=== PATIENT | female | born 1980 | race Caucasian/White ===

== ENCOUNTER 2022-12-29 11:05 | Outpatient (AMB) | payer OTHER, SELFPAY ==
--- NOTE | 2022-12-29 11:09 | A.OFFVIS_ITS ---
Intake Vital Signs 12/29/22 11:11 Height 5 ft 9 in Weight 311 lb 4.683 oz BMI 46.0 BP 130/88 Blood Pressure Location Lt radial Position Sitting Pulse 67 Pulse Source Pulse Oximeter Temp 98 F Temp Source Skin Pulse Oximetry (%) 97 Oxygen Delivery Method Room Air Intake Visit Reasons: RA Intake Note: New patient here for RA. Former patient of Dr. Back Roll Winder Required: No Accompanied by: Self / Same As Patient Allergies penicillin G Allergy (Verified 12/29/22 11:17) Unknown beef derived (bovine) Adverse Reaction (Mild, Verified 12/29/22 11:17) Vomiting Medication List - Last Reconciled 12/29/22 by Karson Uriostegui MD dulaglutide (Trulicity) mg subcut etanercept (Enbrel Mini) mg subcut fluoride (sodium) 1.1% (Denta 5000 Plus) appl PO insulin glargine-yfgn (Semglee (insulin glargine-yfgn) Pen) units subcut levothyroxine 112 mcg PO QAM ondansetron 4 mg PO ONCE PRN HPI HPI Comments History of Present Illness Details The patient presents for evaluation of her rheumatoid arthritis. She relates the onset of joint pains at age 5. She recalls being given pills when she was a child. Apparently there was some prednisone in that mix and she did gain substantial amounts of weight. She also recalls treatment with methotrexate. This caused significant nausea and she passed out so it was not resumed. She had been followed initially by Dr. Dupree in [place] and then Drs. Yeung and Shannan in [place]. Notes that we received indicated that she was on leflunomide 10 mg daily in 2020 but there were mild elevation of LFTs and she still had joint pain. In early 2021 she she was switched to Humira. That was not helpful and eventually she was put on Enbrel 50 mg once a week about a year ago. That has worked considerably better with no further swelling in the knees. She still has occasional pain in the hands and feet. There have been no adverse effects noted with the Enbrel. She does have some ibuprofen she takes occasionally. She had a fractured wrist in 2008 that required surgery. It is sometimes painful. She had a surgery on the right ankle when she was 12 years old. He does not know exactly why although there was deformity at the time. In recent years the left foot has been more painful than the right. [facility] Medical History (Updated 12/29/22 @ 16:04 by Karson Uriostegui MD) Cervical radiculopathy at C7 Obesity Sleep apnea Migraine JRA (juvenile rheumatoid arthritis) Hypothyroidism, unspecified Right knee pain [facility] Surgical History (Updated 12/29/22 @ 11:19 by LUIS EDUARDO Suarez) Hx of cholecystectomy Hx of section H/O left wrist surgery S/P foot surgery, right Family History (Updated 12/29/22 @ 11:20 by LUIS EDUARDO Suarez) Sister Rheumatoid arthritis Social History (Updated 12/29/22 @ 11:20 by LUIS EDUARDO Suarez) Household Members: Spouse Alcohol intake: never Patient Tobacco Use Status: Never used Tobacco Current occupational status: employed 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 Negative for appetite change, the fever, chills, malaise and fatigue Eyes Details: Occasional headache. Some ocular dryness. Negative for vision change, and dizziness ENT Details: Negative for hearing change, tinnitus, oral ulcer, nose bleeds and oral dryness. Card Details: Negative chest pain, edema and syncope Resp Details: Negative for SOB, cough and wheezing GI Details: Negative indigestion/heartburn, nausea, abdominal pain, bowel changes, diarrhea, constipation and bloody stool. Details: Negative for dysuria, hematuria, nocturia, decreased force/flow and genital discharge Skin/Breast Details: Negative for itching, rash, hives, Raynaud's symptoms, sun sensitivity, and skin cancer Neuro Details: Negative for epilepsy, palsy, stroke, changes in speech, tingling and weakness Psych Details: Negative for anxiety, depression and stress Endo Details: Negative for polyuria and polydypsia Arjun/Lymph Details: Negative for excessive bruising or bleeding. Physical Exam Vital Signs: Last Vital Signs Temp 98 F 12/29/22 11:11 Pulse 67 12/29/22 11:11 BP 130/88 12/29/22 11:11 Pulse Ox 97 12/29/22 11:11 Oxygen Delivery Method Room Air 12/29/22 11:11 BMI result Body Mass Index 46.0 APPEARANCE: Patient in no acute distress EYES no redness, pupils equal and reactive to light, eyelids normal EARS: External ear normal, canal clear and tympanic membrane normal. NOSE/SINUS: Airflow through both nares, no nasal discharge, no bleeding THROAT: Oral mucosa moist, no ulcerations NECK: No thyromegaly or masses, no adenopathy, trachea midline. HEART: Regulrar rhythm, S1-S2 heard, no murmurs, rubs or gallops. LUNG: Clear to percussion and auscultation ABD: Normal bowel sounds, no organomegaly, masses or tenderness. EXTREMITIES: No edema, no calf tenderness, normal peripheral pulses. NEURO: Oriented and alert x3. No focal weakness. Reflexes symmetric. Gait normal. SKIN: No inflammatory or neoplastic lesions. Normal color and turgor JOINT EXAM:.?? Cervical Spine: Mild discomfort with extremes of rotation. No tenderness. Thoracic Spine:.? No scoliosis.? No tenderness on palpation. Lumbar Spine:.? Alignment normal.? Full range of motion without pain, no tenderness. Chest Wall:.? No tenderness, swelling, increased warmth or erythema. Hands:.? Right: There is mild soft tissue swelling across the 1st 3 MCP joints but none are tender today. No other areas of tenderness or swelling. No thenar atrophy or sensory loss. Left: Mild soft tissue swelling without tenderness across the MCP joints. Otherwise the joints have normal pain-free range of motion without tenderness, swelling, increased warmth or erythema. Able to make a full fist and has a good lobster catcher strength. Wrists: Left: Mild pain with flexion extension at 75 degrees. There is a large scar at the wrist from previous surgery that seems well healed. There is mild tenderness in the wrist. No redness or warmth. Right:? Normal pain-free range of motion without tenderness, swelling, increased warmth or erythema. Elbows: Right: She lacks about 40 degrees of full extension at the elbow. She flexes normally. There is no tenderness or swelling however. Left:. Normal pain-free range of motion without tenderness, swelling, increased warmth or erythema. Shoulders:.?? Full range of motion without pain. No tenderness, weakness, swelling, increased warmth or erythema. Hips:.? Full range of motion without pain. Hip bursa:.? No tenderness. Knees:.??There is mild patellofemoral crepitus but no pain with normal range motion of the knees. There is slight valgus deformity in both knees there is no effusion, redness, or swelling. Ankles: Right: Slight discomfort with normal AP motion. She has no inversion or eversion possible. There is mild medial lateral tenderness without swelling. There is some degree of valgus deformity at the ankle. Left:.? Normal range of motion with pain at the extremes with inversion, eversion, or AP motion. Mild tenderness with slight swelling but no increased warmth or erythema. Feet:.? Right: Mild tenderness in the instep and in the 1st 2 MTP joints. Slight soft tissue swelling in the forefoot. No redness or warmth. Left: Mild tenderness in the instep and across all the MTP joints. No redness or warmth. Tender points:? No tenderness to digital palpation at the occiput, trapezius, second rib, lateral epicondyle, knees, greater trochanter and gluteal area bilaterally. ? Results Reviewed Results Reviewed: RESULT: MRI Joint Ext Lower W+W/O Contrast Left [facility] VISIT NUMBER :[id number] Patient Name: Liudmila Durán Date of : 1980 Date of Exam: 06-16-2021 Referring Physician: Halley Back [address] [place] [address] Exam: MR Foot (C-/C+) CPT 32836 - Left Room Description: Aaron Rios Espr 1.5 MRI FOOT LEFT WITH AND WITHOUT CONTRAST History: Constant medial top foot pain for several years, injured foot during a fall several years ago. History of seronegative rheumatoid arthritis, on leflunomide. Rule out synovitis, erosion. Technique: MR of the left foot (centered at the mid to forefoot) was performed with and without intravenous contrast. 20 cc of Dotarem was administered intravenously. Comparison: 02/16/2021 FINDINGS: BONES: Mild medial hallux sesamoiditis. Otherwise, no focal marrow edema. No evidence of discrete erosion, fracture, or marrow replacing lesion. Mild calcaneocuboid hypertrophic changes. MUSCLES/SUBCUTANEOUS TISSUES: Intrinsic musculature of the foot demonstrates normal bulk and signal characteristics. Trace fluid in first, second, and third intermetatarsal bursa without associated enhancement or surrounding edema. No evidence of joint effusion. Visualized flexor and extensor tendons appear intact. No tenosynovitis. Partially visualized plantar fascia is normal in thickness and signal. IMPRESSION: No MR evidence of rheumatoid arthritis. Minimal calcaneocuboid osteoarthritis. Mild first-third intermetatarsal bursal fluid without significant inflammation on postcontrast images. I, Kendrick Green, have reviewed the images and report and concur with the resident, Ubaldo Carpenters, findings. Electronically Signed By: Kendrick Green MD Reason For Exam Rule out synovitis and erosions;Rule out synovitis and erosions Signature Line Dictated By: Kendrick Green MD Dictated Date/Time: 06/16/21 3:45 pm Reviewed By: Kendrick Green MD Signed By: Kendrick Green MD Signed Date/Time: 06/16/21 3:45 pm Transcribed By: BRET Transcribed Date/Time: 06/16/21 3:45 pm RESULT: Foot Min 3 Views Right Foot Min 3 Views Right, 3 views Reason: rheumatoid arthritis COMPARISON: 01/17/2008 FINDINGS: No radiographic evidence for inflammatory arthropathy. Tibiotalar, hindfoot and midfoot osteoarthritis with joint space narrowing, subchondral sclerosis and osteophyte formation. IMPRESSION: No radiographic evidence for inflammatory arthropathy. Tibiotalar, midfoot and hindfoot osteoarthritis. WSN: [id number] Ordering Physician: Vanessa Back Reason For Exam rheumatoid arthritis RESULT: Foot Min 3 Views Left Foot Min 3 Views Left, 3 views HISTORY: Rheumatoid arthritis. COMPARISON: Radiographs 06/24/2015. FINDINGS: In the medial aspect of the talar head, at the level of the talonavicular joint there is evidence of periarticular osteopenia and mild juxta-articular erosion. In the lateral aspect of the fourth metatarsal base there may be a small additional focus of juxtaarticular erosion. Normal proximal interphalangeal joints, metatarsophalangeal joint and retrocalcaneal region without evidence of juxta-articular erosions or periarticular osteopenia. Mild midfoot and hindfoot osteoarthritis. No evidence for acute fracture or dislocation. Probable trace ankle effusion. IMPRESSION: Mild inflammatory arthropathy changes affecting the medial talar head and possibly the fourth metatarsal base. No evidence of involvement of the proximal interphalangeal joints, metatarsophalangeal joints, or calcaneus. Mild osteoarthritic changes in the midfoot and hindfoot. I have personally reviewed the images and I agree with this report. 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 Her disease has mostly been asymmetric. There apparently had been deformity in the right footbut she also recalls an injury. This eventually needed to be operated on. She seems to have a fusion at the subtalar joint at this point with no inversion or eversion possible. There is actually more tenderness and discomfort now in the left foot. This probably represents secondary osteoarthritis and or still some ongoing inflammation. She did have repeated aspirates of the knees, usually showing inflammatory fluid and there is no fluid in excess today and they are not tender. I think we should continue the Enbrel for now. She was encouraged to lose weight. Clearly the lower extremity joints are under increased pressure given her obesity and may not last as long if she remains this heavy. We will check some inflammatory markers and CBC today. Follow-up in 4-5 months seems reasonable. Orders: Orders Erythrocyte Sedimentation Rate Today M06.9 - Rheumatoid arthritis, unspecified Complete Blood Count Auto Diff Today M06.9 - Rheumatoid arthritis, unspecified Cyclic Citrullinated Peptide Today M06.9 - Rheumatoid arthritis, unspecified C Reactive Protein Today M06.9 - Rheumatoid arthritis, unspecified Rheumatoid Factor Today M06.9 - Rheumatoid arthritis, unspecified Coding Level of Care Code New Pt Level 3 (78028) Diagnoses On [facility] drug [facility] Z79.899 Osteoarthritis of foot, right M19.071 Rheumatoid arthritis M06.9
[2022-12-29 11:11] VITALS: BP 130/88; PULSE 67; TEMP 36.6; O2SAT 97; BMI 46.0
== END 2022-12-29 11:57 | disposition home or self-care (01) ==
PROVIDERS: PCP Internal Medicine; Visit Provider Internal Medicine Rheumatology
DX: Z79.899 Other long term (current) drug therapy (principal); M19.071 Primary osteoarthritis, right ankle and foot; M06.9 Rheumatoid arthritis, unspecified
CPT/HCPCS: 99203

== ENCOUNTER → 2022-12-29 11:05 | Outpatient (BNVA) | payer OTHER, SELFPAY | PROVIDERS: PCP Internal Medicine; Visit Provider Internal Medicine Rheumatology ==

== ENCOUNTER 2022-12-29 12:01 | Outpatient (REF) | payer OTHER, SELFPAY ==
[2022-12-29 13:44] LABS: C Reactive Protein 1.46 mg/dL (< or = 0.50)
[2022-12-29 13:49] LABS: Rheumatoid Factor < 13.0 IU/mL (<15.0)
[2022-12-29 13:52] LABS: Basophils Percent Auto 0.4 % (0-2); Eosinophils Absolute Auto 0.2 X10*3/uL (0.0-0.4); Eosinophils Percent Auto 2.8 % (0-4); Hematocrit 37.1 % (37.0-47.0); Hemoglobin 12.4 g/dl (12.0-16.0); Imm Gran Abs Auto 0.07 X10*3/uL (0.00-0.03); Imm Gran Pct Auto 0.8 % (0.0-0.4); Lymphocytes Absolute Auto 1.9 X10*3/uL (1.2-4.9); Lymphocytes Percent Auto 23.2 % (20-40); MANUAL DIFF FLAG SCAN; Mean Corpuscular HGB Conc 33.4 g/dl (31.0-35.0); Mean Corpuscular Hemoglobin 27.3 pg (27.0-33.0); Mean Corpuscular Volume 81.5 fL (80.0-98.0); Monocytes Absolute Auto 0.5 X10*3/uL (0.1-1.2); Monocytes Percent Auto 5.6 % (2-11); Neutrophils Absolute Auto 5.6 x10*3/uL (2.0-8.3); Neutrophils Percent Auto 67.2 % (45-73); PLT CLUMP 1; Red Blood Count 4.55 X10*6/uL (4.20-5.50); Red Cell Distribution Width 13.9 % (11.0-16.0); SCAN SMEAR FLAG 1
[2022-12-29 14:05] LABS: Erythrocyte Sedimentation Rate 6 MM/HR (0-20)
[2022-12-29 14:25] LABS: Platelet Count 160 X10*3/uL (160-400); White Blood Count 8.3 X10*3/uL (4.8-10.8)
[2022-12-29 14:26] LABS: SLIDE REVIEW VERIFIED
[2023-01-02 17:09] LABS: Cyclic Citrullinated Peptide <16 UNITS
== END 2022-12-29 12:02 | disposition home or self-care (01) ==
LOC: HO.10HDL 12:01
PROVIDERS: Visit Provider Internal Medicine Rheumatology
DX: M06.9 Rheumatoid arthritis, unspecified (principal)
CPT/HCPCS: 36415; 85025; 85652; 86140; 86200; 86431

== ENCOUNTER 2023-06-01 09:25 | Outpatient (AMB) | payer OTHER, SELFPAY ==
[2023-06-01 09:42] VITALS: BP 120/70; PULSE 91; TEMP 36.1; O2SAT 97; BMI 44.8
--- NOTE | 2023-06-01 09:42 | MHC.OFFVIS ---
Intake Vital Signs 06/01/23 09:42 Height 5 ft 9 in Weight 303 lb 9.224 oz BMI 44.8 BP 120/70 Blood Pressure Location Rt radial Position Sitting Pulse 91 Pulse Source Pulse Oximeter Temp 97 F Temp Source Skin Pulse Oximetry (%) 97 Oxygen Delivery Method Room Air Intake Visit Reasons: RA/5 months WELT BUT[employer] HAND may 2023 Intake Note: Patient last seen 12/29/[address] Uriostegui presents today for RA follow up and test results. c/o left knee swelling c/o left eye discomfort Would like rheum to handle Enbrel refills as opposed to PCP who was filling it until she saw rheum. 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 Nur 42yoF returns for her rheumatoid arthritis. She continues on Enbrel 50mg QW which she finds fairly effective. Today she has concerns for left knee pain and desires a cortisone injection. Her left knee has been bothersome for about a month now. Patient also reports that her eyes have been bothersome in the morning and she has not yet discussed with her primary care. She describes mild nonpurulent drainage, but denies eye pain and redness. Prior visit: 12/29/2022 She relates the onset of joint pains at age 5. She recalls being given pills when she was a child. Apparently there was some prednisone in that mix and she did gain substantial amounts of weight. She also recalls treatment with methotrexate. This caused significant nausea and she passed out so it was not resumed. She had been followed initially by Dr. Dupree in [place] and then Drs. Yeung and Shannan in [place]. Notes that we received indicated that she was on leflunomide 10 mg daily in 2020 but there were mild elevation of LFTs and she still had joint pain. In early 2021 she she was switched to Humira. That was not helpful and eventually she was put on Enbrel 50 mg once a week about a year ago. That has worked considerably better with no further swelling in the knees. She still has occasional pain in the hands and feet. There have been no adverse effects noted with the Enbrel. She does have some ibuprofen she takes occasionally. She had a fractured wrist in 2008 that required surgery. It is sometimes painful. She had a surgery on the right ankle when she was 12 years old. He does not know exactly why although there was deformity at the time. In recent years the left foot has been more painful than the right. [facility], [facility] Medical History (Updated 06/01/23 @ 11:33 by JOSE Snider) Left knee pain Cervical radiculopathy at C7 Obesity Sleep apnea Migraine JRA (juvenile rheumatoid arthritis) Hypothyroidism, unspecified Right knee pain On computer terminal operator drug therapy Surgical History Hx of cholecystectomy Hx of section H/O left wrist surgery S/P foot surgery, right Family History Sister Rheumatoid arthritis Social History Household Members: Spouse Alcohol intake: never Patient Tobacco Use Status: Never used Tobacco Current occupational status: employed 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 NOSE/SINUS: Airflow through both nares, no nasal discharge, no bleeding THROAT: Oral mucosa moist, no ulcerations NECK: No thyromegaly or masses, no adenopathy, trachea midline. HEART: Regular rhythm, S1-S2 heard, no murmurs, rubs or gallops. LUNG: Clear to percussion and auscultation EXTREMITIES: No edema, no calf tenderness, normal peripheral pulses. NEURO: Oriented and alert x3. No focal weakness. Reflexes symmetric. Gait normal. SKIN: No inflammatory or neoplastic lesions. Normal color and turgor JOINT EXAM:.?? Cervical Spine: Mild discomfort with extremes of rotation. No tenderness. Thoracic Spine:.? No scoliosis.? No tenderness on palpation. Lumbar Spine:.? Alignment normal.? Full range of motion without pain, no tenderness. Chest Wall:.? No tenderness, swelling, increased warmth or erythema. Hands:.? Right: There is no mild soft tissue swelling across the 1st 3 MCP joints as on prior visit. No other areas of tenderness or swelling. No thenar atrophy or sensory loss. Left: Mild soft tissue swelling without tenderness across the MCP joints. Otherwise the joints have normal pain-free range of motion without tenderness, swelling, increased warmth or erythema. Able to make a full fist and has a good tailercpa strength. Wrists: Left: Mild pain with flexion extension at 75 degrees. There is a large scar at the wrist from previous surgery that seems well healed. There is mild tenderness in the wrist. No redness or warmth. Right:? Normal pain-free range of motion without tenderness, swelling, increased warmth or erythema. Elbows: Right: She lacks about 40 degrees of full extension at the elbow. She flexes normally. There is no tenderness or swelling however. Left:. Normal pain-free range of motion without tenderness, swelling, increased warmth or erythema. Shoulders:.?? Full range of motion without pain. No tenderness, weakness, swelling, increased warmth or erythema. Hips:.? Full range of motion without pain. Hip bursa:.? No tenderness. Knees:.??Left Knee is warm. There is mild patellofemoral crepitus but no pain with normal range motion of the knees. There is slight valgus deformity in both knees there is no effusion, redness, or swelling. Ankles: Right: Slight discomfort with normal AP motion. She has no inversion or eversion possible. There is mild medial lateral tenderness without swelling. There is some degree of valgus deformity at the ankle. Left:.? Normal range of motion with pain at the extremes with inversion, eversion, or AP motion. Mild tenderness with slight swelling but no increased warmth or erythema. Feet:.? Right: Mild tenderness in the instep and in the 1st 2 MTP joints. Slight soft tissue swelling in the forefoot. No redness or warmth. Left: Mild tenderness in the instep and across all the MTP joints. No redness or warmth. Tender points:? No tenderness to digital palpation at the occiput, trapezius, second rib, lateral epicondyle, knees, greater trochanter and gluteal area bilaterally. ? Results Reviewed Results Reviewed: RESULT: MRI Joint Ext Lower W+W/O Contrast Left [facility] VISIT NUMBER :[id number] Patient Name: Liudmila Durán Date of : 1980 Date of Exam: 06-16-2021 Referring Physician: Halley Back [address] [place] [address] Exam: MR Foot (C-/C+) CPT 17808 - Left Room Description: Aaron Rios Espr 1.5 MRI FOOT LEFT WITH AND WITHOUT CONTRAST History: Constant medial top foot pain for several years, injured foot during a fall several years ago. History of seronegative rheumatoid arthritis, on leflunomide. Rule out synovitis, erosion. Technique: MR of the left foot (centered at the mid to forefoot) was performed with and without intravenous contrast. 20 cc of Dotarem was administered intravenously. Comparison: 02/16/2021 FINDINGS: BONES: Mild medial hallux sesamoiditis. Otherwise, no focal marrow edema. No evidence of discrete erosion, fracture, or marrow replacing lesion. Mild calcaneocuboid hypertrophic changes. MUSCLES/SUBCUTANEOUS TISSUES: Intrinsic musculature of the foot demonstrates normal bulk and signal characteristics. Trace fluid in first, second, and third intermetatarsal bursa without associated enhancement or surrounding edema. No evidence of joint effusion. Visualized flexor and extensor tendons appear intact. No tenosynovitis. Partially visualized plantar fascia is normal in thickness and signal. IMPRESSION: No MR evidence of rheumatoid arthritis. Minimal calcaneocuboid osteoarthritis. Mild first-third intermetatarsal bursal fluid without significant inflammation on postcontrast images. I, Kendrick Green, have reviewed the images and report and concur with the resident, Ubaldo Carpenters, findings. Electronically Signed By: Kendrick Green MD Reason For Exam Rule out synovitis and erosions;Rule out synovitis and erosions Signature Line Dictated By: Kendrick Green MD Dictated Date/Time: 06/16/21 3:45 pm Reviewed By: Kendrick Green MD Signed By: Kendrick Green MD Signed Date/Time: 06/16/21 3:45 pm Transcribed By: BRET Transcribed Date/Time: 06/16/21 3:45 pm RESULT: Foot Min 3 Views Right Foot Min 3 Views Right, 3 views Reason: rheumatoid arthritis COMPARISON: 01/17/2008 FINDINGS: No radiographic evidence for inflammatory arthropathy. Tibiotalar, hindfoot and midfoot osteoarthritis with joint space narrowing, subchondral sclerosis and osteophyte formation. IMPRESSION: No radiographic evidence for inflammatory arthropathy. Tibiotalar, midfoot and hindfoot osteoarthritis. WSN: [id number] Ordering Physician: Vanessa Back Reason For Exam rheumatoid arthritis RESULT: Foot Min 3 Views Left Foot Min 3 Views Left, 3 views HISTORY: Rheumatoid arthritis. COMPARISON: Radiographs 06/24/2015. FINDINGS: In the medial aspect of the talar head, at the level of the talonavicular joint there is evidence of periarticular osteopenia and mild juxta-articular erosion. In the lateral aspect of the fourth metatarsal base there may be a small additional focus of juxtaarticular erosion. Normal proximal interphalangeal joints, metatarsophalangeal joint and retrocalcaneal region without evidence of juxta-articular erosions or periarticular osteopenia. Mild midfoot and hindfoot osteoarthritis. No evidence for acute fracture or dislocation. Probable trace ankle effusion. IMPRESSION: Mild inflammatory arthropathy changes affecting the medial talar head and possibly the fourth metatarsal base. No evidence of involvement of the proximal interphalangeal joints, metatarsophalangeal joints, or calcaneus. Mild osteoarthritic changes in the midfoot and hindfoot. I have personally reviewed the images and I agree with this report. WSN: [id number] Assessment & Plan Assessment & Plan (1) On fci drug therapy: Code(s): Z79.899 - Other computer terminal operator (current) drug therapy (2) Osteoarthritis of foot, right: Comment: prob due to DOROTEO and old injury; also had surgery Code(s): M19.071 - Primary osteoarthritis, right ankle and foot Qualifiers: Osteoarthritis type: primary Qualified Code(s): M19.071 - Primary osteoarthritis, right ankle and foot (3) Rheumatoid arthritis: Code(s): M06.9 - Rheumatoid arthritis, unspecified Qualifiers: Rheumatoid arthritis location: multiple sites Rheumatoid factor presence: without rheumatoid factor Qualified Code(s): M06.09 - Rheumatoid arthritis without rheumatoid factor, multiple sites (4) Left knee pain: Code(s): M25.562 - Pain in left knee Qualifiers: Chronicity: chronic Qualified Code(s): M25.562 - Pain in left knee; G89.29 - Other chronic pain Plan #SeroNeg RA/OA: Ms. Nur has longstanding, since childhood, rheumatoid arthritis. Her disease has mostly been asymmetric. There apparently had been deformity in the right foot but she also recalls an injury. This eventually needed to be operated on. She seems to have a fusion at the subtalar joint at this point with no inversion or eversion possible. There is actually more tenderness and discomfort now in the left foot. This probably represents secondary osteoarthritis and or still some ongoing inflammation. She did have repeated aspirates of the knees, usually showing inflammatory fluid and there is no fluid in excess today and they are not tender. I think we should continue the Enbrel for now. We continue to encouraged her to lose weight. Clearly the lower extremity joints are under increased pressure given her obesity and may not last as long if she remains this heavy. We will check some inflammatory markers and CBC today and 1 week before next visit. I have also requested PA and sent RX for Enbrel to take over management. #Left Knee Pain: There is pain and warmth. I think a corticosteroid injection is reasonable. She tolerated the procedure well. 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 Patient understands to hold Enbrel if she develops fever, infections, non-healing wounds, rashes. Follow-up in 4 Orders: Orders Erythrocyte Sedimentation Rate Today M06.9 - Rheumatoid arthritis, unspecified Comprehensive Met. Panel Today M06.9 - Rheumatoid arthritis, unspecified C Reactive Protein 6 Months M06.9 - Rheumatoid arthritis, unspecified Complete Blood Count Auto Diff 6 Months M06.9 - Rheumatoid arthritis, unspecified, Z79.899 - Other fci (current) drug therapy Aspartate Amino Transferase 6 Months M06.9 - Rheumatoid arthritis, unspecified, Z79.899 - Other computer terminal operator (current) drug therapy AMB Joint Injection/Aspiration Today M06.9 - Rheumatoid arthritis, unspecified, M25.562 - Pain in left knee Complete Blood Count Auto Diff Today M06.9 - Rheumatoid arthritis, unspecified C Reactive Protein Today M06.9 - Rheumatoid arthritis, unspecified Erythrocyte Sedimentation Rate 6 Months M06.9 - Rheumatoid arthritis, unspecified Alanine Aminotransferase 6 Months M06.9 - Rheumatoid arthritis, unspecified, Z79.899 - Other fci (current) drug therapy Creatinine 6 Months M06.9 - Rheumatoid arthritis, unspecified, Z79.899 - Other computer terminal operator (current) drug therapy Medications: Changed From etanercept (Enbrel Mini) subcut M06.9 - Rheumatoid arthritis, unspecified To etanercept (Enbrel Mini) 50 mg subcut QWEEK 4 mL 3RF M06.9 - Rheumatoid arthritis, unspecified Coding Level of Care Code Tele Est Pt Level 3 (96707) Diagnoses On fci drug therapy Z79.899 Primary osteoarthritis of right foot M19.071 Osteoarthritis type: primary Rheumatoid arthritis of multiple sites with negative rheumatoid factor M06.09 Rheumatoid arthritis location: multiple sites Rheumatoid factor presence: without rheumatoid factor Chronic pain of left knee M25.562; G89.29 Chronicity: chronic
== END 2023-06-01 10:39 | disposition home or self-care (01) ==
PROVIDERS: PCP Internal Medicine; Visit Provider Nurse Practitioner Family
DX: Z79.899 Other long term (current) drug therapy (principal); M19.071 Primary osteoarthritis, right ankle and foot; M06.09 Rheumatoid arthritis without rheumatoid factor, multiple sites; M25.562 Pain in left knee; G89.29 Other chronic pain
CPT/HCPCS: 99213

== ENCOUNTER → 2023-06-01 09:25 | Outpatient (BNVA) | payer OTHER, SELFPAY | PROVIDERS: PCP Internal Medicine; Visit Provider Nurse Practitioner Family ==

== ENCOUNTER 2023-12-29 09:08 | Outpatient (REF) | payer OTHER, SELFPAY ==
--- NOTE | ~2023-12-29 | XR_ITS ---
EXAMINATION: XR SACRUM AND COCCYX, LUMBAR SPINE CLINICAL INFORMATION: Low back pain for 8 months, no injury. COMPARISON: None available. TECHNIQUE: 5 views of the lumbar spine. 3 views of the sacrum/coccyx. FINDINGS: Lumbar Spine: Facet arthritis in the lower lumbar spine. Moderate multilevel lumbar spondylosis. Moderate loss of disc space height and hypertrophic change at L1-L2. Jrwbckiv-cq-goxquo loss of disc space height and hypertrophic change at L5-S1. Mild grade 1 retrolisthesis of L4 on L5. Sacrum/Coccyx: Bilateral sacroiliac joints are maintained. Pubic symphysis is maintained. XR/XR sacrum coccyx min 2V IMPRESSION: 1. Moderate multilevel lumbar spondylosis. 2. Facet arthritis in the lower lumbar spine. 3. Hdzfsgbx-sa-nqezbm degenerative disc disease at L5-S1. Electronically signed by: Bethany New MD 02/06/2024 12:23 PM EDT
--- NOTE | ~2023-12-29 | XR_ITS ---
EXAMINATION: XR SACRUM AND COCCYX, LUMBAR SPINE CLINICAL INFORMATION: Low back pain for 8 months, no injury. COMPARISON: None available. TECHNIQUE: 5 views of the lumbar spine. 3 views of the sacrum/coccyx. FINDINGS: Lumbar Spine: Facet arthritis in the lower lumbar spine. Moderate multilevel lumbar spondylosis. Moderate loss of disc space height and hypertrophic change at L1-L2. Dxxypmhw-lb-dmdksw loss of disc space height and hypertrophic change at L5-S1. Mild grade 1 retrolisthesis of L4 on L5. Sacrum/Coccyx: Bilateral sacroiliac joints are maintained. Pubic symphysis is maintained. XR/XR lumbar spine 4V min IMPRESSION: 1. Moderate multilevel lumbar spondylosis. 2. Facet arthritis in the lower lumbar spine. 3. Xrfqbxyx-jw-aiubba degenerative disc disease at L5-S1. Electronically signed by: Bethany New MD 02/06/2024 12:23 PM EDT
== END 2023-12-29 09:09 | disposition home or self-care (01) ==
LOC: HO.XRAY 09:08
PROVIDERS: PCP Internal Medicine; Visit Provider Student in an Organized Health Care Education/Training Program
DX: M54.50 Low back pain, unspecified (principal); G89.29 Other chronic pain
CPT/HCPCS: 72110; 72220

== ENCOUNTER 2023-12-29 09:08 | Outpatient (AMB) | payer OTHER, SELFPAY ==
--- NOTE | 2023-12-29 09:18 | MHC.OFFVIS ---
Vital Signs 12/29/23 09:23 Height 5 ft 9 in Weight 306 lb 10.608 oz BMI 45.3 BP 124/72 Blood Pressure Location Lt brachial Position Sitting Pulse 79 Pulse Source Pulse Oximeter Pulse Oximetry (%) 97 Oxygen Delivery Method Room Air Intake Visit Reasons: RA/ Intake Note: Patient presents for RA. Allergies penicillin G Allergy (Verified 12/29/23 09:21) Unknown beef derived (bovine) Adverse Reaction (Mild, Verified 12/29/23 09:21) Vomiting Medication List - Last Reconciled 12/29/23 by Mariama Calderon MD Enbrel Mini (etanercept) 50 mg subcut QWEEK NS fluoride (sodium) 1.1% (Denta 5000 Plus) appl PO insulin glargine-yfgn (Semglee (insulin glargine-yfgn) Pen) units subcut levothyroxine 112 mcg PO QAM ondansetron 4 mg PO ONCE PRN semaglutide (Ozempic) 1 mg subcut QWEEK HPI Comments Details: This is a 43-year-old female with juvenile rheumatoid arthritis who presents follow-up. She remains on Enbrel regularly. She states that she has been having pain in her tailbone for the last 2 months or so. Her job is relatively physical. Her other joints have been doing relatively well. [facility] Medical History Left knee pain Cervical radiculopathy at C7 Obesity Sleep apnea Migraine JRA (juvenile rheumatoid arthritis) Hypothyroidism, unspecified Right knee pain On group home drug therapy Surgical History Hx of cholecystectomy Hx of section H/O left wrist surgery S/P foot surgery, right Family History Sister Rheumatoid arthritis Mother No problems noted. 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 Reproductive History Menstrual Total pregnancies: 2 Full term: 2 Review of Systems [facility] Reports back pain Physical Exam Vital Signs: Last Vital Signs Pulse 79 12/29/23 09:23 BP 124/72 12/29/23 09:23 Pulse Ox 97 12/29/23 09:23 Oxygen Delivery Method Room Air 12/29/23 09:23 BMI result Body Mass Index 45.3 Const General: cooperative, healthy appearing and comfortable Nutritional Appearance: obese morbidly obese Orientation/consciousness: patient oriented x3 Limitations: no limitations HEENT Head: Yes normocephalic and Yes atraumatic Mouth: moist mucous membranes Resp Effort & Inspection: normal respiratory effort and able to speak in complete sentences Auscultation: clear to auscultation bilaterally Cardio Rate: regular rate Rhythm: regular rhythm Skin General skin exam: no rashes or lesions noted Neuro General: patient oriented x3 Extrem Other: Mild tenderness to palpation in the tailbone area No active synovitis Positive straight leg raise test bilaterally Bilateral knee crepitus Results Reviewed Results Reviewed: Labs 12/2023 CRP 8 (<4) ESR 29 CBC and CMP unremarkable Assessment & Plan Assessment & Plan (1) Rheumatoid arthritis: Comment: -ve RF -ve CCP dx age 5 Prednisone for years MTX ineffective Leflunomide partially effective DC due to GI upset weakness Humira ineffective Enbrel approx 2021 effective Code(s): M06.9 - Rheumatoid arthritis, unspecified Category: Medical Qualifiers: Rheumatoid arthritis location: multiple sites Rheumatoid factor presence: without rheumatoid factor Qualified Code(s): M06.09 - Rheumatoid arthritis without rheumatoid factor, multiple sites Plan: This is a 43-year-old female with rheumatoid arthritis who presents for follow-up. She remains on Enbrel 50 mg once weekly. She is doing well overall with no active synovitis Inflammatory markers mildly elevated, can be related to obesity Continue with Enbrel 50 mg once weekly Labs before next visit in 6 months (2) Chronic lower back pain: Code(s): M54.50 - Low back pain, unspecified; G89.29 - Other chronic pain Category: Medical Qualifiers: Back pain laterality: midline Sciatica presence: without sciatica Qualified Code(s): M54.50 - Low back pain, unspecified; G89.29 - Other chronic pain Plan: Check x-rays Start PT (3) On terminal carman drug therapy: Code(s): Z79.899 - Other terminal carman (current) drug therapy Category: Medical Plan: Side effects of Enbrel were discussed with the patient in detail including increased risk of infection, demyelinating disease, reactivation of latent TB, possible increased risk of solid and skin tumors. Patient fully aware. Advised patient to seek medical care [place] if patient has an infection and advised patient to stop the medication until the infection is resolved. Plan I spent 30 minutes reviewing patient's chart, evaluating patient, ordering diagnostic workup, counseling patient and documenting in the chart Orders: Orders XR lumbar spine 4V min Today G89.29 - Other chronic pain, M54.50 - Low back pain, unspecified XR sacrum coccyx min 2V Today G89.29 - Other chronic pain, M54.50 - Low back pain, unspecified Comprehensive Met. Panel 6 Months M06.09 - Rheumatoid arthritis without rheumatoid factor, multiple sites Hepatitis A,B,C Profile 6 Months Z11.59 - Encounter for screening for other viral diseases PT Evaluation and Treatment Today M51.36 - Other intervertebral disc degeneration, lumbar region Complete Blood Count Auto Diff 6 Months M06.09 - Rheumatoid arthritis without rheumatoid factor, multiple sites C Reactive Protein 6 Months M06.09 - Rheumatoid arthritis without rheumatoid factor, multiple sites Erythrocyte Sedimentation Rate 6 Months M06.09 - Rheumatoid arthritis without rheumatoid factor, multiple sites T Spot TB 6 Months Z11.7 - Encounter for testing for latent tuberculosis infection Coding Level of Care Code Est Pt Level 4 (33116) Diagnoses Rheumatoid arthritis of multiple sites with negative rheumatoid factor M06.09 Rheumatoid arthritis location: multiple sites Rheumatoid factor presence: without rheumatoid factor Chronic midline low back pain without sciatica M54.50; G89.29 Back pain laterality: midline Sciatica presence: without sciatica On terminal carman drug therapy Z79.899
[2023-12-29 09:23] VITALS: BP 124/72; PULSE 79; O2SAT 97; BMI 45.3
== END 2023-12-29 09:53 | disposition home or self-care (01) ==
PROVIDERS: PCP Internal Medicine; Visit Provider Student in an Organized Health Care Education/Training Program
DX: M06.09 Rheumatoid arthritis without rheumatoid factor, multiple sites (principal); M54.50 Low back pain, unspecified; G89.29 Other chronic pain; Z79.899 Other long term (current) drug therapy
CPT/HCPCS: 99214

== ENCOUNTER 2024-03-14 12:54 | Outpatient (REF) | payer OTHER, SELFPAY ==
--- NOTE | ~2024-03-14 | MM_ITS ---
EXAMINATION: BONE DENSITOMETRY CLINICAL INDICATION: Long-term (current) use of systemic steroids. COMPARISON: This is the patient's baseline examination. TECHNIQUE: Using a [employer] DXA System (software version: 13.1) manufactured by [employer], dual-energy x-ray absorptiometry was performed of the lumbar spine and left hip. The images are of good technical quality. Based on ISCD (International Society for Clinical Densitometry) standards of reporting, Z-scores instead of T-scores are reported in this premenopausal woman. Summary results are attached. FINDINGS: LEFT FEMUR, NECK: BMD 1.071 g/cm2, T-score 0.2, Z-score 0.0, Z-score within expected range for age. LEFT FEMUR, TOTAL: BMD 1.231 g/cm2, T-score 1.8, Z-score 1.2, Z-score within expected range for age. AP SPINE L1-L4: BMD 1.425 g/cm2, T-score 2.0, Z-score 0.9, Z-score within expected range for age. IDENTIFIED RISK FACTORS: Rheumatoid arthritis, glucocorticoids (chronic), secondary osteoporosis (hyperthyroidism). HISTORY OF FRACTURE: None listed. MEDICATIONS: Multivitamin. MM/XR DEXA axial skeleton IMPRESSION: 1. DIAGNOSIS: Based on the lowest Z-score value of 0.0 in the femoral neck, the patient's bone density is within the expected range for age. 2. 10-YEAR FRACTURE RISK PREDICTION, FRAX: Not performed in this perimenopausal patient. 3. Treatment Recommendations: NOF guidelines recommend consideration for treatment in postmenopausal women and men age 50 and older presenting with the following: -A hip or vertebral (clinical or morphometric) fracture. -T-score less than or equal to -2.5 at the femoral neck or spine after appropriate evaluation to exclude secondary causes. -Low bone mass at the hip or spine and a 10-year fracture probability by FRAX of greater than or equal to 3% for hip fracture or greater than or equal to 20% for major osteoporotic fracture based on the [place] adapted WHO algorithm. 4. Other Recommendations: All treatment decisions require clinical judgment and consideration of individual patient factors, including patient preferences, comorbidities, previous drug use, risk factors not captured in the FRAX model (e.g. frailty, falls, vitamin D deficiency, increased bone turnover, interval significant decline in bone density) and possible under or overestimation of fracture risk by FRAX. FUTURE SCAN RECOMMENDATION: People with diagnosed cases of osteoporosis or at high risk for fracture should have regular bone mineral density tests. For patients eligible for Medicare, routine testing is allowed once every 2 years. The testing frequency can be increased to one year for patients who have rapidly progressing disease, those who are receiving or discontinuing medical therapy to restore bone mass, or have additional risk factors. Electronically signed by: Nic Olivas MD 03/15/2024 02:39 PM ALE[facility]CK
== END 2024-03-14 12:55 | disposition home or self-care (01) ==
LOC: HO.MAMMO 12:54
PROVIDERS: PCP Internal Medicine; Visit Provider Student in an Organized Health Care Education/Training Program
DX: Z13.820 Encounter for screening for osteoporosis (principal); Z79.52 Long term (current) use of systemic steroids
CPT/HCPCS: 77080

== ENCOUNTER 2024-10-04 12:44 | Outpatient (AMB) | payer OTHER, SELFPAY ==
[2024-10-04 13:10] VITALS: BP 124/78; PULSE 78; O2SAT 98; BMI 43.6
--- NOTE | 2024-10-04 13:10 | A.OFFVIS_ITS ---
Vital Signs 10/04/24 13:10 Height 5 ft 9 in Weight 295 lb 3.183 oz BMI 43.6 BP 124/78 Blood Pressure Location Lt brachial Position Sitting Pulse 78 Pulse Source Pulse Oximeter Pulse Oximetry (%) 98 Oxygen Delivery Method Room Air Intake Visit Reasons: RA Intake Note: Patient presents for follow up on RA/ Sciatica. Patient is requesting letter regarding medication. Allergies penicillin G Allergy (Verified 10/04/24 13:14) Unknown beef derived (bovine) Adverse Reaction (Mild, Verified 10/04/24 13:14) Vomiting Medication List - Last Reconciled 10/04/24 by Della Wolff MD insulin glargine-yfgn (Semglee (insulin glargine-yfgn) Pen) units subcut levothyroxine 112 mcg PO QAM ondansetron 4 mg PO ONCE PRN semaglutide (Ozempic) 1 mg subcut QWEEK HPI Comments Details: Patient is a 43 y.o. female with hypothyroidism, DM, polyarticular OA, and DOROTEO/seronegative here today for follow up Interval History: Patient last seen 12/29/[address] Calderon. Visit summary - Complained of back pain Today, - Still having back pain - Currently trying to lose weight with GLP1 - Having trouble with the Enbrel Mini Rheumatologic History: -ve RF -ve CCP dx age 5 Prednisone for years MTX ineffective Leflunomide partially effective DC due to GI upset weakness Humira ineffective Enbrel approx 2021 effective Current Rheumatology Medication(s): Enbrel mini 50mg SC every week PFSH Medical History Left knee pain Cervical radiculopathy at C7 Obesity Sleep apnea Migraine JRA (juvenile rheumatoid arthritis) Hypothyroidism, unspecified Right knee pain On skilled nursing drug therapy Surgical History Hx of cholecystectomy Hx of section H/O left wrist surgery S/P foot surgery, right Family History Sister Rheumatoid arthritis Mother No problems noted. 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 Review of Systems Const Details: Review of Systems Constitutional: Denies fever, chills, weight loss ENT: Denies vision changes, eye pain or eye redness, dental caries, dry mouth GI: Denies nausea, vomiting, diarrhea, abdominal pain, change in BM Pulm: Denies SOB, MUNOZ, hemoptysis, wheezing Cards: Denies chest pain, palpitations Skin: Denies Raynaud's, rash, nail changes, photosensitivity, [employer] SALES EXECUTIVE: Denies headaches, weakness, paresthesias, recurrent falls MSK: as per HPI All other systems reviewed and are unremarkable except noted above Physical Exam Vital Signs: Last Vital Signs Pulse 78 10/04/24 13:10 BP 124/78 10/04/24 13:10 Pulse Ox 98 10/04/24 13:10 Oxygen Delivery Method Room Air 10/04/24 13:10 BMI result Body Mass Index 43.6 Vital signs reviewed Physical Examination CONSTITUITIONAL Patient alert and cooperative. Well appearing and in no apparent painful distress HEENT Conjunctiva and sclera clear. No lymphadenopathy. CHEST/RESPIRATORY SYSTEM Normal respiratory effort and able to speak in complete sentences. Clear to auscultation bilaterally. No crackles, rales, rhonchi, wheezes heard. CARDIAC SYSTEM Regular rate and rhythm. S1 and S2 heard no murmurs. Radial pulses intact bilaterally MSK Hands * Able to make a fist. Few tender joints. No deformites Wrists * Right Wrist: Full ROM. 70 degrees of wrist flexion, 80 degrees of wrist extension. No swelling or TTP * Left Wrist: Full ROM. 70 degrees of wrist flexion, 80 degrees of wrist extension. No swelling or TTP Elbows * Right Elbow: Full ROM. No swelling or TTP. * Left Elbow: Full ROM. No swelling or TTP. Shoulders * Right shoulder: Full ROM. No swelling noted. * Left shoulder: Full ROM. No swelling noted. Hip bursa: Tenderness to palpation bilaterally Knees * Right knee: Full ROM. No swelling noted. TTP of the knee joint lie * Left knee: Full ROM. No swelling noted. TTP of the knee joint lie Ankles * Right ankle: Decreased ROM in the subtalar joint * Left ankle: Good ROM Feet * Right foot: Negative squeeze test * Left foot: Negative squeeze test Tender points? * No tenderness to palpation of the bilateral trapezius, supraspinatus, anterior costochondral junctions, bilateral suboccipital muscle insertions SKIN No rashes Results Reviewed Results Reviewed: Lab lucius labs reviewed Chronically elevated CRP unchanged AST/ALT normal Normal kidney function Assessment & Plan Assessment & Plan (1) Rheumatoid arthritis: Comment: -ve RF -ve CCP dx age 5 Prednisone for years MTX ineffective Leflunomide partially effective DC due to GI upset weakness Humira ineffective Enbrel approx 2021 effective Code(s): M06.9 - Rheumatoid arthritis, unspecified Category: Medical Qualifiers: Rheumatoid arthritis location: multiple sites Rheumatoid factor presence: without rheumatoid factor Qualified Code(s): M06.09 - Rheumatoid arthritis without rheumatoid factor, multiple sites Plan: #Seronegative RA Patient is a 43 y.o. female with seronegative RA here today for follow up. No evidence of synovitis today Patient having issues with the mini cartridge Plan - Enbrel sure click 50mg SC weekly - RTC 6 months - CBC, CMP, ESR, CRP (2) Chronic lower back pain: Code(s): M54.50 - Low back pain, unspecified; G89.29 - Other chronic pain Category: Medical Qualifiers: Back pain laterality: midline Sciatica presence: without sciatica Qualified Code(s): M54.50 - Low back pain, unspecified; G89.29 - Other chronic pain Plan: #Chronic lower back pain Send to pain management (3) Encounter for monitoring of etanercept therapy: Code(s): Z51.81 - Encounter for therapeutic drug level monitoring; Z79.620 - exterminator helper termite (current) use of immunosuppressive biologic Plan: #Long-term Use of TNF Inhibitors: Etanercept Discussed with the patient the benefits and risks of TNF inhibitors for the management of the rheumatic condition Benefits include reduce pain, maintenance of remission and reduction of flares as well as progression of the disease Risks include injection sites/infusion reactions, serious infections (such as bacterial infections, opportunistic infections), malignancy, delaminating syndromes, autoimmune phenomena, CHF exacerbations, palmar plantar psoriasis and cytopenias Recommended rotating injection sites, and holding medication during and for up to 1 week after resolution of a febrile illness or open skin wound Plan I spent 30 minutes reviewing the record and labs, taking a history, examining the patient, discussing the treatment plan, ordering diagnostic work up and documenting in the medical record Orders: Orders Complete Blood Count Auto Diff 6 Months M06.09 - Rheumatoid arthritis without rheumatoid factor, multiple sites Comprehensive Met. Panel 6 Months M06.09 - Rheumatoid arthritis without rheumatoid factor, multiple sites C Reactive Protein 6 Months M06.09 - Rheumatoid arthritis without rheumatoid factor, multiple sites Erythrocyte Sedimentation Rate 6 Months M06.09 - Rheumatoid arthritis without rheumatoid factor, multiple sites Referrals Pain Management Referral G89.29 - Other chronic pain, M54.50 - Low back pain, unspecified Medications: New etanercept (Enbrel SureClick) 50 mg subcut QWEEK 4 mL 5RF M06.09 - Rheumatoid arthritis without rheumatoid factor, multiple sites Discontinued Enbrel Mini (etanercept) Discontinued Reason: Doctor's Order 50 mg subcut QWEEK 4 mL 4RF NS M06.9 - Rheumatoid arthritis, unspecified Coding Level of Care Code Est Pt Level 4 (53152) Complex EM visit Add On G2211 Diagnoses Rheumatoid arthritis of multiple sites with negative rheumatoid factor M06.09 Rheumatoid arthritis location: multiple sites Rheumatoid factor presence: without rheumatoid factor Chronic midline low back pain without sciatica M54.50; G89.29 Back pain laterality: midline Sciatica presence: without sciatica Encounter for monitoring of etanercept therapy Z51.81; Z79.620
== END 2024-10-04 14:07 | disposition home or self-care (01) ==
LOC: HO.RHE 12:44
PROVIDERS: PCP Internal Medicine; Visit Provider Student in an Organized Health Care Education/Training Program
DX: M06.09 Rheumatoid arthritis without rheumatoid factor, multiple sites (principal); M54.50 Low back pain, unspecified; G89.29 Other chronic pain; Z51.81 Encounter for therapeutic drug level monitoring; Z79.620 Long term (current) use of immunosuppressive biologic
CPT/HCPCS: 99214; G2211

== ENCOUNTER 2024-10-24 14:42 | Outpatient (REF) | payer OTHER, SELFPAY ==
--- NOTE | ~2024-10-24 | XR_ITS ---
EXAMINATION: XR BILATERAL HIPS WITH AP PELVIS CLINICAL INFORMATION: M25.551 - Pain in right hip COMPARISON: None available. TECHNIQUE: AP and frog-leg lateral views of each hip. FINDINGS: Left hip: Joint space is congruent and not narrowed. There is mild bony convexity of the femoral head neck junction. No other abnormality. Right hip: Hip joint space is congruent without narrowing. There are no degenerative changes. XR/XR hips ALY min 3V IMPRESSION: Right hip demonstrates a small bony convexity at the femoral head-neck junction which could contribute to cam type femoral acetabular impingement. Left hip is unremarkable. Electronically signed by: Jayden Cortes MD 10/24/2024 05:42 PM EDT RP
== END 2024-10-24 14:43 | disposition home or self-care (01) ==
LOC: HO.XRAY 14:42
PROVIDERS: PCP Internal Medicine; Visit Provider Nurse Practitioner Family
DX: M47.817 Spondylosis without myelopathy or radiculopathy, lumbosacral region (principal); M54.50 Low back pain, unspecified; G89.29 Other chronic pain; M06.9 Rheumatoid arthritis, unspecified; E11.9 Type 2 diabetes mellitus without complications; M51.369 Other intervertebral disc degeneration, lumbar region without mention of lumbar back pain or lower extremity pain; E66.01 Morbid (severe) obesity due to excess calories; Z68.41 Body mass index [BMI] 40.0-44.9, adult; Z79.85 Long-term (current) use of injectable non-insulin antidiabetic drugs; Z79.899 Other long term (current) drug therapy; M25.551 Pain in right hip; M25.552 Pain in left hip
CPT/HCPCS: 73522

== ENCOUNTER 2024-10-24 14:42 | Outpatient (AMB) | payer OTHER, SELFPAY ==
--- NOTE | 2024-10-24 14:51 | MHC.OFFVIS ---
Vital Signs 10/24/24 14:55 Height 5 ft 9 in Weight 295 lb BMI 43.6 BP 140/83 H Blood Pressure Location Lt radial Position Sitting Pulse 100 Pulse Source Pulse Oximeter Pulse Oximetry (%) 97 Oxygen Delivery Method Room Air Intake Visit Reasons: LOW BACK PAIN Intake Note: Pain today 11/17 Veterinarian Required: No Accompanied by: Self / Same As Patient Allergies penicillin G Allergy (Verified 10/24/24 14:54) Unknown beef derived (bovine) Adverse Reaction (Mild, Verified 10/24/24 14:54) Vomiting HPI Comments Details: The patient is a 43-year-old female presenting with chronic low back pain. The pain has persisted for over a year without any specific inciting event and is primarily located in the lower back, radiating into the buttock area. X-rays have shown multilevel arthritis in the lumbar spine with moderate to marked loss of disc space, particularly at L5-S1, and a mild slippage at L4-L5. The patient also has a history of rheumatoid arthritis, diagnosed since the age of [age], and is currently managed with Enbrel. She reports a history of cervical radiculopathy and experiences occasional migraines. The patient has obstructive sleep apnea, previously managed with a CPAP machine, but it is no longer in use as per recent evaluations. She also has type 2 diabetes mellitus, which is well-controlled with an A1c of less than 6, and is currently on Ozempic for management. The patient reports fibromyalgia and experiences widespread body pain, including in the hands, hips and knees. She has undergone various interventions, including physical therapy, rn critical care, TENS unit , knee gel injections, right subtalar injections, shoulder, hands, and neck injections, and acupuncture, with limited relief. - Onset: Pain has been present for over a year. - Quality: Described as aching, sharp, throbbing, dull, sore, tiring and shooting. - Location: Primarily in the lower back, radiating to the buttock and occasionally to the left hip. - Exacerbating factors: Sitting worsens the pain, while standing and walking are less painful. - Relieving factors: Minimal relief with Voltaren gel and occasional ibuprofen use. - Interference: Pain interferes with daily activities, particularly sitting. - Affect: Pain is constant and impacts daily activities, causing fatigue. - Analgesia: Uses Voltaren gel and occasional ibuprofen for pain relief. - Adverse Effects: No significant adverse effects reported from current pain management regimen. - Activities of Daily Living: Pain affects ability to sit for prolonged periods, impacting work and daily tasks. - Aberrant Drug Related Behaviors: No aberrant behaviors reported; patient uses CBD edibles for sleep aid. Oswestry Low Back Pain Disability Score=26 [facility] Medical History Left knee pain Cervical radiculopathy at C7 Obesity Sleep apnea Migraine JRA (juvenile rheumatoid arthritis) Hypothyroidism, unspecified Right knee pain On senior care drug therapy Surgical History Hx of cholecystectomy Hx of section H/O left wrist surgery S/P foot surgery, right Family History Sister Rheumatoid arthritis Mother No problems noted. 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 Denies recent trauma, injury or falls. Reports widespread body pain, attributing it to fibromyalgia. - Neurological: Reports occasional migraines and cervical radiculopathy. Denies recent neurological deficits. - Respiratory: Denies current use of CPAP for obstructive sleep apnea. - Endocrine: Reports well-controlled diabetes with A1c less than 6. - General: Denies smoking and alcohol use. Reports regular coffee consumption. All systems reviewed & are unremarkable except as noted in HPI and below Physical Exam Vital Signs: Last Vital Signs Pulse 100 10/24/24 14:55 BP 140/83 H 10/24/24 14:55 Pulse Ox 97 10/24/24 14:55 Oxygen Delivery Method Room Air 10/24/24 14:55 BMI result Body Mass Index 43.6 General: Appears afebrile. Morbidly obese. Alert and oriented. Mood and affect appropriate. Follows and participates in conversation appropriately. Respiratory effort is unlabored. No cough. Able to transition from sit to stand unassisted. Ambulates with bilaterally normal heel strike and toe off. General: Yes no CVA tenderness Back/Spine/Pelvis Other: Limited lumbar ROM due to pain. Demonstrates 5/5 strength of quadriceps bilaterally as well as flexion/dorsiflexion of bilateral feet against resistance. 2+ pedal pulses bilaterally. Straight leg rise with dorsiflexion negative bilaterally. +1 patellar and achilles reflexes bilaterally. Facet loading test positive bilaterally. Brittney sign, Keith?s, Pelvic compression and Stinchfield tests are positive bilaterally. Mild groin pain with external hip rotations, left>right. alsalva maneuver negative. Multiple widespread TTPs 16/16 bilaterally, including upper and lower extremities. Back: no CVA tenderness Cervical Spine: cervical ROM normal, cervical muscular tenderness, pain with cervical ROM and No Cervical spine tenderness Thoracic/Lumbar Spine: thoracic and lumbar spine normal to inspection, No Thoracic/lumbar spine scar(s), Lasegue's sign negative, straight leg raise negative bilaterally, pain with thoraco-lumbar ROM, paraspinal muscle tenderness, thoraco-lumbar ROM limited, No thoracic spinal tenderness and lumbar spinal tenderness (L4-S1) Pelvis: buttock tenderness Sacroiliac joints: bilaterally tender to palpation Extrem General: Yes capillary refill normal, Yes no clubbing, cyanosis or edema and Yes no calf tenderness Results Reviewed Results Reviewed: XR SACRUM AND COCCYX, LUMBAR SPINE 12/28/24 CLINICAL INFORMATION: Low back pain for 8 months, no injury. COMPARISON: None available. TECHNIQUE: 5 views of the lumbar spine. 3 views of the sacrum/coccyx. FINDINGS: Lumbar Spine: Facet arthritis in the lower lumbar spine. Moderate multilevel lumbar spondylosis. Moderate loss of disc space height and hypertrophic change at L1-L2. Nvgnxvwi-pf-kebrul loss of disc space height and hypertrophic change at L5-S1. Mild grade 1 retrolisthesis of L4 on L5. Sacrum/Coccyx: Bilateral sacroiliac joints are maintained. Pubic symphysis is maintained. IMPRESSION: 1. Moderate multilevel lumbar spondylosis. 2. Facet arthritis in the lower lumbar spine. 3. Peensxhj-cz-sfaili degenerative disc disease at L5-S1. Assessment & Plan Assessment & Plan (1) Chronic lower back pain: Code(s): M54.50 - Low back pain, unspecified; G89.29 - Other chronic pain Category: Medical Qualifiers: Back pain laterality: midline Sciatica presence: without sciatica Qualified Code(s): M54.50 - Low back pain, unspecified; G89.29 - Other chronic pain (2) Lumbosacral spondylosis: Code(s): M47.817 - Spondylosis without myelopathy or radiculopathy, lumbosacral region Category: Medical (3) Lumbar degenerative disc disease: Code(s): M51.369 - Other intervertebral disc degeneration, lumbar region without mention of lumbar back pain or lower extremity pain Category: Medical (4) Bilateral hip pain: Code(s): M25.551 - Pain in right hip; M25.552 - Pain in left hip Category: Medical Plan Schedule diagnostic bilateral L3-L4 DR L5 medial branch blocks with local and fluoroscopy for potential RFA procedure. Given current BMI>40, patient is not candidate for peripheral nerve stimulation. Expectations, risks and benefits were reviewed. Patient is aware she will be contacted to schedule this procedure. Patient should continue using Voltaren gel and ibuprofen for pain relief as needed, ensuring not to overuse these medications to avoid adverse effects. Bilateral hip xray to assess for degree of arthritis and degenerative changes. I encouraged patient to remain physically active and consider CBT and aqua therapy for fibromyalgia management. All questions and concerns have been answered and patient agreed with the plan. Follow up after injections and sooner as needed. Patient was informed and verbally consented to the use of an ambient scribe for clinic note documentation during this visit. Orders: Orders XR hips ALY min 3V 10/24/24 M25.551 - Pain in right hip, M25.552 - Pain in left hip Medications: New lidocaine 5% 1 patch topically up to 12 hours per day to affected area 30 ea 0RF pain G89.29 - Other chronic pain, M47.817 - Spondylosis without myelopathy or radiculopathy, lumbosacral region, M54.50 - Low back pain, unspecified Coding Level of Care Code New Pt Level 4 (31691) Diagnoses Chronic midline low back pain without sciatica M54.50; G89.29 Back pain laterality: midline Sciatica presence: without sciatica Lumbosacral spondylosis M47.817 Lumbar degenerative disc disease M51.369 Bilateral hip pain M25.551; M25.552
[2024-10-24 14:55] VITALS: BP 140/83; PULSE 100; O2SAT 97; BMI 43.6
--- OUTSIDE RECORDS SUMMARY | 2024-10-24 15:26 | XMS_ITS | Clinical Summary ---
Author Organization [employer] Address [address] [place] [address] [address] [place] [address] Care Team Providers Care Driver/Refuse Collector Name Role Phone Tres Mckee LLD Unavailable Robe Alcazar RD Unavailable Allergies Active Allergy Reactions Criticality Noted Date Comments Beef (Bovine) Protein 05/03/2022 Gramineae Pollens 05/03/2022 Penicillins 05/03/2022 Medications levothyroxine (Synthroid, Levoxyl) 112 MCG tablet Take 112 mcg by mouth in the morning. 2 Active Trulicity 1.5 MG/0.5ML solution pen-injector INJECT 0.5ML UNDER THE SKIN ONCE EVERY 7 DAYS 2 Active Enbrel Mini 50 MG/ML injection 2 Active Sodium Fluoride (Sodium Fluoride 5000 Plus) 1.1 % creamIndication s:Risk for dental caries, high [place] with toothpaste for two minutes two times a day, spit out excess. Do not eat, drink, or rinse for 30 minutes. 112 g 9 3 Active Ozempic, 1 MG/DOSE, 4 MG/3ML solution pen-injector Inject 1 mg under the skin every 7 (seven) days. 4 Active Active Problems No known active problems Encounters Date Type Department Care Team Description 10/17/2024 3:30 PM EDT Office Visit [facility] [address] [place] [phone] Minerva Haque LLD 10/02/2024 3:45 PM EDT Office Visit [facility] [address] [place] [phone] Robe Alcazar [facility] 08/28/2024 3:30 PM EDT Office Visit [facility] [address] [place] [phone] Minerva Haque LLD from Last 3 Months Social History Tobacco Use Types Packs/Day Years Used Date Smoking Tobacco: Never Tobacco Cessation:Counseling Given: No Alcohol Use Standard Drinks/Week Comments Never 0 (1 standard drink = 0.6 oz pur e alcohol) Comments Unknown Sex and Gender Information Value Date Recorded Sex Assigned at Female 06/20/2022 7:52 AM EDT Legal Sex Female 8:40 PM EST Gender Identity Female 02/18/2022 8:40 PM EST Sexual Orientation Straight 02/18/2022 8: 40 PM EST Last Filed Vital Signs Vital Sign Reading Time Taken Comments Blood Pressure 123/80 10/17/2024 3:31 PM EDT Pulse 96 10/17/2024 3:31 PM EDT Temperature 36.8 C (98.3 F) 10/02/2024 3:48 PM EDT Respiratory Rate - - Oxygen Saturation - - Inhaled Oxygen Concentration - - Weight - - Height - - Body Mass Index - - Plan of Treatment Upcoming Encounters Date Type Department Care Team (Late st Contact Info) Description 11/11/2024 4:15 PM EDT Office Visit [facility] [address] [place] [phone] Minerva Haque LLD [address] [place] [address] 01/03/2025 3:45 PM EDT Office Visit [facility] [address] [place] [phone] [address] Health Maintenance Due Date Last Done Comments Dental Prophylaxis 1981 Depression Screening 1981 HIV Screening 1981 SDOH Screening 1981 Disability Screening 1981 Alcohol/Substance Use Screening 1993 Family Planning (PISQ) 1996 HPV Vaccines (1 - 3-dose series) 1996 Hepatitis C Screening 11/17/1999 Pap Smear 2002 Cervical Cancer Screening 11/17/2011 HPV/Cotest 11/17/2011 Dental X-Ray: Bitewings 10/10/2024 10/10/2023, 05/09 Influenza Vaccine (#1) 2024 , 02/15/2023, 02/12/2022, Additional history exists Tobacco Screening 01/03/2025 01/04/2024 Dental Oral Exam 04/04/2025 10/02/2024, 05/2023, 05/09/2022 Dental X-Ray: Full Mouth 05/10/2025 05/09/2022 Mammogram 01/09/2026 01/10/2024, 05/2023, 10/12/2021, Additional history exists Lipid Panel 09/17/2029 09/17/2024, 09/09/2022 Zoster Vaccines (2 of 2) 11/17/2031 06/03/2022, 02/08 DTaP/Tdap/Td Vaccines (4 - Td or Tdap) 09/24/2033 09/25/2023, 07/25/2013, 10/17/2005 RSV Patients and Patients Aged 60 years or older (1 - 1-dose 75+ series) 2056 IPV Vaccines Completed 11/21/1986, 05/11, 05/19/1982, Additional history exists Hepatitis B Vaccines Completed 03/27/2001, 12/19/1996, 11/11/1996 Pneumococcal Vaccine: Pediatrics (0 to 5 Years) and At-Risk Patients (6 to 49) Years Aged Out 03/13/2021, 03/16/2011 No longer eligibl e based on patient's age to complete this topic COVID-19 Vaccine Completed 01/05/2024, 03/2023, 02/12/2022, Additional history exists HIB Vaccines Aged Out No longer eligi ble based on patient's age to complete this topic Hepatitis A Vaccines Aged Out No long er eligible based on patient's age to complete this topic Meningococcal B Vaccine Aged Out No l onger eligible based on patient's age to complete this topic Meningococcal Vaccine Aged Out No jojo estee eligible based on patient's age to complete this topic RSV under 20 months Aged Out No longe r eligible based on patient's age to complete this topic Rotavirus Vaccines Aged Out No longer eligible based on patient's age to complete this topic Procedures Procedure Name Priority Date/Time Associated Diagnosis Comments 19 MODB(V) RESIN-BASED COMPOSITE - 4+ SURF, POSTERIOR Routine 10/17/2024 3:30 PM EDT PERIODONTAL MAINTENANCE Routine 10/03/19 3:45 PM EDT PERIODIC ORAL EVALUATION - ESTABLISHED PATIENT Routine 10/02/2024 3:45 PM EDT 15 BB(V) RESIN-BASED COMPOSITE - 1 SURF, POSTERIOR Routine 08/28/2024 3:30 PM EDT BITEWINGS - 4 RADIOGRAPHIC IMAGES Routine 10/10/2023 2:00 PM EDT INTRAORAL - COMPLETE SERIES OF RADIOGRAPHIC IMAGES Routine 05/09/2022 8:30 AM EST Encounter for dental examination from Last 3 Months or Most Recently Relevant to Health Maintenance Insurance , [address] [place] [address] [place] [address] Care Teams Driver/Refuse Collector Relationship Specialty Start Date End Date Tres Mckee LLD [address] [place] [id number] Dentist 06/27/23 Robe Alcazar RDH [address] [place] [address] Dental Water Softener Installer 06/27/23
--- OUTSIDE RECORDS SUMMARY | 2024-10-24 15:26 | XMS_ITS | Data Portability ---
Author Organization [facility], , [facility] Address [address] [place] [address] Care Team Providers Care [employer] Offbearer Name Role Phone DIVYA GAN Primary Care Provider Assessment No assessment recorded. Plan of Treatment Reminders Order Date Submit Date Provider Last Modified By Organization Details Last Modified Time Details Appointments None recorded. Lab C-reactive protein, quantitati ve, serum or plasma 2021 [facility] (Centralized Electronic Ordering - All Locations), Patient Can Go To The Location Of Their Choice, [id number] 18:56:40 ESR (erythrocy te sedimentat ion rate), blood 2021 [facility] (Centralized Electronic Ordering - All Locations), Patient Can Go To The Location Of Their Choice, 12:29:16 CBC w/ auto diff 2021 [facility] (Centralized Electronic Ordering - All Locations), Patient Can Go To The Location Of Their Choice, 00:42:57 CMP, serum or plasma 2021 [place] (Centralized Electronic Ordering - All Locations), Patient Can Go To The Location Of Their Choice, 18:56:38 C-reactive protein, quantitati ve, serum or plasma 2021 [facility], [address] [place], [address], 18:31:41 CMP, serum or plasma 2021 [facility], [address] [facility], [place], [address], 18:31:39 ESR (erythrocy te sedimentat ion rate), blood 2021 [facility], [address] [facility], [place], [address], 17:00:14 CBC w/ auto diff 2021 [place] [facility] (Centralized Electronic Ordering - All Locations), Patient Can Go To The Location Of Their Choice, [id number] 16:11:06 Referral None recorded. Procedures None recorded. Surgeries None recorded. Imaging US, extremity, nonvascula r, limited - US of LLE, rule out Meadows cyst 2021 [facility] (Outpt Imaging), [address] [place], [address], 19:34:19 US, extremity, nonvascula r, limited - US of RLE , rule out Meadows cyst. 2021 022 [facility] (Outpt Imaging), [address] [place], [address], 19:34:19 MRI, lower extremity, w/o contrast - MRI of the left foot, with and without contrast, to rule out synovitis and erosions 2021 022 [facility] (Outpt Imaging), [address] [place], [address], 19:34:19 XR, knee, 3 view [email or web address] [place] [address] (Outpt Imaging), [address] [place], [address], 1 10:03:00 XR, hand 2020 021 [email or web address] [facility] (Outpt Imaging), [address], [place], [address], 10:03:00 XR, foot 2020 021 [facility] (Outpt Imaging), [address], [place], [address], 10:03:01 Medication Orders Enbrel SureClick 50 mg/mL (1 mL) subcutaneo us pen injector 2021 022 [email or web address] Not available 07:08:43 Humira(CF) Pen 40 mg/0.4 mL subcutaneo us kit 2020 021 [email or web address] [facility] [place], [address], 19:54:58 Patient TargetsNo targets recorded. Patient InstructionsNo instructions recorded. Reason for Referral None Reported. Results Created Date Observation Date Name Description Value Unit Range Abnormal Flag Note LastModifiedBy Organization Detail LastModifiedTime 01/23/2001/22/2021 COMPL ETE BLOOD COUNT WBC 8.0 K/mm3 (4.0-1 1.0) Not Available [facility] (Centralized Electronic Ordering - All Locations) Patient Can Go To The Location Of Their Choice, 01/22/2021 15:57:26 01/23/2001/22/2021 COMPL ETE BLOOD COUNT RBC 4.21 M/mm3 (4.20- 5.40) Not Available [facility] (Centralized Electronic Ordering - All Locations) Patient Can Go To The Location Of Their Choice, 01/22/2021 15:57:26 01/23/2001/22/2021 COMPL ETE BLOOD COUNT HGB 11.7 gm/dL (11.7- 15.5) Not Available [facility] (Centralized Electronic Ordering - All Locations) Patient Can Go To The Location Of Their Choice, 01/22/2021 15:57:26 01/23/2001/22/2021 COMPL ETE BLOOD COUNT HCT 36.3 % (35.7- 45.8) Not Available [facility] (Centralized Electronic Ordering - All Locations) Patient Can Go To The Location Of Their Choice, 01/22/2021 15:57:26 01/23/2001/22/2021 COMPL ETE BLOOD COUNT MCV 86.2 fL (80.0- 100.0) Not Available [facility] (Centralized Electronic Ordering - All Locations) Patient Can Go To The Location Of Their Choice, 01/22/2021 15:57:26 01/23/2001/22/2021 COMPL ETE BLOOD COUNT MCH 27.8 pg (27.0- 34.0) Not Available [facility] (Centralized Electronic Ordering - All Locations) Patient Can Go To The Location Of Their Choice, 01/22/2021 15:57:26 01/23/2001/22/2021 COMPL ETE BLOOD COUNT MCHC 32.2 g/dL (33.0- 37.0) low Not Available [facility] (Centralized Electronic Ordering - All Locations) Patient Can Go To The Location Of Their Choice, 01/22/2021 15:57:26 01/23/2001/22/2021 COMPL ETE BLOOD COUNT plt 235 K/mm3 (150-4 60) Not Available [facility] (Centralized Electronic Ordering - All Locations) Patient Can Go To The Location Of Their Choice, 01/22/2021 15:57:26 01/23/2001/22/2021 COMPL ETE BLOOD COUNT RDW-SD 43.2 fL (<47.0 ) Not Available [facility] (Centralized Electronic Ordering - All Locations) Patient Can Go To The Location Of Their Choice, 01/22/2021 15:57:26 01/23/2001/22/2021 COMPL ETE BLOOD COUNT MPV 11.6 fL (9.4-1 2.4) Not Available [facility] (Centralized Electronic Ordering - All Locations) Patient Can Go To The Location Of Their Choice, 01/22/2021 15:57:26 01/23/2001/22/2021 COMPL ETE BLOOD COUNT automated NRBC 0.0 #/100 _WBC' s Not Available [facility] (Centralized Electronic Ordering - All Locations) Patient Can Go To The Location Of Their Choice, 01/22/2021 15:57:26 01/23/2001/22/2021 COMPL ETE BLOOD COUNT abs. NRBC 0.0 K/mm3 Not Available [facility] (Centralized Electronic Ordering - All Locations) Patient Can Go To The Location Of Their Choice, 01/22/2021 15:57:26 01/23/2001/22/2021 SEDIM ENTAT ION RATE, AUTOM ATED sedimentatio n rate,automat ed 14 mm/HR (0-20) In rare patie nts with multi ple myelo ma and other cance rs,Er ythro cyte Sedim entat ion Rate( ESR) by our dougiee nt metho d(iSE D)can be hanane l. If clini constance relev ant,p lease use C-jessica ctive prote in as an equiv alent measu re of acute phase react ion in these patie nts. Not Available [facility] (Centralized Electronic Ordering - All Locations) Patient Can Go To The Location Of Their Choice, 01/22/2021 16:27:16 01/23/2001/22/2021 COMPR EHENS SUE METAB OLIC PANL glucose 84 mg/dL (70-99 ) Not Available [facility] (Centralized Electronic Ordering - All Locations) Patient Can Go To The Location Of Their Choice, 01/22/2021 17:56:06 01/23/2001/22/2021 COMPR EHENS SUE METAB OLIC PANL BUN 10 mg/dL (6-20) Not Available [facility] (Centralized Electronic Ordering - All Locations) Patient Can Go To The Location Of Their Choice, 01/22/2021 17:56:06 01/23/2001/22/2021 COMPR EHENS SUE METAB OLIC PANL creatinine 0.5 mg/dL (0.5-1 .0) Not Available [facility] (Centralized Electronic Ordering - All Locations) Patient Can Go To The Location Of Their Choice, 01/22/2021 17:56:06 01/23/2001/22/2021 COMPR EHENS SUE METAB OLIC PANL sodium 139 mmol/ L (133-1 45) Not Available [facility] (Centralized Electronic Ordering - All Locations) Patient Can Go To The Location Of Their Choice, 01/22/2021 17:56:06 01/23/2001/22/2021 COMPR EHENS SUE METAB OLIC PANL potassium 4.1 mmol/ L (3.6-5 .2) Not Available [facility] (Centralized Electronic Ordering - All Locations) Patient Can Go To The Location Of Their Choice, 01/22/2021 17:56:06 01/23/2001/22/2021 COMPR EHENS SUE METAB OLIC PANL chloride 103 mmol/ L (98-10 7) Not Available [facility] (Centralized Electronic Ordering - All Locations) Patient Can Go To The Location Of Their Choice, 01/22/2021 17:56:06 01/23/2001/22/2021 COMPR EHENS SUE METAB OLIC PANL bicarbonate 25 mmol/ L (22-29 ) Not Available [facility] (Centralized Electronic Ordering - All Locations) Patient Can Go To The Location Of Their Choice, 01/22/2021 17:56:06 01/23/2001/22/2021 COMPR EHENS SUE METAB OLIC PANL anion gap 11 (4-17) Not Available [facility] (Centralized Electronic Ordering - All Locations) Patient Can Go To The Location Of Their Choice, 01/22/2021 17:56:06 01/23/2001/22/2021 COMPR EHENS SUE METAB OLIC PANL albumin 4.2 gm/dL (3.4-4 .8) Not Available [facility] (Centralized Electronic Ordering - All Locations) Patient Can Go To The Location Of Their Choice, 01/22/2021 17:56:06 01/23/2001/22/2021 COMPR EHENS SUE METAB OLIC PANL calcium 9.0 mg/dL (8.6-1 0.5) Not Available [facility] (Centralized Electronic Ordering - All Locations) Patient Can Go To The Location Of Their Choice, 01/22/2021 17:56:06 01/23/2001/22/2021 COMPR EHENS SUE METAB OLIC PANL bilirubin,to denis 0.3 mg/dL (0-1.2 ) Not Available [facility] (Centralized Electronic Ordering - All Locations) Patient Can Go To The Location Of Their Choice, 01/22/2021 17:56:06 01/23/2001/22/2021 COMPR EHENS SUE METAB OLIC PANL total protein 6.5 gm/dL (6.2-8 .2) Not Available [facility] (Centralized Electronic Ordering - All Locations) Patient Can Go To The Location Of Their Choice, 01/22/2021 17:56:06 01/23/2001/22/2021 COMPR EHENS SUE METAB OLIC PANL Ag ratio 1.8 Not Available [facility] (Centralized Electronic Ordering - All Locations) Patient Can Go To The Location Of Their Choice, 01/22/2021 17:56:06 01/23/2001/22/2021 COMPR EHENS SUE METAB OLIC PANL AST 17 U/L (0-32) Not Available [facility] (Centralized Electronic Ordering - All Locations) Patient Can Go To The Location Of Their Choice, 01/22/2021 17:56:06 01/23/2001/22/2021 COMPR EHENS SUE METAB OLIC PANL alk phos 84 U/L (35-10 4) Not Available [facility] (Centralized Electronic Ordering - All Locations) Patient Can Go To The Location Of Their Choice, 01/22/2021 17:56:06 01/23/2001/22/2021 COMPR EHENS SUE METAB OLIC PANL ALT 19 U/L (0-33) Not Available [facility] (Centralized Electronic Ordering - All Locations) Patient Can Go To The Location Of Their Choice, 01/22/2021 17:56:06 01/23/2001/22/2021 COMPR EHENS SUE METAB OLIC PANL estimated GFR creatinine 119 mL/mi n/1.7 3_M2 Effec tive 2020, race modif iers will no longe r be inclu ded in our creat inine -base d CKD-E PI eGFR calcu latio ns. Accor dingl y, eGFR lab repor t descr iptor s (i.e. , EST GFR NON AFRIC AN AMERI CAN, EST GFR AFRIC AN AMERI CAN) will be disco ntinu ed. Pleas e take this into accou nt when utili zing creat inine -base d formu latio ns to diagn ose and manag e chron ic kidne y disea se. Creat inine based estim ated glome rular filtr ation rate (eGFR ) is calcu lated using the Chron ic Kidne y Disea se Epide miolo gy Colla borat ion (CKD- EPI). The CKD-E PI calcu latio n is not valid ated in child vernon (<18 years ), pregn ant woman or in racia l or ethni c subgr oups. Not Available [facility] (Centralized Electronic Ordering - All Locations) Patient Can Go To The Location Of Their Choice, 01/22/2021 17:56:06 01/23/2001/22/2021 C-JESSICA CTIVE PROTE IN C-reactive protein 1.4 mg/dL (0-0.5 ) high Not Available [facility] (Centralized Electronic Ordering - All Locations) Patient Can Go To The Location Of Their Choice, 01/22/2021 17:56:08 01/23/2001/26/2021 QUANT IFERO N 1 TUBE qtb gold plus result NEGATI VE Refer ence range : NEGAT SUE (NOTE ) Negat sue test resul t. M. tuber culos is compl ex infec tion unlik kaitlin. Not Available [facility] (Centralized Electronic Ordering - All Locations) Patient Can Go To The Location Of Their Choice, 01/26/2021 14:43:30 01/23/2001/26/2021 QUANT IFERO N 1 TUBE nil result 0.04 Unit: IU/mL Not Available [facility] (Centralized Electronic Ordering - All Locations) Patient Can Go To The Location Of Their Choice, 01/26/2021 14:43:30 01/23/2001/26/2021 QUANT IFERO N 1 TUBE mitogen minus nil result >10.00 Unit: IU/mL Not Available [facility] (Centralized Electronic Ordering - All Locations) Patient Can Go To The Location Of Their Choice, 01/26/2021 14:43:30 01/23/2001/26/2021 QUANT IFERO N 1 TUBE TB1 Ag minus nil result 0.00 Unit: IU/mL Not Available [facility] (Centralized Electronic Ordering - All Locations) Patient Can Go To The Location Of Their Choice, 01/26/2021 14:43:30 01/23/2001/26/2021 QUANT IFERO N 1 TUBE TB2 Ag minus nil result 0.00 Unit: IU/mL (NOTE ) = The Nil tube value refle cts the backg round inter feron gamma immun e respo nse of the patie nt's blood sampl e. This value has been subtr acted from the patie nt's displ ayed TB and Mitog en resul ts. = Lower than expec roseann resul ts with the Mitog en tube preve nt false -nega tive Quant ifero n readi ngs by detec ting a patie nt with a poten tial immun e suppr essiv e condi tion and/o r subop timal pre-a nalyt ical speci men handl ing. = The TB1 Antig en tube is coate d with the M. tuber culos is-sp ecifi c antig ens desig courtney to elici t respo nses from TB antig en prime d CD4+ helpe r T-lym phocy tracy. = The TB2 Antig en tube is coate d with the M. tuber culos is-sp ecifi c antig ens desig courtney to elici t respo nses from TB antig en prime d CD4+ helpe r and CD8+ cytot oxic T-lym phocy tracy. = For addit ional infor javier bell e refer to https ://ed ucati on.qu estdi Eve. com/f aq/FA Q204 (This link is being provi ded for infor yolie rosado/ educa donita l purpo ses only. ) = Test Perfo rmed by: [facility], [address] [place]. [address] . Labor atory Direc tor: She crowell MD. Not Available [facility] (Centralized Electronic Ordering - All Locations) Patient Can Go To The Location Of Their Choice, 01/26/2021 14:43:30 09/16/19 22 09/15/2021 COMPL ETE BLOOD COUNT WBC 11.0 K/mm3 (4.0-1 1.0) Not Available [facility] (Centralized Electronic Ordering - All Locations) Patient Can Go To The Location Of Their Choice, 09/15/2021 16:11:09/16/19 22 09/15/2021 COMPL ETE BLOOD COUNT RBC 4.59 M/mm3 (4.20- 5.40) Not Available [facility] (Centralized Electronic Ordering - All Locations) Patient Can Go To The Location Of Their Choice, 09/15/2021 16:11:09/16/1909/15/2021 COMPL ETE BLOOD COUNT HGB 11.7 gm/dL (11.7- 15.5) Not Available [facility] (Centralized Electronic Ordering - All Locations) Patient Can Go To The Location Of Their Choice, 09/15/2021 16:11:09/16/1909/15/2021 COMPL ETE BLOOD COUNT HCT 38.3 % (35.7- 45.8) Not Available [facility] (Centralized Electronic Ordering - All Locations) Patient Can Go To The Location Of Their Choice, 09/15/2021 16:11:09/16/1909/15/2021 COMPL ETE BLOOD COUNT MCV 83.4 fL (80.0- 100.0) Not Available [facility] (Centralized Electronic Ordering - All Locations) Patient Can Go To The Location Of Their Choice, 09/15/2021 16:11:09/16/1909/15/2021 COMPL ETE BLOOD COUNT MCH 25.5 pg (27.0- 34.0) low Not Available [facility] ([facility]ized Electronic Ordering - All Locations) Patient Can Go To The Location Of Their Choice, 09/15/2021 16:11:09/16/1909/15/2021 COMPL ETE BLOOD COUNT MCHC 30.5 g/dL (33.0- 37.0) low Not Available [facility] (Centralized Electronic Ordering - All Locations) Patient Can Go To The Location Of Their Choice, 09/15/2021 16:11:09/16/1909/15/2021 COMPL ETE BLOOD COUNT plt 342 K/mm3 (150-4 60) Not Available [facility] ([facility]ized Electronic Ordering - All Locations) Patient Can Go To The Location Of Their Choice, 09/15/2021 16:11:06 09/16/19 22 09/15/2021 COMPL ETE BLOOD COUNT RDW-SD 43.3 fL (<47.0 ) Not Available [facility] ([facility]ized Electronic Ordering - All Locations) Patient Can Go To The Location Of Their Choice, 09/15/2021 16:11:06 09/16/19 22 09/15/2021 COMPL ETE BLOOD COUNT MPV 10.9 fL (9.4-1 2.4) Not Available [facility] ([facility]ized Electronic Ordering - All Locations) Patient Can Go To The Location Of Their Choice, 09/15/2021 16:11:06 09/16/19 22 09/15/2021 COMPL ETE BLOOD COUNT automated NRBC 0.0 #/100 _WBC' s Not Available [facility] ([facility]ized Electronic Ordering - All Locations) Patient Can Go To The Location Of Their Choice, 09/15/2021 16:11:06 09/16/19 22 09/15/2021 COMPL ETE BLOOD COUNT abs. NRBC 0.0 K/mm3 Not Available [facility] ([facility]ized Electronic Ordering - All Locations) Patient Can Go To The Location Of Their Choice, 09/15/2021 16:11:06 09/16/19 22 09/15/2021 SEDIM ENTAT ION RATE, AUTOM ATED sedimentatio n rate,automat ed 28 mm/HR (0-20) high Not Available [facility] ([facility] Order[facility] - All Locations) Patient Can Go To The Location Of Their Choice, 09/15/2021 17:00:13 09/16/19 22 09/15/2021 COMPR EHENS SUE METAB OLIC PANL glucose 108 mg/dL (70-99 ) high Not Available [facility] ([facility]ized Electronic Ordering - All Locations) Patient Can Go To The Location Of Their Choice, 09/15/2021 18:31:39 09/16/1909/15/2021 COMPR EHENS SUE METAB OLIC PANL BUN 13 mg/dL (6-20) Not Available [facility] ([facility]ized Electronic Ordering - All Locations) Patient Can Go To The Location Of Their Choice, 09/15/2021 18:31:39 09/16/1909/15/2021 COMPR EHENS SUE METAB OLIC PANL creatinine 0.7 mg/dL (0.5-1 .0) Not Available [facility] ([facility]ized Electronic Ordering - All Locations) Patient Can Go To The Location Of Their Choice, 09/15/2021 18:31:39 09/16/1909/15/2021 COMPR EHENS SUE METAB OLIC PANL sodium 138 mmol/ L (133-1 45) Not Available [facility] ([facility]ized Electronic Ordering - All Locations) Patient Can Go To The Location Of Their Choice, 09/15/2021 18:31:39 09/16/1909/15/2021 COMPR EHENS SUE METAB OLIC PANL potassium 3.9 mmol/ L (3.6-5 .2) Not Available [facility] ([facility]ized Electronic Ordering - All Locations) Patient Can Go To The Location Of Their Choice, 09/15/2021 18:31:39 09/16/1909/15/2021 COMPR EHENS SUE METAB OLIC PANL chloride 102 mmol/ L (98-10 7) Not Available [facility] ([facility]ized Electronic Ordering - All Locations) Patient Can Go To The Location Of Their Choice, 09/15/2021 18:31:39 09/16/1909/15/2021 COMPR EHENS SUE METAB OLIC PANL bicarbonate 26 mmol/ L (22-29 ) Not Available [facility] ([facility]ized Electronic Ordering - All Locations) Patient Can Go To The Location Of Their Choice, 09/15/2021 18:31:39 09/16/1909/15/2021 COMPR EHENS SUE METAB OLIC PANL anion gap 10 (4-17) Not Available [facility] ([facility]ized Electronic Ordering - All Locations) Patient Can Go To The Location Of Their Choice, 09/15/2021 18:31:39 09/16/1909/15/2021 COMPR EHENS SUE METAB OLIC PANL albumin 4.3 gm/dL (3.4-4 .8) Not Available [facility] ([facility]ized Electronic Ordering - All Locations) Patient Can Go To The Location Of Their Choice, 09/15/2021 18:31:39 09/16/1909/15/2021 COMPR EHENS SUE METAB OLIC PANL calcium 9.3 mg/dL (8.6-1 0.5) Not Available [facility] ([facility] Ordering - All Locations) Patient Can Go To The Location Of Their Choice, 09/15/2021 18:31:39 09/16/1909/15/2021 COMPR EHENS SUE METAB OLIC PANL bilirubin,to denis 0.3 mg/dL (0-1.2 ) Not Available [facility] ([facility]ized [facility] Ordering - All Locations) Patient Can Go To The Location Of Their Choice, 09/15/2021 18:31:39 09/16/1909/15/2021 COMPR EHENS SUE METAB OLIC PANL total protein 7.0 gm/dL (6.2-8 .2) Not Available [facility] ([facility]ized Electronic Ordering - All Locations) Patient Can Go To The Location Of Their Choice, 09/15/2021 18:31:39 09/16/1909/15/2021 COMPR EHENS SUE METAB OLIC PANL Ag ratio 1.6 Not Available [facility] ([facility]ized Electronic Ordering - All Locations) Patient Can Go To The Location Of Their Choice, 09/15/2021 18:31:39 09/16/1909/15/2021 COMPR EHENS SUE METAB OLIC PANL AST 12 U/L (0-32) Not Available [facility] ([facility]ized Electronic Ordering - All Locations) Patient Can Go To The Location Of Their Choice, 09/15/2021 18:31:39 09/16/1909/15/2021 COMPR EHENS SUE METAB OLIC PANL alk phos 92 U/L (35-10 4) Not Available [facility] ([facility]ized [facility] Ordering - All Locations) Patient Can Go To The Location Of Their Choice, 09/15/2021 18:31:39 09/16/1909/15/2021 COMPR EHENS SUE METAB OLIC PANL ALT 14 U/L (0-33) Not Available [facility] ([facility] Ordering - All Locations) Patient Can Go To The Location Of Their Choice, 09/15/2021 18:31:39 09/16/1909/15/2021 COMPR EHENS SUE METAB OLIC PANL estimated GFR creatinine 114 mL/mi n/1.7 3_M2 Creat inine based estim ated glome rular filtr ation (eGFR ) in adult s is calcu lated using the Natio nal Kidne y Found ation recom fariha d 2020 CKD-E PI equat ion. Estim ates GFR from serum creat inine , age and sex. Not Available [facility] (Centralized Electronic Ordering - All Locations) Patient Can Go To The Location Of Their Choice, 09/15/2021 18:31:39 09/16/1909/15/2021 C-JESSICA CTIVE PROTE IN C-reactive protein 2.1 mg/dL (0-0.5 ) high Not Available [facility] ([facility]ized Electronic Ordering - All Locations) Patient Can Go To The Location Of Their Choice, 09/15/2021 18:31:41 01/20/2001/19/2022 COMPR EHENS SUE METAB OLIC PANL glucose 91 mg/dL (70-99 ) Not Available [facility] ([facility]ized [facility] Ordering - All Locations) Patient Can Go To The Location Of Their Choice, 01/19/2022 18:56:38 01/20/2001/19/2022 COMPR EHENS SUE METAB OLIC PANL BUN 10 mg/dL (6-20) Not Available [facility] ([facility]ized [facility] Ordering - All Locations) Patient Can Go To The Location Of Their Choice, 01/19/2022 18:56:38 01/20/2001/19/2022 COMPR EHENS SUE METAB OLIC PANL creatinine 0.6 mg/dL (0.5-1 .0) Not Available [facility] ([facility]ized Electronic Ordering - All Locations) Patient Can Go To The Location Of Their Choice, 01/19/2022 18:56:38 01/20/2001/19/2022 COMPR EHENS SUE METAB OLIC PANL sodium 138 mmol/ L (133-1 45) Not Available [facility] ([facility]ized Electronic Ordering - All Locations) Patient Can Go To The Location Of Their Choice, 01/19/2022 18:56:38 01/20/2001/19/2022 COMPR EHENS SUE METAB OLIC PANL potassium 4.3 mmol/ L (3.6-5 .2) Not Available [facility] ([facility]ized Electronic Ordering - All Locations) Patient Can Go To The Location Of Their Choice, 01/19/2022 18:56:38 01/20/2001/19/2022 COMPR EHENS SUE METAB OLIC PANL chloride 101 mmol/ L (98-10 7) Not Available [facility] ([facility]ized Electronic Ordering - All Locations) Patient Can Go To The Location Of Their Choice, 01/19/2022 18:56:38 01/20/2001/19/2022 COMPR EHENS SUE METAB OLIC PANL bicarbonate 26 mmol/ L (22-29 ) Not Available [facility] ([facility]ized [facility] Ordering - All Locations) Patient Can Go To The Location Of Their Choice, 01/19/2022 18:56:38 01/20/2001/19/2022 COMPR EHENS SUE METAB OLIC PANL anion gap 11 (4-17) Not Available [facility] ([facility]ized Electronic Ordering - All Locations) Patient Can Go To The Location Of Their Choice, 01/19/2022 18:56:38 01/20/2001/19/2022 COMPR EHENS SUE METAB OLIC PANL albumin 4.6 gm/dL (3.4-4 .8) Not Available [facility] (Centralized Electronic Ordering - All Locations) Patient Can Go To The Location Of Their Choice, 01/19/2022 18:56:38 01/20/2001/19/2022 COMPR EHENS SUE METAB OLIC PANL calcium 9.5 mg/dL (8.6-1 0.5) Not Available [facility] ([facility]ized Electronic Ordering - All Locations) Patient Can Go To The Location Of Their Choice, 01/19/2022 18:56:38 01/20/2001/19/2022 COMPR EHENS SUE METAB OLIC PANL bilirubin,to denis 0.4 mg/dL (0-1.2 ) Not Available [facility] ([facility]ized Electronic Ordering - All Locations) Patient Can Go To The Location Of Their Choice, 01/19/2022 18:56:38 01/20/2001/19/2022 COMPR EHENS SUE METAB OLIC PANL total protein 7.2 gm/dL (6.2-8 .2) Not Available [facility] (Centralized Electronic Ordering - All Locations) Patient Can Go To The Location Of Their Choice, 01/19/2022 18:56:38 01/20/2001/19/2022 COMPR EHENS SUE METAB OLIC PANL Ag ratio 1.8 Not Available [facility] (Centralized Electronic Ordering - All Locations) Patient Can Go To The Location Of Their Choice, 01/19/2022 18:56:38 01/20/2001/19/2022 COMPR EHENS SUE METAB OLIC PANL AST 19 U/L (0-32) Not Available [facility] (Centralized Electronic Ordering - All Locations) Patient Can Go To The Location Of Their Choice, 01/19/2022 18:56:38 01/20/2001/19/2022 COMPR EHENS SUE METAB OLIC PANL alk phos 80 U/L (35-10 4) Not Available [facility] (Centralized Electronic Ordering - All Locations) Patient Can Go To The Location Of Their Choice, 01/19/2022 18:56:38 01/20/2001/19/2022 COMPR EHENS SUE METAB OLIC PANL ALT 20 U/L (0-33) Not Available [facility] (Centralized Electronic Ordering - All Locations) Patient Can Go To The Location Of Their Choice, 01/19/2022 18:56:38 01/20/2001/19/2022 COMPR EHENS SUE METAB OLIC PANL estimated GFR creatinine 117 mL/mi n/1.7 3_M2 Creat inine based estim ated glome rular filtr ation (eGFR ) in adult s is calcu lated using the Natio nal Kidne y Found ation recom fariha d 2020 CKD-E PI equat ion. Estim ates GFR from serum creat inine , age and sex. Not Available [facility] (Centralized Electronic Ordering - All Locations) Patient Can Go To The Location Of Their Choice, 01/19/2022 18:56:38 01/20/2001/19/2022 C-JESSICA CTIVE PROTE IN C-reactive protein 0.7 mg/dL (0-0.5 ) high Not Available [facility] (Centralized Electronic Ordering - All Locations) Patient Can Go To The Location Of Their Choice, 01/19/2022 18:56:40 01/20/2001/20/2022 COMPL ETE BLOOD COUNT WBC 9.5 K/mm3 (4.0-1 1.0) Not Available [facility] (Centralized Electronic Ordering - All Locations) Patient Can Go To The Location Of Their Choice, 01/20/2022 00:42:57 01/20/2001/20/2022 COMPL ETE BLOOD COUNT RBC 4.70 M/mm3 (4.20- 5.40) Not Available [facility] (Centralized Electronic Ordering - All Locations) Patient Can Go To The Location Of Their Choice, 01/20/2022 00:42:57 01/20/2001/20/2022 COMPL ETE BLOOD COUNT HGB 12.5 gm/dL (11.7- 15.5) Not Available [facility] (Centralized Electronic Ordering - All Locations) Patient Can Go To The Location Of Their Choice, 01/20/2022 00:42:57 01/20/2001/20/2022 COMPL ETE BLOOD COUNT HCT 41.5 % (35.7- 45.8) Not Available [facility] (Centralized Electronic Ordering - All Locations) Patient Can Go To The Location Of Their Choice, 01/20/2022 00:42:57 01/20/2001/20/2022 COMPL ETE BLOOD COUNT MCV 88.3 fL (80.0- 100.0) Not Available [facility] (Centralized Electronic Ordering - All Locations) Patient Can Go To The Location Of Their Choice, 01/20/2022 00:42:57 01/20/2001/20/2022 COMPL ETE BLOOD COUNT MCH 26.6 pg (27.0- 34.0) low Not Available [facility] (Centralized Electronic Ordering - All Locations) Patient Can Go To The Location Of Their Choice, 01/20/2022 00:42:57 01/20/2001/20/2022 COMPL ETE BLOOD COUNT MCHC 30.1 g/dL (33.0- 37.0) low Not Available [facility] (Centralized Electronic Ordering - All Locations) Patient Can Go To The Location Of Their Choice, 01/20/2022 00:42:57 01/20/2001/20/2022 COMPL ETE BLOOD COUNT plt 302 K/mm3 (150-4 60) Not Available [facility] (Centralized Electronic Ordering - All Locations) Patient Can Go To The Location Of Their Choice, 01/20/2022 00:42:57 01/20/2001/20/2022 COMPL ETE BLOOD COUNT RDW-SD 47.2 fL (<47.0 ) high Not Available [facility] (Centralized Electronic Ordering - All Locations) Patient Can Go To The Location Of Their Choice, 01/20/2022 00:42:57 01/20/2001/20/2022 COMPL ETE BLOOD COUNT MPV 11.7 fL (9.4-1 2.4) Not Available [facility] (Centralized Electronic Ordering - All Locations) Patient Can Go To The Location Of Their Choice, 01/20/2022 00:42:57 01/20/2001/20/2022 COMPL ETE BLOOD COUNT automated NRBC 0.0 #/100 _WBC' s Not Available [facility] (Centralized Electronic Ordering - All Locations) Patient Can Go To The Location Of Their Choice, 01/20/2022 00:42:57 01/20/2001/20/2022 COMPL ETE BLOOD COUNT abs. NRBC 0.0 K/mm3 Not Available [facility] (Centralized Electronic Ordering - All Locations) Patient Can Go To The Location Of Their Choice, 01/20/2022 00:42:57 01/20/2001/20/2022 SEDIM ENTAT ION RATE, AUTOM ATED sedimentatio n rate,automat ed 20 mm/HR (0-20) Not Available [facility] (Centralized Electronic Ordering - All Locations) Patient Can Go To The Location Of Their Choice, 01/20/2022 12:29:16 06/12/1906/11/2021 imagi ng inter preta tion No observ ation record ed. [facility] (Outpt Imaging) [address], [place], [address], 06/12/2021 12:06:05 06/17/19 22 06/16/2021 MRI, foot, w/wo contr ast No observ ation record ed. [facility] (Mri) [address], [place], [address], 06/24/2021 11:34:07 06/17/19 22 06/16/2021 MRI, foot, w/wo contr ast [facility] [employer] Access ion Number : [id number] Patien t Name: Elliott Durán en Luisitoa aruna Record Number : [id number] Date of : 1980 Date of Exam: 2021 Referr ing Physic ivelisse: Christiano Back [address] [place] [address] Exam: MR Foot (C-/C+ ) CPT 13334 - Left Room Descri ption: Aaron Siem Espr 1.5 MRI FOOT LEFT WITH AND WITHOU T CONTRA ST Histor y: Consta nt medial top foot pain for severa l years, injure d foot during a fall severa l years ago. Histor y of serone gative rheuma toid arthri tis, on leflun omide. Rule out synovi tis, erosio n. Techni que: MR of the left foot (cente red at the mid to forefo ot) was perfor med with and withou t intrav enous contra st. 20 cc of Dotare m was admini stered intrav enousl y. Compar magdiel: 021 FINDIN GS: BONES: Mild medial hallux sesamo iditis . Otherw ise, no focal marrow edema. No eviden ce of discre te erosio n, fractu re, or marrow replac ing lesion . Mild calcan eocubo id hypert rophic change s. MUSCLE S/SUBC UTANEO US TISSUE S: Intrin sic muscul ature of the foot demons trates normal bulk and signal charac terist ics. Trace fluid in first, second , and third interm etatar christopher bursa withou t associ ated enhanc ement or surrou nding edema. No eviden ce of joint effusi on. Visual ized flexor and extens or tendon s appear intact . No tenosy noviti s. Partia lly visual ized planta r fascia is normal in thickn ess and signal . IMPRES ANGEL: No MR eviden ce of rheuma toid arthri tis. Minima l calcan eocubo id osteoa rthrit is. Mild first- third interm etatar christopher bursal fluid withou t signif icant inflam mation on postco ntrast images . I, Kendrick crane, have review ed the images and report and concur with the reside nt, Ayan Abarca 's, merlyn gs. Electr onical ly Signed By: Kendrick crane MD [facility] ([facility]) [address] [facility], [place], [address], 06/24/2021 11:34:07 12/30/19 23 MRI, foot No observ ation record ed. [email or web address] Not Available 2022 12:04:53 08/31/19 25 08/30/2024 XR, foot CLINIC AL HISTOR Y: Right foot pain TECHNI QUE: AP, obliqu e, and latera l views of the right foot obtain ed. COMPAR MAGDIEL: None. FINDIN GS: There is no acute fractu re or disloc ation. The joint spaces are preser [place]. There is mild spurri ng along the dorsal aspect of the midfoo t includ ing the talona vicula r articu lation and the articu lation betwee n the navicu lar bone and cuneif orm bones. IMPRES ANGEL: No acute bone abnorm ality. Midfoo t degene rative change . Readin g Physic ivelisse: Priscilla Díaz ms [facility] (Imaging) [address], [place], [address], 09/03/2024 14:41:07 Result Notes Documentation Provider Name and Address Organization Details Recorded Time Mri, Foot, W/wo Contrast : [facility] Accession Number: [id number] Patient Name: Liudmila Durán Date of : 1980 Date of Exam: 06-16-2021 Referring Physician: Halley Back [address] [place] [address] Exam: MR Foot (C-/C+) CPT 76666 - Left Room Description: Aaron Fuentes 1.5 MRI FOOT LEFT WITH AND WITHOUT CONTRAST History: Constant medial top foot pain for several years, injured foot during a fall several years ago. History of seronegative rheumatoid arthritis, on leflunomide. Rule out synovitis, erosion. Technique: MR of the left foot (centered at the mid to forefoot) was performed with and without intravenous contrast. 20 cc of Dotarem was administered intravenously. Comparison: 02/16/2021 FINDINGS: BONES: Mild medial hallux sesamoiditis. Otherwise, no focal marrow edema. No evidence of discrete erosion, fracture, or marrow replacing lesion. Mild calcaneocuboid hypertrophic changes. MUSCLES/SUBCUTANEOUS TISSUES: Intrinsic musculature of the foot demonstrates normal bulk and signal characteristics. Trace fluid in first, second, and third intermetatarsal bursa without associated enhancement or surrounding edema. No evidence of joint effusion. Visualized flexor and extensor tendons appear intact. No tenosynovitis. Partially visualized plantar fascia is normal in thickness and signal. IMPRESSION: No MR evidence of rheumatoid arthritis. Minimal calcaneocuboid osteoarthritis. Mild first-third intermetatarsal bursal fluid without significant inflammation on postcontrast images. I, Kendrick Green, have reviewed the images and report and concur with the resident, Ubaldo Abarca's, findings. Electronically Signed By: Kendrick Back MD [address] [place], [phone], [facility] 06/23/2021 20:11:24 Xr, Foot : CLINICAL HISTORY: Right foot pain TECHNIQUE: AP, oblique, and lateral views of the right foot obtained. COMPARISON: None. FINDINGS: There is no acute fracture or dislocation. The joint spaces are preserved. There is mild spurring along the dorsal aspect of the midfoot including the talonavicular articulation and the articulation between the navicular bone and cuneiform bones. IMPRESSION: No acute bone abnormality. Midfoot degenerative change. Reading Physician: Graham werner [facility] 09/03/2024 14:41:08 Problems Name Problem SNOMED Code Status Onset Date Resolution Date Notes Provider Name and Address Organization Details Recorded Time Knee pain Active 017 Not Available [facility] 13:28:25 Long-term drug therapy Active 018 Not Available [facility] 13:28:25 Morbid obesity [id number] Active 022 BMI > or = 40 Kristi Cid [facility] 2 12:58:30 Problem Notes None recorded. Procedures Surgical History Date Name Laterality Status Provider Name and Address Organization Details Recorded Time 06/09/19 22 Knee Injection MCM completed Halley Back MD [address] [place] [address], [phone], [facility] 06/08/2021 11:11:49 09/26/19 21 Generic Procedure Template completed Elliot Yeung MD [address] [place] [address], [phone], [facility] 09/25/2020 17:56:21 04/30/19 21 Trigger Point Injection (1 or 2) completed Elliot Yeung MD [address] [place] [address], [phone], [facility] 04/30/2020 12:04:53 12/07/19 19 Generic Procedure Template completed Elliot Yeung MD [address] [place] [address], [phone], [facility] 12/06/2018 19:28:25 11/30/19 19 Generic Procedure Template completed Elliot Yeung MD [address] [place] [address], [phone], [facility] 11/29/2018 08:54:03 11/23/19 19 Generic Procedure Template completed Elliot Yeung MD [address] [place] [address], [phone], [facility] 11/22/2018 08:53:53 12/23/19 17 Corticosteroid Injection completed Mecca Tripp MD PhD [address] [place] [address], [phone], [facility] 12/22/2016 13:06:55 09/16/19 17 Corticosteroid Injection completed Mecca Tripp MD PhD [address] [place], [phone], [facility] 09/15/2016 10:30:26 09/16/19 17 Knee (Right) Injection completed Mecca Tripp MD PhD [address] [place], [phone], [facility] 09/15/2016 10:31:10 06/17/19 17 Corticosteroid Injection completed Mecca Tripp MD PhD [address] [place] [address], [phone], [facility] 06/16/2016 11:34:49 05/12/19 17 Knee (Left) Injection completed Mecca Tripp MD PhD [address] [place] [address], [phone], [facility] 05/12/2016 11:06:49 Imaging Results None recorded. Procedure Notes None recorded. Medical Equipment None Reported. Allergies Allergen ID Allergen Name Allergen Category Reaction Reaction Severity Criticality Documentation Date Start Date Code Code System Note Provider Name and Address Organization Details Recorded Time Product containin g penicilli n (product) medicatio n Not available Not available Not available 02/10/2016 11485 8001 SNOMED Scotty Francois LPN [facility] 6 08:32:52 367297 beef allergeni c extract food,medi cation vomiting moderate Not available 09/05/2017 [id number] 9 RxNorm Pauline Roberts LPN [facility] 8 09:16:44 Medications Name Sig Start Date Stop Date Status Note LastModified by Organization Details LastModified Time Prescript ion - Prior Authoriza tion Request active Not Available Not Available Not Available prednison e 10 mg tablet 4 po qd for 4 days, then 2 po d for 1 days 09/14 completed not taking Not Available Not Available Not Available ibuprofen 800 mg tablet TAKE 1 OR 2 TABLETS BY MOUTH DAILY NEEDED active Not Available Not Available No t Available tizanidin e 4 mg tablet 1/2 TO 1 TABLET AT BEDTIME DAILY active Pt not taking Not Available Not Available Not Available fluconazo le 150 mg tablet TAKE 1 TABLET BY MOUTH ONCE FOR 1 DOSE MAY REPEAT IN 3 DAYS NEEDED 09/25 completed Not Available Not Available Not Available hydrocort isone valerate 0.2 % topical cream prn 11/22 completed Not Available Not Available Not Available lisinopri l 20 mg tablet Take 1 tablet every day by oral route. active Not taking 01/12/21 Not Available Not Available Not Available leflunomi de 10 mg tablet TAKE 1 TABLET BY MOUTH EVERY DAY active Every other day, has not been taking causing stomach to hurt and feels better not taking Not Available Not Available Not Available topiramat e 25 mg tablet TAKE 1 TABLET (25 MG TOTAL) BY MOUTH NIGHTLY AT BEDTIME. active not taking it Not Available Not Available Not Available metronida zole 500 mg tablet TAKE 1 TABLET BY MOUTH 3 TIMES A DAY UNTIL FINISHED active Not Available Not Available No t Available ciproflox acin 500 mg tablet TAKE 1 TABLET BY MOUTH EVERY 12 HOURS FOR 7 DAYS 05/12 completed Not Available Not Available Not Available sulfameth oxazole 800 mg-trimet hoprim 160 mg tablet TAKE 1 TABLET(S ) EVERY 12 HOURS BY ORAL ROUTE FOR 7 DAYS. 09/25 completed Not Available Not Available Not Available leflunomi de 20 mg tablet TAKE 1 TABLET BY MOUTH daily 04/26 completed diarrhea Not Available Not Available Not Available tramadol 50 mg tablet TAKE 1 TABLET BY MOUTH EVERY 6 HOURS NEEDED FOR PAIN active Not Available Not Available No t Available acetamino phen 500 mg tablet TAKE 2 TABLETS BY MOUTH EVERY 6 HOURS active PRN Not Available Not Available No t Available levothyro xine 100 mcg tablet TAKE 1 TABLET BY MOUTH IN THE MORNING 09/25 completed Not Available Not Available Not Available oxycodone -acetamin ophen 5 mg-325 mg tablet TAKE 1 - 2 TABLETS BY MOUTH EVERY 4 TO 6 HOURS NEEDED SEVERE PAIN 09/15 completed Not Available Not Available Not Available levothyro xine 88 mcg tablet once daily 08/22 completed increase d Not Available Not Available Not Available amitripty line 25 mg tablet 1-2 tabs at bedtime once a day for 30 days 12/22 completed pt. states made her so tired she couldn't function Not Available Not Available Not Available methotrex ate sodium 2.5 mg tablet Take 5 tablets every week by oral route with meals for 30 days. 07/17 completed Not Available Not Available Not Available benzonata te 100 mg capsule TAKE 1 CAPSULE BY MOUTH THREE TIMES A DAY NEEDED FOR COUGH active Not Available Not Available No t Available doxycycli ne monohydra te 100 mg capsule TAKE 1 CAPSULE BY MOUTH TWICE A DAY 04/23 completed Not Available Not Available Not Available lisinopri l 10 mg tablet TAKE 1 & 1 2 (ONE & ONE HALF) TABLETS BY MOUTH ONCE DAILY 07/14 completed increase d to 20 mg Not Available Not Available Not Available polymyxin B sulfate 10,000 unit-trim ethoprim 1 mg/mL eye drops PLACE 1 DROP INTO EACH EYE EVERY 6 (SIX) HOURS. active Not Available Not Available No t Available Synthroid 75 mcg tablet Take 1 tablet every day by oral route. 10/18 completed Not Available Not Available Not Available docusate sodium 100 mg capsule TAKE ONE CAPSULE BY MOUTH TWICE A DAY WITH PLENTY OF WATER NEEDED CONSTIPA TION 07/17 completed Not Available Not Available Not Available gabapenti n 300 mg capsule TAKE 3 CAPSULES (900 MG TOTAL) BY MOUTH NIGHTLY AT BEDTIME. active Not taking 01/12/21 Not Available Not Available Not Available folic acid 1 mg tablet Take 1 tablet every day by oral route with meals for 90 days. 07/17 completed Not Available Not Available Not Available lisinopri l 5 mg tablet 10/18 completed Not Available Not Available Not Available mupirocin 2 % topical ointment APPLY TOPICALL Y 3 (THREE) TIMES A DAY FOR 10 DAYS. TO LEFT BREAST active Not Available Not Available No t Available hydroxych loroquine 200 mg tablet Take 2 tablets every day by oral route with meals for 30 days. 09/15 completed Pt. not taking this currentl y d/t damaging her eyes previous ly. 05/12/16 Not Available Not Available Not Available ibuprofen 600 mg tablet Take 1 tablet every 6 hours by oral route as needed. 04/26 completed Not Available Not Available Not Available ondansetr on 4 mg disintegr ating tablet TAKE 1 TABLET BY MOUTH EVERY 8 HOURS NEEDED FOR NAUSEA active Not Available Not Available No t Available doxycycli ne hyclate 100 mg tablet 05/10 completed Not Available Not Available Not Available naproxen 500 mg tablet Take 1 tablet twice a day by oral route with meals for 30 days. 05/12 completed Pt. states it made her nauseous Not Available Not Available Not Available diazepam 5 mg tablet TAKE 1 TABLET BY MOUTH 3 TIMES A DAY FOR 7 DAYS NEEDED SPASM 09/15 completed Not Available Not Available Not Available levothyro xine 112 mcg tablet TAKE 1 TABLET BY MOUTH ONCE DAILY IN THE MORNING active Not Available Not Available No t Available oxycodone 5 mg tablet 09/15 completed Not Available Not Available Not Available DentaGel 1.1 % active Not Available Not Available Not Available Saline Nasal 0.65 % spray aerosol SPRAY 1 SPRAY INTO EACH NOSTRIL NEEDED FOR CONGESTI ON active Not Available Not Available No t Available cyclobenz aprine 5 mg tablet TAKE 1 TABLET AT BEDTIME 07/17 completed Not Available Not Available Not Available topiramat e 50 mg tablet active Takes 1/2 tab daily, not taking Not Available Not Available Not Available duloxetin e 30 mg capsule,d elayed release take 30mg daily for one week, then increase to 60mg daily for 30 days 07/17 completed Not Available Not Available Not Available duloxetin e 60 mg capsule,d elayed release Take one capsule daily with food by mouth active Not Available Not Available No t Available chlorhexi dine gluconate 0.12 % mouthwash SWISH WITH 15 ML FOR ONE MINUTE AND THEN SPIT. REPEAT TWICE A DAY FOR TWO WEEKS. active Not Available Not Available No t Available Euflexxa 10 mg/mL (mw 2.4-3.6 million) intra-art icular syringe Inject each knee weekly for 3 weeks 02/01 completed Not Available Not Available Not Available BD Ultra-Fin e Short Pen Needle 31 gauge x 5/16 active Not Available Not Available Not Available ProAir HFA 90 mcg/actua tion aerosol inhaler INHALE 1 TO 2 PUFFS EVERY 4 TO 6 HOURS NEEDED FOR WHEEZE active Not Available Not Available No t Available Enbrel SureClick 50 mg/mL (1 mL) subcutane ous pen injector Inject 1 mL every week by subcutan eous route. 2021 active sample medicati on Not Available Not Available Not Available Lantus Solostar U-100 Insulin 100 unit/mL (3 mL) subcutane ous pen INJECT 35 UNITS UNDER THE SKIN NIGHTLY AT BEDTIME. active Not Available Not Available No t Available Humalog KwikPen (U-100) Insulin 100 unit/mL subcutane ous INJECT 12 UNITS UNDER THE SKIN 3 (THREE) TIMES A DAY WITH MEALS. active Not Available Not Available No t Available FreeStyle [place] Lite kit active Not Available Not Available Not Available diclofena c 1 % topical gel APPLY 2 GRAMS TO THE AFFECTED AREA(S) BY TOPICAL ROUTE 4 TIMES PER DAY active rarely-u sed once last month Not Available Not Available Not Available levothyro xine 112 mcg capsule Take 1 capsule every day by oral route. active Not Available Not Available No t Available Trulicity 1.5 mg/0.5 mL subcutane ous pen injector INJECT 0.5ML UNDER THE SKIN ONCE EVERY 7 DAYS active Not Available Not Available No t Available Enbrel Mini 50 mg/mL (1 mL) subcutane ous cartridge INJECT THE CONTENTS OF 1 CARTRIDG E (50 MG) UNDER THE SKIN EVERY 7 DAYS active Not Available Not Available No t Available Humira(CF ) Pen 40 mg/0.4 mL subcutane ous kit active not using Not Available Not Available Not Available baclofen 5 mg tablet TAKE 1 TO 2 TABLETS BY MOUTH AT BEDTIME 04/23 completed Taking gabapent in instead/ Cardio Not Available Not Available Not Available Accu-Chek Fastclix Lancet Drum active Not Available Not Available Not Available Flowflex COVID-19 Antigen Home Test kit FOLLOW INSTRUCT IONS INCLUDED WITH THE PACKAGE. active Not Available Not Available No t Available Paxlovid 300 mg (150 mg x 2)-100 mg tablets in a dose pack TAKE 3 TABLETS BY MOUTH 2 TIMES FOR 5 DAYS active Not Available Not Available No t Available Vitals Date Recorded Body height Body mass index (BMI) Body weight Heart rate Systolic And Diastolic Provider Name and Address Organization Details Last Updated DateTime 06/08/2021 175.26 cm 42.1 kg/m2 853787.8 3 g 90 /min 130/78 mm[Hg] Mago Mcnamara LPN [facility] 06/08/2021 10:29:43 Date Recorded Body height Body mass index (BMI) Body weight Heart rate Systolic And Diastolic Provider Name and Address Organization Details Last Updated DateTime 09/14/2021 175.26 cm 40.5 kg/m2 578882.3 9 g 104 /min 130/80 mm[Hg] Mago Mcnamara LPN [facility] 09/14/2021 10:04:16 Date Recorded Body height Body mass index (BMI) Body weight Heart rate Systolic And Diastolic Provider Name and Address Organization Details Last Updated DateTime 12/15/2021 175.26 cm 41.8 kg/m2 040997.3 6 g 89 /min 130/78 mm[Hg] Mago Mcnamara LPN [facility] 12/15/2021 11:42:37 Date Recorded Body height Body mass index (BMI) Body weight Heart rate Systolic And Diastolic Provider Name and Address Organization Details Last Updated DateTime 02/09/2021 175.26 cm 43.4 kg/m2 222310.1 6 g 79 /min 136/80 mm[Hg] Mago Mcnamara LPN [facility] 02/09/2021 14:48:30 Social History Question Answer Notes LastModified by [employer] Details LastModified Time Tobacco Smoking Status Never Smoker Scotty Francois LPN [facility] 02/10/2016 08:33:15 How Much Tobacco Do You Chew? None [email or web address] Information not available 02/10/2016 What Was The Date Of Your Most Recent Tobacco Screening? 10/18/2018 Information n ot available 10/31/2018 Sex: Unknown Functional Status Question Answer Note LastModified by [employer] Details LastModified Time What is your level of alcohol consumption? Occasional 1-2 per week [email or web address] Information not available 09/05/2017 Mental Status None recorded. Family History Nothing Reported Notes:sister has rheumatoid arthritis Medical History No medical history recorded. Gynecological HistoryNo gynecological history recorded. Obstetrics History GPAL:G 0 P 0 0 0 0 Immunizations Vaccine Type Date Status Note Provider Nam e and Address Organization Details Recorded Time Influenza, split virus, quadrivalent, PF 8 completed Not Available [facility] 04/27/2019 02:23:04 Hep B, unspecified formulation 1 completed TIMOTHY Sandoval [facility] 12/28/2016 08:34:12 [facility]icella 4 [facility]/28[facility] 08:34:56 polio, unspecified formulation 2 completed Mateo Hidalgo [place] [facility] 02/23/2017 09:24:58 polio, unspecified formulation 2 completed Mateo [place] [facility] 02/23/2017 09:26:36 polio, unspecified formulation 3 completed Mateo [place] [facility] 02/23/2017 09:26:44 polio, unspecified formulation 4 completed Mateo [place], [place] [facility] 02/23/2017 09:26:51 polio, unspecified formulation 7 completed Mateo [place], [place] [facility] 02/23/2017 09:27:02 MMR 3 completed Mateo [place], [place] [facility] 02/23/2017 09:27:22 MMR 5 completed Mateo [place], [place] [facility] 02/23/2017 09:27:34 MMR 7 completed Mateo [place], [place] [facility] 02/23/2017 09:28:20 MMR 5 completed Mateo [place], [place] [facility] 02/23/2017 09:28:31 Hep B, unspecified formulation 7 completed Mateo [place], [place] [facility] 02/23/2017 09:29:06 Hep B, unspecified formulation 7 completed Mateo [place], [place] [facility] 02/23/2017 09:29:17 COVID-19, mRNA, LNP-S, PF, 30 mcg/0.3 mL dose 1 completed Mecca Shailesh, [employer] [facility] 07/14/2020 08:21:39 COVID-19, mRNA, LNP-S, PF, 30 mcg/0.3 mL dose 1 completed Mecca [place], [employer] [facility] 07/14/2020 08:22:00 Influenza, split virus, quadrivalent, preservative 1 completed Mago Mcnamara, [employer] ROOM SUPERVISOR null, [facility] 06/08/2021 10:27:31 COVID-19, mRNA, LNP-S, PF, 30 mcg/0.3 mL dose 1 completed TIMOTHY Lubin, [facility] 06/08/2021 10:27:47 COVID-19, mRNA, LNP-S, PF, 30 mcg/0.3 mL dose 2 completed Mago Mcnamara CURING ROOM SUPERVISOR alphonso, [facility] 09/14/2021 10:02:13 Past Encounters Encounter ID Performer Location Encounter Start Date Encounter Closed Date Diagnosis/Indication Diagnosis SNOMED-CT Code Diagnosis ICD10 Code Diagnosis Note [id number] Mecca Tripp MD PhD Rheumatol [place], [address] [place] [address] 02/10/2016 08:22:05 02/11/2016 09:15:36 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 The medication s were help due to side effects or she was . Based on her labs and physical examinatio n, unlikely she has active flare of DOROTEO. I will hold aggressive treatement and consider re-trial of MTX in the future if she has flare of DOROTEO. 1). recheck her labs, incase she needs diseases modificati on medication in the future; 2). start her on plaquenil, side effect were explained and she needs eye exam, 3). ophthalmol richard referral, she had eye exam 2 years ago, DOROTEO may have eye involvemen t and she also need eye check while she is on plaquenil; 4). follow up in 3 months. Fibromyalgia 457363756 M 79.7 she has typical fibromyalg ia presentati on. 1). start flexeril 5mg at bedtime, side effects were explained and she may titrated up to 10mg at bedtime if she tolerates, instructio n was given; 2), start physical therapy and aqua therapy, encourage exercise and recommend TaiChi/Yog a program; 3). follow up in 3 months Ankle pain [id number] M25 .571 right ankle pain s/p injury. 1). start on naproxen as needed for pain, side effects were explained, 2). start on ankle brace. 3). physical therapy; 4). follow up. Shoulder joint pain 2679 22822 M25.512 left shoulder pain with mild motion limitation , which is possibly related to previous injury and rotator cuff tendinitis . 1). recommende d physical therapy; 2). pain control with NSAIDs, side effects were explained; 3). follow up in 3 months. 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 1). left knee arthrocent esis and steroid injection; 2). have a trial of MTX from low dose and titrate up slowly, she had black out 20 years ago when she was started on MTX. She is adult and may tolerate MTX better. Will have a trial of mTX from low dose but closely monitor. Side effects were explained and contact us for any problem, instructio n was given, 3). start folic acid 1mg daily, 4). labs are up to date and repeat in her next visit; 5). counseling for , she states that she has no plan for more child and understand she needs contracept ion while she is on MTX; 6). follow up in 4 weeks. Fibromyalgia 496149963 M 79.7 she has typical fibromyalg ia presentati on, can't tolerate 5mg at bedtime but OK with less dose. 1). contnue 2.5mg at bedtime, instructio n was given; 2), encourage exercise and recommend TaiChi/Yog a program; 3). follow up Ankle pain 605484869 M25 .571 right ankle pain s/p injury. improving and follow up Shoulder joint pain 2679 70927 M25.512 left shoulder pain is likely related to muscle pain or fibromylag ia. COntinue flexeril and follow up. [id number] Mecca Tripp MD PhD Rhe[facility] [place] [address] [place], [place] [address] 06/16/2016 09:57:06 06/16/2016 10:45:57 Juvenile rheumatoid arthritis 933214062 M08.00 knee pain and swelling improved with steroid injection and on MTX. 1).continu e MTX 5 tabs weekly, given previous history of side effects, will closely monitor; 2). recheck labs; 3). continue folic acid 1mg daily, 4). follow up in 2-3 months. will contact her for any change based on labs. Fibromyalgia 749409423 M 79.7 improved 30% of fibromyalg ia. 1). contnue 2.5mg at bedtime, instructio n was given; 2), encourage exercise and recommend TaiChi/Yog a program; 3). follow up Ankle pain 746277304 M25 .571 she has chronic ankle pain and was seen by ankle specialty, who recommende d surgery. but she did not have it because of insurance issue. she had ankle brace to help., 1). recommende d ot wear and follow up with ankle specialty. 2). start voltaren gel. 3). follow up. Shoulder joint pain 2679 79959 M25.512 worsening left shoulder pain with limited motion, possibly related to subacromia l bursitis or rotator cuff tendinopat hy. 1). steroid injection; 2). NSAIDs as needed; 3). follow up [id number] Mecca Tripp MD PhD Rheumatol [place], [address] [place] [address] 09/15/2016 09:24:18 09/15/2016 12:24:45 Juvenile rheumatoid arthritis 942117097 M08.00 left knee pain and swelling improved with steroid injection, stable on MTX. Worse pain of right knee is likely related to the injury in 08/2016, improving slowly. 1).continu e MTX 5 tabs weekly, given previous history of side effects, will closely monitor; consider increasing the dose if she has recurrent knee swelling frequently ; 2). recheck labs; 3). continue folic acid 1mg daily, 4). follow up in 3 months. Fibromyalgia 858745914 M 79.7 the pain and stiffness of her hands and feet/legs possibly related to fibromyalg ia. She could not tolerates flexeril and no improvemen t on 2.5mg. 1). stop flexeril, start amitriptyl ine 25mg at bedtime and may titrate up to 50mg at bedtime as she tolerates, side effects were explained and instructio n was given; 2), encourage exercise and recommend TaiChi/Yog a program; 3). follow up Ankle pain 758236787 M25 .571 she has chronic ankle pain and was seen by ankle specialty, who recommende d surgery. but she did not have it because of insurance issue. she had ankle brace to help., 1). steroid inejciton of right ankles; 2). continue voltaren gel. 3). follow up. Shoulder joint pain 2679 66026 M25.512 possibly related to subacromia l bursitis or rotator cuff tendinopat hy, improved with steroid injection. NSAIDs as needed; follow up Knee pain 94549627 M25.5 61 worseing right knee pain, likely related to the injury in 08/2016. 1). aspiration and steroid injection; X-ray of knee; 2). NSAIDs as needed; 3). follow up Obesity 788751233 E66.9 counseling weight loss. [id number] Mecca Tripp MD PhD Rheumatol og, [facility] [address] [facility] [place] [address] 12/22/2016 09:43:54 12/22/2016 10:46:09 Juvenile rheumatoid arthritis 081880153 M08.00 She has recurrent knee pain and swelling, which is likely related to the uncontroll ed DOROTEO. Consider increasing MTX to full dose but she wants to think about and interested in steroid injection. 1).continu e MTX 5 tabs weekly, given previous history of side effects, will closely monitor; consider increasing the dose if she has recurrent knee swelling frequently ; 2). recheck labs; 3). continue folic acid 1mg daily, 4). follow up with new rheumatolo gist in 3 months. Fibromyalgia 042442003 M 80.7 the pain and stiffness of her hands and feet/legs possibly related to fibromyalg ia. She could not tolerates flexeril and amitriptyl ine. Also tried gabapentin before. 1). stop amitriptyl ine. start cymbalta 30mg daily for one week, then increase to 60mg daily as she tolerates. Side effects were explained and instructio n was given; 2), encourage exercise and recommend TaiChi/Yog a program; 3). follow up with PCP. Ankle pain 112665049 M25 .571 she has chronic ankle pain and was seen by ankle specialty, who recommende d surgery. but she did not have it because of insurance issue. she had ankle brace to help., 1). continue voltaren gel. 3). follow up. Knee pain 02253138 M25.5 61 worsening knee pain, likely related to her DOROTEO. Steroid injection and consider increasing MTX if she tolerates. follow up. Obesity 032501210 E66.9 counseling weight loss. follow up. Pain in left knee 020000 7513 83159 M25.562 worsening knee pain, likely related to her DOROTEO. Steroid injection and consider increasing MTX if she tolerates. follow up. [id number] Elliot Yeung MD Rheumatol [place], [address] [place] [address] 07/17/2017 13:54:16 07/17/2017 14:54:12 Inflammatory polyarthropathy 792172981 M06.4 Juvenile r heumatoid arthritis 818884010 M08.00 Hx of juvinile inflammato ry arthritis (DOROTEO).Stil l clearly has some active inflammato ry arthritis L knee and perhaps at R elbow. Cannot use Plaquenil (apparentl y had signs of retinal toxicity). Had difficulty tolerating low dises MTX. Discussed options. I discussed Leflunomid e, the potential for side effects including, but not limited to, diarrhea, rash, inflammati on of the liver. I emphasized need for monitoring labs and I explained that taking cholestyra mine might be necessary in the event of any serious side effect. Will start at very low dose: 10 qod for 1 week, then 10 qd. Labs in 4 weeks. Return 8 weeks. Fibromyalgia 695059252 M 80.7 Dx'd previously .She is said to have mild sleep apnea (untreated ) and this could be contributi ng.Also, works until 1 AM, has to get up by 7 for her kids. Has widespread pain and global fatigue. Has disrupted, non restorativ e sleep. Has IBS sxs. Has post exertional exhaustion . Certainly fulfills criteria for FM. Try addressing sleep disruption . Try low doses tizanidine . [id number] Elliot Yeung MD Rheumatol [place] [place] [address] 09/05/2017 09:08:12 09/05/2017 09:46:52 Juvenile rheumatoid arthritis 536932833 M08.00 Hx of juvenile inflammato ry arthritis (DOROTEO).Vlad valdovinos has some active inflammato ry arthritis L knee and perhaps at R elbow, butseeming inproved with the addition of LEF 4 weeks ago. She is tolerating OK. Plan is to increase dose to 20 mg 5 days per week.Monit or labs. Labs in 4 weeks. Return 8 weeks. Osteoarthr itis of ankle and/or foot 58589065 M19.071 She has advanced arthritis with very little movement at the R subtalar joint. Several years ago she had a brace that she found useful, but it wore out. She will try to get med details and I would be happy to re-prescri be it. Long-term drug therapy 161393547 Z79.899 Patient is on long-term leflunomid e. Reviewed recent labs. No signs or symptoms of toxicity. Tolerating well. Continue monitor labs. [id number] Elliot Yeung MD Rheumatol [place] [place] [address] 10/23/2017 10:05:15 10/23/2017 10:34:13 Osteoarthritis of ankle and/or foot 48855534 M19.071 She has advanced arthritis with very little movement at the R subtalar joint. Several years ago she had a brace that she Samia brace, found it useful, but it wore out. Will prescribe today. Rheumatoid arthritis 698 13338 M06.9 Hx of juvenile inflammato ry arthritis (DOROTEO). Still has some active inflammato ry arthritis L knee and perhaps at R elbow, but seeming improved with the addition of LEF . She is tolerating OK. I will have her increase to full dose 20 mg daily. Long-term drug therapy 949369575 Z79.899 Patient is on long-term leflunomid e. Reviewed recent labs. No signs or symptoms of toxicity. Tolerating well. Continue monitor labs. [id number] Elliot Yeung MD Rheumatol [place] [place] [address] 01/25/2018 09:00:18 01/25/2018 10:02:15 Active or passive immunization 234670581 Z23 Rheumatoid arthritis 698 12809 M06.9 Hx of juvenile inflammato ry arthritis (DOROTEO). Inflammato ry sxs have improved with the LEF, currently at 20 mg/d.She is, however, not tolerating this dose (GI). Advised to hold LEF for 5 days, then restart at 10 mg/d. Osteoarthr itis of ankle and/or foot 65109798 M19.071 She has advanced arthritis with very little movement at the R subtalar joint. Several years ago she had an Samia brace with custom orthotic. She found it useful, but it wore out. Will prescribe today. Referred to [facility]. Long-term drug therapy 010682263 Z79.899 Patient is on long-term leflunomid e. Reviewed recent labs. No signs or symptoms of toxicity. Reducing dose (GI) Continue monitor labs. [id number] Elliot Yeung MD Rheumatol [address] [address] 04/26/2018 10:03:01 04/26/2018 10:44:54 Rheumatoid arthritis 28144713 M06.9 Hx of juvenile inflammato ry arthritis (DOROTEO). Inflammato ry sxs have improved with the LEF, currently at 10 mg/d ( higher dose caused GI sxs). Continue current treatment. Long-term drug therapy 306167699 Z79.899 Patient is on long-term leflunomid e. Reviewed recent labs. No signs or symptoms of toxicity.U pdate labs today and in 3 mo.Return 6 mo, sooner if needed. [id number] Elliot Yeung MD Rheumatol [address] [address] 10/18/2018 10:25:57 10/19/2018 06:47:32 Osteoarthritis of knee 789708459 M17.0 Probably mixed picture of DJD knees and possible inflammato ry component. she recalls that Euflexxa very helpful in past.Will arrange repeat Euflexxa series. Rheumatoid arthritis 698 31471 M06.9 Hx of juvenile inflammato ry arthritis (DOROTEO). Inflammato ry sxs have improved with the LEF, currently at 10 mg/d ( higher dose caused GI sxs). Continue current treatment. Missed labs 3 mo ago. Labs today and again in 3 mo.RA f/u 6 mo. Long-term drug therapy 489500168 Z79.899 Patient is on long-term leflunomid e. Reviewed recent labs. No signs or symptoms of toxicity.U pdate labs today and in 3 mo.Return 6 mo, sooner if needed. [id number] Elliot Yeung MD Rheumatol [address] [place] [address] 11/22/2018 08:18:38 11/22/2018 11:47:49 Rheumatoid arthritis 27323566 M06.9 Hx of juvenile inflammato ry arthritis (DOROTEO). Inflammato ry sxs have improved with the LEF, currently at 10 mg/d ( higher dose caused GI sxs). Inflammato ry fluid at knees today. Also increase in AM stiffness. Try again LEF 20 mg/d for next 3 -4 days and discuss at next week's visit. Osteoarthr itis of knee 404260105 M17.0 mixed picture of DJD knees and inflammato ry component. she recalls that Euflexxa very helpful in past.Eufle xxa bilat today. [id number] Elliot Yeung MD Rheumatol [place] [place] [address] 11/29/2018 08:09:44 11/29/2018 13:35:38 Osteoarthritis of knee 188213207 M17.0 mixed picture of DJD knees and inflammato ry component. she recalls that Euflexxa very helpful in past.Secon d Euflexxa bilat today. Rheumatoid arthritis 698 68130 M06.9 Hx of juvenile inflammato ry arthritis (DOROTEO). Inflammato ry sxs have improved with the LEF, currently at 10 mg/d ( higher dose caused GI sxs). Inflammato ry fluid at knees today. Also increase in AM stiffness. Higher dose of LEF not tolerated. Plan bilat knee steroids inj in 1 week, then will have to decide if we want to try alternate DMARD. [id number] Elliot Yeung MD Rheumatol [place] [place] [address] 12/06/2018 11:00:30 12/06/2018 11:32:15 Osteoarthritis of knee 518587894 M17.0 mixed picture of DJD knees and inflammato ry component. she recalls that Euflexxa very helpful in past.Third Euflexxa bilat today. Also given bilat Kenalog injection at the same time. Rheumatoid arthritis 698 38216 M06.9 Hx of juvenile inflammato ry arthritis (DOROTEO). Inflammato ry sxs have improved with the LEF, currently at 10 mg/d ( higher dose caused GI sxs). Inflammato ry fluid at knees today. Also increase in AM stiffness. Higher dose of LEF not tolerated. Plan bilat knee steroids inj today and re-eval in 8 weeks. , Then will have to decide if we want to try alternate DMARD. [id number] Elliot Yeung MD Rheumatol [facility] [place] [address] [place] [address] 02/01/2019 08:38:17 02/01/2019 09:17:47 Cervical radiculopathy 49886952 M54.12 R C7 radicular sxs.Neck motion good but can reproduce radicular sx with r rotation. Discussed. Send for PT. If she sees no improvemen t over 4 weeks, should ask Primary Care for referral to PSS. Rheumatoid arthritis 698 78706 M06.9 Hx of juvenile inflammato ry arthritis (DOROTEO). Inflammato ry sxs have improved with the LEF, currently at 10 mg/d ( higher dose caused GI sxs). Knee inflammati on responded were well to local steroids 2 mo ago. No other imflammato ry joint sxs today. Continue current LEF, IBU. Long-term drug therapy 173923673 Z79.899 Patient is on long-term leflunomid e. Reviewed recent labs. No signs or symptoms of toxicity.U pdate labs today/ Return 3 mo. [id number] Elliot Yeung MD Rheumatol [place], [address] [place] [address] 05/10/2019 10:16:27 05/13/2019 08:18:18 Rheumatoid arthritis 80791616 M06.9 Hx of juvenile inflammato ry arthritis (DOROTEO). Inflammato ry sxs have improved with the LEF, currently at 10 mg/d ( higher dose caused GI sxs). Knee inflammati on responded were well to local steroids last year. No other inflammato ry joint sxs today. Continue current LEF, occasional IBU. Cervical radiculopathy 93712717 M54.12 R C7 radicular sxs.Neck motion good but can reproduce radicular sx with r rotation. Some improvemen t with PT but has residual sxs.X rays unremarkab le.Send to [facility] for further eval. Hypothyroidism 35092722 E03.9 On supplement . Check labs. (handwritt en lab slip for [facility]). Fibromyalgia M 79.7 Dx'd previously .She is said to have mild sleep apnea (untreated ) and this could be contributi ng.Also, works until 1 AM, has to get up by 7 for her kids. Has widespread pain and global fatigue. Has disrupted, non restorativ e sleep. Has IBS sxs. Has post exertional exhaustion . Certainly fulfills criteria for FM. Try addressing sleep disruption . Takes occasional tizanidine . [id number] Elliot Yeung MD Rhe[facility]ol [facility] [place] [facility] [address] [facility] [place] [address] 08/23/2019 10:19:20 08/23/2019 12:36:14 Rheumatoid arthritis 47042195 M06.9 Hx of juvenile inflammato ry arthritis (DOROTEO). Inflammato ry sxs have improved with the LEF, currently at 10 mg/d ( higher dose caused GI sxs). Knee inflammati on responded well to local steroids last year. No other inflammato ry joint sxs today. Continue current LEF, occasional IBU. Update labs Cervical radiculopathy 52336926 M54.12 R C7 radicular sxs.Neck motion good but can reproduce radicular sx with r rotation. Saw PSS, but unable to do MRI.Sxs persist, sometimes waking her at night. Try steroid course. Fibromyalgia M 79.7 Dx'd previously .She is said to have mild sleep apnea (untreated ) and this could be contributi ng.Also, works until 1 AM, has to get up by 7 for her kids. Has widespread pain and global fatigue. Has disrupted, non restorativ e sleep. Has IBS sxs. Has post exertional exhaustion . Certainly fulfills criteria for FM. Try addressing sleep disruption . Tizanidine too sedating. Try low dose baclofen. [id number] Elliot Yeung MD Rheumatol [address] [address] 12/24/2019 09:18:26 12/25/2019 07:21:00 Rheumatoid arthritis 92480117 M06.9 Hx of juvenile inflammato ry arthritis (DOROTEO). Inflammato ry sxs have improved with the LEF, currently at 10 mg/d, but lately some inflammato ry sxs shoulder, knee.Knee inflammati on responded well to local steroids last year but seems to have recurred.. Plan: Try increase leflunomid e to 20 alt 10. If tolerated, she will call and I will Rx 20 mg pills.If not tolerated, could try adding SSZ. I would prefer to stay away from Biologic with current pandemic. Update labsReturn 4 mo. Long-term drug therapy 217971087 Z79.899 Patient is on long-term leflunomid e. Reviewed recent labs. No signs or symptoms of toxicity.U pdate labs today/ Return 3 mo. Fibromyalgia 725842364 M 79.7 Dx'd previously .She is said to have mild sleep apnea (untreated ) and this could be contributi ng.Also, works until midnight and has to get up by 7 for her kids. Has widespread pain and global fatigue. Has disrupted, non restorativ e sleep. Has IBS sxs. Has post exertional exhaustion . Certainly fulfills criteria for FM. Sleep pattern improved since going on CPAP a few mo ago. Less fatigue. [id number] Elliot Yeung MD Rheumatol [place], [address] [address] 04/30/2020 08:53:14 05/01/2020 07:13:42 Rheumatoid arthritis 10926834 M06.9 Hx of juvenile inflammato ry arthritis (DOROTEO). Inflammato ry sxs have improved with the LEF, currently at 10 mg/d, but lately some inflammato ry sxs shoulder, knee. Knee inflammati on responded well to local steroids last year. Only minimal sxs now. Plan: Continue LEF 10 mg/d. Noted minimal LFT abnormalit y, but OK to continue low dose LEF. If needed, could try adding SSZ in future. I would prefer to stay away from Biologic with current pandemic. Update labs in 3 mo. Return 4 mo. Neck pain 02569138 M54.2 Pain mostly in R trapezius ridge. It does seem related to neck movement. There is focal muscle spasm and a prominent trigger point. Will try local injection. If no improvemen t, refer back to [facility] for re-evaluat ion. Myofascial pain 05076498 9 M79.10 Features of fibromyalg ia, particular trigger point R trapez ridge Long-term drug therapy 733802219 Z79.899 Patient is on long-term leflunomid e. Reviewed recent labs. Minimal LFT abnormalit y. Follow. [id number] Elliot Yeung MD Rheumatol [facility] [place] [address] [place] [address] 07/14/2020 08:09:40 07/15/2020 18:52:45 Cervical radiculopathy 46161727 M54.12 R C7 radicular sxs. Neck motion good but can reproduce radicular sx with r rotation. Saw [facility], but unable to do MRI (pandemic) . Sxs persist, sometimes waking her at night. Will order MRI and suggest follow up with PSS. Rheumatoid arthritis 698 32481 M06.9 Hx of juvenile inflammato ry arthritis (DOROTEO). Inflammato ry sxs have improved with the LEF, currently at 10 mg/d, but lately some inflammato ry sxs shoulder, knee. Knee inflammati on responded well to local steroids last year. Only minimal sxs now. Plan: Continue LEF 10 mg/d. Noted minimal LFT abnormalit y, but OK to continue low dose LEF. If needed, could try adding SSZ in future. I don't think there is indication for Biologic at present (particula rly with pandemic). Update labs in August. Follow up Dr Back (Jan). [id number] Elliot Yeung MD Rheumatol [place], [address] [place] [address] 09/25/2020 09:40:49 09/28/2020 06:43:44 Liver function tests outside reference range 027391189 R94.5 Minimal elevation ALT. Not necessaril y from LEF. Could be fatty liver etc.Try again with higher LEF dose and update labs. Rheumatoid arthritis 698 42892 M06.9 Hx of juvenile inflammato ry arthritis (DOROTEO). Inflammato ry sxs have improved with the LEF, but past few months on lower dose because of minor LFT abnormalit y. On current 10 mg qod, flare in arthritis at R elbow. Plan: Try again to raise dose of LEF to 10 mg/d and get follow up labs in 1 mo. If needed, could try adding SSZ in future. I don't think there is indication for Biologic at present, but if persisting synovitis then consider this. Follow up Dr Back (Jan). Trochanter ic bursitis of right hip [id number] 11031 M70.61 Moderately symptomati c. If it does not seem to improve 3-4 weeks, could call and schedule for u/s guided injection. Arthritis of elbow 99737 6005 M13.821 arthritis flare R elbow with prominent flexion contractur e.Try local injection. [id number] Marlee Back MD Rheumatol [place] [place] [address] 01/12/2021 11:38:10 01/12/2021 19:04:23 Rheumatoid arthritis 14423097 M06.9 Hx of juvenile inflammato ry arthritis (DOROTEO).RF and CCP negative, YESENIA .Still having symptoms.O n low dose leflunomid e because of liver dysfunctio n. I will order labs and reassess treatment. In office visit to do exam. [id number] Marlee Back MD Rheumatol [address] [place] [address] 02/09/2021 14:38:57 02/09/2021 19:03:34 Rheumatoid arthritis 78519604 M06.9 Hx of juvenile inflammato ry arthritis (DOROTEO).RF and CCP negative, YESENIA .Still having symptoms.O n low dose leflunomid e because of liver dysfunctio n.Will add Humira.Pat ient got flu shot and COVID booster.Ar range for PCV-13. RTC in 4 months.[place] ck labs beofre next visit.Chec k radiograph s. Side effects of Humira discussed with the patient, including but not limited to: injection site reactions, increased incidence of usual infections , serious infections (like TB), malignanci es, allergic reaction, demyelinat ing disease, heart failure, lupus-like syndrome, cytopenias . Patient counselled to stop the medication if fever or any other sign of infection and call her PCP or our office right away. Patient instructed not to have any live vaccines. Patient verbalized understand ing. [id number] Marlee Back MD [facility], [address] [place] [phone] 06/08/2021 10:13:14 06/09/2021 19:34:19 Rheumatoid arthritis [id number] M06.9 Hx of juvenile inflammato ry arthritis (DOROTEO).RF and CCP negative, YESENIA 140.Humir a helped initially but now the patient states that the efefct lasts for one week only.On low dose leflunomid e because of liver dysfunctio n.Will switch Humira to every week and provide samples and reassess.P atient got flu shot , PCV-13., and COVID series.Cou nselled about 4th dose. Will arrange for Shingrix.C heck MRI of the left foot to rule out erosions. RTC in 3 months.[place] ck labs beofre next visit. Synovial cyst of knee 24 [id number] M71.21 M71.20 Check US. Pain of ri [facility] knee joint [id number] M25.561 Will inject with kenalog. [id number] Marlee Back MD [facility], [address] [place] [phone] 09/14/2021 09:51:34 09/23/2021 07:57:37 Rheumatoid arthritis [id number] M06.9 Hx of juvenile inflammato ry arthritis (DOROTEO).RF and CCP negative, YESENIA 1/40.Humir a helped initially the it stopped working, weekly Humira did not help. On low dose leflunomid e because of liver dysfunctio n. Causing diarrhea.S top Leflunomid e when she starts Enbrel.Lauri aruna D/C Humira.Try Enbrel as patient initially had a good response to Humira. Patient got flu shot , PCV-13., and COVID series (4 doses). She will check if she had Shingrix.T B quantifero n negative in 01/28. Check labs.RTC in 3 months. Synovial cyst of knee 24 [id number] M71.21 M71.20 No Meadows cyst on US. Pain of ri [facility] knee joint [id number] 43739 M25.561 Has OA. She will be seeing ortho for eufflexa injections . Chronic pain [id number] G8 9.29 Patient has chronic damage from her arthritis. In addition to the immunosupp resive agents, she needs to be on pain meds.Tylen ol does not help.NSAID s are contraindi cated view her history of diabetes.T ramadol may be an option.Christophe apentin, lyrica or cymbalta could be helpful as patient is also having some [id number] Marlee Back MD [facility] [place], [address] [place] [phone] 09/29/2021 14:24:54 10/27/2021 11:48:41 Rheumatoid arthritis [id number] M06.9 Hx of juvenile inflammato ry arthritis (DOROTEO).RF and CCP negative, YESENIA 1/40.Humir a helped initially the it stopped working, weekly Humira did not help. On low dose leflunomid e because of liver dysfunctio n. Causing diarrhea.S top Leflunomid e when she starts Enbrel.Lauri l D/C Humira.Try Enbrel as patient initially had a good response to Humira. Patient got flu shot , PCV-13., and COVID series (4 doses). She will check if she had Shingrix.T B quantifero n negative in 01/28. Check labs.RTC in 3 months. [id number] Marlee Back MD [facility], [address] [place] [phone] 12/15/2021 11:27:25 12/16/2021 10:27:47 Rheumatoid arthritis [id number] M06.9 Hx of juvenile inflammato ry arthritis (DOROTEO).RF and CCP negative, YESENIA 1/40.Humir a helped initially the it stopped working, weekly Humira did not help.Osorio nt responded well to Enbrel, continue for now. Patient got flu shot , PCV-13., and COVID series (4 doses).Jus t had COVID. Counselled about the booster in about 6 weeks. She will check if she had Shingrix.T B quantifero n negative in 01/28.Hold Enbrel if fever or signs of infection. Check labs.RTC in 4 months. Health Concerns Section Related Observation LastModified by Organization Detai ls LastModified Time None Recorded Concern Status LastModified by Organization Details LastModified Time None Recorded Advance Directives Directive None Recorded Payers Insurance Date Sequence Insurance Name Policy Number Policy [place] Covered Member ID [place] Member ID Guarantor Name 08/31/2024 1 [facility] [id number] Liudmila Durán [id number] Liudmila Durán Notes Date Note Type Note Provider Name and Address Organization Details Recorded Time 1 text/html Patient is 40 y old female following-up on juvenile idiopathic arthritis. No new complaints.Patient is following on her results. As per previous office visit:Patient used to see Dr. Yeung. Patient was diagnosed with JRA when she was 5 years old.Patient states that she has pain in the right ankle, it swells on and off mostly if she does too much. She gets pain in the right shoulder and hands. Some swelling in the hands. Morning stiffness about 30-45 minutes. No history of uveitis. 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 No low back pain. Patient is on leflunomide 10 mg, 5 days a week and Ibuprofen as needed (about once a week). Patient is tolerating the medications, no side effects reported. Her LFTs were increased. Occasional numbness in hands and legs. No recent labs. As per previous office visit with Dr. Yeung: Follow up for this 39 yo F with PMH of hypothyroidism, JRA, migraine, sleep apnea ( now on CPAP) and obesity. She was followed for a long time by Dr Dupree and then briefly by Dr Tripp for her diagnosis of Juvenile Inflammatory Arthritis (DOROTEO). She was diagnosed as DOROTEO when she was 5 years old. Initially, she had left knee swelling and difficulty walking. She had tried plaquenil, MTX and Arava, but has never been on biologics. She was off DMARDs for years because she was and then . In 2016- had series of joint injections, large effusions. Has been on Leflunomide, but dose was decreased a few months ago b/o LFT abnormality. Repeat labs nearly normal.New Dx of DM.Here today with pain and limitation R elbow, some pain R trochanteric region. Prior Hx: In July 2017, I had her start low dose LEF, and then increased to 20 mg daily. She has found it quite helpful; less pain and stiffness but some GI distress. Reduced dose to current 10 mg/d because of minor LFT abnormality. . Also takes occasional IBU.Relatively intolerant of MTX (malaise, headache). I saw her in Apr 2020 with R shoulder pain , but actually indicates R trapezius and neck. Hurts worse with neck rotation. Sxs for few weeks. Getting massage treatments: helps a little. I tried trigger point injection, but without success. At visit Jan, 2019 had R cervical radiculopathy. She had PT with some improvement, but still has some pain and mild dysesthesia in C6 distribution. (However, also reports old injury from electrocution in that distribution.)Then was seen at [facility], ordered MRI, but postponed b/o COVID.She has had features of fibromyalgia.Hx of sleep apnea and excess fatigue. Now on CPAP and sleeping much better; less fatigue. For fibromyalgia symptoms, patient has been on several meds including flexeril, amitriptyline (excessive sedation). Cymbalta gave PROPERTY WORKER effects. Also tried gabapentin in past. Tizanidine also too sedating. Halley Back MD [address] [place] [address], [phone], [facility] 02/09/2021 15:19:06 2 text/html Patient is 40 y old female following-up on juvenile idiopathic arthritis. Patient states that when she first started Humira it was helping but now it only lasts for one weel.She still gets right knee pain and swelling. Gets pain in her feet. Left foot xray: Mild inflammatory arthropathy changes affecting the medial talar head andpossibly the fourth metatarsal base. No evidence of involvement of the proximalinterphalangeal joints, metatarsophalangeal joints, or calcaneus. Mild osteoarthritic changes in the midfoot and hindfoot. Right foot: No radiographic evidence for inflammatory arthropathy. Tibiotalar, midfoot and hindfoot osteoarthritis. Hands: Normal. No radiographic evidence for rheumatoid arthritis. As per previous office visit:Patient used to see Dr. Yeung. Patient was diagnosed with JRA when she was 5 years old.Patient states that she has pain in the right ankle, it swells on and off mostly if she does too much. She gets pain in the right shoulder and hands. Some swelling in the hands. Morning stiffness about 30-45 minutes. No history of uveitis. 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 No low back pain. Patient is on leflunomide 10 mg, 5 days a week and Ibuprofen as needed (about once a week). Patient is tolerating the medications, no side effects reported. Her LFTs were increased. Occasional numbness in hands and legs. No recent labs. As per previous office visit with Dr. Yeung: Follow up for this 39 yo F with PMH of hypothyroidism, JRA, migraine, sleep apnea ( now on CPAP) and obesity. She was followed for a long time by Dr Dupree and then briefly by Dr Tripp for her diagnosis of Juvenile Inflammatory Arthritis (DOROTEO). She was diagnosed as DOROTEO when she was 5 years old. Initially, she had left knee swelling and difficulty walking. She had tried plaquenil, MTX and Arava, but has never been on biologics. She was off DMARDs for years because she was and then . In 2016- had series of joint injections, large effusions. Has been on Leflunomide, but dose was decreased a few months ago b/o LFT abnormality. Repeat labs nearly normal.New Dx of DM.Here today with pain and limitation R elbow, some pain R trochanteric region. Prior Hx: In July 2017, I had her start low dose LEF, and then increased to 20 mg daily. She has found it quite helpful; less pain and stiffness but some GI distress. Reduced dose to current 10 mg/d because of minor LFT abnormality. . Also takes occasional IBU.Relatively intolerant of MTX (malaise, headache). I saw her in Apr 2020 with R shoulder pain , but actually indicates R trapezius and neck. Hurts worse with neck rotation. Sxs for few weeks. Getting massage treatments: helps a little. I tried trigger point injection, but without success. At visit Jan, 2019 had R cervical radiculopathy. She had PT with some improvement, but still has some pain and mild dysesthesia in C6 distribution. (However, also reports old injury from electrocution in that distribution.)Then was seen at [facility], ordered MRI, but postponed b/o COVID.She has had features of fibromyalgia.Hx of sleep apnea and excess fatigue. Now on CPAP and sleeping much better; less fatigue. For fibromyalgia symptoms, patient has been on several meds including flexeril, amitriptyline (excessive sedation). Cymbalta gave PROPERTY WORKER effects. Also tried gabapentin in past. Tizanidine also too sedating. Halley Back MD [address] [place] [address], [phone], [facility] 06/08/2021 11:58:18 2 text/html Patient is 40 y old female following-up on juvenile idiopathic arthritis. Patient states that she is in pain, her knees, her feet. She feels stiff all over. She is on weekly Humira but it is not helping. When she first started Humira it was helping and then it stopped working. Increasing the dose did not help. Patient is also on low dose leflunomide and she states that she is getting diarrhea. Knee US: No Meadows cyst. MRI left foot:No MR evidence of rheumatoid arthritis. Minimal calcaneocuboid osteoarthritis. Mild first-third intermetatarsal bursal fluid without significantinflammation on post contrast images. Left foot xray: Mild inflammatory arthropathy changes affecting the medial talar head andpossibly the fourth metatarsal base. No evidence of involvement of the proximalinterphalangeal joints, metatarsophalangeal joints, or calcaneus. Mild osteoarthritic changes in the midfoot and hindfoot. Right foot: No radiographic evidence for inflammatory arthropathy. Tibiotalar, midfoot and hindfoot osteoarthritis. Hands: Normal. No radiographic evidence for rheumatoid arthritis. As per previous office visit:Patient used to see Dr. Yeung. Patient was diagnosed with JRA when she was 5 years old.Patient states that she has pain in the right ankle, it swells on and off mostly if she does too much. She gets pain in the right shoulder and hands. Some swelling in the hands. Morning stiffness about 30-45 minutes. No history of uveitis. 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 No low back pain. Patient is on leflunomide 10 mg, 5 days a week and Ibuprofen as needed (about once a week). Patient is tolerating the medications, no side effects reported. Her LFTs were increased. Occasional numbness in hands and legs. No recent labs. As per previous office visit with Dr. Yeung: Follow up for this 39 yo F with PMH of hypothyroidism, JRA, migraine, sleep apnea ( now on CPAP) and obesity. She was followed for a long time by Dr Dupree and then briefly by Dr Tripp for her diagnosis of Juvenile Inflammatory Arthritis (DOROTEO). She was diagnosed as DOROTEO when she was 5 years old. Initially, she had left knee swelling and difficulty walking. She had tried plaquenil, MTX and Arava, but has never been on biologics. She was off DMARDs for years because she was and then . In 2016- had series of joint injections, large effusions. Has been on Leflunomide, but dose was decreased a few months ago b/o LFT abnormality. Repeat labs nearly normal.New Dx of DM.Here today with pain and limitation R elbow, some pain R trochanteric region. Prior Hx: In July 2017, I had her start low dose LEF, and then increased to 20 mg daily. She has found it quite helpful; less pain and stiffness but some GI distress. Reduced dose to current 10 mg/d because of minor LFT abnormality. . Also takes occasional IBU.Relatively intolerant of MTX (malaise, headache). I saw her in Apr 2020 with R shoulder pain , but actually indicates R trapezius and neck. Hurts worse with neck rotation. Sxs for few weeks. Getting massage treatments: helps a little. I tried trigger point injection, but without success. At visit Jan, 2019 had R cervical radiculopathy. She had PT with some improvement, but still has some pain and mild dysesthesia in C6 distribution. (However, also reports old injury from electrocution in that distribution.)Then was seen at [facility], ordered MRI, but postponed b/o COVID.She has had features of fibromyalgia.Hx of sleep apnea and excess fatigue. Now on CPAP and sleeping much better; less fatigue. For fibromyalgia symptoms, patient has been on several meds including flexeril, amitriptyline (excessive sedation). Cymbalta gave PROPERTY WORKER effects. Also tried gabapentin in past. Tizanidine also too sedating. Halley Back MD [address] [place] [address], [phone], [facility] 09/14/2021 10:41:27 2 text/html Patient is 41 y old female following-up on juvenile idiopathic arthritis. Patient states that she feels better, she thinks Enbrel is working. She has pain in her right ankle but other joints have improved.She received eufflexa injections in her knees and it has helped a lot. Patient had COVID last week, she got the paxlovid. Patient stopped leflunomide. No recent labs.Previous labs reviewed (09/29): CRP 2.1, ESR 28, CMP wnl, Hb 11.7, WBC 4.5, Plts 342. Previous visit on 09/29/21:Patient is 40 y old female following-up on juvenile idiopathic arthritis. Patient states that she is in pain, her knees, her feet. She feels stiff all over. She is on weekly Humira but it is not helping. When she first started Humira it was helping and then it stopped working. Increasing the dose did not help. Patient is also on low dose leflunomide and she states that she is getting diarrhea. Knee US: No Meadows cyst. MRI left foot:No MR evidence of rheumatoid arthritis. Minimal calcaneocuboid osteoarthritis. Mild first-third intermetatarsal bursal fluid without significantinflammation on post contrast images. Left foot xray: Mild inflammatory arthropathy changes affecting the medial talar head andpossibly the fourth metatarsal base. No evidence of involvement of the proximalinterphalangeal joints, metatarsophalangeal joints, or calcaneus. Mild osteoarthritic changes in the midfoot and hindfoot. Right foot: No radiographic evidence for inflammatory arthropathy. Tibiotalar, midfoot and hindfoot osteoarthritis. Hands: Normal. No radiographic evidence for rheumatoid arthritis. As per previous office visit:Patient used to see Dr. Yeung. Patient was diagnosed with JRA when she was 5 years old.Patient states that she has pain in the right ankle, it swells on and off mostly if she does too much. She gets pain in the right shoulder and hands. Some swelling in the hands. Morning stiffness about 30-45 minutes. No history of uveitis. 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 No low back pain. Patient is on leflunomide 10 mg, 5 days a week and Ibuprofen as needed (about once a week). Patient is tolerating the medications, no side effects reported. Her LFTs were increased. Occasional numbness in hands and legs. No recent labs. As per previous office visit with Dr. Yeung: Follow up for this 39 yo F with PMH of hypothyroidism, JRA, migraine, sleep apnea ( now on CPAP) and obesity. She was followed for a long time by Dr Dupree and then briefly by Dr Tripp for her diagnosis of Juvenile Inflammatory Arthritis (DOROTEO). She was diagnosed as DOROTEO when she was 5 years old. Initially, she had left knee swelling and difficulty walking. She had tried plaquenil, MTX and Arava, but has never been on biologics. She was off DMARDs for years because she was and then . In 2016- had series of joint injections, large effusions. Has been on Leflunomide, but dose was decreased a few months ago b/o LFT abnormality. Repeat labs nearly normal.New Dx of DM.Here today with pain and limitation R elbow, some pain R trochanteric region. Prior Hx: In July 2017, I had her start low dose LEF, and then increased to 20 mg daily. She has found it quite helpful; less pain and stiffness but some GI distress. Reduced dose to current 10 mg/d because of minor LFT abnormality. . Also takes occasional IBU.Relatively intolerant of MTX (malaise, headache). I saw her in Apr 2020 with R shoulder pain , but actually indicates R trapezius and neck. Hurts worse with neck rotation. Sxs for few weeks. Getting massage treatments: helps a little. I tried trigger point injection, but without success. At visit Jan, 2019 had R cervical radiculopathy. She had PT with some improvement, but still has some pain and mild dysesthesia in C6 distribution. (However, also reports old injury from electrocution in that distribution.)Then was seen at [facility], ordered MRI, but postponed b/o COVID.She has had features of fibromyalgia.Hx of sleep apnea and excess fatigue. Now on CPAP and sleeping much better; less fatigue. For fibromyalgia symptoms, patient has been on several meds including flexeril, amitriptyline (excessive sedation). Cymbalta gave PROPERTY WORKER effects. Also tried gabapentin in past. Tizanidine also too sedating. Halley Back MD [address] [place] [address], [phone], [facility] 12/15/2021 12:10:19 OBGyn Episode No OBEpisode recorded.
--- OUTSIDE RECORDS SUMMARY | 2024-10-24 15:26 | XMS_ITS ---
Author Name [facility] Organization Unknown Encounters Encounter Type Encounter Reason Primary Diagnosis Location Date Ambulatory [facility]. ([facility]) 04/06/2024
--- OUTSIDE RECORDS SUMMARY | 2024-10-24 15:26 | XMS_ITS | Clinical Summary ---
Author Organization [facility] Address [address] [place] [address] Care Team Providers Care Manager Subway Name Role Phone Roger Glasgow MD Primary Care Provider [phone] Social History Tobacco Use Types Packs/Day Years Used Date Smoking Tobacco: Never Assessed Comments Unknown Sex and Gender Information Value Date Recorded Sex Assigned at Not on file Legal Sex Female 2:26 PM EDT Gender Identity Not on file Sexual Orientation Not on file Plan of Treatment Health Maintenance Due Date Last Done Comments Hepatitis C Screening 1981 Pap Smear 1997 DTaP/Tdap/Td (1 - Tdap) 11/17/1999 Hep B (1 of 3 - 19+ 3-dose series) 2000 Mammogram/Breast Imaging 2021 COVID-19 Vaccine ( - 2023-2 5 season) 2023 Influenza (#1) 2024 Zoster (Shingrix) (1 of 2) 11/17/2031 HPV Vaccine Aged Out No longer eligi ble based on patient's age to complete this topic Hep A Aged Out No longer eligi ble based on patient's age to complete this topic Hib Aged Out No longer eligi ble based on patient's age to complete this topic Meningococcal ACWY Aged Out No longer eligible based on patient's age to complete this topic Pneumococcal Aged Out No longer eligi ble based on patient's age to complete this topic Insurance * Guarantor: [id number] [employer]HER[employer] Account Type Relation to Patient Date of Phone Billing Address Worker's Comp [address] [facility] [address] [place], [place] [id number] [employer] Care Teams Manager Subway Relationship Specialty Start Date End Date Roger Glsagow MD [facility] [address] [place] [address] PCP - General Internal Medicine 10/19/12
== END 2024-10-24 15:44 | disposition home or self-care (01) ==
LOC: HO.PMC 14:43
PROVIDERS: PCP Internal Medicine; Visit Provider Nurse Practitioner Family
DX: M54.50 Low back pain, unspecified (principal); G89.29 Other chronic pain; M47.817 Spondylosis without myelopathy or radiculopathy, lumbosacral region; M51.369 Other intervertebral disc degeneration, lumbar region without mention of lumbar back pain or lower extremity pain; M25.551 Pain in right hip; M25.552 Pain in left hip
CPT/HCPCS: 99204

== ENCOUNTER → 2024-10-24 15:59 | Outpatient (BNV) | payer OTHER, SELFPAY | PROVIDERS: PCP Internal Medicine; Visit Provider Radiology Diagnostic Radiology | DX: M25.551 Pain in right hip (principal) | CPT/HCPCS: 73522 ==

== ENCOUNTER 2024-12-19 06:16 | Outpatient (REF) | payer OTHER, SELFPAY ==
--- NOTE | ~2024-12-19 | FL_ITS ---
EXAMINATION: FL GUIDANCE ONLY HISTORY: M51.369 - Other intervertebral disc degeneration, lumbar region without ... COMPARISON: None available. TECHNIQUE: Fluoroscopy time: 0.2 minutes. Cumulative Dose: 3.09 mGy. DAP: 0.0404 mGym2 Images: 2. FINDINGS: Fluoroscopic spot films of the lumbar spine in the AP projection demonstrate needles in the regions of the bilateral L3-4, L4-5, and L5-S1 facet joints. FL/FL guidance in treatment room IMPRESSION: Fluoroscopy during procedure. Please see procedure report for additional information. Electronically signed by: Hiram Shaw MD 12/19/2024 11:08 AM EDT
--- OUTSIDE RECORDS SUMMARY | 2024-12-19 06:18 | XMS_ITS | Encounter Summary ---
Author Organization [facility] Address [address] [place] [address] [place] [address] Phone Care Team Providers Care Auto Rental Supervisor Name Role Phone Oly Quintanilla MD Unavailable [phone] Maxi Moreno MD Primary Care Provider Kirk Pérez DO Unavailable Halley Back MD Unavailable Filemon East MD Unavailable Encounter Details Date Type Department Care Team (Late st Contact Info) Description 09/25/2023 Procedure [facility] [address] [place] [address] Social History Tobacco Use Types Packs/Day Years [...] high school, GED, job training, learning the [place]agu[place] language, technical skills, or developing parenting skills)? [...] ecorded Denied Basic Needs Not on file 09/25/2023 In the past 12 months have y ou been in a relationship with a person who hurts, threatens, or tries to control you? No 09/25/2023 Worried food would run out Not on file 09/24 In the past 12 months have y ou been in a relationship with a person who hurts, threatens, or tries to control you? No 09/25/2023 Comments No Sex and Gender Information Value Date Recorded Sex Assigned at Female 10/27/2020 9:03 PM EDT Legal Sex Female 9:19 PM EDT Gender Identity Female 10/27/2020 9:03 PM EDT Sexual Orientation Straight 10/27/2020 9: 03 PM EDT documented as of this encounter Plan of Treatment Upcoming Encounters Date Type Department Care Team (Late st Contact Info) Description 01/09/2025 4:00 PM EDT Office Visit [facility] [address] [place] [address] Kirk [place] [address] 12/16/2025 2:30 PM EDT Office Visit [facility] [address] [place] [address] [place] [address] Maxi Moreno MD [address] [place] [address] [email or web address] documented as of this encounter Visit Diagnoses Not on filedocumented in this encounter Additional Health Concerns Assessment Noted Time A Body Mass Index follow-up plan has been documented for the patient 09/28/2023 3:19 PM EDT PHQ-2 Depression Total Score: 0 09/25/19 24 10:59 AM EDT documented as of this encounter Care Teams Auto Rental Supervisor Relationship Specialty Start Date End Date Maxi Moreno MD [address] [place] [address] PCP - General Internal Medicine 09/17/20 Oly Quintanilla MD [address] [place] [address] Historical LMR Provider 01/24/17 Kirk Pérez DO [address] [place] [address] Endocrinology 12/18/20 Halley Back MD [address] [place] [address] Rheumatology 12/18/20 Filemon East MD [address] [place] [address] [email or web address] Physical Medicine and Rehabilitation 12/18/20 documented as of this encounter Additional Source Comments The information contained in this document represents components of the legal health record. It is not the complete legal health record.[facility]
--- OUTSIDE RECORDS SUMMARY | 2024-12-19 06:18 | XMS_ITS | Clinical Summary ---
Author Organization [facility] Address [address] [place] [address] Care Team Providers Care Industrial Relations Officer Name Role Phone Roger Glasgow MD Primary Care Provider Social History Tobacco Use Types Packs/Day Years [...] COVID-19 Vaccine ( - 2023-2 5 season) 2024 Influenza (#1) 2024 Zoster (Shingrix) (1 of 2) 11/17/2031 HPV Vaccine (No Doses Required) Completed Hep A Aged Out No longer eligi [...] to complete this topic Insurance * Guarantor: [id number] AMHERST Account Type Relation to Patient Date of Phone Billing Address Worker's Comp [address] [place] [address] [facility] [place] [address] [place], [place] [address] WORKERS COMPENSATION Care Teams Industrial Relations Officer Relationship Specialty Start Date End Date Roger Glasgow MD [facility] [address] [place] [address] PCP - General Internal Medicine 10/19/12
--- OUTSIDE RECORDS SUMMARY | 2024-12-19 06:18 | XMS_ITS | Encounter Summary ---
Author Organization [facility] Address [address] [facility] [address] [place] [address] Phone Care Team Providers Care Irrigation Specialist Name Role Phone Oly Quintanilla MD Unavailable Maxi Moreno MD Primary Care Provider Kirk Pérez DO Unavailable Halley Back MD Unavailable Filemon East MD Unavailable Reason for Visit * Reason Onset Date Comments Cough 02/06/2024 Chills 02/06/2024 Ear Fullness 02/06/2024 Encounter Details Date Type Department Care Team (Late st Contact Info) Description 02/06/2024 Nurse Triage [facility] [address] [place] [address] [place] [address] Maxi Moreno MD [address] [place] [address], 2nd [place] [address] [email or web address] Cough; Chills; Ear Fullness Social History Tobacco Use Types Packs/Day Years [...] high school, GED, job training, learning the Ethiopian language, technical skills, or developing parenting skills)? [...] PM EDT documented as of this encounter Progress Notes * Maxi Moreno MD - 02/06/2024 5:10 PM EDT Doxycycline sent. * Daisy Tracy RN - 02/06/2024 4:21 PM EDT Nurse Triage Encounter Note Reason for Triage Liudmila Durán contacted office for Cough Chills Ear Fullness Call Disposition Routing To Or Marc For Further Advice Disposition Comments: Patient/caregiver understands and will follow disposition: Yes Initial Symptom Screening and Assessment IA Symptom Onset 1-2 days Symptom Severity Moderate - interferes with normal activities Symptom Pattern Constant/continuous Home Treatments OTC Medications; Rest Comments ibuprofen Did the home treatments work? Yes Fever? No Recent exposure to sick contact? Yes Comments daughter has ear infection - started amoxicillin last week Other related symptoms productive cough, ear pain/pressure starting, chills but no fever, taking ibuprofen Breathing or Chest Symptoms (Resp/Cardiac) Respiratory symptoms Productive cough; Wheezing Recurrent symptom? No Other breathing or chest symptoms? wheezing, nausea with coughing fits HEENT Symptoms (Ear, Eye Nose and Throat/teeth) HEENT symptoms Otalgia Location? R Ear; L Ear HEENT injury? No Care Advice Patient/Caregiver understands and will follow care advice?: No, wishes to speak to PCP [facility] Daisy Tracy RN Tue Feb 06, 2024 04:22 PM Disposition and First Aid SEE IN OFFICE TODAY OR TOMORROW: * You need to be examined. Let me give you an appointment. * IF NO AVAILABLE OFFICE APPOINTMENTS: You need to be seen in an Urgent Care Center. Go to the one at . Go there today. A nearby Urgent Care Center is often a good source of care. General Care Advice for Mild to Moderate Cough REASSURANCE AND EDUCATION - COUGH: * Coughing is the way that our lungs remove irritants and mucus. It helps protect our lungs from getting pneumonia. * You can get a dry hacking cough after a chest cold. Sometimes this type of cough can last 1 to 3 weeks, and be worse at night. * You can also get a cough after being exposed to irritating substances like smoke, strong perfumes, and dust. * Here is some care advice that should help. COUGH SYRUP WITH DEXTROMETHORPHAN: * Cough syrups containing the cough suppressant dextromethorphan may help decrease your cough. * Cough syrup works best for coughs that keep you awake at night. It can also sometimes help in thelate stages of a lung or airway infection when the cough is dry and hacking. Cough syrup can be used along with cough drops. * Examples: Delsym 12-hour Cough, Robitussin Cough Long-Acting, Triaminic Long- Acting, Vicks DayQuil Cough. COUGHING SPELLS: * Drink warm fluids. Inhale warm mist. This can help relax the airway and also loosen up phlegm. * Suck on cough drops or hard candy to coat the irritated throat. PREVENT DEHYDRATION: * Drink adequate liquids. * This will help soothe an irritated or dry throat and loosen up the phlegm. HUMIDIFIER: * If the air is dry, use a humidifier in the bedroom. * Dry air makes coughs worse. FEVER MEDICINES: * For fevers above 101 F (38.3 C) take either acetaminophen or ibuprofen. * They are dbgy-jma-ndkicwq (OTC) drugs that help treat both fever and pain. You can buy them at the drugstore. * The goal of fever therapy is to bring the fever down to a comfortable level. Remember that fever medicine usually lowers fever 2 degrees F (1 - 1 1/2 degrees C). * ACETAMINOPHEN REGULAR STRENGTH TYLENOL: Take 650 mg (two 325 mg pills) by mouth every 4 to 6 hours as needed. Each Regular Strength Tylenol pill has 325 mg of acetaminophen. The most you should take each day is 3,250 mg (10 pills a day). * ACETAMINOPHEN - EXTRA STRENGTH TYLENOL: Take 1,000 mg (two 500 mg pills) every 8 hours as needed.Each Extra Strength Tylenol pill has 500 mg of acetaminophen. The most you should take each day is 3,000 mg (6 pills a day). * IBUPROFEN (E.G., MOTRIN, ADVIL): Take 400 mg (two 200 mg pills) by mouth every 6 hours. The most you should take each day is 1,200 mg (six 200 mg pills), unless your doctor has told you to take more. EXPECTED COURSE: * The expected course depends on what is causing the cough. * Viral bronchitis (chest cold) causes a cough that lasts 1 to 3 weeks. Sometimes you may cough up lots of phlegm (sputum, mucus). The mucus can normally be white, romeo, yellow, or green. CALL BACK IF: * Difficulty breathing * Cough lasts more than 3 weeks * Fever lasts more than 3 days * You become worse Patient will call back with additional questions or if symptoms change or worsen Daisy Tracy RN Reason for Disposition and Assessment Routed to pcp per pt request for ABX without ov to be [facility] to [facility] Dr. [place] Reason for Disposition Continuous (nonstop) coughing interferes with work or school and no improvement using cough treatment per Care Advice Protocols used: [id number] * Marcelino Hopper - 02/06/2024 4:00 PM EDT Pt called in with a cough, chills, ear pressure, said their child is on antibiotics with similar symptoms. Please contact and advise. Central Support Preload Supervisor (Please do not reply to this user; this inbox is not monitored.) Thank you. documented in this encounter Plan of Treatment Upcoming Encounters Date Type Department Care Team (Late st Contact Info) Description 01/09/2025 4:00 PM EDT Office Visit [facility] [address] [place] [address] [place] [address] Kirk Pérez DO [address] [place] [address] 12/16/2025 2:30 PM EDT Office Visit [facility] [address] [place] [address] [place] [address] Maxi Moreno MD [address] [place] [phone] [email or web address] documented as of this encounter Visit Diagnoses Not on filedocumented in this encounter Additional Health Concerns Assessment Noted Time A Body Mass Index follow-up plan has been documented for the patient 09/28/2023 3:19 PM EDT PHQ-2 Depression Total Score: 0 09/25/19 10:59 AM EDT documented as of this encounter Care Teams Irrigation Specialist Relationship Specialty Start Date End Date Maxi Moreno MD [address] [place] [phone] [email or web address] PCP - General Internal Medicine 09/17/20 Oly Quintanilla MD [address] [place] [phone] [email or web address] Historical LMR Provider 01/24/17 Kirk Pérez DO [address] [place] [address] [email or web address] Endocrinology 12/18/20 Halley Back MD [address] [place] [address] Rheumatology 12/18/20 Filemon East MD [address] [place] [address] [email or web address] Physical Medicine [facility] Rehabilitation 12/18/20 documented as of this encounter Additional Source Comments The information contained in this document represents components of the legal health record. It is not the complete legal health record.[facility]
--- OUTSIDE RECORDS SUMMARY | 2024-12-19 06:18 | XMS_ITS | Encounter Summary ---
Author Organization [facility] Address [address] [place] [address] [place] [address] Phone Care Team Providers Care Consulting Psychiatrist Name Role Phone Oly Quintanilla MD Unavailable [phone] Maxi Moreno MD Primary Care Provider Kirk Pérez DO Unavailable Halley Back MD Unavailable Filemon East MD Unavailable Encounter Details Date Type Department Care Team (Latest Contact Info) Description 09/19/2023 Transcribe Orders [address] [place] [address] Kirk Pérez DO [address] [place] [address] [email or web address] Type 2 diabetes mellitus without complication, with long-term current use of insulin (Primary Dx) Social History Tobacco Use Types Packs/Day Years Used Date Smoking Tobacco: Never Smokeless Tobacco: Never Alcohol Use Standard Drinks/Week Comments Not Currently 0 (1 standard drink = 0.6 oz pur e alcohol) Child or Family Care Answer Date Record ed Do you have problems with on e of the following making it difficult for you to work, study, or receive health care? Childcare 09/21/2022 Education Answer Date Recorded Are you interested in help w ith more adult education (for example, completing high school, GED, job training, learning the [place] language, technical skills, or developing parenting skills)? No 09/21/2022 Are you concerned about learning? Not on file 09/21/2022 No 09/21/2022 Yes 09/21/2022 Food Answer Date Recorded Within the past 6 months we worried whether our food would run out before we got money to buy more. Often True 023 Within the past 6 months the food we bought just didn't last and we didn't have enough money to get more. Sometimes True 09/08 Residential Stability Answer Date Recor ded What is your housing situation today? I have rodolfo sing 09/21/2022 How many times have you move d in the past 12 months? Zero (I did not move) 09/21/2022 Paying for Meds Answer Date Recorded Do you have trouble paying for medicines? Yes 09/21/2022 Paying Utility Bills Answer Date Record ed Do you have trouble paying your heating or elect ricity bill? Yes 09/21/2022 Transportation Answer Date Recorded Has the lack of transportati on kept you from medical appointments or from getting medications? No 09/21/2022 Unemployment Answer Date Recorded Are you currently unemployed or working on a part-time or temporary basis, and looking for work? No 09/21/2022 Digital Access Answer Date Recorded No 09/21/2022 Yes 09/21/2022 Do you have reliable internet access at home? Ye s 09/21/2022 Do you have a device (e.g., phone, tablet, computer) with a working camera? Yes 09/21/2022 Comments No Sex and Gender Information Value [...] 4:00 PM EDT Office Visit [facility] [address] [place] [address] Kirk Pérez DO [address] [place] [address] 12/16/2025 2:30 PM EDT Office Visit [facility] [address] [place] [address] Maxi Moreno MD [address] [facility], 2nd [place] [address] [email or web address] documented as of this encounter Results * Hemoglobin A1c (09/19/2023 4:19 PM EDT) HEMOGLOBIN A1C 5.8 4.3 - 5.8 % [facility] Blood 09/19/2023 4:19 PM EDT 09/19/2023 4:37 PM EDT Kirk Pérez DO LAB BLOOD ORDERABLES Final Resul t Performing Organization Address City/State/[facility] Co de Phone Number [address] [address] * Comprehensive metabolic panel (09/19/2023 4:19 PM EDT) SODIUM 133 133 - 146 mmol/L [facility] POTASSIUM 3.9 3.3 - 5.1 mmol/L [facility] CHLORIDE 96 96 - 108 mmol/L [facility] CO2 23 21 - 35 mmol/L [facility] BUN 11 6 - 19 mg/dL [facility] CREATININE 0.50 0.5 - 1.5 mg/dL [facility] GLUCOSE 82 70 - 99 mg/dL [facility] ALBUMIN 4.4 3.9 - 4.8 g/dL [facility] TOTAL PROTEIN 7.5 6.5 - 8.0 g/dL [facility] CALCIUM 9.4 8.4 - 10.3 mg/dL [facility] ALKALINE PHOSPHATASE 103 39 - 117 U/L [facility] TOTAL BILIRUBIN 0.4 0.0 - 1.2 mg/dL [facility] AST 19 0 - 37 U/L [facility] ALT 21 0 - 40 U/L [facility] GLOBULIN 3.1 1 - 4.8 g/dL [facility] EGFR >120 >59 mL/min/1.7 3m2 [facility] Comment:Estimated glomerular filtration rate calculated using the CKD-EPI refit equation. ANION GAP 18 10 - 20 mmol/L [facility] Blood 09/19/2023 4:19 PM EDT 09/19/2023 4:37 PM EDT us Kirk Pérez LAB BLOOD ORDERABLES Final Resul t Performing Organization Address City/[facility] Co de Phone Number [address] [address] * (ABNORMAL) Lipid panel (09/19/2023 4:19 PM EDT) HDL 36 mg/dL [facility] Comment: Interpretation <40 mg/dL: Low HDL cholesterol (major risk factor for CHD) Greater than or equal to 60 mg/dL: High HDL cholesterol ( negative risk factor for CHD) HDL - cholesterol is affected by a number of factors, e.g. smoking, excerise, hormones, sex and age. CHOLESTEROL 146 0 - 240 mg/dL [facility] TRIGLYCERIDES 308(H) 30 - 160 mg/dL [facility] LDL 48(L) 50 - 129 mg/dL [facility] Comment: LDL levels in terms of risk for coronary heart disease: <100 mg/dL: Optimal 100-129 mg/dL: Near or above optimal 130-159 mg/dL: Borderline high 160-189 mg/dL: High >190 mg/dL: Very High CARDIAC RISK RATIO 4.1 3.3 - 4.4 C [facility] Blood 09/19/2023 4:19 PM EDT 09/19/2023 4:37 PM EDT Kirk Pérez LAB BLOOD ORDERABLES Final Resul t Performing Organization Address City/[facility]/ZIP Co de Phone Number [address] [address] documented in this encounter Visit Diagnoses Diagnosis Type 2 diabetes mellitus without complication, with long-term current use of insulin- Primary documented in this encounter Additional Health Concerns Assessment Noted Time A Body Mass Index follow-up plan has been documented for the patient 09/24/2022 1:51 PM EDT PHQ-2 Depression Total Score: 0 09/22/19 23 11:16 AM EDT documented as of this encounter Care Teams Consulting Psychiatrist Relationship Specialty Start Date End Date Maxi Moreno MD [address] [place] [phone] [email or web address] PCP - General Internal Medicine 09/17/20 Oly Quintanilla MD [address] [place] [address] Historical LMR Provider 01/24/17 Kirk Pérez DO [address] [place] [address] Endocrinology 12/18/20 Halley Back MD [address] [place] [address] Rheumatology 12/18/20 Filemon East MD [address] [place] [address] [email or web address] Physical Medicine and Rehabilitation 12/18/20 documented as of this encounter Additional Source Comments The information contained in this document represents components of the legal health record. It is not the complete legal health record.[facility]
--- OUTSIDE RECORDS SUMMARY | 2024-12-19 06:18 | XMS_ITS | Encounter Summary ---
Author Organization [facility] Address [address] [place] [address] Phone Care Team Providers Care Forge Tender Name Role Phone Oly Quintanilla MD Unavailable [phone] Maxi Moreno MD Primary Care Provider [phone] Kirk Pérez DO Unavailable Halley Back MD Unavailable Filemon East MD Unavailable [phone] Encounter Details Date Type Department Care Team (Late st Contact Info) Description 11/26/2024 Orders Only [facility] [address] [place] [address] [place] [address] [id number] Right foot pain (Primary Dx); Right ankle pain; Left foot pain; Left ankle pain Social History Tobacco Use Types Packs/Day Years [...] high school, GED, job training, learning the [place] language, technical skills, or developing parenting skills)? [...] 4:00 PM EDT Office Visit [facility] [address] [place] [address] [place] [address] Kirk Pérez DO [address] [place] [address] 12/16/2025 2:30 PM EDT Office Visit [facility] [address] [place] [address] [place] [address] Maxi Moreno MD [address] [place] [address], [address] [place] [address] [email or web address] documented as of this encounter Procedures Procedure Name Priority Date/Time Associated Diagnosis Comments DIABETES EYE EXAM FOR RESULT ENTRY ONLY Routine 11/26/2024 4:06 PM EDT XR FOOT (LEFT) Routine 11/26/2024 11:28 AM EDT Left foot pain XR ANKLE (RIGHT) Routine 11/26/2024 11:28 AM EDT Right ankle pain XR ANKLE (LEFT) Routine 11/26/2024 11:28 AM EDT Left ankle pain XR FOOT (RIGHT) Routine 11/26/2024 11:28 AM EDT Right foot pain documented in this encounter Results * DIABETES EYE EXAM FOR RESULT ENTRY ONLY (11/26/2024 4:06 PM EDT) us Historical Provider HEALTH MAINTENANCE Edited Result - Final documented in this encounter Visit Diagnoses Diagnosis Right foot pain- Primary Pain in soft tissues of limb Right ankle pain Pain in joint, ankle and foot Left foot pain Pain in soft tissues of limb Left ankle pain Pain in joint, ankle and foot documented in this encounter Additional Health Concerns Assessment Noted Time A Body Mass Index follow-up plan has been documented for the patient 09/28/2023 3:19 PM EDT PHQ-2 Depression Total Score: 0 09/25/19 24 10:59 AM EDT documented as of this encounter Care Teams Forge Tender Relationship Specialty Start Date End Date Maxi Moreno MD [address] [place] [address], [address] [place] [phone] [email or web address] [email or web address] - General Internal Medicine 09/17/20 Oly Quintanilla MD [address] [place] [address], [address] [place] [phone] [email or web address] Historical LMR Provider 01/24/17 Kirk Pérez DO [address] [place] [phone] [email or web address] Endocrinology 12/18/20 Halley Back MD [address] [place] [phone] Rheumatology 12/18/20 Filemon East MD [address] [place] [phone] [email or web address] Physical Medicine and Rehabilitation 12/18/20 documented as of this encounter Additional Source Comments The information contained in this document represents components of the legal health record. It is not the complete legal health record.[facility]
--- OUTSIDE RECORDS SUMMARY | 2024-12-19 06:18 | XMS_ITS | Encounter Summary ---
Author Organization [facility] Address [address] [place] [address] Phone Care Team Providers Care Ironworker Foreman Name Role Phone Oly Quintanilla MD Unavailable [phone] Maxi Moreno MD Primary Care Provider [phone] Kirk Pérez DO Unavailable Halley Back MD Unavailable Filemon East MD Unavailable Reason for Visit * Reason Comments Med Change Request Encounter Details Date Type Department Care Team (Late st Contact Info) Description 10/28/2024 Refill [facility] [address] [place] [address] Kirk [place] [address] Med Change Request Social History Tobacco Use Types Packs/Day Years [...] high school, GED, job training, learning the [place] language, technical skills, or developing parenting skills)? [...] housing situation today? I have rodolfo sing 09/25/2023 How many times have you move [...] PM EDT Office Visit [facility] [address] [place] [address] Kirk [place] [address] 12/16/2025 2:30 PM EDT Office [facility] [address] [place] [address] [place] [address] Maxi Moreno MD [address] [place] [phone] [email or web address] documented as of this encounter Visit Diagnoses Diagnosis Class 3 severe obesity due to excess calories without serious comorbidity with body mass index (BMI) of 40.0 to 44.9 in adult documented in this encounter Additional Health Concerns Assessment Noted Time A Body Mass Index follow-up plan has been documented for the patient 09/28/2023 3:19 PM EDT PHQ-2 Depression Total Score: 0 09/25/19 24 10:59 AM EDT documented as of this encounter Care Teams Ironworker Foreman Relationship Specialty Start Date End Date Maxi Moreno MD [address] [place] [phone] PCP - General Internal Medicine 09/17/20 Oly Quintanilla MD [address] [place] [phone] Historical LMR Provider 01/24/17 Kirk [place] [address] Endocrinology 12/18/20 Halley Back MD [address] [place] [phone] Rheumatology 12/18/20 Filemon East MD [address] [place] [phone] [email or web address] Physical Medicine and Rehabilitation 12/18/20 documented as of this encounter Additional Source Comments The information contained in this document represents components of the legal health record. It is not the complete legal health record.[facility]
--- OUTSIDE RECORDS SUMMARY | 2024-12-19 06:18 | XMS_ITS | Clinical Summary ---
Author Organization [facility] Address [address] [place] [id number] Phone Care Team Providers Care 21 Dealer Name Role Phone Oly Quintanilla MD Unavailable Maxi Moreno MD Primary Care Provider Kirk Pérez DO Unavailable Halley Back MD Unavailable Filemon East MD Unavailable Allergies Active Allergy Reactions Criticality Noted Date Comments Beef Containing Products Nausea and/or Vomiting 06/26/2017 Beef Derived (Bovine) Vomiting Medium 04/13/2024 Bovine Cartilage 05/03/2022 Cephalosporins Rash High 06/02/2023 Grass Pollen-Red Top, Standard 05/03 Penicillins 05/17/2017 Medications peppermint oil liquidIndications :Apply to area of pain Apply topically as needed. Indications: Apply to area of pain Active FREESTYLE LITE Strp stripsIndications :Type 2 diabetes mellitus with hyperglycemia, unspecified whether intermodal customer service insulin use 1 each by Miscellaneous route 4 (four) times a day before meals and nightly. 400 strip 3 021 Active FREESTYLE LITE METER meter kitIndications:Ty pe 2 diabetes mellitus with hyperglycemia, unspecified whether halfway insulin use Use as instructed 1 each 021 Active lancets (ACCU-CHEK FASTCLIX LANCET DRUM) MiscIndications:T ype 2 diabetes mellitus with hyperglycemia, unspecified whether halfway insulin use 1 each by Miscellaneous route as needed. 400 each 1 021 Active MULTIVITAMIN ORAL Take by mouth. Active DENTA 5000 PLUS 1.1 % Crea PLEASE SEE ATTACHED FOR DETAILED DIRECTIONS 023 Active ENBREL MINI 50 mg/mL (1 mL) subcutaneous injectionIndicati ons:Rheumatoid arthritis, involving unspecified site, unspecified whether rheumatoid factor present Inject 1 mL (50 mg total) under the skin once a week. 12 mL 3 023 Active blood-glucose meter,continuous (DEXCOM G7 IT DIRECTOR) MiscIndications:T ype 2 diabetes mellitus without complication, with long-term current use of insulin Monitor continuously 1 each 024 Active ondansetron (ZOFRAN-ODT) 4 MG disintegrating tablet Take 1 tablet (4 mg total) by mouth every 8 (eight) hours as needed for nausea. 8 tablet 2 024 Active lancets (ACCU-CHEK FASTCLIX LANCET DRUM) Misc Active topiramate (TOPAMAX) 50 MG tablet Active albuterol 90 mcg/actuation inhalerIndication s:Other pneumonia, unspecified organism Inhale 2 puffs into the lungs every 6 (six) hours as needed for wheezing. 8 g 025 Active guaiFENesin-codei ne (ROBITUSSIN AC) 100-10 mg/5 mL liquidIndications :Other pneumonia, unspecified organism Take 5 mL (10 mg of codeine total) by mouth 3 (three) times a day as needed for cough. 120 mL 025 Active Additional Information Patient not taking.Reported on 12/06/2024 blood-glucose sensor (DEXCOM G7 SENSOR) DeviIndications:T ype 2 diabetes mellitus without complication, with long-term current use of insulin CHANGE SENSOR EVERY 10 DAYS 3 each 11 025 Active sodium hyaluronate (EUFLEXXA) 10 mg/mL(mw 2.4 -3.6 million) injection syringeIndication s:Bilateral knee pain,Primary osteoarthritis of both knees Inject (1 syr per knee) 2 mL into the IA space of bilateral knees, once a week for three weeks, at doctor's office 12 mL 025 Active levothyroxine (SYNTHROID, LEVOTHROID) 112 MCG tabletIndications :Acquired hypothyroidism TAKE 1 TABLET BY MOUTH EVERY MORNING 90 tablet 3 025 Active NOVOLOG FLEXPEN U-100 INSULIN 100 unit/mL (3 mL) flexpenIndication s:Type 2 diabetes mellitus without complication, with long-term current use of insulin 3 TIMES A DAY WITH MEALS BASED ON CORRECTION SCALE BELOW. 70-100 =6 UNIT 101-150 =8 UNITS 151-200 = 10 UNITS 201-250 =12 UNITS 251-300 =14 UNITS 301-350 =16 UNITS 351-400 =18 UNITS GREATER THAN 400 =20 UNITS 15 mL 1 025 Active insulin pen needles, disposable, 31 gauge x 06/23 NdleIndications:T ype 2 diabetes mellitus without complication, with long-term current use of insulin 1 each by Miscellaneous route 4 (four) times a day before meals and nightly. 400 each 1 025 Active insulin degludec U-100 (TRESIBA) injection penIndications:Ty pe 2 diabetes mellitus without complication, with long-term current use of insulin Inject 20 Units under the skin daily. 15 mL 1 025 Active lidocaine (LIDODERM) 5 % FOR PAIN 1 PATCH TOPICALLY UP TO 12 HOURS PER DAY TO AFFECTED AREA 025 Active semaglutide (OZEMPIC) 2 mg/dose (8 mg/3 mL) subcutaneous injection penIndications:Ty pe 2 diabetes mellitus without complication, with long-term current use of insulin Inject 2 mg under the skin every 7 days. 9 mL 1 025 Active tirzepatide, weight loss, (ZEPBOUND) 2.5 mg/0.5 mL subcutaneous penIndications:Cl ass 3 severe obesity due to excess calories without serious comorbidity with body mass index (BMI) of 40.0 to 44.9 in adult Inject 0.5 mL (2.5 mg total) under the skin every 7 days. 2 mL 3 025 2024 Discontinued semaglutide (OZEMPIC) 2 mg/dose (8 mg/3 mL) subcutaneous injection pen Inject 2 mg under the skin every 7 days. 2 mL 025 2024 Discontinued Hospital, Clinic, or Other Facility Administered Medication Ordered Dose Route Frequency Start Date End Date Status sodium hyaluronate (EUFLEXXA) injection syringe 20 mgIndications:Chronic pain of both knees,Primary osteoarthritis of both knees 20 mg IAtc Once 09/24/2024 12/23/2024 Active sodium hyaluronate (EUFLEXXA) injection syringe 20 mgIndications:Chronic pain of both knees,Primary osteoarthritis of both knees 20 mg IAtc Once 09/24/2024 12/23/2024 Active Active Problems Problem Noted Date Diagnosed Date RIAN (obstructive sleep apnea) 12/06/2024 Assessment & Plan (12/08/2024 1:02 PM EDT): We discussed her insurance denial for Mounjaro and Zepbound. It appears that these were denied as he diabetes is well controlled. Hypertriglyceridemia 09/25/2024 Assessment & Plan (12/08/2024 1:02 PM EDT): Her last lipid panel was done nonfasting. She will be getting another lipid panel done while fasting. Assessment & Plan (09/25/2024 4:23 PM EDT): She had hypertriglyceridemia but she did not fast and for as far as I know she probably never fast for lipid panel so she needs to fast for the next lab work and then we will determine if she needs medications. Migraine headache 09/24/2022 09/24/2022 Left shoulder pain 12/18/2020 Type 2 diabetes mellitus without complication Assessment & Plan (12/08/2024 1:02 PM EDT): Her diabetes has been well controlled. Mounjaro and Zepbound were declined as above. Assessment & Plan (09/25/2024 4:26 PM EDT): Controlled hemoglobin A1c 5.3% based on the CGM the GMI 6.5 over the last 2 weeks. She is not having hypoglycemia. She continues to use Humalog correction scale when she receives intra-articular corticosteroid injections are not going to decrease the Semglee. She wants to try Mounjaro over Ozempic just because she has difficulty with weight may be Mounjaro can treat both the diabetes and help improve or could result in a greater weight loss. I am starting her at the 7.5 mg dose I do want to start at the lowest dose because she is on a GLP-1 agonist I am sure she will tolerate the medication. She was advised to contact me on a monthly basis to increase the dose if she is tolerating it. She will return for follow-up in 3 months. Assessment & Plan (04/19/2024 9:28 PM EST): Her diabetes has been well controlled. Assessment & Plan (03/27/2024 11:04 AM EST): Controlled. Hemoglobin A1c 5.6%. The patient would like to have increased weight loss with the use of Ozempic so I am going to increase the dose to 2 mg weekly. However she may have to come off the insulin. She should continue 10 units of Tresiba. The problem is that if she comes off insulin I do not know that her insurance will cover both continuous glucose monitor. She should repeat lab work fasting prior to the follow-up visit in 6 months time. Assessment & Plan (09/28/2023 3:17 PM EDT): This is managed by Dr. Pérez. Assessment & Plan (09/20/2023 9:41 AM EDT): Controlled. Hemoglobin A1c 5.8% continue current regimen. She is not having any hypoglycemia. Repeat hemoglobin A1c prior to the follow-up visit in 6 months. Assessment & Plan (03/21/2023 11:13 AM EST): Controlled. Hemoglobin A1c 5.6%. She wants to lose weight. Maybe she can achieve this by increasing Trulicity from 1.5 to 3.0 mg weekly. Therefore I will decrease the Semglee to 10 units. She continues Humalog correction scale with use of prednisone. Assessment & Plan (09/24/2022 1:47 PM EDT): Her diabetes is well controlled under the care of Dr. Pérez. Assessment & Plan (09/13/2022 10:51 AM EDT): Controlled. Hemoglobin A1c 5.5% no changes required continue current regimen. Assessment & Plan (03/11/2022 10:42 AM EST): Controlled. Hemoglobin A1c is 5.2%continue current regimen no changes. Assessment & Plan (09/09/2021 9:59 AM EDT): Controlled. Hemoglobin A1c 5.0. We will continue current medications. The patient will return in 6 months. Requested basic panel and hemoglobin A1c for follow-up visit. Assessment & Plan (03/11/2021 10:38 AM EST): Controlled. Hemoglobin A1c is 5.1%. I would not make any changes she'll return for follow-up in 6 months time. Assessment & Plan (12/10/2020 10:39 AM EDT): Excellent control globin A1c 5.8% on MDI insulin therapy but she would like to try a GLP-1 agonist and I advised her to continue the Lantus start a GLP-1 agonist but she may have to either decrease the Humalog administration. It altogether. Today she is going to do the first injection of Trulicity 0.75 mg weekly she will do this for 2 weeks and I will prescribe Trulicity 1.5 mg weekly which she will start on her third week assuming she is tolerating the medication. Again the medication is associated with nausea, vomiting, diarrhea, constipation. If she starts vomiting she probably will not tolerate this medication. I have given the patient a sample of Trulicity 0.75 mg weekly Lot # [id number] expiration 04/20/2022. Assessment & Plan (10/28/2020 12:20 PM EDT): The patient appears to have improved glycemic control. For the most part glucose levels are good she is only had 4 levels that were elevated and that could have been due to eating snacks of potentially missing insulin administration. Is too soon to repeat the hemoglobin A1c but she is doing well with multiple daily injections of insulin. I did suggest to her since she is not a type I diabetic based on negative essence antibodies and the fact that she is making plenty of C-peptide, that we could potentially decrease the dose of insulin usage by prescribing a GLP-1 agonist. However the patient does not want to try a new medication now. What she would like to do is learn how to carbohydrate count and bolus based on carbohydrate counting especially for snacks and for doing corrections she would like to know what the sensitivity. I informed that in order for me to calculate carbohydrate ratio and sensitivity I need to know how much Humalog she is using per day so for the follow-up visit she should document Humalog administration for 2 weeks and then I can average out the Humalog she is using per day. In the meantime she informs me that she has an appointment with the educator senior clinical in approximately 2 weeks and if she wants to bolus based on carbohydrate then she needs to learn how to count carbs and that something that the dietitian can help her do. The patient is interested in an insulin pump. I think that this is something doable but we would like her to learn how to carbohydrate count first. Also she would like a CGM and she is checking up to 7 times a day so she definitely qualifies and she is on MDI insulin therapy with correction scale. So I have prescribed Dexcom CGM. Assessment & Plan (09/29/2020 12:00 PM EDT): Uncontrolled. Glucose average 211 A1c was 10.8%. At this point the patient has postprandial hyperglycemia due to intra-articular corticosteroid injections. So I am increasing her Lantus to 35 units and changing her Humalog correction scale starting at 70-100 =6 units increasing 2 units every 50 mg/dL. Since the patient has autoimmune disease I would like to check C-peptide, essence antibodies for fasting glucose to see if she has states an autoimmune diabetes of adults. She expressed issues of concern that she does not want to gain weight and of course prednisone can cause weight gain. I told her that once we checked that antibodies we can consider medication/GLP-1 agonist or SGLT twos of habitus that help a lot with weight loss. At this point I will prescribe a freestyle papi meter and also refer her to see the educator senior clinical for nutrition counseling. She will follow in 4 weeks time. LDL levels have been in the reference range without any statins. Urine microalbumin creatinine ratio has been ordered. I will request a CBC. Rheumatoid arthritis 07/09/2020 Assessment & Plan (12/08/2024 1:02 PM EDT): Stable. 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 Use of steroids for this prompted her developing diabetes. Essential hypertension 07/31/2018 Assessment & Plan (12/08/2024 1:02 PM EDT): Her blood pressure is well controlled. Assessment & Plan (04/19/2024 9:28 PM EST): Under good control. Assessment & Plan (09/28/2023 3:17 PM EDT): Her blood pressure is well controlled. It is a little low today. Will monitor and reduce medication if needed. Assessment & Plan (09/24/2022 1:43 PM EDT): Under good control without medication at this time. Assessment & Plan (03/11/2021 10:31 AM EST): Controlled. She is off antihypertensives. Assessment & Plan (10/28/2020 12:12 PM EDT): Controlled. She should continue lisinopril for renal protection. Assessment & Plan (09/29/2020 12:01 PM EDT): Controlled on lisinopril 20 mg. Urine microalbumin creatinine ratio has been requested. No changes to current medications. Hypothyroidism 06/26/2017 Assessment & Plan (12/08/2024 1:02 PM EDT): Will get updated TSH and adjust levothyroxine if indicated. Orders: TSH with reflex; Future Assessment & Plan (09/28/2023 3:17 PM EDT): Will get updated TSH. Assessment & Plan (09/24/2022 1:48 PM EDT): She appears euthyroid. TSH ordered. Morbid obesity 06/26/2017 Assessment & Plan (12/08/2024 1:02 PM EDT): She has had weight loss with Ozempic but this has plateaued. Unfortunately, her insurance will not cover Mounjaro or Zepbound as her diabetes is well controlled. Assessment & Plan (09/28/2023 3:18 PM EDT): Continue to encourage weight loss. Assessment & Plan (09/24/2022 1:48 PM EDT): She will discuss perhaps switching to another GLP-1RA for weight loss with Dr. Pérez. Inflammatory disorder of breast 03/19/2013 09/24/2022 Resolved Problems Problem Noted Date Diagnosed Date Resolved Date Acute non-recurrent maxillary sinusitis 02/19/2023 04/19/2024 Assessment & Plan (02/19/2023 1:28 PM EST): Will treat with azithromycin. Discussed expected course. Encounters Date Type Department Care Team Description 12/06/2024 1:15 PM EDT Office Visit [facility] [address] [place] [address] Maxi Moreno MD Encounter for general adult medical examination with abnormal findings (Primary Dx); RIAN (obstructive sleep apnea); Essential hypertension; Type 2 diabetes mellitus without complication, with long-term current use of insulin; Morbid obesity; Acquired hypothyroidism; Hypertriglyceridemia; Rheumatoid arthritis, involving unspecified site, unspecified whether rheumatoid factor present 12/06/2024 Orders Only [facility] [address] [place] [address] Kirk Pérez DO Type 2 diabetes mellitus without complication, with long-term current use of insulin (Primary Dx) 12/02/2024 4:15 PM EDT Office Visit [facility] [address] [place] [address] Howard Fulton MD Rheumatoid arthritis, involving unspecified site, unspecified whether rheumatoid factor present (Primary Dx) 12/02/2024 Telephone [facility] [address] [place] [address] Luisa Quevedo MA 11/26/2024 Orders Only [facility] [address] [place] [address] Ten Sosa MA Right foot pain (Primary Dx); Right ankle pain; Left foot pain; Left ankle pain 10/28/2024 Refill [facility] [address] [place] [address] Kirk Pérez DO Med Change Request 10/28/2024 Orders Only [facility] [address] [place] [address] Kirk Pérez DO Class 3 severe obesity due to excess calories without serious comorbidity with body mass index (BMI) of 40.0 to 44.9 in adult (Primary Dx) 10/25/2024 Orders Only [address] [address] Thuan Clayton MD 09/26/[address] [address] Micaela Granados 09/25/2024 4:00 PM EDT Office Visit [facility] [address] [place] [address] [place] [address] Kirk Pérez DO Type 2 diabetes mellitus without complication, with long-term current use of insulin (Primary Dx); Hypertriglyceridemia 09/25/2024 Telephone [facility] [address] [place] [address] Kirk Pérez DO 09/24/2024 2:00 PM EDT Office Visit [facility] [address] [place] [address] Jaymie Noyola PA-C Chronic pain of both knees (Primary Dx); Primary osteoarthritis of both knees from Last 3 Months Immunizations Immunization Administration Dates Next Due COVID-19 (Pre) Pfizer Vaccine, Bivalent 12+ 02/12/2022 COVID-19 (Pre-01/30) Pfizer Vaccine, mRNA, PF 08/27/2021,01/27/2021,12/23/2020,07/12,06/21/2020 Hepatitis B, unspecified formulation 03/27/2001, 12/19/1996,11/11/1996 INFLUENZA, SPLIT VIRUS, TRIVALENT PF 01/05/2024 INFLUENZA, SPLIT VIRUS, TRIV ALENT W/ PRESERVATIVE IM 02/08/2015,12/28/2010 Influenza Quadrivalent MDCK Preservative Free IM 01/16/2020,01/08/2019 Influenza Quadrivalent Prese rvative Free IM 02/15/2023,02/12/2022,12/23/2020,01/25 Influenza Quadrivalent w/ Pr eservative IM 01/26/2021 Influenza, Unspecified Formulation 12/23/2020 Influenza, whole 02/19/2014,03/17/2012 MMR 03/07/1997,10/05/1994,03/07/1983 Pneumococcal conjugate PCV13 03/13/2021 Pneumococcal polysaccharide PPSV23 03/16/2011 Polio, Unspecified Formulation 7,05/24/1983,05/19/1982,03/18,01/14/1982 Tdap 09/25/2023,07/25/2013,10/17/2005 Varicella 09/09/1983 Zoster recombinant 06/03/2022,02/19/2022 Family History Medical History Relation Comments Bipolar disorder Brother Diabetes Brother Diabetes Father Diabetes mellitus Father Breast cancer Maternal Grandmother Breast cancer Mother Diabetes Mother Diabetes mellitus Mother Hypertension Mother Stroke Mother Diabetes Paternal Grandfather Lung cancer Paternal Grandfather Diabetes Paternal Grandmother Diabetes mellitus Paternal Grandmother Heart disease Paternal Grandmother Diabetes Sister Lymphoma Sister Relation Status Comments Brother Alive Father Alive Maternal Grandmother Mother Paternal Grandfather Paternal Grandmother Sister Alive Social History Tobacco Use Types Packs/Day Years Used Date Smoking Tobacco: Never Smokeless Tobacco: Never Tobacco Cessation:Counseling Given: Not Answered Alcohol Use Standard Drinks/Week Comments Not Currently [...] high school, GED, job training, learning the Malay language, technical skills, or developing parenting skills)? [...] Orientation Straight 10/27/2020 9: 03 PM EDT Last Filed Vital Signs Vital Sign Reading Time Taken Comments Blood Pressure 128/80 12/06/2024 1:23 PM EDT Pulse 75 12/06/2024 1:23 PM EDT Temperature 36.2 C (97.2 F) 04/16/2024 10:43 AM EST Respiratory Rate - - Oxygen Saturation 97% 12/06/2024 1:23 PM EDT Inhaled Oxygen Concentration - - Weight 132 kg (291 lb) 12/06/2024 1:23 PM EDT Height 171.5 cm (5' 7.52 ) 12/06/2024 1:23 PM ED T Body Mass Index 44.88 12/06/2024 1:23 PM EDT Plan of Treatment Upcoming Encounters Date Type Department Care Team (Late st Contact Info) Description 01/09/2025 4:00 PM EDT Office Visit [facility] [address] [place] [address] Kirk Pérez DO [address] [place] [address] 12/16/2025 2:30 PM EDT Office Visit [facility] [address] [place] [address] [place] [address] Maxi Moreno MD [address] [place] [address], [address] [place] [address] Health Maintenance Due Date Last Done Comments HIV ONE-TIME SCREENING (18-65 YEARS) 11/17/1999 PNEUMOCOCCAL VACCINES (0-49 years) (3 of 3 - PPSV23, PCV20 or PCV21) 05/08/2021 03/13/2021, 03/16/2011 INFLUENZA VACCINE (#1) 2024 4, 02/15/2023, 02/12/2022, Additional history exists COVID-19 VACCINE (10 - Pfizer risk season) 2024 01/05/2024, 02/19/2023, 02/12/2022, Additional history exists TSH LEVEL 12/25/2024 12/26/2023, 09/08, 10/19/2020, Additional history exists HEMOGLOBIN A1C 03/19/2025 09/17/2024, 03/10, 09/19/2023, Additional history exists BLOOD PRESSURE 06/07/2025 12/06/2024 LIPID PANEL 09/17/2025 09/17/2024, 09/08, 09/09/2022, Additional history exists PAP SMEAR 09/17/2025 09/17/2020 URINE MICROALBUMIN/CREATININE RATIO 09/17/2025 09/17/2024, 09/19/2023, 09/09/2022, Additional history exists DIABETIC EYE EXAM 11/26/2025 11/26/2024 DEPRESSION SCREENING 12/06/2025 12/06/2024 MAMMOGRAM 01/09/2026 01/10/2024, 07/0 08/2021, 10/12/2021, Additional history exists Adult Td,Tdap Booster 09/24/2033 09/25/2023 , 07/25/2013, 10/17/2005 HEPATITIS C SCREENING Completed 09/17/2024 SMOKING STATUS SCREENING (Once After 26 Yrs) Completed 12/06/2024 HEPATITIS A VACCINES Aged Out No long er eligible based on patient's age to complete this topic HIB VACCINES Aged Out No longer eligi ble based on patient's age to complete this topic MENINGOCOCCAL VACCINES (ACWY) Aged Out No longer eligible based on patient's age to complete this topic MENINGOCOCCAL VACCINES (B) Aged Out N o longer eligible based on patient's age to complete this topic Medical Devices Not on file Procedures Procedure Name Priority Date/Time Associated Diagnosis Comments HM DIABETES EYE EXAM FOR RESULT ENTRY ONLY Routine 11/26/2024 4:06 PM EDT XR ANKLE (LEFT) Routine 11/26/2024 11:28 AM EDT Left ankle pain XR ANKLE (RIGHT) Routine 11/26/2024 11:2 8 AM EDT Right ankle pain XR FOOT (LEFT) Routine 11/26/2024 11:28 AM EDT Left foot pain XR FOOT (RIGHT) Routine 11/26/2024 11:28 AM EDT Right foot pain OUTSIDE IMAGING Routine 10/24/2024 2:21 PM EDT MICROALBUMIN/CREATININ E RATIO, RANDOM URINE Routine 09/17/2024 3:56 PM EDT Type 2 diabetes mellitus without complication, with long-term current use of insulin HEMOGLOBIN A1C Routine 09/17/2024 3:43 PM EDT Type 2 diabetes mellitus without complication, with long-term current use of insulin LIPID PANEL Routine 09/17/2024 3:43 PM EDT Type 2 diabetes mellitus without complication, with long-term current use of insulin HEPATITIS C ANTIBODY, QUALITATIVE Routine 09/17/2024 3:43 PM EDT Need for hepatitis B screening test Need for hepatitis C screening test Rheumatoid arthritis without rheumatoid factor, multiple sites Acquired hypothyroidism Essential hypertension Hypothyroidism, unspecified type Morbid obesity Type 2 diabetes mellitus without complication, with long-term current use of insulin Rheumatoid arthritis, involving unspecified site, unspecified whether rheumatoid factor present Migraine without status migrainosus, not intractable, unspecified migraine type Inflammatory disorder of breast Left shoulder pain, unspecified chronicity BI MAMMOGRAM SCREENING WITH TOMOSYNTHESIS WITH CAD (BILATERAL) Routine 01/10/2024 3:23 PM EDT Breast cancer screening by mammogram TSH WITH REFLEX Routine 12/26/2023 3:40 PM EDT Acquired hypothyroidism Acute non-recurrent maxillary sinusitis Inflammatory disorder of breast Essential hypertension Morbid obesity PAP TEST Routine 09/17/2020 12:00 AM EDT from Last 3 Months or Most Recently Relevant to Health Maintenance Results * DIABETES EYE EXAM FOR RESULT ENTRY ONLY (11/26/2024 4:06 PM EDT) us Historical Provider HEALTH MAINTENANCE Edited Result - Final * Outside Imaging Report Only (10/24/2024 2:21 PM EDT) Historical Provider MD CAZARES XR CHEST Edited Re sult - Final * Microalbumin/creatinine ratio, random urine (09/17/2024 3:56 PM EDT) URINE MICROALBUMIN <1.2 0 - 2.3 mg/dL [facility] URINE CREATININE 197 mg/dL TESTING MANAGER [facility] MICROALB/CRE RATIO NOT CALCULATED 0 - 20 mg/g Cre [facility] Comment:due to Microalbumin <1.2 Urine (Urine) 09/17/2024 3:5 6 PM EDT 09/17/2024 4:03 PM EDT Kirk Pérez DO URINE ORDERABLES Final Result Performing Organization Address [facility] de Phone Number [address] [address] * Hepatitis C antibody, qualitative (09/17/2024 3:43 PM EDT) HCV NON-REACTIV E NON-REACTI VE [facility] Blood 09/17/2024 3:43 PM EDT 09/17/2024 4:07 PM EDT Della Wolff MD LAB BLOOD ORDER ALLAN Final Result Performing Organization Address City/[facility] Co de Phone Number [address] [address] * Hemoglobin A1c (09/17/2024 3:43 PM EDT) HEMOGLOBIN A1C 5.3 4.3 - 5.8 % [facility] Blood 09/17/2024 3:43 PM EDT 09/17/2024 4:06 PM EDT Kirk Pérez DO LAB BLOOD ORDERABLES Final Resul t [address] [address] * (ABNORMAL) Lipid panel (09/17/2024 3:43 PM EDT) HDL 29 mg/dL [facility] Comment: Interpretation <40 mg/dL: Low HDL cholesterol (major risk factor for CHD) Greater than or equal to 60 mg/dL: High HDL cholesterol ( negative risk factor for CHD) HDL - cholesterol is affected by a number of factors, e.g. smoking, excerise, hormones, sex and age. CHOLESTEROL 151 0 - 240 mg/dL [facility] TRIGLYCERIDES 417(H) 30 - 160 mg/dL [facility] LDL NOT CALCULATED 50 - 129 mg/dL [facility] Comment: Unable to calculate due to elevated TRIG of greater than 400. A measured LDL will be performed. CARDIAC RISK RATIO 5.2(H) 3.3 - 4.4 [facility] Blood 09/17/2024 3:43 PM EDT 09/17/2024 4:07 PM EDT Kirk Pérez DO LAB BLOOD ORDERABLES Final Resul t [address] [address] * BI MAMMOGRAM SCREENING WITH TOMOSYNTHESIS WITH CAD (BILATERAL) (01/10/2024 3:23 PM EDT) Anatomical Region Laterality Modality Breast Left, Breast Right, Breast Bilateral Bila teral Mammography 01/10/2024 5:09 PM EDT Impressions 01/10/2024 5:22 PM EDT No mammographic evidence of malignancy in either breast. Annual screening mammography is recommended. BI-RADS 2 BENIGN The patient will be notified of the results and recommendations. Narrative 01/10/2024 5:22 PM EDT BI MAMMOGRAM SCREENING WITH TOMOSYNTHESIS WITH CAD (BILATERAL) Additional patient information: Screening. COMPARISON: Comparison is made with relevant prior imaging. Breast composition: There are scattered areas of fibroglandular density. FINDINGS: Multiple bilateral circumscribed masses without significant change. No abnormal masses, suspicious calcifications, or other significant findings are identified mammographically in either breast. Similar bilateral skin calcifications. us Maxi Moreno MD IMG MG EXAMS Final Resul t * TSH with reflex (12/26/2023 3:40 PM EDT) TSH 2.13 0.27 - 4.20 uIU/mL [facility] Blood 12/26/2023 3:40 PM EDT 12/26/2023 3:55 PM EDT us Maxi Moreno MD LAB BLOOD ORDERABLES Final Result Performing Organization Address City/State/[facility] Co de Phone Number [address] [address] * Pap Smear (09/17/2020 12:00 AM EDT) 09/17/2020 09/18/2020 9:5 4 AM EDT Narrative SEE NARRATIVE - 09/23/2020 10:14 AM EDT [address] [address] Manufacturing Process Engineer: Fouzia Malave MD HARP REGULATOR Cytology Report FINAL DIAGNOSIS A. PAP SMEAR (SUREPATH) CE: SPECIMEN ADEQUACY: Satisfactory for evaluation; transformation zone present. INTERPRETATION: NEGATIVE FOR INTRAEPITHELIAL LESION OR MALIGNANCY. Coccobacilli consistent with shift in toby Electronically Signed Out By: VITO Cuello(ASCP) The Pap test is a screening test primarily for squamous cancers and precursors and has associated false-negative and false-positive results. New technologies such as liquid-based preparations may decrease but will not eliminate all false-negative results. Regular sampling and follow-up of unexplained clinical signs and symptoms are recommended to minimize false negative results. PROCEDURES/ADDENDA HPV Testing (Requested) Ordered Date: 09/18/2020 A. PAP SMEAR (SUREPATH) CE: Human Papilloma Virus Test Negative for high-risk human papillomavirus types 16, 18, 45 and the Other high risk probe set (Includes 31, 33, 35, 39, 51, 52, 56, 58, 59, 66, 68) by [employer] Onclarity HR-HPV analysis. Clinical correlation is advised. This HPV test was performed at [facility], [address] [place] [address]. This test has been FDA approved for SurePath cervical cytology specimens. The accuracy and precision of this test for all other specimen sources has been verified in the Cytopathology Laboratory of the [facility] and has not been cleared or approved by the U.S. Food and Drug Administration. Clinical correlation is advised. CLINICAL HISTORY Date of Last Menstrual Period: 08-17-2020 Other Clinical Conditions: Screening Pap SPECIMEN SOURCE A: PAP SMEAR (SUREPATH) CE Patient Name: LIUDMILA DURÁN : 1980 (Age: 39) Sex: F Institution: [facility] Location: [facility] Date of Collection: 09/17/2020 Date of Reported: 09/23/2020 10:14 Results to: Oly Raul Quintanilla MD, [facility], B us Oly A Dwight MAY CYTOLOGY ORDERABLES Final Res ult SEE NARRATIVE from Last 3 Months or Most Recently Relevant to Health Maintenance Insurance [facility] HMO O O O O O O O O O [employer] Care Teams 21 Dealer Relationship Specialty Start Date End Date Maxi Moreno MD [address] [place] [id number] PCP - General Internal Medicine 09/17/20 Oly Quintanilla MD [address] [place] [address] Historical LMR Provider 01/24/17 Kirk Pérez DO [address] [place] [address] Endocrinology 12/18/20 Halley Back MD [address] [place] [address] Rheumatology 12/18/20 Filemon East MD [address] [place] [address] [email or web address] Physical Medicine and Rehabilitation 12/18/20 Additional Source Comments The information contained in this document represents components of the legal health record. It is not the complete legal health record.[facility]
--- OUTSIDE RECORDS SUMMARY | 2024-12-19 06:18 | XMS_ITS | Encounter Summary ---
Author Organization [facility] Address [address] [place] [address] [place] [phone] Phone Care Team Providers Care Precision Jig Grinder Name Role Phone Oly Quintanilla MD Unavailable [phone] Maxi Moreno MD Primary Care Provider [phone] Kirk Pérez DO Unavailable Halley Back MD Unavailable Filemon East MD Unavailable Encounter Details Date Type Department Care Team (Late st Contact Info) Description 09/20/2021 Procedure [place] [address] [address] Social History Tobacco Use Types Packs/Day Years Used Date Smoking Tobacco: Never Smokeless Tobacco: Never Alcohol Use Standard Drinks/Week Comments Not Currently 0 (1 standard drink = 0.6 oz pur e alcohol) Child or Family Care Answer Date Record ed Do you have problems with on e of the following making it difficult for you to work, study, or receive health care? No 09/20/2021 Education Answer Date Recorded Are you interested in help w ith more adult education (for example, completing high school, GED, job training, learning the [place] language, technical skills, or developing parenting skills)? No 09/20/2021 Food Answer Date Recorded Within the past 6 months we worried whether our food would run out before we got money to buy more. Sometimes True 022 Within the past 6 months the food we bought just didn't last and we didn't have enough money to get more. Sometimes True 09/08 Residential Stability Answer Date Recor ded What is your housing situation today? I have rodolfo esquivel 09/20/2021 How many times have you move d in the past 12 months? Zero (I did not move) 09/20/2021 Paying for Meds Answer Date Recorded Do you have trouble paying for medicines? Yes 09/20/2021 Paying Utility Bills Answer Date Record ed Do you have trouble paying your heating or elect ricity bill? Yes 09/20/2021 Transportation Answer Date Recorded Has the lack of transportati on kept you from medical appointments or from getting medications? No 09/20/2021 Unemployment Answer Date Recorded Are you currently unemployed or working on a part-time or temporary basis, and looking for work? No 09/20/2021 Comments No Sex and Gender Information Value [...] 4:00 PM EDT Office Visit [facility] [address] [place] [address] [place] [address] Kirk Pérez DO [address] [place] [address] 12/16/2025 2:30 PM EDT Office Visit [facility] [address] [place] [address] [place] [address] Maxi Moreno MD [address] [place] [address], [address] [place] [address] documented as of this encounter Visit Diagnoses Not on filedocumented in this encounter Additional Health Concerns Infection Onset Date Last Indicated Resolved Time CoV-Presumed 12/07/2021 12/07/2021 12/28/2021 1:21 AM EDT COVID-19 11/02/2022 11/02/2022 11/23/2022 1:21 AM EDT Assessment Noted Time A Body Mass Index follow-up plan has been documented for the patient 09/20/2021 9:56 PM EDT PHQ-2 Depression Total Score: 0 09/21/19 22 11:23 AM EDT documented as of this encounter Care Teams Precision Jig Grinder Relationship Specialty Start Date End Date Maxi Moreno MD [address] [place] [address] [email or web address] PCP - General Internal Medicine 09/17/20 Oly Quintanilla MD [address] [place] [address] Historical LMR Provider 01/24/17 Kirk Pérez DO [address] [place] [address] Endocrinology 12/18/20 Halley Back MD [address] [place] [address] Rheumatology 12/18/20 Filemon East MD [address] [place] [phone] [email or web address] Physical Medicine and Rehabilitation 12/18/20 documented as of this encounter Additional Source Comments The information contained in this document represents components of the legal health record. It is not the complete legal health record.[facility]
--- OUTSIDE RECORDS SUMMARY | 2024-12-19 06:19 | XMS_ITS | Clinical Summary ---
Author Organization [employer] Address [address] [place] [address] 7 [place] [address] Care Team Providers Care Ecologist Technician Name Role Phone Tres Mckee LLD Unavailable [...] % creamIndication s:Risk for dental caries, high [place] with toothpaste for two minutes two times a day, spit out excess. Do not eat, drink, or rinse for 30 minutes. 112 g 9 3 Active Ozempic, 1 MG/DOSE, 4 MG/3ML solution pen-injector Inject 1 mg under the skin every 7 (seven) days. 4 Active Active Problems No known active problems Encounters Date Type Department Care Team Description 11/11/2024 4:15 PM EDT Office Visit [facility] [address] [place] [phone] Minerva Haque LLD 10/17/2024 3:30 PM EDT Office Visit [facility] [address] [place] [phone] ShabnamMinerva LLD 10/02/2024 3:45 PM EDT Office Visit [facility] [address] [place] [phone] Robe Alcazar [facility] from Last 3 Months Social History Tobacco [...] Pulse 85 11/11/2024 4:05 PM EDT Temperature 36.8 C (98.3 F) 10/02/2024 3:48 PM EDT Respiratory Rate - - Oxygen Saturation - - Inhaled Oxygen Concentration - - Weight - - Height - - Body Mass Index - - Plan of Treatment Upcoming Encounters Date Type Department Care Team (Late st Contact Info) Description 12/23/2024 3:30 PM EDT Office Visit [address] [phone] Minerva Haque Raman [address] [place] [address] 01/03/2025 3:45 PM EDT Office Visit [address] [phone] Robe Alcazar [address] [address] Health Maintenance Due Date Last Done Comments [...] SURF, POSTERIOR Routine 11/11/2024 4:15 PM EDT 19 MODB(V) RESIN-BASED COMPOSITE - 4+ SURF, POSTERIOR Routine 10/17/2024 3:30 PM EDT PERIODONTAL MAINTENANCE Routine 10/03/19 3:45 PM EDT PERIODIC ORAL EVALUATION - ESTABLISHED PATIENT Routine 10/02/2024 3:45 PM EDT BITEWINGS - 4 RADIOGRAPHIC IMAGES Routine 10/10/2023 2:00 PM EDT INTRAORAL - COMPLETE SERIES OF RADIOGRAPHIC IMAGES Routine 05/09/2022 8:30 AM EST Encounter for dental examination from Last 3 Months or Most Recently Relevant to Health Maintenance Insurance , [address] [place] [address] [place] [address] Care Teams Ecologist Technician Relationship Specialty Start Date End Date Tres Mckee LLD [address] [place] [address] Dentist 06/27/23 Robe Alcazar [facility] [address] [place] [address] Dental Limnology Teacher 06/27/23
== END 2024-12-19 06:17 | disposition home or self-care (01) ==
LOC: CF 06:16
PROVIDERS: Visit Provider Internal Medicine
DX: Z13.89 Encounter for screening for other disorder (principal)

== ENCOUNTER 2024-12-19 09:52 | Outpatient (AMB) | payer OTHER, SELFPAY ==
[2024-12-19 10:03] VITALS: BP 141/85; PULSE 89; RESP 16; O2SAT 97; BMI 43.6
--- NOTE | 2024-12-19 10:03 | A.OFFVIS_ITS ---
Vital Signs 12/19/24 10:03 12/19/24 10:33 Height 5 ft 9 in Weight 295 lb BMI 43.6 BP 141/85 H 162/82 H Blood Pressure Location Lt radial Lt radial Position Sitting Sitting Respiration 16 16 Pulse 89 84 Pulse Source Pulse Oximeter Pulse Oximeter Pulse Oximetry (%) 97 99 Oxygen Delivery Method Room Air Room Air Intake Visit Reasons: Jose Dx L3-L4-DR-L5 MBB/ Ativan Allergies Iodinated Contrast Media (Contrast Dye) Allergy (Intermediate, Verified 12/19/24 10:17) Hives penicillin G Allergy (Verified 10/24/24 14:54) Unknown beef derived (bovine) Adverse Reaction (Mild, Verified 10/24/24 14:54) Vomiting HPI HPI Jose Dx L3-L4-DR-L5 MBB/ Ativan: Details: Patient presents for scheduled procedure. Denies any recent cough, cold, infection, fever or other significant changes in medical history since last office visit. [facility] Medical History Left knee pain Cervical radiculopathy at C7 Obesity Sleep apnea Migraine JRA (juvenile rheumatoid arthritis) Hypothyroidism, unspecified Right knee pain On residential drug therapy Surgical History Hx of cholecystectomy Hx of section H/O left wrist surgery S/P foot surgery, right Family History Sister Rheumatoid arthritis Mother No problems noted. 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 The patient was placed in a prone position. The respective lumbosacral area was prepped with chloraprep and draped in sterile fashion. The skin over the target medial branch nerves was anesthetized with 0.5% lidocaine. A 22 gauge 3.5 inch needle was inserted into the target medial branch nerve under fluoroscopic guidance. No paresthesias were elicited with needle placement and aspiration was negative for blood and CSF. Contrast was not used due to known allergy. Next 0.5 ml 0.5% ropivicaine was injected (0.5cc total per level). The identical procedure was performed at the remaining levels. The skin was cleansed and a sterile bandage was applied. Following the procedure the patient's vital signs were stable. The patient tolerated the procedure well and no complications were encountered. Following the procedure the patient's vital signs were stable. The patient was discharged home in good condition with post-procedural instructions. Time Out: Immediately prior to the procedure, the following was verbally confirmed that there is a signed consent form and that the correct patient, planned procedure, site and side are consistent with documentation and that [facility] equipment and/or blood products are available prior to the start of the case. Complications: none EBL: <5 cc 01107 - with Fluoroscopy (L3-L4) [address]54[address] - second level with Fluoroscopy (L3-L4-L5) Procedure code (CPT) selection complete Assessment & Plan Assessment & Plan (1) Lumbosacral spondylosis: Code(s): M47.817 - Spondylosis without myelopathy or radiculopathy, lumbosacral region Category: Medical Plan Patient is status post bilateral diagnostic L3, L4 medial branches and L5 dorsal ramus diagnostic blocks. Patient tolerated procedure well and was discharged home in stable condition with discharge instructions. All questions were answered. We will follow-up via telephone or in clinic to assess response to therapy. A follow-up appointment was made during today's visit. Orders: Orders AMB Medial Branch Block - Lumbar/Sacral Today Narciso Lange MD M47.816 - Spondylosis without myelopathy or radiculopathy, lumbar region FL guidance in treatment room Today Annemarie Batista, RN CIRCULATING, CONSTRUCTION PROJECT ADMINISTRATOR M51.369 - Other intervertebral disc degeneration, lumbar region without mention of lumbar back pain or lower extremity pain Medications: New lorazepam Take 30 minutes prior to arrival to procedure 1 mg PO ONCE 1 tab 0RF anxiety Annemarie Batista APRN, CONSTRUCTION PROJECT ADMINISTRATOR lorazepam (Ativan) Take 30 minutes prior to arrival to procedure 1 mg PO ONCE 1 tab 0RF anxiety Annemarie Batista APRN, CONSTRUCTION PROJECT ADMINISTRATOR Coding Level of Care Code Procedure Only Diagnoses Lumbosacral spondylosis M47.817 CPT Codes Medial Branch Block Lumbar/Sacral1 - Branch Block Lumb/Sac 1: [address] - with Fluoroscopy (L3-L4) ([id number]) Medial Branch Block Lumbar/Sacral1 - Branch Block Lumb/Sac 2: 55871 - second level with Fluoroscopy (L3-L4-L5) ([id number])
[2024-12-19 10:33] VITALS: BP 162/82; PULSE 84; RESP 16; O2SAT 99
== END 2024-12-19 10:35 | disposition home or self-care (01) ==
LOC: HO.PMCPRC 09:52
PROVIDERS: PCP Internal Medicine; Visit Provider Internal Medicine
DX: M47.817 Spondylosis without myelopathy or radiculopathy, lumbosacral region (principal)
CPT/HCPCS: 64493; 64494

== ENCOUNTER 2024-12-27 15:06 | Outpatient (AMB) | payer OTHER, SELFPAY ==
--- OUTSIDE RECORDS SUMMARY | 2024-11-11 16:15 | XMS_ITS | Encounter Summary ---
Author Organization [employer] Address [address] [place] [address] 7 [place] [address] Care Team Providers Care Direct Marketing Coordinator Name Role Phone Tres Mckee DMD Unavailable Unavailable Alcazar, [facility] Unavailable Reason for Visit * Reason Comments Filling Last filling is a bi t high. Encounter Details Date Type Department Care Team ([facility] Contact Info) Description 11/11/2024 4:15 PM EDT Office Visit [facility] [address] [place] [phone] Minerva Haque LLD [address] [place] [address] Social History Tobacco Use Types Packs/Day Years Used Date Smoking Tobacco: Never Alcohol Use Standard Drinks/Week Comments Never 0 (1 standard drink = 0.6 oz pur e alcohol) Comments Unknown Sex and Gender Information Value Date Recorded Sex Assigned at Female 06/20/2022 7:52 AM EDT Legal Sex Female 8:40 PM EST Gender Identity Female 02/18/2022 8:40 PM EST Sexual Orientation Straight 02/18/2022 8: 40 PM EST documented as of this encounter Last Filed Vital Signs Vital Sign Reading Time Taken Comments Blood Pressure 123/80 11/11/2024 4:05 PM EDT Pulse 85 11/11/2024 4:05 PM EDT Temperature - - Respiratory Rate - - Oxygen Saturation - - Inhaled Oxygen Concentration - - Weight - - Height - - Body Mass Index - - documented in this encounter Progress Notes * ORALIA Dale - 11/11/2024 4:15 PM EDT Tooth being treated today: 28 Material selected: composite congregational. Treatment recommended due to: recurrent decay and fractured congregational. Risks/benefits discussed and consent obtained. No contraindications to treatment noted. Administered topical anesthetic (20% Benzocaine) to site of injection, anesthetic administered via B infiltration and L infiltration. Quantity administered: 0.5 X 1.8mL cartridge(s) 2% lidocaine w/ 1:100k epi 0 x 1.8mL cartridge(s) 4% septocaine w/1:100k epi 0 x 1.8mL cartridge(s) 3% mepivacaine for inflitration block. An aspiration safety syringe was used to avoid inter- vesicular injection. Negative aspiration. The patient tolerated the injection and had no adverse reactions to the anesthetic. Cotton roll/Dry angle/HVE Isolation. Decay excavated completely: No, affected dentin left to preserve tooth structure. No matrix system used. Chlorhexidine 0,12% applied. Vitrebond base and liner used along pulpal wall. 37% phosphoric acid etch and 3M Scotchbond placed. VOCO Admira Fusion flowable composite and VOCO Admira Fusion universal composite placed. Shade A3. Shaped and polished. Checked occlusion and interproximal contacts and adjusted as needed. POIG including: do not eat until anesthetic wears off, post-op sensitivity for 24-48 hours is normal, possible need for pulpal therapy in the future, congregational may fall out and require replacement,and chew on opposite side for 24 hours. OHIG. Pt dismissed in good condition after all questions answered. Next visit: Restore documented in this encounter Plan of Treatment Upcoming Encounters Date Type Department Care Team (Late st Contact Info) Description 01/03/2025 3:45 PM EDT Office Visit [address] [phone] Robe Alcazar, [address] [address] 02/26/2025 4:15 PM EST Office Visit [address] [phone] Minerva Haque LLD [address] [place] [address] documented as of this encounter Procedures Procedure Name Priority Date/Time Associated Diagnosis Comments 28 BB(V) RESIN-BASED COMPOSITE - 1 SURF, POSTERIOR Routine 11/11/2024 4:15 PM EDT documented in this encounter Visit Diagnoses Not on filedocumented in this encounter Care Teams Direct Marketing Coordinator Relationship Specialty Start Date End Date Tres Mckee DMD Dentist 06/27/23 Robe Alcazar RDH [address] [place] [address] Dental Loan Associate 06/27/23 documented as of this encounter
--- OUTSIDE RECORDS SUMMARY | 2024-12-21 09:14 | XMS_ITS | Encounter Summary ---
Author Organization [facility] Address [address] [facility] [address] [place] [address] Phone Care Team Providers Care Transportation Coordinator Name Role Phone Oly Quintanilla MD Unavailable Maxi Moreno MD Primary Care Provider Kirk Pérez DO Unavailable Halley Back MD Unavailable Filemon East MD Unavailable [phone] Encounter Details Date Type Department Care Team (Late st Contact Info) Description 12/21/2024 9:14 AM EDT - 12/21/2024 11:59 PM EDT Hospital Encounter [facility] [address] [place] [address] Maxi Moreno MD [address] [place] [address], 2nd [place] [address] [email or web address] Discharge Disposition: Home or Self Care Social History Tobacco Use Types Packs/Day Years [...] high school, GED, job training, learning the Albanian language, technical skills, or developing parenting skills)? [...] PM EDT documented as of this encounter Medications at Time of Discharge albuterol 90 mcg/actuation inhalerIndications: Other pneumonia, unspecified organism Inhale 2 puffs into the lungs every 6 (six) hours as needed for wheezing. 8 g 5 blood-glucose meter,continuous (DEXCOM G7 RUBBER GOODS CUTTER FINISHER) MiscIndications:Typ e 2 diabetes mellitus without complication, with long-term current use of insulin Monitor continuously 1 each 4 blood-glucose sensor (DEXCOM G7 SENSOR) DeviIndications:Typ e 2 diabetes mellitus without complication, with long-term current use of insulin CHANGE SENSOR EVERY 10 DAYS 3 each 3 5 DENTA 5000 PLUS 1.1 % Crea PLEASE SEE ATTACHED FOR DETAILED DIRECTIONS 3 ENBREL MINI 50 mg/mL (1 mL) subcutaneous injectionIndication s:Rheumatoid arthritis, involving unspecified site, unspecified whether rheumatoid factor present Inject 1 mL (50 mg total) under the skin once a week. 12 mL 3 3 FREESTYLE LITE METER meter kitIndications:Type 2 diabetes mellitus with hyperglycemia, unspecified whether skilled nursing insulin use Use as instructed 1 each 1 FREESTYLE LITE Strp stripsIndications:T ype 2 diabetes mellitus with hyperglycemia, unspecified whether skilled nursing insulin use 1 each by Miscellaneous route 4 (four) times a day before meals and nightly. 400 strip 3 1 guaiFENesin-codeine (ROBITUSSIN AC) 100-10 mg/5 mL liquidIndications:O ther pneumonia, unspecified organism Take 5 mL (10 mg of codeine total) by mouth 3 (three) times a day as needed for cough. 120 mL 5 insulin glargine U-300 (TOUJEGulshan SOLOSTAR) 300 unit/mL (1.5 mL) subcutaneous injection penIndications:Type 2 diabetes mellitus without complication, with long-term current use of insulin Inject 20 Units under the skin nightly at bedtime. 9 mL 5 insulin pen needles, disposable, 31 gauge x 16 NdleIndications:Typ e 2 diabetes mellitus without complication, with long-term current use of insulin 1 each by Miscellaneous route 4 (four) times a day before meals and nightly. 400 each 1 5 lancets (ACCU-CHEK FASTCLIX LANCET DRUM) MiscIndications:Typ e 2 diabetes mellitus with hyperglycemia, unspecified whether skilled nursing insulin use 1 each by Miscellaneous route as needed. 400 each 1 1 lancets (ACCU-CHEK FASTCLIX LANCET DRUM) Misc levothyroxine (SYNTHROID, LEVOTHROID) 112 MCG tabletIndications:A cquired hypothyroidism TAKE 1 TABLET BY MOUTH EVERY MORNING 90 tablet 3 5 lidocaine (LIDODERM) 5 % FOR PAIN 1 PATCH TOPICALLY UP TO 12 HOURS PER DAY TO AFFECTED AREA 5 MULTIVITAMIN ORAL Take by mouth. NOVOLOG FLEXPEN U-100 INSULIN 100 unit/mL (3 mL) flexpenIndications: Type 2 diabetes mellitus without complication, with long-term current use of insulin 3 TIMES A DAY WITH MEALS BASED ON CORRECTION SCALE BELOW. 70-100 =6 UNIT 101-150 =8 UNITS 151-200 = 10 UNITS 201-250 =12 UNITS 251-300 =14 UNITS 301-350 =16 UNITS 351-400 =18 UNITS GREATER THAN 400 =20 UNITS 15 mL 1 5 ondansetron (ZOFRAN-ODT) 4 MG disintegrating tablet Take 1 tablet (4 mg total) by mouth every 8 (eight) hours as needed for nausea. 8 tablet 2 4 peppermint oil liquidIndications:A pply to area of pain Apply topically as needed. Indications: Apply to area of pain semaglutide (OZEMPIC) 2 mg/dose (8 mg/3 mL) subcutaneous injection penIndications:Type 2 diabetes mellitus without complication, with long-term current use of insulin Inject 2 mg under the skin every 7 days. 9 mL 1 5 sodium hyaluronate (EUFLEXXA) 10 mg/mL(mw 2.4 -3.6 million) injection syringeIndications: Bilateral knee pain,Primary osteoarthritis of both knees Inject (1 syr per knee) 2 mL into the IA space of bilateral knees, once a week for three weeks, at doctor's office 12 mL 5 topiramate (TOPAMAX) 50 MG tablet blood-glucose sensor (DEXCOM G7 SENSOR) DeviIndications:Typ e 2 diabetes mellitus without complication, with long-term current use of insulin CHANGE SENSOR EVERY 10 DAYS 3 each 11 5 12/25/19 25 blood-glucose sensor (DEXCOM G7 SENSOR) DeviIndications:Typ e 2 diabetes mellitus without complication, with long-term current use of insulin CHANGE SENSOR EVERY 10 DAYS 3 each 3 5 12/28/19 25 blood-glucose sensor (DEXCOM G7 SENSOR) DeviIndications:Typ e 2 diabetes mellitus without complication, with long-term current use of insulin CHANGE SENSOR EVERY 10 DAYS 3 each 3 5 12/28/19 25 insulin degludec U-100 (TRESIBA) injection penIndications:Type 2 diabetes mellitus without complication, with long-term current use of insulin Inject 20 Units under the skin daily. 15 mL 1 5 12/28/19 25 insulin glargine U-300 (TOUJEO SOLOSTAR) 300 unit/mL (1.5 mL) subcutaneous injection penIndications:Type 2 diabetes mellitus without complication, with long-term current use of insulin Inject 20 Units under the skin nightly at bedtime. 9 mL 5 12/28/19 25 documented as of this encounter Plan of Treatment Upcoming Encounters Date Type Department Care Team (Late st Contact Info) Description 01/09/2025 4:00 PM EDT Office Visit [facility] [address] [place] [address] [place] [address] Kirk Pérez DO [address] [place] [address] 12/16/2025 2:30 PM EDT Office Visit [facility] [address] [place] [address] [place] [address] Maxi Moreno MD [address] [place] [address], [address] [place] [address] [email or web address] documented as of this encounter Procedures Procedure Name Priority Date/Time Associated Diagnosis Comments HEMOGLOBIN A1C Routine 12/21/2024 9:18 AM EDT Type 2 diabetes mellitus without complication, with long-term current use of insulin LIPID PANEL Routine 12/21/2024 9:18 AM EDT Type 2 diabetes mellitus without complication, with long-term current use of insulin TSH WITH REFLEX Routine 12/21/2024 9:16 AM EDT Acquired hypothyroidism documented in this encounter Results * (ABNORMAL) Lipid panel (12/21/2024 9:18 AM EDT) HDL 43 mg/dL [facility] Comment: Interpretation <40 mg/dL: Low HDL cholesterol (major risk factor for CHD) Greater than or equal to 60 mg/dL: High HDL cholesterol ( negative risk factor for CHD) HDL - cholesterol is affected by a number of factors, e.g. smoking, excerise, hormones, sex and age. CHOLESTEROL 172 0 - 240 mg/dL [facility] TRIGLYCERIDES 199(H) 30 - 160 mg/dL [facility] LDL 89 50 - 129 mg/dL [facility] Comment: LDL levels in terms of risk for coronary heart disease: <100 mg/dL: Optimal 100-129 mg/dL: Near or above optimal 130-159 mg/dL: Borderline high 160-189 mg/dL: High >190 mg/dL: Very High CARDIAC RISK RATIO 4.0 3.3 - 4.4 C [facility] Blood 12/21/2024 9:18 AM EDT 12/21/2024 9:25 AM EDT us Kirk Pérez DO LAB BLOOD ORDERABLES Final Resul t [facility] [address] [place] [address] * Hemoglobin A1c (12/21/2024 9:18 AM EDT) HEMOGLOBIN A1C 5.3 4.3 - 5.8 % [facility] Blood 12/21/2024 9:18 AM EDT 12/21/2024 9:25 AM EDT us Kirk Pérez DO LAB BLOOD ORDERABLES Final Resul t Performing Organization Address City/[facility]/ZIP Co de Phone Number [address] [address] * TSH with reflex (12/21/2024 9:16 AM EDT) TSH 2.55 0.27 - 4.20 uIU/mL [facility] Blood 12/21/2024 9:16 AM EDT 12/21/2024 9:24 AM EDT us Maxi Moreno MD LAB BLOOD ORDERABLES Final Result Performing Organization Address City/[facility] Co de Phone Number [address] [address] documented in this encounter Visit Diagnoses Diagnosis Acquired hypothyroidism Unspecified hypothyroidism Type 2 diabetes mellitus without complication, with long-term current use of insulin documented in this encounter Additional Health Concerns Assessment Noted Time A Body Mass Index follow-up plan has been documented for the patient 12/08/2024 1:02 PM EDT PHQ-2 Depression Total Score: 0 12/07/19 25 12:56 PM EDT documented as of this encounter Care Teams Transportation Coordinator Relationship Specialty Start Date End Date Maxi Moreno MD [address] [place] [address] PCP - General Internal Medicine 09/17/20 Oly Quintanilla MD [address] [place] [address] Historical LMR Provider 01/24/17 Kirk Pérez DO [address] [place] [address] [email or web address] Endocrinology 12/18/20 Halley Back MD [address] [place] [address] Rheumatology 12/18/20 Filemon East MD [address] [place] [phone] Physical Medicine and Rehabilitation 12/18/20 documented as of this encounter Additional Source Comments The information contained in this document represents components of the legal health record. It is not the complete legal health record.[facility]
--- OUTSIDE RECORDS SUMMARY | 2024-12-23 15:30 | XMS_ITS | Encounter Summary ---
Author Organization [facility] Address [address] [place] [address] 7 [place] [address] Care Team Providers Care Cat Cracker Operator Name Role Phone Tres Mckee DMD Unavailable Unavailable Alcazar, [facility] Unavailable Reason for Visit * Reason Comments Filling Encounter Details Date Type Department Care Team ([facility] Contact Info) Description 12/23/2024 3:30 PM EDT Office Visit [facility] [address] [place] [phone] Minerva Haque LLD [address] [place] [address] Social History Tobacco Use Types Packs/Day Years [...] Sign Reading Time Taken Comments Blood Pressure 120/80 12/23/2024 3:31 PM EDT Pulse 60 12/23/2024 3:31 PM EDT Temperature 36.7 C (98 F) 12/23/2024 3:31 PM EDT Respiratory Rate - - Oxygen Saturation - - Inhaled Oxygen Concentration - - Weight - - Height - - Body Mass Index - - documented in this encounter Progress Notes * ORALIA Dale - 12/23/2024 3:30 PM EDT Tooth being treated today: #27 Material selected: composite religion. Treatment recommended due to: recurrent decay. Risks/benefits discussed and consent obtained. No contraindications to treatment noted. Administered topical anesthetic (20% Benzocaine) to site of injection, anesthetic administered via B infiltration. Quantity administered: 0.5 X 1.8mL cartridge(s) 2% lidocaine w/ 1:100k epi 0 x 1.8mL cartridge(s) 4% septocaine w/1:100k epi 0 x 1.8mL cartridge(s) 3% mepivacaine for inflitration block. An aspiration safety syringe was used to avoid inter- vesicular injection. Negative aspiration. The patient tolerated the injection and had no adverse reactions to the anesthetic. Cotton roll/Dry angle/HVE and Retraction cord soaked in hemodent Isolation. Decay excavated completely: No, affected dentin left to avoid pulpal exposure. No matrix system used. Chlorhexidine 0,12% applied. Vitrebond base and liner used along pulpal wall. 37% phosphoric acid etch and 3M Scotchbond placed. VOCO Admira Fusion flowable composite and VOCO Admira Fusion universal composite placed. Shade A3.5. Shaped and polished. Checked occlusion and interproximal contacts and adjusted as needed. POIG including: do not eat until anesthetic wears off, post-op sensitivity for 24-48 hours is normal, possible need for pulpal therapy in the future, religion may fall out and require replacement,and chew on opposite side for 24 hours. OHIG. Pt dismissed in good condition after all questions answered. Next visit: Restore documented in this encounter Plan of Treatment Upcoming Encounters Date Type Department Care Team (Late st Contact Info) Description 01/03/2025 3:45 PM EDT Office Visit [address] [phone] Robe Alcazar [facility] [address] [place] [address] 02/26/2025 4:15 PM EST Office Visit [address] [phone] Minerva Haque LLD [address] [place] [address] documented as of this encounter Procedures Procedure Name Priority Date/Time Associated Diagnosis Comments 27 FF(V) RESIN-BASED COMPOSITE - 1 SURF, ANTERIOR Routine 12/23/2024 3:30 PM EDT documented in this encounter Visit Diagnoses Not on filedocumented in this encounter Care Teams Cat Cracker Operator Relationship Specialty Start Date End Date Tres Mckee DMD Dentist 06/27/23 Robe Alcazar [facility] [address] [place] [phone] Dental Outside Dealer Sales Representative 06/27/23 documented as of this encounter
--- OUTSIDE RECORDS SUMMARY | 2024-12-27 15:09 | XMS_ITS | Encounter Summary ---
Author Organization [facility] Address [address] [place] [address] [place] [address] Phone Care Team Providers Care Heavy Equipment Supervisor Name Role Phone Oly Quintanilla MD Unavailable [phone] Maxi Moreno MD Primary Care Provider Kirk Pérez DO Unavailable Halley Back MD Unavailable Filemon Esat MD Unavailable [phone] Encounter Details Date Type Department Care Team (Late st Contact Info) Description 09/25/2023 Procedure Pass [facility] [address] [place] [address] Social History Tobacco Use Types Packs/Day Years [...] high school, GED, job training, learning the Scottish language, technical skills, or developing parenting skills)? [...] EDT Office Visit [facility] [address] [place] [address] Kirk [place] [address] 12/16/2025 2:30 PM EDT Office Visit [facility] [address] [place] [address] [place] [address] Maxi Moreno MD [address] [place] [phone] [email or web address] documented as of this encounter Visit Diagnoses Not on filedocumented in this encounter Additional Health Concerns Assessment Noted Time A Body Mass Index follow-up plan has been documented for the patient 09/28/2023 3:19 PM EDT PHQ-2 Depression Total Score: 0 09/25/19 24 10:59 AM EDT documented as of this encounter Care Teams Heavy Equipment Supervisor Relationship Specialty Start Date End Date Maxi Moreno MD [address] [place] [address] PCP - General Internal Medicine 09/17/20 Oly Quintanilla MD [address] [place] [address] Historical LMR Provider 01/24/17 Kirk Pérez DO [address] [place] [address] Endocrinology 12/18/20 Halley Back MD [address] [place] [address] Rheumatology 12/18/20 Filemon East MD [address] [place] [address] [email or web address] Physical Medicine and Rehabilitation 12/18/20 documented as of this encounter Additional Source Comments The information contained in this document represents components of the legal health record. It is not the complete legal health record.[facility]
--- OUTSIDE RECORDS SUMMARY | 2024-12-27 15:09 | XMS_ITS | Encounter Summary ---
Author Organization [facility] Address [address] [place] [address] Phone Care Team Providers Care Electronic Warfare Linguist Name Role Phone Oly Quintanilla MD Unavailable [phone] Maxi Moreno MD Primary Care Provider Kirk Pérez DO Unavailable Halley Back MD Unavailable Filemon East MD Unavailable [phone] Reason for Visit * Reason Comments Med Change Request Encounter Details Date Type Department Care Team (Late st Contact Info) Description 10/28/2024 Refill [facility] [address] [place] [address] Kirk Pé[place] [address] Med Change Request Social History Tobacco Use [...] school, GED, job training, learning the South Korean language, technical skills, or developing parenting skills)? [...] PM EDT Office Visit [facility] [address] [place] [address] Kirk [place] [address] 12/16/2025 2:30 PM EDT [facility] [address] [place] [address] [place] [address] Maxi Moreno MD [address] [place] [phone] [email or web address] documented as of this encounter Visit Diagnoses [...] documented as of this encounter Care Teams Electronic Warfare Linguist Relationship Specialty Start Date End Date Maxi Moreno MD [address] [place] [address] PCP - General Internal Medicine 09/17/20 Oly Quintanilla MD [address] [place] [address] Historical LMR Provider 01/24/17 Kirk [place] [address] Endocrinology 12/18/20 Halley Back MD [address] [place] [address] Rheumatology 12/18/20 Filemon East MD [address] [place] [phone] [email or web address] Physical Medicine and Rehabilitation 12/18/20 documented as of this encounter Additional Source Comments The information contained in this document represents components of the legal health record. It is not the complete legal health record.[facility]
--- OUTSIDE RECORDS SUMMARY | 2024-12-27 15:09 | XMS_ITS | Encounter Summary ---
Author Organization [facility] Address [address] [place] [address] [place] [address] Phone Care Team Providers Care Paraffin Plant Operator Name Role Phone Oly Quintanilla MD Unavailable [phone] Maxi Moreno MD Primary Care Provider Kirk Pérez DO Unavailable Halley Back MD Unavailable Filemon East MD Unavailable Encounter Details Date Type Department Care Team (Late st Contact Info) Description 09/20/2021 Procedure Pass [address] [address] Social History Tobacco Use Types Packs/Day Years [...] high school, GED, job training, learning the Dutch language, technical skills, or developing parenting skills)? [...] 4:00 PM EDT Office Visit [facility] [address] [place] [address] [place] [address] Kirk Pérez DO [address] [place] [address] 12/16/2025 2:30 PM EDT Office Visit [facility] [address] [place] [address] [place] [address] Maxi Moreno MD [address] [place] [address], [address]nd [place] [address] documented as of this encounter Visit Diagnoses [...] documented as of this encounter Care Teams Paraffin Plant Operator Relationship Specialty Start Date End Date Maxi Moreno MD [address] [place] [address] [email or web address] PCP - General Internal Medicine 09/17/20 Oly Quintanilla MD [address] [place] [address] Historical LMR Provider 01/24/17 Kirk Pérez DO [address] [place] [address] Endocrinology 12/18/20 Halley Back MD [address] [place] [address] Rheumatology 12/18/20 Filemon East MD [address] [place] [address] [email or web address] Physical Medicine and Rehabilitation 12/18/20 documented as of this encounter Additional Source Comments The information contained in this document represents components of the legal health record. It is not the complete legal health record.[facility]
--- OUTSIDE RECORDS SUMMARY | 2024-12-27 15:09 | XMS_ITS | Encounter Summary ---
Author Organization [facility] Address [address] [place] [address] [place] [address] Phone Care Team Providers Care Process Line Operator Name Role Phone Oly Quintanilla MD Unavailable [phone] Maxi Moreno MD Primary Care Provider Kirk Pérez DO Unavailable Halley Back MD Unavailable Filemon East MD Unavailable Encounter Details Date Type Department Care Team (Latest Contact Info) Description 09/19/2023 Transcribe Orders [address] [place] [address] Kirk Pérez DO [address] [place] [address] [email or web address] Type 2 diabetes mellitus without complication, with [...] high school, GED, job training, learning the [place] language, technical skills, or developing parenting skills)? [...] 4:00 PM EDT Office Visit [facility] [address] [place] [address] Kirk Pérez DO [address] [place] [address] 12/16/2025 2:30 PM EDT Office Visit [facility] [address] [place] [address] Maxi Moreno MD 170 [facility] [place], 2nd [place] [address] [email or web address] documented as of this encounter Results * Hemoglobin A1c (09/19/2023 4:19 PM EDT) HEMOGLOBIN A1C 5.8 4.3 - 5.8 % [facility] Blood 09/19/2023 4:19 PM EDT 09/19/2023 4:37 PM EDT Kirk Pérez DO LAB BLOOD ORDERABLES Final Resul t Performing Organization Address City/State/[facility] Co de Phone Number [address] [address] * Comprehensive metabolic panel (09/19/2023 4:19 PM EDT) SODIUM 133 133 - 146 mmol/L [facility] POTASSIUM 3.9 3.3 - 5.1 mmol/L [facility] CHLORIDE 96 96 - 108 mmol/L [facility] CO2 23 21 - 35 mmol/L [facility] BUN 11 6 - 19 mg/dL [facility] CREATININE 0.50 0.5 - 1.5 mg/dL [facility] GLUCOSE 82 70 - 99 mg/dL [facility] ALBUMIN 4.4 3.9 - 4.8 g/dL [facility] TOTAL PROTEIN 7.5 6.5 - 8.0 g/dL [facility] CALCIUM 9.4 8.4 - 10.3 mg/dL [facility] ALKALINE PHOSPHATASE 103 39 - 117 U/L [facility] TOTAL BILIRUBIN 0.4 0.0 - 1.2 mg/dL [facility] AST 19 0 - 37 U/L [facility] ALT 21 0 - 40 U/L [facility] GLOBULIN 3.1 1 - 4.8 g/dL [facility] EGFR >120 >59 mL/min/1.7 3m2 [facility] Comment:Estimated glomerular filtration rate calculated using the CKD-EPI refit equation. ANION GAP 18 10 - 20 mmol/L [facility] Blood 09/19/2023 4:19 PM EDT 09/19/2023 4:37 PM EDT us Kikr Pérez LAB BLOOD ORDERABLES Final Resul t Performing Organization Address City/[facility] Co de Phone Number [address] [address] * (ABNORMAL) Lipid panel (09/19/2023 4:19 PM EDT) HDL 36 mg/dL [facility] Comment: Interpretation <40 mg/dL: Low HDL cholesterol (major risk factor for CHD) Greater than or equal to 60 mg/dL: High HDL cholesterol ( negative risk factor for CHD) HDL - cholesterol is affected by a number of factors, e.g. smoking, excerise, hormones, sex and age. CHOLESTEROL 146 0 - 240 mg/dL [facility] TRIGLYCERIDES 308(H) 30 - 160 mg/dL [facility] LDL 48(L) 50 - 129 mg/dL [facility] Comment: LDL levels in terms of risk for coronary heart disease: <100 mg/dL: Optimal 100-129 mg/dL: Near or above optimal 130-159 mg/dL: Borderline high 160-189 mg/dL: High >190 mg/dL: Very High CARDIAC RISK RATIO 4.1 3.3 - 4.4 C [facility] Blood 09/19/2023 4:19 PM EDT 09/19/2023 4:37 PM EDT Kirk Pérez LAB BLOOD ORDERABLES Final Resul t Performing Organization Address City/[facility]/ZIP Co de Phone Number [address] [address] documented in this encounter Visit Diagnoses Diagnosis Type 2 diabetes mellitus without complication, with long-term current use of insulin- Primary documented in this encounter Additional Health Concerns Assessment Noted Time A Body Mass Index follow-up plan has been documented for the patient 09/24/2022 1:51 PM EDT PHQ-2 Depression Total Score: 0 09/22/19 23 11:16 AM EDT documented as of this encounter Care Teams Process Line Operator Relationship Specialty Start Date End Date Maxi Moreno MD [address] [place] [address] [email or web address] PCP - General Internal Medicine 09/17/20 Oly Quintanilla MD [address] [place] [address] Historical LMR Provider 01/24/17 Kirk Pérez DO [address] [place] [address] Endocrinology 12/18/20 Halley Back MD [address] [place] [address] Rheumatology 12/18/20 Filmeon East MD [address] [place] [address] [email or web address] Physical Medicine and Rehabilitation 12/18/20 documented as of this encounter Additional Source Comments The information contained in this document represents components of the legal health record. It is not the complete legal health record.[facility]
--- OUTSIDE RECORDS SUMMARY | 2024-12-27 15:09 | XMS_ITS | Clinical Summary ---
Author Organization [facility] Address [address] [place] [address] Care Team Providers Care Manager Loss Prevention Name Role Phone Roger Glasgow MD Primary Care Provider [phone] Social History Tobacco Use Types Packs/Day Years [...] to complete this topic Insurance * Guarantor: [id number] AMHERST Account Type Relation to Patient Date of Phone Billing Address Worker's Comp [address] [place] [address] ADMIN [facility] [address] [place], [place] [address] WORKERS COMPENSATION Care Teams Manager Loss Prevention Relationship Specialty Start Date End Date Roger Glasgow MD [facility] [address] [place] [address] PCP - General Internal Medicine 10/19/12
--- OUTSIDE RECORDS SUMMARY | 2024-12-27 15:09 | XMS_ITS | Clinical Summary ---
Author Organization [employer] Address [address] [place] [address] 7 [place] [address] Care Team Providers Care Eyeglass Frame Truer Name Role Phone Tres Mckee DMD Unavailable Unavailable Alcazar, Robe RD Unavailable Allergies Active Allergy Reactions Criticality [...] % creamIndication s:Risk for dental caries, high [place] with toothpaste for two minutes two times a day, spit out excess. Do not eat, drink, or rinse for 30 minutes. 112 g 9 3 Active Ozempic, 1 MG/DOSE, 4 MG/3ML solution pen-injector Inject 1 mg under the skin every 7 (seven) days. 4 Active Active Problems No known active problems Encounters Date Type Department Care Team Description 12/23/2024 3:30 PM EDT Office Visit [facility] [address] [place] [phone] Minerva Haque LLD 11/11/2024 4:15 PM EDT Office Visit [facility] [address] [place] [phone] Minerva Haque LLD 10/17/2024 3:30 PM EDT Office Visit [address] [phone] Minerva Haque LLD 10/02/2024 3:45 PM EDT Office Visit [address] [phone] Robe Alcazar [facility] from Last 3 Months Social History Tobacco [...] Description 01/03/2025 3:45 PM EDT Office Visit [address] [phone] Robe Alcazar [address] [address] 02/26/2025 4:15 PM EST Office Visit [address] [phone] Minerva Haque LLD [address] [place] [address] Health Maintenance Due Date Last Done Comments [...] Full Mouth 05/10/2025 05/09/2022 Mammogram 01/09/2026 01/10/2024, 1005/2023, 10/12/2021, Additional history exists Lipid Panel 09/17/2029 [...] SURF, ANTERIOR Routine 12/23/2024 3:30 PM EDT 28 BB(V) RESIN-BASED COMPOSITE - 1 SURF, [...] to Health Maintenance Insurance , [address] [place] [address] [facility] Care Teams Eyeglass Frame Truer Relationship Specialty Start Date End Date Tres Mckee DMD Dentist 06/27/23 Robe Alcazar, [address] [address] Dental Director Home 06/27/23
--- OUTSIDE RECORDS SUMMARY | 2024-12-27 15:09 | XMS_ITS | Clinical Summary ---
Author Organization [facility] Address [address] [place] [address] Phone Care Team Providers Care Plumbing Installer Name Role Phone Oly Quintanilla MD Unavailable Maxi Moreno MD Primary Care Provider [phone] Kirk Pérez DO Unavailable Halley Back MD [...] 2 diabetes mellitus with hyperglycemia, unspecified whether assistant terminal manager insulin use 1 each by Miscellaneous route 4 (four) times a day before meals and nightly. 400 strip 3 021 Active FREESTYLE LITE METER meter kitIndications:Ty pe 2 diabetes mellitus with hyperglycemia, unspecified whether chcf insulin use Use as instructed 1 each 021 Active lancets (ACCU-CHEK FASTCLIX LANCET DRUM) MiscIndications:T ype 2 diabetes mellitus with hyperglycemia, unspecified whether chcf insulin use 1 each by Miscellaneous route [...] 3 023 Active blood-glucose meter,continuous (DEXCOM G7 ADVANCED MANUFACTURING TECHNICIAN) MiscIndications:T ype 2 diabetes mellitus without complication, [...] Additional Information Patient not taking.Reported on 12/06/2024 sodium hyaluronate (EUFLEXXA) 10 mg/mL(mw 2.4 -3.6 [...] and nightly. 400 each 1 025 Active lidocaine (LIDODERM) 5 % FOR PAIN 1 PATCH TOPICALLY UP TO 12 HOURS PER DAY TO AFFECTED AREA 025 Active semaglutide (OZEMPIC) 2 mg/dose (8 mg/3 mL) subcutaneous injection penIndications:Ty pe 2 diabetes mellitus without complication, with long-term current use of insulin Inject 2 mg under the skin every 7 days. 9 mL 1 025 Active insulin glargine U-300 (TOUJEO SOLOSTAR) 300 unit/mL (1.5 mL) subcutaneous injection penIndications:Ty pe 2 diabetes mellitus without complication, with long-term current use of insulin Inject 20 Units under the skin nightly at bedtime. 9 mL 025 Active blood-glucose sensor (DEXCOM G7 SENSOR) DeviIndications:T ype 2 diabetes mellitus without complication, with long-term current use of insulin CHANGE SENSOR EVERY 10 DAYS 3 each 3 025 Active blood-glucose sensor (DEXCOM G7 SENSOR) DeviIndications:T ype 2 diabetes mellitus without complication, with long-term current use of insulin CHANGE SENSOR EVERY 10 DAYS 3 each 11 025 2024 Discontinued(R eorder) insulin degludec U-100 (TRESIBA) injection penIndications:Ty pe 2 diabetes mellitus without complication, with long-term current use of insulin Inject 20 Units under the skin daily. 15 mL 1 025 2024 Discontinued tirzepatide, weight loss, (ZEPBOUND) 2.5 mg/0.5 mL [...] 7 days. 2 mL 025 2024 Discontinued insulin glargine U-300 (TOUJEO SOLOSTAR) 300 unit/mL (1.5 mL) subcutaneous injection penIndications:Ty pe 2 diabetes mellitus without complication, with long-term current use of insulin Inject 20 Units under the skin nightly at bedtime. 9 mL 025 2024 Discontinued blood-glucose sensor (DEXCOM G7 SENSOR) DeviIndications:T ype 2 diabetes mellitus without complication, with long-term current use of insulin CHANGE SENSOR EVERY 10 DAYS 3 each 3 025 2024 Discontinued blood-glucose sensor (DEXCOM G7 SENSOR) DeviIndications:T ype 2 diabetes mellitus without complication, with long-term current use of insulin CHANGE SENSOR EVERY 10 DAYS 3 each 3 025 2024 Discontinued Hospital, Clinic, or Other Facility Administered Medication Ordered Dose Route Frequency Start Date End Date Status sodium hyaluronate (EUFLEXXA) injection syringe 20 mgIndications:Chronic pain of both knees,Primary osteoarthritis of both knees 20 mg IAtc Once 09/24/2024 12/23/2024 Ended sodium hyaluronate (EUFLEXXA) injection syringe 20 mgIndications:Chronic pain of both knees,Primary osteoarthritis of both knees 20 mg IAtc Once 09/24/2024 12/23/2024 Ended Active Problems Problem Noted Date Diagnosed Date [...] of Trulicity 0.75 mg weekly Lot # [id number] expiration 04/20/2022. Assessment & Plan (10/28/2020 12:20 [...] that she has an appointment with the special educator in approximately 2 weeks and if she [...] and also refer her to see the special educator for nutrition counseling. She will follow in 4 weeks time. LDL levels have been in the reference range without any statins. Urine microalbumin creatinine ratio has been ordered. I will request a CBC. Rheumatoid arthritis 07/09/2020 Assessment & Plan (12/08/2024 1:02 PM EDT): Stable. Assessment & Plan (09/24/2022 1:50 PM EDT): This is managed by her edi coordinator. Use of steroids for this prompted her [...] Encounters Date Type Department Care Team Description 12/21/2024 9:14 AM EDT - 12/21/2024 11:59 PM EDT Hospital Encounter [facility] [address] [place] [address] Maxi Moreno MD Discharge Disposition: Home or Self Care 12/21/2024 Refill [facility] [address] [place] [address] Kirk Pérez DO Med Change Request; Patient Returned Call 12/06/2024 1:15 PM EDT Office Visit [address] [place] [address] Maxi Moreno MD Encounter for general adult medical examination with abnormal findings (Primary Dx); RIAN (obstructive sleep apnea); Essential hypertension; Type 2 diabetes mellitus without complication, with long-term current use of insulin; Morbid obesity; Acquired hypothyroidism; Hypertriglyceridemi a; Rheumatoid arthritis, involving unspecified site, unspecified whether rheumatoid factor present 12/06/2024 Orders Only [facility] Endocrinology [address] [place] [address] Kirk Pérez DO Type 2 diabetes mellitus without complication, with long-term current use of insulin (Primary Dx) 12/02/2024 4:15 PM EDT Office Visit [facility] [address] [place] [address] Howard Fulton MD Rheumatoid arthritis, involving unspecified site, unspecified whether rheumatoid factor present (Primary Dx) 12/02/2024 Telephone [facility] [address] [place] [address] Luisa Quevedo MA 11/26/2024 Orders Only [facility] [address] [place] [address] Ten Sosa [place] Right foot pain (Primary Dx); Right ankle pain; Left foot pain; Left ankle pain 10/28/2024 Refill [facility] [address] [place] [address] Kirk Pérez DO Med Change Request 10/28/2024 Orders Only [facility] [address] [place] [address] Kirk Pérez DO Class 3 severe obesity due to excess calories without serious comorbidity with body mass index (BMI) of 40.0 to 44.9 in adult (Primary Dx) 10/25/2024 Orders Only [facility] [address] [place] [address] ProviderThuan MD 09/26/2024 Documentation [facility] [address] [place] [address] Micaela Granados from Last 3 Months Immunizations Immunization Administration Dates Next Due COVID-19 (Pre-01/30) Pfizer Vaccine, Bivalent 12+ 02/12/2022 COVID-19 (Pre-01/30) [...] high school, GED, job training, learning the [place] Citizen language, technical skills, or developing parenting skills)? [...] PM EDT Office Visit [facility] [address] [place] [address] Kirk Pérez DO [address] [place] [address] 12/16/2025 2:30 PM EDT Office Visit [facility] [address] [place] [address] [place] [address] Maxi Moreno MD [address] [place] [address], [address] [place] [address] [email or web address] Health Maintenance Due Date Last Done Comments HIV ONE-TIME SCREENING (18-65 YEARS) 11/17/1999 PNEUMOCOCCAL VACCINES (0-49 years) (3 of 3 - PPSV23, PCV20 or PCV21) 05/08/2021 03/13/2021, 03/16/2011 INFLUENZA VACCINE (#1) 2024 , 02/15/2023, 02/12/2022, Additional history exists COVID-19 VACCINE (10 - Pfizer risk 2023- season) 2024 01/05/2024, 02/19/2023, 02/12/2022, Additional history exists BLOOD PRESSURE 06/07/2025 12/06/2024 HEMOGLOBIN A1C 06/20/2025 12/21/2024, 09/08, 03/22/2024, Additional history exists PAP SMEAR 09/17/2025 09/17/2020 URINE MICROALBUMIN/CREATININE RATIO 09/17/2025 09/17/2024, 09/19/2023, 09/09/2022, Additional history exists DIABETIC EYE EXAM 11/26/2025 11/26/2024 DEPRESSION SCREENING 12/06/2025 12/06/2024 LIPID PANEL 12/21/2025 12/21/2024, 09/08, 09/19/2023, Additional history exists TSH LEVEL 12/21/2025 12/21/2024, 12/09, 09/21/2022, Additional history exists MAMMOGRAM 01/09/2026 01/10/2024, 07/0 08/2021, 10/12/2021, Additional [...] Procedure Name Priority Date/Time Associated Diagnosis Comments LIPID PANEL Routine 12/21/2024 9:18 AM EDT Type 2 diabetes mellitus without complication, with long-term current use of insulin HEMOGLOBIN A1C Routine 12/21/2024 9:18 AM EDT Type 2 diabetes mellitus without complication, with long-term current use of insulin TSH WITH REFLEX Routine 12/21/2024 9:16 AM EDT Acquired hypothyroidism DIABETES EYE EXAM FOR RESULT ENTRY ONLY [...] OUTSIDE IMAGING Routine 10/24/2024 2:21 PM EDT MICROALBUMIN/CREATINI NE RATIO, RANDOM URINE Routine 09/17/2024 3:56 PM [...] PM EDT Breast cancer screening by mammogram PAP TEST Routine 09/17/2020 12:00 AM EDT from Last 3 Months or Most Recently Relevant to Health Maintenance Results * Hemoglobin A1c (12/21/2024 9:18 AM EDT) HEMOGLOBIN A1C 5.3 4.3 - 5.8 % [facility] Blood 12/21/2024 9:18 AM EDT 12/21/2024 9:25 AM EDT Kirk Préez DO LAB BLOOD ORDERABLES Final Resul t [facility] [address] [place] [address] * (ABNORMAL) Lipid panel (12/21/2024 9:18 AM EDT) HDL 43 mg/dL [facility] Comment: Interpretation <40 mg/dL: Low HDL cholesterol (major risk factor for CHD) Greater than or equal to 60 mg/dL: High HDL cholesterol ( negative risk factor for CHD) HDL - cholesterol is affected by a number of factors, e.g. smoking, excerise, hormones, sex and age. CHOLESTEROL 172 0 - 240 mg/dL [facility] TRIGLYCERIDES 199(H) 30 - 160 mg/dL [facility] LDL 89 50 - 129 mg/dL [facility] Comment: LDL levels in terms of risk for coronary heart disease: <100 mg/dL: Optimal 100-129 mg/dL: Near or above optimal 130-159 mg/dL: Borderline high 160-189 mg/dL: High >190 mg/dL: Very High CARDIAC RISK RATIO 4.0 3.3 - 4.4 [facility] Blood 12/21/2024 9:18 AM EDT 12/21/2024 9:25 AM EDT Kirk Pérez DO LAB BLOOD ORDERABLES Final Resul t Performing Organization Address City/[facility]/ZIP Co de Phone Number [address] [address] * TSH with reflex (12/21/2024 9:16 AM EDT) TSH 2.55 0.27 - 4.20 uIU/mL [facility] Blood 12/21/2024 9:16 AM EDT 12/21/2024 9:24 AM EDT Maxi Moreno MD LAB BLOOD ORDERABLES Final Result Performing Organization Address City/[facility] Co de Phone Number [address] [address] * DIABETES EYE EXAM FOR RESULT ENTRY ONLY (11/26/2024 4:06 PM EDT) Historical Provider HEALTH MAINTENANCE Edited Result - Final * Outside Imaging Report Only (10/24/2024 2:21 PM EDT) Historical Provider IMG XR CHEST Edited Re sult - Final * Microalbumin/creatinine ratio, random urine (09/17/2024 3:56 PM EDT) URINE MICROALBUMIN <1.2 0 - 2.3 mg/dL [facility] URINE CREATININE 197 mg/dL [facility] MICROALB/CRE RATIO NOT CALCULATED 0 - 20 mg/g Cre [facility] Comment:due to Microalbumin <1.2 Urine (Urine) 09/17/2024 3:5 6 PM EDT 09/17/2024 4:03 PM EDT us Kirk Mcintosh DO URINE ORDERABLES Final Result [address] [address] * Hepatitis C antibody, qualitative (09/17/2024 3:43 PM EDT) HCV NON-REACTIV E NON-REACTI VE [facility] Blood 09/17/2024 3:43 PM EDT 09/17/2024 4:07 PM EDT us Della Wolff MD LAB BLOOD ORDER ALLAN Final Result Performing Organization Address [facility] Co de Phone Number [address] [address] * BI MAMMOGRAM SCREENING WITH TOMOSYNTHESIS WITH [...] IMG MG EXAMS Final Resul t * Pap Smear (09/17/2020 12:00 AM EDT) 09/17/2020 09/18/2020 9:5 4 AM EDT Narrative SEE NARRATIVE - 09/23/2020 10:14 AM EDT [address] [address] Margarine Churn Operator: Fouzia Malave MD MELTING OPERATOR Cytology Report FINAL DIAGNOSIS A. PAP SMEAR [...] 52, 56, 58, 59, 66, 68) by [employer] Onclarity HR-HPV analysis. Clinical correlation is advised. This HPV test was performed at [facility], [address] [place] [address]. This test has been FDA approved for SurePath cervical cytology specimens. The accuracy and precision of this test for all other specimen sources has been verified in the Cytopathology Laboratory of the [facility] and has not been cleared or approved by the U.S. Food and Drug Administration. Clinical correlation is advised. CLINICAL HISTORY Date of Last Menstrual Period: 08-17-2020 Other Clinical Conditions: Screening Pap SPECIMEN SOURCE A: PAP SMEAR (SUREPATH) CE Patient Name: LIUDMILA DURÁN : 1980 (Age: 39) Sex: F Institution: [facility] Location: [facility] Date of Collection: 09/17/2020 Date of Reported: 09/23/2020 10:14 Results to: Olyklaudia Quintanilla MD, [facility], B us Oly A Dwight MAY CYTOLOGY ORDERABLES Final Res ult SEE NARRATIVE from Last 3 Months or Most Recently Relevant to Health Maintenance Insurance O O O O O O Member Subscriber Plan / Payer (Ef fective 2016-Present) Name:Liudmila Durán Relation to Subscriber:Self Name:LIUDMILA DURÁN Payer ID:Not on file Type:HMO Address: [place] [id number] O O [employer] Care Teams Plumbing Installer Relationship Specialty Start Date End Date Maxi Moreno MD [address] [place] [address], [address] [place] [id number] PCP - General Internal Medicine 09/17/20 Oly Quintanilla MD [address] [place] [address], [address] [place] [address] Historical LMR Provider 01/24/17 Kikr Pérez DO [address] [place] [address] [email or web address] Endocrinology 12/18/20 Halley Back MD [address] [place] [address] Rheumatology 12/18/20 Filemon East MD [address] [place] [address] Physical Medicine and Rehabilitation 12/18/20 Additional Source Comments The information contained in this document represents components of the legal health record. It is not the complete legal health record.[facility]
--- OUTSIDE RECORDS SUMMARY | 2024-12-27 15:09 | XMS_ITS | Encounter Summary ---
Author Organization [facility] Address [address] [place] [phone] Phone Care Team Providers Care Health Information Internship Name Role Phone Oly Quintanilla MD Unavailable [phone] Maxi Moreno MD Primary Care Provider [phone] Kirk Pérez DO Unavailable Halley Back MD Unavailable Filemon East MD Unavailable Reason for Visit * Reason Onset Date Comments Med Change Request Patient Returned Call 12/21/2024 Encounter Details Date Type Department Care Team (Late st Contact Info) Description 12/21/2024 Refill [facility] [address] [place] [address] Kirk Pé[place] [address] Med Change Request; Patient Returned Call Social History Tobacco Use Types Packs/Day Years [...] as of this encounter Progress Notes * Clara Hill PA-C - 12/27/2024 11:07 AM EDTAddended by: CLARA HILL on: 12/27/2024 11:07 AM Modules accepted: Orders * Clara Hill PA-C - 12/27/2024 11:07 AM EDT Dexcom rx faxed as was failing e-transmission * Clara Hill PA-C - 12/27/2024 11:06 AM EDTAddended by: CLARA HILL on: 12/27/2024 11:06 AM Modules accepted: Orders * Clara Hill PA-C - 12/27/2024 11:06 AM EDT Prescriptions resent as initial failed * Clara Hill PA-C - 12/27/2024 10:48 AM EDT Prescriptions sent to requested pharmacy * Annemarie Guerra RN - 12/27/2024 10:33 AM EDT I let pt know. Informed. She is okay with this. You can send. * Annemarie Dudley - 12/26/2024 3:45 PM EDT Patient asking for an update regarding their insulin, please call [phone] * Clara Hill PA-C - 12/24/2024 10:37 AM EDT Please call patient to let her know that the insurance is not going to cover tresiba, they will cover toujeo. This is the more concentrated version of lantus, her dosing would remain the same. If shedoesn't have any questions please send back to me and I will send into the pharmacy thanks * Annemarie Dudley - 12/23/2024 4:44 PM EDT Patient returning call. Patient has not tried insulin toujeo. Please call [phone] Patient also states their insurance will not cover their Dexcom Sensors unless prescribed through [facility]. * Luisa Quevedo MA - 12/23/2024 2:56 PM EDT Called and left a voicemail for Liudmila informing her medication for insulin degludec (tresiba) isnon formulary and not covered by her insurance. We were wondering if she has tried insulin toujeo in the past, if so, if she had any reactions to it. If she could give the office a call back to let us know documented in this encounter Plan of Treatment Upcoming Encounters Date Type Department Care Team (Late st Contact Info) Description 01/09/2025 4:00 PM EDT Office Visit [facility] [address] [place] [address] Dr Jose [place] [phone] Kirk Pérez DO [address] [place] [address] 12/16/2025 2:30 PM EDT Office Visit [facility] [address] [place] [address] [place] [address] Maxi Moreno MD [address] [place] [phone] [email or web address] documented as of this encounter Visit Diagnoses Diagnosis Type 2 diabetes mellitus without complication, with long-term current use of insulin- Primary documented in this encounter Additional Health Concerns Assessment Noted Time A Body Mass Index follow-up plan has been documented for the patient 12/08/2024 1:02 PM EDT PHQ-2 Depression Total Score: 0 12/07/19 25 12:56 PM EDT documented as of this encounter Care Teams Health Information Internship Relationship Specialty Start Date End Date Maxi Moreno MD [address] [place] [address] PCP - General Internal Medicine 09/17/20 Oly Quintanilla MD [address] [place] [address] Historical LMR Provider 01/24/17 Kirk Pérez DO [address] [place] [address] Endocrinology 12/18/20 Halley Back MD [address] [place] [address] Rheumatology 12/18/20 Filemon East MD [address] [place] [address] [email or web address] Physical Medicine and Rehabilitation 12/18/20 documented as of this encounter Additional Source Comments The information contained in this document represents components of the legal health record. It is not the complete legal health record.[facility]
--- OUTSIDE RECORDS SUMMARY | 2024-12-27 15:09 | XMS_ITS | Encounter Summary ---
Author Organization [facility] Address [address] [place] [address] Phone Care Team Providers Care Aquaculture Director Name Role Phone Oly Quintanilla MD Unavailable [phone] Maxi Moreno MD Primary Care Provider [phone] Kirk Pérez DO Unavailable Halley Back MD Unavailable Filemon East MD Unavailable [phone] Encounter Details Date Type Department Care Team (Late st Contact Info) Description 11/26/2024 Orders Only [facility] [address] [place] [address] [place] [address] [phone] Right foot pain (Primary Dx); Right ankle [...] high school, GED, job training, learning the Ukrainian language, technical skills, or developing parenting skills)? [...] 4:00 PM EDT Office Visit [facility] [address] [place] [address] [place] [address] Kirk Pérez DO [address] [place] [address] 12/16/2025 2:30 PM EDT Office Visit [facility] [address] [place] [address] [place] [address] Maxi Moreno MD [address] [place] [address], [address] [place] [address] [email or web address] documented as of this encounter Procedures Procedure [...] documented as of this encounter Care Teams Aquaculture Director Relationship Specialty Start Date End Date Maxi Moreno MD [address] [place] [address], [address] [place] [phone] [email or web address] PCP - General Internal Medicine 09/17/20 Oly Quintanilla MD [address] [place] [address], [address] [place] [address] [email or web address] Historical LMR Provider 01/24/17 Kirk Pérez DO [address] [place] [address] [email or web address] Endocrinology 12/18/20 Halley Back MD [address] [place] [address] Rheumatology 12/18/20 Filemon East MD [address] [place] [address] [email or web address] Physical Medicine and Rehabilitation 12/18/20 documented as of this encounter Additional Source Comments The information contained in this document represents components of the legal health record. It is not the complete legal health record.[facility]
--- OUTSIDE RECORDS SUMMARY | 2024-12-27 15:09 | XMS_ITS | Encounter Summary ---
Author Organization [facility] Address [address] [place] [address] Phone Care Team Providers Care Launch Steward Name Role Phone Oly Quintanilla MD Unavailable [phone] Maxi Moreno MD Primary Care Provider [phone] Kirk Pérez DO Unavailable Halley Back MD Unavailable Filemon East MD Unavailable Reason for Visit * Reason Onset Date Comments Cough 02/06/2024 Chills 02/06/2024 Ear Fullness 02/06/2024 Encounter Details Date Type Department Care Team (Late st Contact Info) Description 02/06/2024 Nurse Triage [facility] [address] [place] [address] [place] [address] Maxi Moreno MD [address] [place] [address], [address] [place] [address] [email or web address] Cough; Chills; Ear Fullness Social History Tobacco [...] high school, GED, job training, learning the Macedonian language, technical skills, or developing parenting skills)? [...] advice?: No, wishes to speak to PCP [facility] Daisy Tracy RN Tue Feb 06, 2024 [...] either acetaminophen or ibuprofen. * They are honn-nas-pduvhog (OTC) drugs that help treat both fever [...] ABX without ov to be sent to [facility] Dr. Rodriguez Reason for Disposition Continuous (nonstop) coughing interferes with work or school and no improvement using cough treatment per Care Advice Protocols used: [id number]-[id number] * Marcelino Hopper - 02/06/2024 4:00 PM EDT Pt called in with a cough, chills, ear pressure, said their child is on antibiotics with similar symptoms. Please contact and advise. Central Support Review Consultant (Please do not reply to this user; this inbox is not monitored.) Thank you. documented in this encounter Plan of Treatment Upcoming Encounters Date Type Department Care Team (Late st Contact Info) Description 01/09/2025 4:00 PM EDT Office Visit [facility] [address] [place] [address] [place] [address] Kirk Pérez DO [address] [place] [address] 12/16/2025 2:30 PM EDT Office Visit [facility] [address] [place] [address] [place] [address] Maxi Moreno MD [address] [place] [address] [email or web address] documented as of this encounter Visit Diagnoses Not on filedocumented in this encounter Additional Health Concerns Assessment Noted Time A Body Mass Index follow-up plan has been documented for the patient 09/28/2023 3:19 PM EDT PHQ-2 Depression Total Score: 0 09/25/19 10:59 AM EDT documented as of this encounter Care Teams Launch Steward Relationship Specialty Start Date End Date Maxi Moreno MD [address] [place] [phone] [email or web address] PCP - General Internal Medicine 09/17/20 Oly Quintanilla MD [address] [place] [address] [email or web address] Historical LMR Provider 01/24/17 Kirk Pérez DO [address] [place] [address] [email or web address] Endocrinology 12/18/20 Halley Back MD [address] [place] [address] Rheumatology 12/18/20 Filemon East MD [address] [place] [address] [email or web address] Physical Medicine and Rehabilitation 12/18/20 documented as of this encounter Additional Source Comments The information contained in this document represents components of the legal health record. It is not the complete legal health record.[facility]
--- NOTE | 2024-12-27 15:10 | MHC.OFFVIS ---
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 Lange. Patient reports 40-50% pain relief for 6-8 hours with partial improvement in her pain, mobility and functioning. She has moderate multilevel arthritis and severe disc degeneration, particularly at the L5-S1 level. Patient reports persistent low back pain with radiation into her right leg. She also reports more bothersome pain in her right hip with radiation into groin with internal rotation. Most recent hip x-rays revealed right hip demonstrating a small bony convexity at the femoral head-neck junction which could contribute to cam type femoral acetabular impingement and unremarkable left hip. Patient reports right leg numbness and tingling. Patient also reports chronic right ankle and foot discomfort and has been getting tibiotalar steroid injections. Denies any recent cough, cold, infection, fever or any other significant changes in medical history since last office visit. Past Procedures: 12/19/24: Bilateral Diagnostic L3-L4 DR L5 MBB-40-50% for 6-8 hours PRIOR: The patient is a 43-year-old female presenting with chronic low back pain. The pain has persisted for over a year without any specific inciting event and is primarily located in the lower back, radiating into the buttock area. X-rays have shown multilevel arthritis in the lumbar spine with moderate to marked loss of disc space, particularly at L5-S1, and a mild slippage at L4-L5. The patient also has a history of rheumatoid arthritis, diagnosed since the age of [age], and is currently managed with Enbrel. She reports a history of cervical radiculopathy and experiences occasional migraines. The patient has obstructive sleep apnea, previously managed with a CPAP machine, but it is no longer in use as per recent evaluations. She also has type 2 diabetes mellitus, which is well-controlled with an A1c of less than 6, and is currently on Ozempic for management. The patient reports fibromyalgia and experiences widespread body pain, including in the hands, hips and knees. She has undergone various interventions, including physical therapy, reproductive healthcare assistant, TENS unit , knee gel injections, right subtalar injections, shoulder, hands, and neck injections, and acupuncture, with limited relief. - Onset: Pain has been present for over a year. - Quality: Described as aching, sharp, throbbing, dull, sore, tiring and shooting. - Location: Primarily in the lower back, radiating to the buttock and occasionally to the left hip. - Exacerbating factors: Sitting worsens the pain, while standing and walking are less painful. - Relieving factors: Minimal relief with Voltaren gel and occasional ibuprofen use. - Interference: Pain interferes with daily activities, particularly sitting. - Affect: Pain is constant and impacts daily activities, causing fatigue. - Analgesia: Uses Voltaren gel and occasional ibuprofen for pain relief. - Adverse Effects: No significant adverse effects reported from current pain management regimen. - Activities of Daily Living: Pain affects ability to sit for prolonged periods, impacting work and daily tasks. - Aberrant Drug Related Behaviors: No aberrant behaviors reported; patient uses CBD edibles for sleep aid. 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 - Neurological: Reports tingling sensation in the right leg and right foot. Denies bladder or bowel dysfunction or saddle anesthesia. All systems reviewed & are unremarkable except as noted in HPI and below Physical Exam Vital Signs: Last Vital Signs Pulse 99 12/27/24 15:17 BP 167/74 H 12/27/24 15:17 Pulse Ox 98 12/27/24 15:17 Oxygen Delivery Method Room Air 12/27/24 15:17 BMI result Body Mass Index 42.5 General: Appears afebrile. Morbidly obese. Alert and oriented. Mood and affect appropriate. Follows and participates in conversation appropriately. Respiratory effort is unlabored. No cough. Able to transition from sit to stand unassisted. Ambulates with bilaterally normal heel strike and toe off. General: Yes no CVA tenderness Back/Spine/Pelvis Other: Limited lumbar ROM due to pain. Demonstrates 5/5 strength of quadriceps bilaterally as well as flexion/dorsiflexion of bilateral feet against resistance. 2+ pedal pulses bilaterally. Straight leg rise with dorsiflexion negative bilaterally. +1 patellar and achilles reflexes bilaterally. Facet loading test positive bilaterally. Brittney sign, Keith?s, Pelvic compression and Stinchfield tests are positive bilaterally. Mild to moderate groin pain with internal right hip rotations. Valsalva maneuver negative. Multiple widespread TTPs 16/16 bilaterally, including upper and lower extremities. Back: no CVA tenderness Cervical Spine: cervical ROM normal, cervical muscular tenderness, pain with cervical ROM and No Cervical spine tenderness Thoracic/Lumbar Spine: thoracic and lumbar spine normal to inspection, No Thoracic/lumbar spine scar(s), Lasegue's sign negative, straight leg raise negative bilaterally, pain with thoraco-lumbar ROM, paraspinal muscle tenderness, thoraco-lumbar ROM limited, No thoracic spinal tenderness and lumbar spinal tenderness (L4-S1) Sacroiliac joints: bilaterally tender to palpation Extrem General: Yes capillary refill normal, Yes no clubbing, cyanosis or edema and Yes no calf tenderness Results Reviewed Results Reviewed: XR SACRUM AND COCCYX, LUMBAR SPINE 12/29/23 CLINICAL INFORMATION: Low back pain for 8 months, no injury. COMPARISON: None available. TECHNIQUE: 5 views of the lumbar spine. 3 views of the sacrum/coccyx. FINDINGS: Lumbar Spine: Facet arthritis in the lower lumbar spine. Moderate multilevel lumbar spondylosis. Moderate loss of disc space height and hypertrophic change at L1-L2. Nnoubejt-ro-eqonvz loss of disc space height and hypertrophic change at L5-S1. Mild grade 1 retrolisthesis of L4 on L5. Sacrum/Coccyx: Bilateral sacroiliac joints are maintained. Pubic symphysis is maintained. IMPRESSION: 1. Moderate multilevel lumbar spondylosis. 2. Facet arthritis in the lower lumbar spine. 3. Cbsyzkmj-ew-yielnq degenerative disc disease at L5-S1. XR BILATERAL HIPS WITH AP PELVIS 10/24/24 CLINICAL INFORMATION: M25.551 - Pain in right hip COMPARISON: None available. TECHNIQUE: AP and frog-leg lateral views of each hip. FINDINGS: Left hip: Joint space is congruent and not narrowed. There is mild bony convexity of the femoral head neck junction. No other abnormality. Right hip: Hip joint space is congruent without narrowing. There are no degenerative changes. IMPRESSION: Right hip demonstrates a small bony convexity at the femoral head-neck junction which could contribute to cam type femoral acetabular impingement. Left hip is unremarkable. Assessment & Plan Assessment & Plan (1) Chronic lower back pain: Code(s): M54.50 - Low back pain, unspecified; G89.29 - Other chronic pain Category: Medical Qualifiers: Back pain laterality: midline Sciatica presence: without sciatica Qualified Code(s): M54.50 - Low back pain, unspecified; G89.29 - Other chronic pain (2) Lumbosacral spondylosis: Code(s): M47.817 - Spondylosis without myelopathy or radiculopathy, lumbosacral region Category: Medical (3) Lumbar degenerative disc disease: Code(s): M51.369 - Other intervertebral disc degeneration, lumbar region without mention of lumbar back pain or lower extremity pain Category: Medical (4) Lumbar radiculopathy: Code(s): M54.16 - Radiculopathy, lumbar region Category: Medical (5) Right hip pain: Code(s): M25.551 - Pain in right hip Category: Medical (6) Right hip impingement syndrome: Code(s): M25.851 - Other specified joint disorders, right hip Category: Medical (7) Lumbar radiculopathy: Code(s): M54.16 - Radiculopathy, lumbar region Category: Medical (8) Right leg paresthesias: Code(s): R20.2 - Paresthesia of skin Category: Medical (9) Right hip pain: Code(s): M25.551 - Pain in right hip Category: Medical Plan The plan includes scheduling an MRI of the right hip to further evaluate the pain and potential deformity noted on the x-ray. An EMG/NVC studies will be conducted to assess for peripheral neuropathy and rule out lumbar radiculopathy for persistent back and hip pain and paresthesias in right lower extremity. All questions and concerns have been answered and patient agreed with the treatment plan. Follow up for EMG/MRI results and sooner as needed. Patient was informed and verbally consented to the use of an ambient scribe for clinic note documentation during this visit. Orders: Orders NE electromyogram (EMG) Today M25.551 - Pain in right hip, M54.16 - Radiculopathy, lumbar region, R20.2 - Paresthesia of skin NE nerve conduction velocity Today M25.551 - Pain in right hip, M54.16 - Radiculopathy, lumbar region, R20.2 - Paresthesia of skin MR hip RT wo con Today M25.551 - Pain in right hip, M25.851 - Other specified joint disorders, right hip Coding Level of Care Code Est Pt Level 4 (51597) Complex EM visit Add On G2211 Diagnoses Chronic midline low back pain without sciatica M54.50; G89.29 Back pain laterality: midline Sciatica presence: without sciatica Lumbosacral spondylosis M47.817 Lumbar degenerative disc disease M51.369 Lumbar radiculopathy M54.16 Right hip pain M25.551 Right hip impingement syndrome M25.851 Right leg paresthesias R20.2
[2024-12-27 15:17] VITALS: BP 167/74; PULSE 99; O2SAT 98; BMI 42.5
== END 2024-12-27 15:43 | disposition home or self-care (01) ==
LOC: HO.PMC 15:07
PROVIDERS: PCP Internal Medicine; Visit Provider Nurse Practitioner Family
DX: M54.50 Low back pain, unspecified (principal); G89.29 Other chronic pain; M47.817 Spondylosis without myelopathy or radiculopathy, lumbosacral region; M51.369 Other intervertebral disc degeneration, lumbar region without mention of lumbar back pain or lower extremity pain; M54.16 Radiculopathy, lumbar region; M25.551 Pain in right hip; M25.851 Other specified joint disorders, right hip; R20.2 Paresthesia of skin
CPT/HCPCS: 99214; G2211

== ENCOUNTER → 2025-01-16 17:34 | Outpatient (BNV) | payer OTHER, SELFPAY | PROVIDERS: PCP Internal Medicine; Visit Provider Radiology Diagnostic Radiology | DX: M16.11 Unilateral primary osteoarthritis, right hip (principal); N85.9 Noninflammatory disorder of uterus, unspecified; M76.01 Gluteal tendinitis, right hip; M76.891 Other specified enthesopathies of right lower limb, excluding foot | CPT/HCPCS: 73721 ==

== ENCOUNTER 2025-01-16 17:37 | Outpatient (REF) | payer OTHER, SELFPAY ==
--- NOTE | ~2025-01-16 | MR_ITS ---
CLINICAL HISTORY: M25.551 - Pain in right hip MR right hip without gadolinium Comparison: CR/SR - XR HIP 2 OR MORE VIEWS BILATERAL - 10/24/24 16:20 EDT Findings: No fractures. No pathologic bone lesions. Periarticular osteophyte formation at the right hip joint. No femoral neck bony protuberances. Normal acetabular version. No joint effusion. Linear high T2 signal intensity traverses the superolateral right hip labrum. Mild T2 signal elevation adjacent to the femoral insertion site of the right gluteus medius and minimus tendons. Moderate T2 signal elevation within the posteromedial aspect of the proximal right hamstring tendon. 32 mm heterogeneous signal intensity focus within the posterior intramural uterus with peripheral high and central low T2 signal intensity. IMPRESSION: 1. No acute findings. 2. Mild insertional tendinitis of the right gluteus medius and minimus tendons. 3. Mild right hamstring tendinopathy. 4. 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 5. Indeterminate uterine lesion, possibly representing an atypical fibroid. Ultrasound examination is recommended. This document has been electronically signed by: Zeb Mesa MD on 01/16/2025 18:57:40
== END 2025-01-16 17:38 | disposition home or self-care (01) ==
LOC: HO.MRI 17:37
PROVIDERS: PCP Internal Medicine; Visit Provider Nurse Practitioner Family
DX: M25.551 Pain in right hip (principal); M25.851 Other specified joint disorders, right hip
CPT/HCPCS: 73721

== ENCOUNTER 2025-01-23 15:39 | Outpatient (AMB) | payer OTHER, SELFPAY ==
--- NOTE | 2025-01-23 15:47 | A.OFFVIS_ITS ---
Vital Signs 01/23/25 15:50 Height 5 ft 9 in Weight 288 lb BMI 42.5 BP 136/79 Blood Pressure Location Lt radial Position Sitting Pulse 97 Pulse Source Pulse Oximeter Pulse Oximetry (%) 99 Oxygen Delivery Method Room Air Intake Visit Reasons: Discuss MRI Results Intake Note: Pain today 09/17 Pattern Fitter Required: No Accompanied by: Self / Same As Patient Allergies Iodinated Contrast Media (Contrast Dye) Allergy (Intermediate, Verified 01/23/25 15:51) Hives penicillin G Allergy (Verified 01/23/25 15:51) Unknown beef derived (bovine) Adverse Reaction (Mild, Verified 01/23/25 15:51) Vomiting HPI Comments Details: The patient is a 44-year-old female presenting with right hip pain and associated conditions. The MRI findings of right hip revealed mild insertional tendinitis of the right gluteus medius and minimus tendons, mild right hamstring tendinopathy, right hip osteoarthritis, and a right hip labral tear. The patient has been experiencing muscle bumps, which referred to as muscle mice by her massage therapist, which are concerning to her and potentially might undergo Surgical evaluation. The patient has been referred to Orthopedics for further evaluation and also start physical therapy. We also discussed therapeutic right hip steroid injection. She has also been advised to follow up with her primary care physician regarding an incidental finding of a uterine lesion, possibly an atypical fibroid, for which an ultrasound is scheduled. The patient reports that the pain sometimes interferes with her sleep, although she generally sleeps well. She has been prescribed metocarbamol, a muscle relaxant, to be taken twice daily to help with muscle tightness and fibromyalgia. Denies any recent cough, cold, infection, fever or any significant changes in medical history since last office visit. PRIOR: The patient is a 44-year-old female presenting one week status post Bilateral Diagnostic L3-L4 DR L5 MBB on 12/19/[address] Lange. Patient reports 40-50% pain relief for 6-8 hours with partial improvement in her pain, mobility and functioning. She has moderate multilevel arthritis and severe disc degeneration, particularly at the L5-S1 level. Patient reports persistent low back pain with radiation into her right leg. She also reports more bothersome pain in her right hip with radiation into groin with internal rotation. Most recent hip x-rays revealed right hip demonstrating a small bony c onvexity at the femoral head-neck junction which could contribute to cam type femoral acetabular impingement and unremarkable left hip. Patient reports right leg numbness and tingling. Patient also reports chronic right ankle and foot discomfort and has been getting tibiotalar steroid injections. Denies any recent cough, cold, infection, fever or any other significant changes in medical history since last office visit. Past Procedures: 12/19/24: Bilateral Diagnostic L3-L4 DR L5 MBB-40-50% for 6-8 hours PRIOR: The patient is a 43-year-old female presenting with chronic low back pain. The pain has persisted for over a year without any specific inciting event and is primarily located in the lower back, radiating into the buttock area. X-rays have shown multilevel arthritis in the lumbar spine with moderate to marked loss of disc space, particularly at L5-S1, and a mild slippage at L4-L5. The patient also has a history of rheumatoid arthritis, diagnosed since the age of [age], and is currently managed with Enbrel. She reports a history of cervical radiculopathy and experiences occasional migraines. The patient has obstructive sleep apnea, previously managed with a CPAP machine, but it is no longer in use as per recent evaluations. She also has type 2 diabetes mellitus, which is well-controlled with an A1c of less than 6, and is currently on Ozempic for management. The patient reports fibromyalgia and experiences widespread body pain, including in the hands, hips and knees. She has undergone various interventions, including physical therapy, inpatient care manager rn, TENS unit , knee gel injections, right subtalar injections, shoulder, hands, and neck injections, and acupuncture, with limited relief. - Onset: Pain has been present for over a year. - Quality: Described as aching, sharp, throbbing, dull, sore, tiring and shooting. - Location: Primarily in the lower back, radiating to the buttock and occasionally to the left hip. - Exacerbating factors: Sitting worsens the pain, while standing and walking are less painful. - Relieving factors: Minimal relief with Voltaren gel and occasional ibuprofen use. - Interference: Pain interferes with daily activities, particularly sitting. - Affect: Pain is constant and impacts daily activities, causing fatigue. - Analgesia: Uses Voltaren gel and occasional ibuprofen for pain relief. - Adverse Effects: No significant adverse effects reported from current pain management regimen. - Activities of Daily Living: Pain affects ability to sit for prolonged periods, impacting work and daily tasks. - Aberrant Drug Related Behaviors: No aberrant behaviors reported; patient uses CBD edibles for sleep aid. 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 Morbidly obese. Alert and oriented. Mood and affect appropriate. Follows and participates in conversation appropriately. Respiratory effort is unlabored. No cough. Able to transition from sit to stand unassisted. Ambulates with bilaterally normal heel strike and toe off. General: Yes no CVA tenderness Back/Spine/Pelvis Other: Limited lumbar ROM due to pain. Demonstrates 5/5 strength of quadriceps bilaterally as well as flexion/dorsiflexion of bilateral feet against resistance. 2+ pedal pulses bilaterally. Straight leg rise with dorsiflexion negative bilaterally. +1 patellar and achilles reflexes bilaterally. Facet load ing test positive bilaterally. Brittney sign, Keith?s, Pelvic compression and Stinchfield tests are positive bilaterally. Moderate groin pain with internal right hip rotations. Valsalva maneuver is negative. Multiple widespread TTPs 16/16 bilaterally, including upper and lower extremities. Back: no CVA tenderness Cervical Spine: cervical ROM normal, cervical muscular tenderness, pain with cervical ROM and No Cervical spine tenderness Thoracic/Lumbar Spine: thoracic and lumbar spine normal to inspection, No Th oracic/lumbar spine scar(s), Lasegue's sign negative, straight leg raise negative bilaterally, pain with thoraco-lumbar ROM, paraspinal muscle tenderness, thoraco-lumbar ROM limited, No thoracic spinal tenderness and lumbar spinal tenderness (L4-S1) Sacroiliac joints: bilaterally tender to palpation Extrem General: Yes capillary refill normal, Yes no clubbing, cyanosis or edema and Yes no calf tenderness Results Reviewed Results Reviewed: XR SACRUM AND COCCYX, LUMBAR SPINE 12/29/23 CLINICAL INFORMATION: Low back pain for 8 months, no injury. COMPARISON: None available. TECHNIQUE: 5 views of the lumbar spine. 3 views of the sacrum/coccyx. FINDINGS: Lumbar Spine: Facet arthritis in the lower lumbar spine. Moderate multilevel lumbar spondylosis. Moderate loss of disc space height and hypertrophic change at L1-L2. Dneuefwd-tg-dxgynu loss of disc space height and hypertrophic change at L5-S1. Mild grade 1 retrolisthesis of L4 on L5. Sacrum/Coccyx: Bilateral sacroiliac joints are maintained. Pubic symphysis is maintained. IMPRESSION: 1. Moderate multilevel lumbar spondylosis. 2. Facet arthritis in the lower lumbar spine. 3. Gccdfnte-bb-dbdnis degenerative disc disease at L5-S1. XR BILATERAL HIPS WITH AP PELVIS 10/24/24 CLINICAL INFORMATION: M25.551 - Pain in right hip COMPARISON: None available. TECHNIQUE: AP and frog-leg lateral views of each hip. FINDINGS: Left hip: Joint space is congruent and not narrowed. There is mild bony convexity of the femoral head neck junction. No other abnormality. Right hip: Hip joint space is congruent without narrowing. There are no degenerative changes. IMPRESSION: Right hip demonstrates a small bony convexity at the femoral head-neck junction which could contribute to cam type femoral acetabular impingement. Left hip is unremarkable. MR hip RT wo con 01/16/25 CLINICAL HISTORY: M25.551 - Pain in right hip MR right hip without gadolinium Comparison: CR/SR - XR HIP 2 OR MORE VIEWS BILATERAL - 10/24/24 16:20 EDT Findings: No fractures. No pathologic bone lesions. Periarticular osteophyte formation at the right hip joint. No femoral neck bony protuberances. Normal acetabular version. No joint effusion. Linear high T2 signal intensity traverses the superolateral right hip labrum. Mild T2 signal elevation adjacent to the femoral insertion site of the right gluteus medius and minimus tendons. Moderate T2 signal elevation within the posteromedial aspect of the proximal right hamstring tendon. 32 mm heterogeneous signal intensity focus within the posterior intramural uterus with peripheral high and central low T2 signal intensity. IMPRESSION: 1. No acute findings. 2. Mild insertional tendinitis of the right gluteus medius and minimus tendons. 3. Mild right hamstring tendinopathy. 4. 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 5. Indeterminate uterine lesion, possibly representing an atypical fibroid. Ultrasound examination is recommended. Assessment & Plan Assessment & Plan (1) Chronic lower back pain: Code(s): M54.50 - Low back pain, unspecified; G89.29 - Other chronic pain Category: Medical Qualifiers: Back pain laterality: midline Sciatica presence: without sciatica Qualified Code(s): M54.50 - Low back pain, unspecified; G89.29 - Other chronic pain (2) Lumbar degenerative disc disease: Code(s): M51.369 - Other intervertebral disc degeneration, lumbar region without mention of lumbar back pain or lower extremity pain Category: Medical (3) Right hip pain: Code(s): M25.551 - Pain in right hip Category: Medical (4) Muscle spasm: Code(s): M62.838 - Other muscle spasm Category: Medical (5) Labral tear of right hip joint: Code(s): S73.191A - Other sprain of right hip, initial encounter Category: Medical (6) Osteoarthritis of right hip: Code(s): M16.11 - Unilateral primary osteoarthritis, right hip Category: Medical (7) Right hip impingement syndrome: Code(s): M25.851 - Other specified joint disorders, right hip Category: Medical (8) Hamstring tendinitis: Code(s): M76.899 - Other specified enthesopathies of unspecified lower limb, excluding foot Category: Medical Plan The patient will follow up with Orthopedics for further evaluation of her right hip conditions, including tendinitis, tendinopathy, osteoarthritis, and labral tear. An orthopedic consultation is scheduled for February 12 to determine the necessity of surgical intervention. Schedule Right hip intra-articular steroid injection with local and fluoroscopy. Expectations, risks and benefits were reviewed. Patient is aware she will be contacted to schedule this procedure. The patient is advised to continue with massage therapy for muscle stiffness and spasms and to consider physical therapy as a potential treatment option. She is also scheduled for an ultrasound to evaluate the uterine lesion and will follow up with her primary care physician for further management. For pain management, the patient is prescribed metocarbamol to be taken twice daily and is advised to avoid ibuprofen before the upcoming EMG test. All questions and concerns have been answered and patient agreed with the treatment plan. Follow up after hip injection and sooner as needed. Patient was informed and verbally consented to the use of an ambient scribe for clinic note documentation during this visit. Medications: New methocarbamol 750 mg PO TID PRN 60 tabs 0RF muscle spasm 30 days G89.29 - Other chronic pain, M25.551 - Pain in right hip, M51.369 - Other intervertebral disc degeneration, lumbar region without mention of lumbar back pain or lower extremity pain, M54.50 - Low back pain, unspecified, M62.838 - Other muscle spasm Coding Level of Care Code Est Pt Level 4 (62811) Complex EM visit Add On G2211 Diagnoses Chronic midline low back pain without sciatica M54.50; G89.29 Back pain laterality: midline Sciatica presence: without sciatica Lumbar degenerative disc disease M51.369 Right hip pain M25.551 Muscle spasm M62.838 Labral tear of right hip joint S73.191A Osteoarthritis of right hip M16.11 Right hip impingement syndrome M25.851 Hamstring tendinitis M76.899
[2025-01-23 15:50] VITALS: BP 136/79; PULSE 97; O2SAT 99; BMI 42.5
--- OUTSIDE RECORDS SUMMARY | 2025-01-23 19:24 | XMS_ITS | Encounter Summary ---
Author Organization [facility] Address [address] [place] [address] [place] [address] Phone Care Team Providers Care Supervisor Money Room Name Role Phone Oly Quintanilla MD Unavailable [phone] Maxi Moreno MD Primary Care Provider Kirk Pérez DO Unavailable Halley Back MD Unavailable Filemon East MD Unavailable Encounter Details Date Type Department Care Team (Late st Contact Info) Description 09/25/2023 Procedure Pass [facility] - [address] [place] [address] Social History Tobacco Use Types Packs/Day Years [...] high school, GED, job training, learning the Kittitian language, technical skills, or developing parenting skills)? [...] Info) Description 01/29/2025 2:30 PM EDT Appointment [address] [place] [address] Maxi Moreno MD [address] [place] [address] 02/12/2025 3:45 PM EST Office Visit [facility] Orthopedics & Sports Medicine [address] [place] [address] Rylee Lucas MD [address] [place] [address] Orthopedics & Sports Medicine, [place] [address] 07/17/2025 4:00 PM EDT Office Visit [facility] [address] [place] [address] Kirk Pérez DO [address] [place] [address] 12/16/2025 2:30 PM EDT Office Visit [facility] [address] [place] [address] Maxi Moreno MD [address] [place] [address] documented as of this encounter Visit Diagnoses Not on filedocumented in this encounter Additional Health Concerns Assessment Noted Time A Body Mass Index follow-up plan has been documented for the patient 09/28/2023 3:19 PM EDT PHQ-2 Depression Total Score: 0 09/25/19 10:59 AM EDT documented as of this encounter Care Teams Supervisor Money Room Relationship Specialty Start Date End Date Maxi Moreno MD [address] [place] [address] PCP - General Internal Medicine 09/17/20 Oly Quintanilla MD [address] [place] [address], [address] [place] [address] [email or web address] Historical LMR Provider 01/24/17 Kirk Pérez DO [address] [place] [phone] [email or web address] Endocrinology 12/18/20 Halley Back MD [address] [place] [address] Rheumatology 12/18/20 Filemon East MD [address] [place] [phone] [email or web address] Physical Medicine and Rehabilitation 12/18/20 documented as of this encounter Additional Source Comments The information contained in this document represents components of the legal health record. It is not the complete legal health record.[facility]
--- OUTSIDE RECORDS SUMMARY | 2025-01-23 19:24 | XMS_ITS | Encounter Summary ---
Author Organization [facility] Address [address] [place] [address] Phone Care Team Providers Care Intermission Coordinator Name Role Phone Oly Quintanilla MD Unavailable [phone] Maxi Moreno MD Primary Care Provider Kirk Pérez DO Unavailable Halley Back MD Unavailable Filemon East MD Unavailable [phone] Reason for Referral * Consultation (Routine) - New Request Specialty Diagnoses / Procedures Referred By Caprice barragan Referred To Contact Diagnoses Osteoarthritis of right hip Labral tear of right hip joint Maxi Moreno MD [address] [facility], 2nd [place] [address] Phone: tel: fax: [email or web address] Referral ID Status Reason Start Date Expiration Date V isits Requested Visits Authorized [id number] New Request 01/21/2025 01/21/2026 1 1 Reason for Visit * Reason Onset Date Comments Imaging order 01/17/2025 Encounter Details Date Type Department Care Team (Late st Contact Info) Description 01/17/2025 Telephone Unite Us [facility] [address] [place] [address] Nadia [email or web address] Imaging order Social History Tobacco Use Types Packs/Day Years [...] high school, GED, job training, learning the Micronesian language, technical skills, or developing parenting skills)? [...] as of this encounter Progress Notes * Colt Ma RN - 01/21/2025 1:21 PM EDT Spoke with Liudmila and advised referral placed. She agrees to plan and will call to schedule by Monday if she has not heard back. * Maxi Moreno MD - 01/21/2025 12:53 PM EDT Referral signed. * Bianca Romero - 01/17/2025 5:05 PM EDT Patient advised by phone. Patient states that a referral to orthopaedics was also recommended for the hips. Was not able to provide more information at this time * Maxi Moreno MD - 01/17/2025 4:37 PM EDT Order signed. * Bianca Romero - 01/17/2025 4:26 PM EDT Pelvic ultrasound pended. * Nadia Loya - 01/17/2025 3:07 PM EDT Patient called in stating she recently had an MRI and inflammation was found. Pt stated according to the MRI order she was advised to have an ultrasound. Patient is looking for an ultrasound order. Please contact and advise. Central Support Glassware Finisher (Please do not reply to this user; this inbox is not monitored.) Thank you. documented in this encounter Plan of Treatment Upcoming Encounters Date Type Department Care Team (Late st Contact Info) Description 01/29/2025 2:30 PM EDT Appointment [address] [place] [address] Maxi Moreno MD [address] [place] [address], 2nd [place] [address] 02/12/2025 3:45 PM EST Office Visit [facility] [address] [place] [address] Rylee Lucas MD [address] [place] [address] Orthopedics & Sports Medicine, [facility] [place] [address] 07/17/2025 4:00 PM EDT Office Visit [facility] [address] [place] [address] [place] [address] Kirk Pérez DO [address] [place] [address] 12/16/2025 2:30 PM EDT Office Visit [facility] [address] [place] [address] Maxi Moreno MD [address] [place] [phone] [email or web address] Scheduled Orders Name Type Priority Associated Diagnoses Orde r Schedule US Pelvis Imaging Routine Uterine fibroid Expected: 01/17/2025, Expires: 04/19/2025 Scheduled Referrals Name Type Priority Associated Diagnoses Order Schedule [place] [facility] [place] Outpatient Referral Routine Osteoarthritis of right hip Labral tear of right hip joint Ordered: 01/21/2025 documented as of this encounter Visit Diagnoses Diagnosis Uterine fibroid- Primary Leiomyoma of uterus, unspecified Osteoarthritis of right hip Labral tear of right hip joint documented in this encounter Additional Health Concerns Assessment Noted Time A Body Mass Index follow-up plan has been documented for the patient 12/08/2024 1:02 PM EDT PHQ-2 Depression Total Score: 0 12/07/19 25 12:56 PM EDT documented as of this encounter Care Teams Intermission Coordinator Relationship Specialty Start Date End Date Maxi Moreno MD [address] [place] [address] [email or web address] PCP - General Internal Medicine 09/17/20 Oly Quintanilla MD [address] [place] [address] [email or web address] Historical LMR Provider 01/24/17 Kirk Pérez DO [address] [place] [address] [email or web address] Endocrinology 12/18/20 Halley Back MD [address] [place] [address] Rheumatology 12/18/20 Filemon East MD [address] [place] [address] [email or web address] 12/18/20 documented as of this encounter Additional Source Comments The information contained in this document represents components of the legal health record. It is not the complete legal health record.[facility]
--- OUTSIDE RECORDS SUMMARY | 2025-01-23 19:24 | XMS_ITS | Encounter Summary ---
Author Organization [facility] Address [address] [place] [address] [place] [address] Phone Care Team Providers Care Lawn And Garden Technician Name Role Phone Oly Quintanilla MD Unavailable [phone] Maxi Moreno MD Primary Care Provider Kirk Pérez DO Unavailable Halley Back MD Unavailable Filemon East MD Unavailable Encounter Details Date Type Department Care Team (Late st Contact Info) Description 01/17/2025 Orders Only [facility] [address] [place] [address] [place] [id number] Unknown, Unknown, Social History Tobacco Use Types [...] high school, GED, job training, learning the [place] language, technical skills, or developing parenting skills)? [...] Info) Description 01/29/2025 2:30 PM EDT Appointment [address] [place] [address] Maxi Moreno MD [address] [place] [address] 02/12/2025 3:45 PM EST Office Visit [facility] Medicine [address] [place] [address] Rylee Lucas MD [address] [place] [address] Orthopedics & Sports Medicine, [place] [address] 07/17/2025 4:00 PM EDT Office Visit [facility] [address] [place] [address] Kirk Pérez DO [address] [place] [address] 12/16/2025 2:30 PM EDT Office Visit [facility] [address] [place] [address] Maxi Moreno MD [address] [place] [address] documented as of this encounter Procedures Procedure Name Priority Date/Time Associated Diagnosis Comments OUTSIDE IMAGING Routine 01/16/2025 12:18 PM EDT documented in this encounter Results * Outside Imaging Report Only (01/16/2025 12:18 PM EDT) us Unknown Unknown IMG XR CHEST Final Result documented in this encounter Visit Diagnoses Not on filedocumented in this encounter Additional Health Concerns Assessment Noted Time A Body Mass Index follow-up plan has been documented for the patient 12/08/2024 1:02 PM EDT PHQ-2 Depression Total Score: 0 12/07/19 25 12:56 PM EDT documented as of this encounter Care Teams Lawn And Garden Technician Relationship Specialty Start Date End Date Maxi Moreno MD [address] [place] [address] [email or web address] PCP - General Internal Medicine 09/17/20 Oly Quintanilla MD [address] [place] [address] [email or web address] Historical LMR Provider 01/24/17 Kirk Pérez DO [address] [place] [address] Endocrinology 12/18/20 Halley Back MD [address] [place] [address] Rheumatology 12/18/20 Filemon East MD [address] [place] [address] [email or web address] Physical Medicine [facility] Rehabilitation 12/18/20 documented as of this encounter Additional Source Comments The information contained in this document represents components of the legal health record. It is not the complete legal health record.[facility]
--- OUTSIDE RECORDS SUMMARY | 2025-01-23 19:24 | XMS_ITS | Encounter Summary ---
Author Organization [facility] Address [address] [facility] [address] [address] [facility] [address] [place] [address] Phone Care Team Providers Care Liner Inserter Name Role Phone Oly Quintanilla MD Unavailable Maxi Moreno MD Primary Care Provider Kirk Pérez DO Unavailable Halley Back MD Unavailable Filemon East MD Unavailable Reason for Visit * Reason Onset Date Comments Cough 02/06/2024 Chills 02/06/2024 Ear Fullness 02/06/2024 Encounter Details Date Type Department Care Team (Late st Contact Info) Description 02/06/2024 Nurse Triage [facility] [address] [place] [address] [place] [address] Maxi oMreno MD [address] [place] [address], [address] [place] [address] [email or web address] Cough; Chills; Ear Fullness Social History Tobacco [...] advice?: No, wishes to speak to PCP [facility] Daisy Tracy RN Tue Feb 06, 2024 [...] either acetaminophen or ibuprofen. * They are jypy-zgd-clpqrne (OTC) drugs that help treat both fever [...] ABX without ov to be sent to [facility] Dr. [place] Reason for Disposition Continuous (nonstop) coughing interferes with work or school and no improvement using cough treatment per Care Advice Protocols used: Ycyic-ZNBFU-AS * Marcelino Hopper - 02/06/2024 4:00 PM EDT Pt called in with a cough, chills, ear pressure, said their child is on antibiotics with similar symptoms. Please contact and advise. Central Support Cross Tie Cutter (Please do not reply to this user; this inbox is not monitored.) Thank you. documented in this encounter Plan of Treatment Upcoming Encounters Date Type Department Care Team (Late st Contact Info) Description 01/29/2025 2:30 PM EDT Appointment [address] [place] [address] Maxi Moreno MD [address] [place] [address], [address] [place] [address] 02/12/2025 3:45 PM EST Office Visit [facility] Medicine [address] [place] [address] Rylee Lucas MD [address] [place] [address] Orth[facility] [place] [address] 07/17/2025 4:00 PM EDT Office Visit [facility] [address] [place] [address] Krik Pé[place] [address] 12/16/2025 2:30 PM EDT [facility] [address] [place] [address] [place] [address] Maxi Moreno MD [address] [place] [address] documented as of this encounter Visit Diagnoses Not on filedocumented in this encounter Additional Health Concerns Assessment Noted Time A Body Mass Index follow-up plan has been documented for the patient 09/28/2023 3:19 PM EDT PHQ-2 Depression Total Score: 0 09/25/19 24 10:59 AM EDT documented as of this encounter Care Teams Liner Inserter Relationship Specialty Start Date End Date Maxi Moreno MD [address] [place] [address] PCP - General Internal Medicine 09/17/20 Oly Quintanilla MD [address] [place] [address] Historical LMR Provider 01/24/17 Kirk Pérez DO [address] [place] [address] Endocrinology 12/18/20 Halley Back MD [address] [place] [address] Rheumatology 12/18/20 Filemon East MD [address] [place] [address] [email or web address] Physical Medicine and Rehabilitation 12/18/20 documented as of this encounter Additional Source Comments The information contained in this document represents components of the legal health record. It is not the complete legal health record.[facility]
--- OUTSIDE RECORDS SUMMARY | 2025-01-23 19:24 | XMS_ITS | Data Portability ---
Author Organization [place] - [facility] [address] Address [address] [place] [address] Care Team Providers Care Wound Care Specialist Name Role Phone DIVYA GAN Primary Care Provider Assessment No assessment recorded. Plan of Treatment Reminders Order Date Submit Date Provider Last Modified By Organization Details Last Modified Time Details Appointments None recorded. Lab None recorded. Referral None recorded. Procedures None recorded. Surgeries None recorded. Imaging None recorded. Medication Orders azithromyci n 250 [address] tablet [address] [facility][id number], [address] [place] [address], [address], 4 15:24:20 benzonatate 200 mg capsule [address] [facility][id number], [address] [place], [address], 4 15:24:20 Patient TargetsNo targets recorded. Patient Instructions Encounter Date Encounter Id Patient Instructions Last Modified By Organization Details Last Modified Time 04/06/2024 [id number] pneumonia: care instructions [email or web address] Not available 04/06/2024 15:24:18 Reason for Referral None Reported. Problems Name Problem SNOMED Code Status Onset Date Resolution Date Notes Provider Name and Address Organization Details Recorded Time Diabetes mellitus 71021693 Active Fouzia Annie null, [place] - [facility] 4 15:04:54 Thyroiditis 35757483 Active Fouzia Annie null, [place] - [facility] 4 15:05:06 Rheumatoid arthritis 54452604 Active Fouzia Annie null, [place] - [facility] 4 15:05:29 Problem Notes None recorded. Medical Equipment None Reported. Allergies Allergen ID Allergen Name Allergen Category Reaction Reaction Severity Criticality Documentation Date Start Date Code Code System Note Provider Name and Address Organization Details Recorded Time 9782885 Product containin g penicilli n (product) medicatio n hives Not available Not available 04/06/2024 19498 8001 SNOMED Fouzia Valencia alphonso, [place] - [facility] 4 15:02:47 [id number] beef allergeni c extract food,medi cation vomiting Not available Not available 04/06/2024 52010 9 RxNorm Fouzia Hopeers null, [place] - [facility] 4 15:03:07 Medications Name Sig Start Date Stop Date Status Note LastModified by Organization Details LastModified Time azithromyci n 250 mg tablet TAKE 2 TABLETS (500 MG) BY ORAL ROUTE ONCE DAILY FOR 1 DAY THEN 1 TABLET (250 MG) BY ORAL ROUTE ONCE DAILY FOR 4 DAYS 2023 active Not Available Not Available Not Avai lable fluconazole 150 mg tablet TAKE 1 TABLET (150 MG TOTAL) BY MOUTH ONCE FOR 1 DOSE. CAN REPEAT IN 72 H IF NEEDED 04/06 completed Not Available Not Available Not Available benzonatate 200 mg capsule Take 1 capsule 3 times a day by oral route for 5 days. 2023 active Not Available Not Available Not Avai lable doxycycline monohydrate 100 mg capsule TAKE 1 CAPSULE BY MOUTH TWICE A DAY FOR 10 DAYS 04/06 completed Not Available Not Available Not Available erythromyci n 5 mg/gram (0.5 %) eye ointment PLACE 0.5 INCHES INTO EACH EYE EVERY 8 (EIGHT) HOURS FOR 5 DAYS. 04/06 completed Not Available Not Available Not Available neomycin-po lymyxin-dex ameth 3.5 mg/mL-10,00 0 unit/mL-0.1 % eye drops INSTILL 1 DROP INTO LEFT EYE 3 TIMES A DAY 04/06 completed Not Available Not Available Not Available ondansetron 4 mg disintegrat ing tablet TAKE 1 TABLET BY MOUTH EVERY 8 HOURS NEEDED FOR NAUSEA 04/06 completed Not Available Not Available Not Available levothyroxi ne 112 mcg tablet TAKE 1 TABLET BY MOUTH EVERY MORNING active Not Available Not Available No t Available tobramycin 0.3 %-dexametha sone 0.1 % eye drops,suspe nsion INSTILL 1 DROP INTO LEFT EYE THREE TIMES A DAY FOR 2 WEEK 04/06 completed Not Available Not Available Not Available Novolog FlexPen U-100 Insulin aspart 100 unit/mL (3 mL) subcutaneou s PLEASE SEE ATTACHED FOR DETAILED DIRECTION S active Not Available Not Available No t Available Enbrel Mini 50 mg/mL (1 mL) subcutaneou s cartridge active Not Available Not Available Not Available Trulicity 3 mg/0.5 mL subcutaneou s pen injector INJECT 0.5 ML (3 MG TOTAL) UNDER THE SKIN EVERY 7 DAYS 04/06 completed Not Available Not Available Not Available Ozempic 1 mg/dose (4 mg/3 mL) subcutaneou s pen injector INJECT 1 MG UNDER THE SKIN EVERY 7 DAYS active Not Available Not Available No t Available Sodium Fluoride 5000 Dry Mouth 1.1 % dental paste FOR TOOTHBRUS BRITT EVERY DAY . DO NOT RINSE FOR 1 HOUR AFTER BURSHING active Not Available Not Available No t Available Ozempic 2 mg/dose (8 mg/3 mL) subcutaneou s pen injector INJECT 2 MG SUBCUTANE OUSLY EVERY 7 DAYS active Not Available Not Available No t Available Dexcom G7 Strap Cutter MONITOR CONTINUOU SLY active Not Available Not Available No t Available Dexcom G7 Sensor device PLACE ON SKIN, REPLACE EVERY 10 DAYS active Not Available Not Available No t Available Vitals Date Recorded Body height Body mass index (BMI) Body weight Respiratory rate Body temperature Oxygen saturation Oxygen saturation in Arterial blood by Pulse oximetry Heart rate Systolic And Diastolic Provider Name and Address Organization Details Last Updated DateTime 4 175.26 cm 45.2 kg/m2 671281. 27 g 18 /min 98.3 [degF] 97 % 97 % 100 /min 138/80 mm[Hg] Fouzia LOUISE - [facility] 15:07:33 Social History Question Answer Notes LastModified by Organizat ion Details LastModified Time Tobacco Smoking Status Never Smoker Fouzia werner [place] - [facility] 04/06/2024 15:06:02 Have You Had A Flu Shot This Season? Yes [email or web address] Information not available 04/06/2024 Have You Recently Traveled Abroad? No [email or web address] Information not available 04/06/2024 Sex: Unknown Functional Status Question Answer Note LastModified by Organizat ion Details LastModified Time Do you use any illicit or recreational drugs? No [email or web address] Information not available 04/06/2024 What is your level of alcohol consumption? None [email or web address] Information not available 04/06/2024 Mental Status None recorded. Family History Relationship Description Onset Age of this Age Resolved Age Notes LastModified by Organization Details LastModified Time Father No current problems or disability [email or web address] Not available 04/06 15:05:35 Mother No current problems or disability deceas ed [email or web address] Not available 04/06/2024 15:05:43 Medical History No medical history recorded. Gynecological History Statement/Question Response Date of LMP 03/23/2024 LMP Approximate Obstetrics History GPAL:G 0 P 0 0 0 0 Past Encounters Encounter ID Performer Location Encounter Start Date Encounter Closed Date Diagnosis/Indication Diagnosis SNOMED-CT Code Diagnosis ICD10 Code Diagnosis IMO Codes Diagnosis Note [id number] DANI Uribe [address] [place] [address] 04/06/2024 14:52:10 04/06/2024 15:24:52 Community acquired pneumonia 302637382 J18.9 Treatment is antibiotic s as prescribed , inhaler and cough medication as needed, supportive , including, rest, fluids, humidifier , and sometimes cough suppressan ts and/or nasal decongesta nts to help reduce symptoms until your body's immune system kills the virus and the both self-recov ers Breathing warm, moist air helps loosen the sticky mucus that may make you feel like you are choking. Other things that may also help include: Placing a warm, wet washcloth loosely near your nose and mouth.Fill ing a humidifier with warm water and breathing in the warm mist.Cough ing helps clear your airways. Take a couple of deep breaths, 2 to 3 times every hour. Deep breaths help open up your lungs. While lying down, tap your chest gently a few times a day. This helps bring up mucus from the lungs. If you smoke, now is the time to quit. Do not allow smoking in your home. Drink plenty of liquids, as long as your provider says it is OK. Drink water, juice, or weak tea.Drink at least 6 to 10 cups (1.5 to 2.5 liters) a day.Do not drink alcohol.Ge t plenty of rest when you go home. If you have trouble sleeping at night, take naps during the day. Go to Emergency room for new or worsening concerning symptoms.I f breathing is: Getting harderFast er than beforeShal low and you cannot get a deep breathAlso call your provider if you have any of the following: Need to lean forward when sitting to breathe more easilyHave chest pain when you take a deep breathHead aches more often than usualFeel sleepy or confusedFe sybil returnsCou ghing up dark mucus or bloodFinge rtips or the skin around your fingernail s is blue If symptoms worsen, return to clinic.If you develop any chest pain, worsening symptoms, worsening shortness of breath, fevers unrelieved with OTC tylenol or ibuprofen go to the nearest emergency room, or call 911. Contact office for any questions. Follow-up with your PCP in 2 weeks for a recheck. If you are not seeing improvemen t within 48-72 hours I would recommend a reevaluati on with a chest xray. Recheck chest xray in 1 month with PCP is recommende d to verify pneumonia has resolved. Health Concerns Section Related Observation LastModified by Organization Detai ls LastModified Time None Recorded Concern Status LastModified by Organization Details LastModified Time None Recorded Advance Directives Directive None Recorded Payers Insurance Date Sequence Insurance Name Policy Number Policy [place] Covered Member ID Hampton Member ID Guarantor Name 04/06/[address] [place] [address] ([facility]) [id number] Liudmila Durán [id number] Liudmila Durán Notes Date Note Type Note Provider Name and Address Organization Details Recorded Time 04/06/2024 text/html 43 y/o female here with 2 weeks of cough, congestion, sore throat, worsening, lots of fatigue and body aches DANI Uribe [address] [place], [address], [place] - [facility] 04/06/2024 15:28:16 OBGyn Episode No OBEpisode recorded.
--- OUTSIDE RECORDS SUMMARY | 2025-01-23 19:24 | XMS_ITS | Encounter Summary ---
Author Organization [facility] Address [address] [place] [address] [place] [address] Phone Care Team Providers Care Girls Tennis Coach Name Role Phone Oly Quintanilla MD Unavailable [phone] Maxi Moreno MD Primary Care Provider [phone] Kirk Pérez DO Unavailable Halley Back MD Unavailable Filemon East MD Unavailable Encounter Details Date Type Department Care Team (Latest Contact Info) Description 09/19/2023 Transcribe Orders [address] [place] [address] Kirk Pérez DO [address] [place] [address] [email or web address] Type 2 diabetes mellitus without complication, with [...] high school, GED, job training, learning the Romanian language, technical skills, or developing parenting skills)? [...] Info) Description 01/29/2025 2:30 PM EDT Appointment [place] [place] [address] Maxi Moreno MD [address] [place] [address], 2nd Floor [place] [address] 02/12/2025 3:45 PM EST Office Visit [facility] Orthopedics & Sports Medicine [address] [place] [address] Rylee Lucas MD [address] [place] [address] Orthopedics & Sports Medicine, [facility]. [place], [place] [phone] 07/17/2025 4:00 PM EDT Office Visit [facility] [address] [place] [address] Kirk Pérez DO [address] [place] [address] 12/16/2025 2:30 PM EDT Office Visit [facility] Medical [address] [place] [address] Maxi Moreno MD [address] [place] [address], 2[address] [place] [address] [email or web address] documented as of this encounter Results * Hemoglobin A1c (09/19/2023 4:19 PM EDT) HEMOGLOBIN A1C 5.8 4.3 - 5.8 % [facility] Blood 09/19/2023 4:19 PM EDT 09/19/2023 4:37 PM EDT Kirk Pérez DO LAB BLOOD ORDERABLES Final Resul t [facility] [address] [place] [address] * Comprehensive metabolic panel (09/19/2023 4:19 PM EDT) SODIUM 133 133 - 146 mmol/L [facility] POTASSIUM 3.9 3.3 - 5.1 mmol/L [facility] CHLORIDE 96 96 - 108 mmol/L [facility] CO2 23 21 - 35 mmol/L [facility] BUN 11 6 - 19 mg/dL [facility] CREATININE 0.50 0.5 - 1.5 mg/dL [facility] GLUCOSE 82 70 - 99 mg/dL [facility] ALBUMIN 4.4 3.9 - 4.8 g/dL [facility] TOTAL PROTEIN 7.5 6.5 - 8.0 g/dL [facility] CALCIUM 9.4 8.4 - 10.3 mg/dL [facility] ALKALINE PHOSPHATASE 103 39 - 117 U/L [facility] TOTAL BILIRUBIN 0.4 0.0 - 1.2 mg/dL [facility] AST 19 0 - 37 U/L [facility] ALT 21 0 - 40 U/L [facility] GLOBULIN 3.1 1 - 4.8 g/dL [facility] EGFR >120 >59 mL/min/1.7 3m2 [facility] Comment:Estimated glomerular filtration rate calculated using the CKD-EPI refit equation. ANION GAP 18 10 - 20 mmol/L [facility] Blood 09/19/2023 4:19 PM EDT 09/19/2023 4:37 PM EDT Kirk Pérez DO LAB BLOOD ORDERABLES Final Resul t Performing Organization Address City/State/[facility] Co de Phone Number [facility] [address] [place] [address] * (ABNORMAL) Lipid panel (09/19/2023 4:19 PM EDT) HDL 36 mg/dL [facility] Comment: Interpretation <40 mg/dL: Low HDL cholesterol (major risk factor for CHD) Greater than or equal to 60 mg/dL: High HDL cholesterol ( negative risk factor for CHD) HDL - cholesterol is affected by a number of factors, e.g. smoking, excerise, hormones, sex and age. CHOLESTEROL 146 0 - 240 mg/dL [facility] TRIGLYCERIDES 308(H) 30 - 160 mg/dL [facility] LDL 48(L) 50 - 129 mg/dL [facility] Comment: LDL levels in terms of risk for coronary heart disease: <100 mg/dL: Optimal 100-129 mg/dL: Near or above optimal 130-159 mg/dL: Borderline high 160-189 mg/dL: High >190 mg/dL: Very High CARDIAC RISK RATIO 4.1 3.3 - 4.4 [facility] Blood 09/19/2023 4:19 PM EDT 09/19/2023 4:37 PM EDT us Kirk Pérez DO LAB BLOOD ORDERABLES Final Resul t [facility] [address] [place] [address] documented in this encounter Visit Diagnoses Diagnosis Type 2 diabetes mellitus without complication, with long-term current use of insulin- Primary documented in this encounter Additional Health Concerns Assessment Noted Time A Body Mass Index follow-up plan has been documented for the patient 09/24/2022 1:51 PM EDT PHQ-2 Depression Total Score: 0 09/22/19 23 11:16 AM EDT documented as of this encounter Care Teams Girls Tennis Coach Relationship Specialty Start Date End Date Maxi Moreno MD [address] [place] [address] PCP - General Internal Medicine 09/17/20 Oly Quintanilla MD [address] [place] [address] Historical LMR Provider 01/24/17 Kirk Pérez DO [address] [place] [address] Endocrinology 12/18/20 Halley Back MD [address] [place] [address] Rheumatology 12/18/20 Filemon East MD [address] [place] [address] [email or web address] Physical Medicine and Rehabilitation 12/18/20 documented as of this encounter Additional Source Comments The information contained in this document represents components of the legal health record. It is not the complete legal health record.[facility]
--- OUTSIDE RECORDS SUMMARY | 2025-01-23 19:24 | XMS_ITS | Clinical Summary ---
Author Organization [facility] Address [address] [place] [address] Care Team Providers Care Application Security Engineer Name Role Phone Roger Glasgow MD Primary Care Provider [phone] Social History Tobacco Use Types Packs/Day Years [...] Mammogram/Breast Imaging 2021 COVID-19 Vaccine ( - 2024-2 6 season) 2024 Influenza (#1) 2024 Zoster (Shingrix) [...] to complete this topic Insurance * Guarantor: [id number] AMHERST Account Type Relation to Patient Date of Phone Billing Address Worker's Comp [address] [place] [address] [facility] [address] [place], [place] [address] WORKERS COMPENSATION Care Teams Application Security Engineer Relationship Specialty Start Date End Date Roger Glasgow MD [facility] [address] [place] [address] PCP - General Internal Medicine 10/19/12
--- OUTSIDE RECORDS SUMMARY | 2025-01-23 19:24 | XMS_ITS | Encounter Summary ---
Author Organization [facility] Address [address] [place] [address] Phone Care Team Providers Care Matte Cutter Name Role Phone Oly Quintanilla MD Unavailable [phone] Maxi Moreno MD Primary Care Provider Kirk Pérez DO Unavailable Halley Back MD Unavailable Filemon East MD Unavailable Reason for Visit * Reason Comments Med Change Request Encounter Details Date Type Department Care Team (Late st Contact Info) Description 10/28/2024 Refill [facility] [address] [place] [address] Kirk [place] [address] Med Change Request Social History Tobacco Use [...] school, GED, job training, learning the South African language, technical skills, or developing parenting skills)? [...] Info) Description 01/29/2025 2:30 PM EDT Appointment [facility] - [address] [place] [address] Maxi Moreno MD [address] [place] [address] 02/12/2025 3:45 PM EST Office Visit [facility] Orthopedics & Sports Medicine [address] [place] [address] Rylee Lucas MD [address] [place] [address] Orthopedics & Sports Medicine, [facility] [place] [address] 07/17/2025 4:00 PM EDT Office Visit [facility] [address] [place] [address] [place] [address] Kirk Pérez DO [address] [place] [address] 12/16/2025 2:30 PM EDT Office Visit [facility] Medical [address] [place] [address] Maxi Moreno MD [address] [place] [address] documented as of this encounter Visit Diagnoses [...] documented as of this encounter Care Teams Matte Cutter Relationship Specialty Start Date End Date Maxi Moreno MD [address] [place] [address], [address] [place] [address] [email or web address] PCP - General Internal Medicine 09/17/20 Oly Quintanilla MD [address] [place] [address] [email or web address] Historical LMR Provider 01/24/17 Kirk Pérez DO [address] [place] [address] [email or web address] Endocrinology 12/18/20 Halley Back MD [address] [place] [address] Rheumatology 12/18/20 Filemon East MD [address] [place] [address] [email or web address] Physical Medicine and Rehabilitation 12/18/20 documented as of this encounter Additional Source Comments The information contained in this document represents components of the legal health record. It is not the complete legal health record.[facility]
--- OUTSIDE RECORDS SUMMARY | 2025-01-23 19:25 | XMS_ITS | Clinical Summary ---
Author Organization [employer] Address [address] [place] [address] 7 [place] [address] Care Team Providers Care Barometers Calibrator Name Role Phone Tres Mckee DMD Unavailable Unavailable Al[facility] Unavailable Allergies Active Allergy Reactions Criticality Noted Date Comments Bovine (Beef) Protein 05/03/2022 Gramineae Pollens 05/03/2022 Penicillins 05/03/2022 Medications levothyroxine (Synthroid, Levoxyl) 112 MCG tablet Take 112 mcg by mouth in the morning. 2 Active Trulicity 1.5 MG/0.5ML solution pen-injector INJECT 0.5ML UNDER THE SKIN ONCE EVERY 7 DAYS 2 Active Enbrel Mini 50 MG/ML injection 2 Active Sodium Fluoride (Sodium Fluoride 5000 Plus) 1.1 % creamIndication s:Risk for dental caries, high [place] with toothpaste for two minutes two times a day, spit out excess. Do not eat, drink, or rinse for 30 minutes. 112 g 9 3 Active Ozempic, 1 MG/DOSE, 4 MG/3ML solution pen-injector Inject 1 mg under the skin every 7 (seven) days. 4 Active Active Problems No known active problems Encounters Date Type Department Care Team Description 01/03/2025 3:45 PM EDT Office Visit [facility] [address] [place] [phone] [facility] 12/23/2024 3:30 PM EDT Office Visit [facility] [address] [place] [phone] Minerva Haque LLD 11/11/2024 4:15 PM EDT Office Visit [address] [phone] Minerva Haque LLD from Last 3 Months [...] Sign Reading Time Taken Comments Blood Pressure 134/82 01/03/2025 3:48 PM EDT Pulse 94 01/03/2025 3:48 PM EDT Temperature 36.6 C (97.8 F) 01/03/2025 3:48 PM EDT Respiratory Rate - - Oxygen Saturation - - Inhaled Oxygen Concentration - - Weight - - Height - - Body Mass Index - - Plan of Treatment Upcoming Encounters Date Type Department Care Team (Late st Contact Info) Description 02/26/2025 4:15 PM EST Office Visit [address] [phone] Minerva Haque LLD [address] [place] [address] 05/27/2025 2:45 PM EST Office Visit [address] [phone] [address] 08/26/2025 3:45 PM EDT Office Visit [address] [phone] Alcazar [address] [address] Health Maintenance Due Date Last Done Comments [...] 02/15/2023, 02/12/2022, Additional history exists Tobacco Screening 02/13/2025 02/14/2024 Dental Oral Exam 04/04/2025 10/02/2024, 05/2023, 05/09/2022 [...] Procedure Name Priority Date/Time Associated Diagnosis Comments PERIODONTAL MAINTENANCE Routine 01/04/20 3:45 PM EDT 27 FF(V) RESIN-BASED COMPOSITE - 1 SURF, ANTERIOR Routine 12/23/2024 3:30 PM EDT 28 BB(V) RESIN-BASED COMPOSITE - 1 SURF, POSTERIOR Routine 11/11/2024 4:15 PM EDT PERIODIC ORAL EVALUATION - ESTABLISHED PATIENT Routine 10/02/2024 3:45 PM EDT BITEWINGS - 4 RADIOGRAPHIC IMAGES Routine 10/10/2023 2:00 PM EDT INTRAORAL - COMPLETE SERIES OF RADIOGRAPHIC IMAGES Routine 05/09/2022 8:30 AM EST Encounter for dental examination from Last 3 Months or Most Recently Relevant to Health Maintenance Insurance , [address] [place] [address] [facility] Care Teams Barometers Calibrator Relationship Specialty Start Date End Date Tres Mckee DMD Dentist 06/27/23 Robe Alcazar, [address] [address] [employer] 06/27/23
--- OUTSIDE RECORDS SUMMARY | 2025-01-23 19:25 | XMS_ITS | Encounter Summary ---
Author Organization [facility] Address [address] [place] [address] [place] [address] Phone Care Team Providers Care Fruit Dumper Name Role Phone Oly Quintanilla MD Unavailable [phone] Maxi Moreno MD Primary Care Provider Kirk Pérez DO Unavailable Halley Back MD Unavailable Filemon East MD Unavailable Encounter Details Date Type Department Care Team (Late st Contact Info) Description 09/20/2021 Procedure Pass [address] [address] Social History Tobacco Use Types Packs/Day Years [...] high school, GED, job training, learning the Indonesian language, technical skills, or developing parenting skills)? [...] Info) Description 01/29/2025 2:30 PM EDT Appointment [address] [place] [address] Maxi Moreno MD [address] [place] [address], 2nd [place] [address] 02/12/2025 3:45 PM EST Office Visit [facility] Orthopedics & Sports Medicine [address] [place] [address] Rylee Lucas MD [address] [place] [address] [facility] [place], [place] [phone] 07/17/2025 4:00 PM EDT Office Visit [facility] [address] [place] [address] Kirk Pérez DO [address] [place] [address] 12/16/2025 2:30 PM EDT Office Visit [facility] [address] [place] [address] [place] [address] Maxi Moreno MD [address] [place] [address] documented as of this encounter Visit Diagnoses Not on filedocumented in this encounter Additional Health Concerns Infection Onset Date Last Indicated Resolved Time CoV-Presumed 12/07/2021 12/07/2021 12/28/2021 1:21 AM EDT COVID-19 11/02/2022 11/02/2022 11/23/2022 1:21 AM EDT Assessment Noted Time A Body Mass Index follow-up plan has been documented for the patient 09/20/2021 9:56 PM EDT PHQ-2 Depression Total Score: 0 09/21/19 11:23 AM EDT documented as of this encounter Care Teams Fruit Dumper Relationship Specialty Start Date End Date Maxi Moreno MD [address] [place] [address] PCP - General Internal Medicine 09/17/20 Oly Quintanilla MD [address] [place] [address] Historical LMR Provider 01/24/17 Kirk Pérez DO [address] [place] [address] Endocrinology 12/18/20 Halley Back MD [address] [place] [address] Rheumatology 12/18/20 Filemon East MD [address] [place] [address] [email or web address] Physical Medicine and Rehabilitation 12/18/20 documented as of this encounter Additional Source Comments The information contained in this document represents components of the legal health record. It is not the complete legal health record.[facility]
--- OUTSIDE RECORDS SUMMARY | 2025-01-23 19:25 | XMS_ITS | Clinical Summary ---
Author Organization [facility] Address [address] [place] [address] Phone Care Team Providers Care Bench Assembler Electrical Name Role Phone Oly Quintanilla MD Unavailable [phone] Maxi Moreno MD Primary Care Provider Kirk [...] 2 diabetes mellitus with hyperglycemia, unspecified whether assisted insulin use 1 each by Miscellaneous route 4 (four) times a day before meals and nightly. 400 strip 3 021 Active FREESTYLE LITE METER meter kitIndications:Ty pe 2 diabetes mellitus with hyperglycemia, unspecified whether assisted insulin use Use as instructed 1 each 021 Active lancets (ACCU-CHEK FASTCLIX LANCET DRUM) MiscIndications:T ype 2 diabetes mellitus with hyperglycemia, unspecified whether assisted insulin use 1 each by Miscellaneous route [...] 3 023 Active blood-glucose meter,continuous (DEXCOM G7 DIAPER FOLDER) MiscIndications:T ype 2 diabetes mellitus without complication, [...] EVERY MORNING 90 tablet 3 025 Active insulin pen needles, disposable, 31 gauge x 06/23 NdleIndications:T ype 2 diabetes mellitus without complication, with long-term current use of insulin 1 each by Miscellaneous route 4 (four) times a day before meals and nightly. 400 each 1 025 Active lidocaine (LIDODERM) 5 % FOR PAIN 1 PATCH TOPICALLY UP TO 12 HOURS PER DAY TO AFFECTED AREA 025 Active blood-glucose sensor (DEXCOM G7 SENSOR) DeviIndications:T ype 2 diabetes mellitus without complication, with long-term current use of insulin CHANGE SENSOR EVERY 10 DAYS 3 each 3 025 Active semaglutide (OZEMPIC) 2 mg/dose (8 mg/3 mL) subcutaneous injection penIndications:Ty pe 2 diabetes mellitus without complication, with long-term current use of insulin Inject 2 mg under the skin every 7 days. 9 mL 1 025 Active NOVOLOG FLEXPEN U-100 INSULIN 100 [...] UNITS 15 mL 1 025 Active insulin glargine U-300 (TOUJEO SOLOSTAR) 300 unit/mL (1.5 mL) subcutaneous injection penIndications:Ty pe 2 diabetes mellitus without complication, with long-term current use of insulin Inject 20 Units under the skin nightly at bedtime. 9 mL 1 025 Active rosuvastatin (CRESTOR) 5 MG tabletIndications :Type 2 diabetes mellitus without complication, with long-term current use of insulin Take 1 tablet (5 mg total) by mouth daily. 90 tablet 1 025 Active NOVOLOG FLEXPEN U-100 INSULIN 100 [...] 400 =20 UNITS 15 mL 1 025 2024 Discontinued(R eorder) insulin degludec U-100 (TRESIBA) injection penIndications:Ty pe 2 diabetes mellitus without complication, with long-term current use of insulin Inject 20 Units under the skin daily. 15 mL 1 025 2024 Discontinued semaglutide (OZEMPIC) 2 mg/dose (8 mg/3 mL) subcutaneous injection penIndications:Ty pe 2 diabetes mellitus without complication, with long-term current use of insulin Inject 2 mg under the skin every 7 days. 9 mL 1 025 2024 Discontinued(R eorder) insulin glargine U-300 (TOUJEO SOLOSTAR) 300 unit/mL [...] DAYS 3 each 3 025 2024 Discontinued insulin glargine U-300 (TOUJEO SOLOSTAR) 300 unit/mL (1.5 mL) subcutaneous injection penIndications:Ty pe 2 diabetes mellitus without complication, with long-term current use of insulin Inject 20 Units under the skin nightly at bedtime. 9 mL 025 2024 Discontinued(R eorder) Active Problems Problem Noted Date Diagnosed Date Mixed hyperlipidemia 01/09/2025 Assessment & Plan (01/09/2025 4:21 PM EDT): LDL is 89 mg/dL should be less than 70 I will prescribe rosuvastatin 5 mg. Triglycerides remains elevated. She may benefit from fenofibrate but I will not prescribe both medications at the present time. She will repeat lipid panel in 6 months. RIAN (obstructive sleep apnea) 12/06/2024 Assessment & [...] shoulder pain 12/18/2020 Type 2 diabetes mellitus wit hout complication, with long-term current use of insulin 09/29/2020 Assessment & Plan (01/09/2025 4:20 PM EDT): Controlled. Hemoglobin A1c 5.3% continue current regimen no changes required. Assessment & Plan (12/08/2024 1:02 PM EDT): [...] of Trulicity 0.75 mg weekly Lot # [id number] expiration 04/20/2022. Assessment & Plan (10/28/2020 12:20 [...] that she has an appointment with the clinical unit educator in approximately 2 weeks and if [...] and also refer her to see the clinical unit educator for nutrition counseling. She will follow in 4 weeks time. LDL levels have been in the reference range without any statins. Urine microalbumin creatinine ratio has been ordered. I will request a CBC. Rheumatoid arthritis 07/09/2020 Assessment & Plan (12/08/2024 1:02 PM EDT): Stable. 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 Use of steroids for this prompted her [...] Encounters Date Type Department Care Team Description 01/17/2025 Telephone [facility] [address] [place] [address] Nadia Loya Imaging order 01/17/2025 Orders Only [address] [place] [address] Unknown, Celine, 01/09/2025 4:00 PM EDT Office Visit [facility] [address] [place] [address] Kirk Pérez DO Type 2 diabetes mellitus without complication, with long-term current use of insulin (Primary Dx); Mixed hyperlipidemia 12/21/2024 9:14 AM EDT - 12/21/2024 11:59 PM EDT Hospital Encounter [facility] [address] [place] [address] Maxi Moreno MD Discharge Disposition: Home or Self Care 12/21/2024 Refill [facility] [address] [place] [address] Kirk Pérez DO Med Change Request; Patient Returned Call 12/06/2024 1:15 PM EDT Office Visit [facility] [address] [place] [address] Maxi Moreno MD Encounter for general adult medical examination with abnormal findings (Primary Dx); RIAN (obstructive sleep apnea); Essential hypertension; Type 2 diabetes mellitus without complication, with long-term current use of insulin; Morbid obesity; Acquired hypothyroidism; Hypertriglyceridemia; Rheumatoid arthritis, involving unspecified site, unspecified whether rheumatoid factor present 12/06/2024 Orders Only [facility] [address] [place] [address] Kirk Pérez DO Type 2 diabetes mellitus without complication, with long-term current use of insulin (Primary Dx) 12/02/2024 4:15 PM EDT Office Visit [facility] [address] [place] [address] Howard Fulton MD Rheumatoid arthritis, involving unspecified site, unspecified whether rheumatoid factor present (Primary Dx) 12/02/2024 Telephone [facility] [address] [place] [address] Luisa Quevedo MA 11/26/2024 Orders Only [facility] [address] [place] [address] Ten Sosa [place] Right foot pain (Primary Dx); Right ankle pain; Left foot pain; Left ankle pain 10/28/2024 Refill [facility] [address] [place] [address] Kirk Pérez DO Med Change Request 10/28/2024 Orders Only [facility] [address] [place] [address] Kirk Pérez DO Class 3 severe obesity due to excess calories without serious comorbidity with body mass index (BMI) of 40.0 to 44.9 in adult (Primary Dx) 10/25/2024 Orders Only [facility] [address] [place] [address] Provider, MD Thuan from Last 3 Months Immunizations Immunization Administration [...] high school, GED, job training, learning the Maltese language, technical skills, or developing parenting skills)? [...] food would run out Not on file 08/29 /2025 In the past 12 months have y [...] Sign Reading Time Taken Comments Blood Pressure 122/84 01/09/2025 3:54 PM EDT Pulse 95 01/09/2025 3:54 PM EDT Temperature 36.2 C (97.2 F) 04/16/2024 10:43 AM EST Respiratory Rate - - Oxygen Saturation 97% 12/06/2024 1:23 PM EDT Inhaled Oxygen Concentration - - Weight 131.1 kg (289 lb) 01/09/2025 3:54 PM EDT Height 171.5 cm (5' 7.52 ) 01/09/2025 3:54 PM ED T Body Mass Index 44.57 01/09/2025 3:54 PM EDT Plan of Treatment Upcoming Encounters Date Type Department Care Team (Late st Contact Info) Description 01/29/2025 2:30 PM EDT Appointment [address] [place] [address] Maxi Moreno MD [address] [place] [address], [address] [place] [address] 02/12/2025 3:45 PM EST Office Visit [facility] [address] [place] [address] Rylee Lucas MD [address] [place] [address] [facility] [place], [place] [id number] 07/17/2025 4:00 PM EDT Office Visit [facility] [address] [place] [address] [place] [address] Kirk Pérez DO [address] [place] [address] 12/16/2025 2:30 PM EDT Office Visit [facility] [address] [place] [address] Dr [place] [address] Maxi Moreno MD [address] [place] [address], [address] [place] [address] [email or web address] Health Maintenance Due Date Last Done Comments HIV ONE-TIME SCREENING (18-65 YEARS) 11/17/1999 PNEUMOCOCCAL VACCINES (0-49 years) (3 of 3 - PPSV23, PCV20 or PCV21) 05/08/2021 03/13/2021, 03/16/2011 INFLUENZA VACCINE (#1) 2024 , 02/15/2023, 02/12/2022, Additional history exists COVID-19 VACCINE ( season) 2024 01/05/2024, 02/19/2023, 02/12/2022, Additional history exists HEMOGLOBIN A1C 06/20/2025 12/21/2024, 09/08, 03/22/2024, Additional history exists BLOOD PRESSURE 07/10/2025 01/09/2025 PAP SMEAR 09/17/2025 09/17/2020 URINE MICROALBUMIN/CREATININE RATIO 09/17/2025 09/17/2024, 09/19/2023, 09/09/2022, Additional history exists DIABETIC EYE EXAM 11/26/2025 11/26/2024 DEPRESSION SCREENING 12/06/2025 12/06/2024 TSH LEVEL 12/21/2025 12/21/2024, 12/09, 09/21/2022, Additional history exists MAMMOGRAM 01/09/2026 01/10/2024, 07/08/2021, 10/12/2021, Additional history exists Adult Td,Tdap Booster [...] OUTSIDE IMAGING Routine 01/16/2025 12:18 PM EDT LIPID PANEL Routine 12/21/2024 9:18 AM EDT Type 2 diabetes mellitus without complication, with long-term current use of insulin HEMOGLOBIN A1C Routine 12/21/2024 9:18 AM EDT Type 2 diabetes mellitus without complication, with long-term current use of insulin TSH WITH REFLEX Routine 12/21/2024 9:16 AM EDT Acquired hypothyroidism HM DIABETES EYE EXAM FOR RESULT ENTRY [...] Recently Relevant to Health Maintenance Results * Outside Imaging Report Only (01/16/2025 12:18 PM EDT) us Unknown Unknown MD IMG XR CHEST Final Result * Hemoglobin A1c (12/21/2024 9:18 AM EDT) HEMOGLOBIN A1C 5.3 4.3 - 5.8 % [facility] Blood 12/21/2024 9:18 AM EDT 12/21/2024 9:25 AM EDT us Kirk Pérez DO LAB BLOOD ORDERABLES Final Resul t Performing Organization Address City/State/[place]UST Co de Phone Number [facility] [address] [place] [address] * (ABNORMAL) Lipid panel (12/21/2024 9:18 AM EDT) HDL 43 mg/dL [facility] Comment: Interpretation <40 mg/dL: Low HDL cholesterol (major risk factor for CHD) Greater than or equal to 60 mg/dL: High HDL cholesterol ( negative risk factor for CHD) HDL - cholesterol is affected by a number of factors, e.g. smoking, excerise, hormones, sex and age. CHOLESTEROL 172 0 - 240 mg/dL [facility] TRIGLYCERIDES 199(H) 30 - 160 mg/dL [facility] LDL 89 50 - 129 mg/dL [facility] Comment: LDL levels in terms of risk for coronary heart disease: <100 mg/dL: Optimal 100-129 mg/dL: Near or above optimal 130-159 mg/dL: Borderline high 160-189 mg/dL: High >190 mg/dL: Very High CARDIAC RISK RATIO 4.0 3.3 - 4.4 [facility] Blood 12/21/2024 9:18 AM EDT 12/21/2024 9:25 AM EDT Kirk Pérez DO LAB BLOOD ORDERABLES Final Resul t Performing Organization Address City/[facility]/ZIP Co de Phone Number [address] [address] * TSH with reflex (12/21/2024 9:16 AM EDT) TSH 2.55 0.27 - 4.20 uIU/mL [facility] Blood 12/21/2024 9:16 AM EDT 12/21/2024 9:24 AM EDT Maxi Moreno MD LAB BLOOD ORDERABLES Final Result Performing Organization Address [facility]/[place] Co de Phone Number [address] [address] * DIABETES EYE EXAM FOR RESULT ENTRY ONLY (11/26/2024 4:06 PM EDT) Historical Provider HEALTH MAINTENANCE Edited Result - Final * Outside Imaging Report Only (10/24/2024 2:21 PM EDT) Historical Provider IMG XR CHEST Edited Re sult - Final * Microalbumin/creatinine ratio, random urine (09/17/2024 3:56 PM EDT) URINE MICROALBUMIN <1.2 0 - 2.3 mg/dL [facility] URINE CREATININE 197 mg/dL [facility] MICROALB/CRE RATIO NOT CALCULATED 0 - 20 mg/g Cre [facility] Comment:due to Microalbumin <1.2 Urine (Urine) 09/17/2024 3:5 6 PM EDT 09/17/2024 4:03 PM EDT us Kirk Pérez DO URINE ORDERABLES Final Result Performing Organization Address City/[facility]/ZIP Co de Phone Number [address] [address] * Hepatitis C antibody, qualitative (09/17/2024 3:43 PM EDT) HCV NON-REACTIV E NON-REACTI VE [facility] Blood 09/17/2024 3:43 PM EDT 09/17/2024 4:07 PM EDT us Della Wolff MD LAB BLOOD ORDER ALLAN Final Result Performing Organization Address City/[facility]/[place] Co de Phone Number [address] [address] * BI MAMMOGRAM SCREENING WITH TOMOSYNTHESIS WITH [...] SEE NARRATIVE - 09/23/2020 10:14 AM EDT [address] [address] Pantograph Machine Operator: Fouzia Malave MD [employer]ON T[employer] Cytology Report FINAL DIAGNOSIS A. PAP SMEAR [...] 52, 56, 58, 59, 66, 68) by [employer] Onclarity HR-HPV analysis. Clinical correlation is advised. This HPV test was performed at [facility], [address] [place] [address]. This test has been FDA approved for SurePath cervical cytology specimens. The accuracy and precision of this test for all other specimen sources has been verified in the Cytopathology Laboratory of the [facility] and has not been cleared or approved by the U.S. Food and Drug Administration. Clinical correlation is advised. CLINICAL HISTORY Date of Last Menstrual Period: 08-17-2020 Other Clinical Conditions: Screening Pap SPECIMEN SOURCE A: PAP SMEAR (SUREPATH) CE Patient Name: LIUDMILA DURÁN : 1980 (Age: 39) Sex: F Institution: [facility] Location: [facility] Date of Collection: 09/17/2020 Date of Reported: 09/23/2020 10:14 Results to: Oly Quintanilla MD, [facility], B us Oly A Dwight MAY CYTOLOGY ORDERABLES Final Res ult SEE NARRATIVE from Last 3 Months or Most Recently Relevant to Health Maintenance Insurance O O O O O O HMO O O HMO [employer] Care Teams Bench Assembler Electrical Relationship Specialty Start Date End Date Maxi Moreno MD [address] [place] [address] PCP - General Internal Medicine 09/17/20 Oly Quintanilla MD [address] [place] [address] Historical LMR Provider 01/24/17 Kirk Pérez DO [address] [place] [address] [email or web address] Endocrinology 12/18/20 Halley Back MD [address] [place] [address] Rheumatology 12/18/20 Filemon East MD [address] [place] [address] [email or web address] Physical Medicine and Rehabilitation 12/18/20 Additional Source Comments The information contained in this document represents components of the legal health record. It is not the complete legal health record.[facility]
== END 2025-01-23 16:03 | disposition home or self-care (01) ==
LOC: HO.PMC 15:40
PROVIDERS: PCP Internal Medicine; Visit Provider Nurse Practitioner Family
DX: M54.50 Low back pain, unspecified (principal); G89.29 Other chronic pain; M51.369 Other intervertebral disc degeneration, lumbar region without mention of lumbar back pain or lower extremity pain; M25.551 Pain in right hip; M62.838 Other muscle spasm; S73.191A Other sprain of right hip, initial encounter; M16.11 Unilateral primary osteoarthritis, right hip; M25.851 Other specified joint disorders, right hip; M76.899 Other specified enthesopathies of unspecified lower limb, excluding foot
CPT/HCPCS: 99214; G2211

== ENCOUNTER 2025-01-29 08:56 | Outpatient (REF) | payer OTHER, SELFPAY ==
--- OUTSIDE RECORDS SUMMARY | 2024-10-24 | XMS_ITS | Encounter Summary ---
Author Organization [facility] Address [address] [place] [address] [place] [phone] Phone Care Team Providers Care Fusing Machine Operator Name Role Phone Oly Quintanilla MD Unavailable [phone] Maxi Moreno MD Primary Care Provider Kirk Pérez DO Unavailable Halley Back MD Unavailable Filemon East MD Unavailable Encounter Details Date Type Department Care Team (Late st Contact Info) Description 10/24/2024 Hospital Encounter [facility],Outside Imaging [address] [place] [address] Unknown, Unknown, Social History Tobacco Use Types Packs/Day Years Used Date Smoking Tobacco: Never Smokeless Tobacco: Never Alcohol Use Standard Drinks/Week Comments Not Currently 0 (1 standard drink = 0.6 oz pur e alcohol) Child or Family Care Answer Date Record ed Do you have problems with on e of the following making it difficult for you to work, study, or receive health care? Family care (i.e. spouse, parents, other family) 09/25/2023 Education Answer Date Recorded Are you interested in help w ith more adult education (for example, completing high school, GED, job training, learning the [place] language, technical skills, or developing parenting skills)? No 09/25/2023 Are you concerned about learning? Not on file 09/25/2023 No 09/25/2023 Yes 09/25/2023 Food Answer Date Recorded Within the past 6 months we worried whether our food would run out before we got money to buy more. Never True 09/25/2023 Within the past 6 months the food we bought just didn't last and we didn't have enough money to get more. Never True Residential Stability Answer Date Recor ded What is your housing situation today? I have rodolfo esquivel 09/25/2023 How many times have you move d in the past 12 months? Zero (I did not move) 09/25/2023 Paying for Meds Answer Date Recorded Do you have trouble paying for medicines? Yes 09/25/2023 Paying Utility Bills Answer Date Record ed Do you have trouble paying your heating or elect ricity bill? Yes 09/25/2023 Transportation Answer Date Recorded Has the lack of transportati on kept you from medical appointments or from getting medications? No 09/25/2023 Unemployment Answer Date Recorded Are you currently unemployed or working on a part-time or temporary basis, and looking for work? No 09/25/2023 Digital Access Answer Date Recorded No 09/25/2023 Yes 09/25/2023 Do you have reliable internet access at home? Ye s 09/25/2023 Do you have a device (e.g., phone, tablet, computer) with a working camera? Yes 09/25/2023 Intimate Partner Violence Answer Date R ecorded Denied Basic Needs Not on file 12/06/2024 In the past 12 months have y ou been in a relationship with a person who hurts, threatens, or tries to control you? No 12/06/2024 Worried food would run out Not on file 12/06 In the past 12 months have y ou been in a relationship with a person who hurts, threatens, or tries to control you? No 12/06/2024 Comments No Sex and Gender Information Value Date Recorded Sex Assigned at Female 10/27/2020 9:03 PM EDT Legal Sex Female 9:19 PM EDT Gender Identity Female 10/27/2020 9:03 PM EDT Sexual Orientation Straight 10/27/2020 9: 03 PM EDT documented as of this encounter Plan of Treatment Upcoming Encounters Date Type Department Care Team (Late st Contact Info) Description 01/29/2025 2:30 PM EDT Appointment [address] [place] [address] Maxi Moreno MD [address] [place] [phone] 02/12/2025 3:45 PM EST Office Visit [facility] [address] [place] [phone] Rylee Lucas MD [address] [place] [address] Orthopedics & Sports Medicine, [facility] [place] [place] [address] 07/17/2025 4:00 PM EDT Office Visit [facility] [address] [place] [phone] Kirk Pérez DO [address] [place] [phone] 12/16/2025 2:30 PM EDT Office Visit [facility] [address] [place] [address] Maxi Moreno MD [address] [place] [phone] documented as of this encounter Procedures Procedure Name Priority Date/Time Associated Diagnosis Comments XR PELVIS OUTSIDE (NO INTERPRETATION) Routine 10/24/2024 12:00 AM EDT documented in this encounter Results * XR Pelvis Outside (No Interpretation) (10/24/2024 12:00 AM EDT) Narrative SYSTEMGENERATED, DOCUMENTATION - 01/28/2025 9:53 AM EDT This study is for PACS storage only and not for interpretation. us Unknown Unknown MD CAZARES OUTSIDE IMAGING W/OUT INT ERPRETATION Final Result documented in this encounter Visit Diagnoses Not on filedocumented in this encounter Additional Health Concerns Assessment Noted Time A Body Mass Index follow-up plan has been documented for the patient 09/28/2023 3:19 PM EDT PHQ-2 Depression Total Score: 0 09/25/19 24 10:59 AM EDT documented as of this encounter Care Teams Fusing Machine Operator Relationship Specialty Start Date End Date Maxi Moreno MD [address] [place] [phone] [email or web address] PCP - General Internal Medicine 09/17/20 Oly Quintanilla MD [address] [place] [phone] Historical LMR Provider 01/24/17 Kirk Pérez DO [address] [place] [phone] Endocrinology 12/18/20 Halley Back MD [address] [place] [phone] Rheumatology 12/18/20 Filemon East MD [address] [place] [phone] [email or web address] Medicine and Rehabilitation 12/18/20 documented as of this encounter Additional Source Comments The information contained in this document represents components of the legal health record. It is not the complete legal health record.[facility]
--- OUTSIDE RECORDS SUMMARY | 2025-01-16 | XMS_ITS | Encounter Summary ---
Author Organization [facility] Address [address] [place] [address] [place] [address] Phone Care Team Providers Care Promotion Specialist Name Role Phone Oly Quintanilla MD Unavailable [phone] Maxi Moreno MD Primary Care Provider Kirk Pérez DO Unavailable Halley Back MD Unavailable Filemon East MD Unavailable [phone] Encounter Details Date Type Department Care Team (Late st Contact Info) Description 01/16/2025 Hospital Encounter [facility],Outside Imaging [address] [place] [address] Unknown, Unknown, Social History Tobacco Use Types [...] high school, GED, job training, learning the Russian language, technical skills, or developing parenting skills)? [...] Info) Description 01/29/2025 2:30 PM EDT Appointment [address] [place] [address] Maxi Moreno MD [address] [place] [address] 02/12/2025 3:45 PM EST Office Visit [facility] Medicine [address] [place] [address] Rylee Lucas MD [address] [place] [address] Orthopedics & Sports Medicine, [facility] [place] [address] 07/17/2025 4:00 PM EDT Office Visit [facility] [address] [place] [address] Kirk Pérez DO [address] [place] [phone] 12/16/2025 2:30 PM EDT Office Visit [facility] Medical [address] [place] [address] Maxi Moreno MD [address] [place] [phone] documented as of this encounter Procedures Procedure Name Priority Date/Time Associated Diagnosis Comments MRI PELVIS (BONE) OUTSIDE (NO INTERPRETATION) Routine 01/16/2025 12:00 AM EDT documented in this encounter Results * MRI Pelvis (Bone) Outside (No Interpretation) (01/16/2025 12:00 AM EDT) Narrative SYSTEMGENERATED, DOCUMENTATION - 01/28/2025 9:53 AM EDT This study is for PACS storage only and not for interpretation. us Unknown Unknown MD IMG OUTSIDE IMAGING W/OUT INT ERPRETATION Final Result documented in this encounter Visit Diagnoses Not on filedocumented in this encounter Additional Health Concerns Assessment Noted Time A Body Mass Index follow-up plan has been documented for the patient 12/08/2024 1:02 PM EDT PHQ-2 Depression Total Score: 0 12/07/19 25 12:56 PM EDT documented as of this encounter Care Teams Promotion Specialist Relationship Specialty Start Date End Date Maxi Moreno MD [address] [place] [address] [email or web address] PCP - General Internal Medicine 09/17/20 Oly Quintanilla MD [address] [place] [address] Historical LMR Provider 01/24/17 Kirk Pérez DO [address] [place] [address] Endocrinology 12/18/20 Halley Back MD [address] [place] [address] Rheumatology 12/18/20 Filemon East MD [address] [place] [address] [email or web address] Physical Medicine and Rehabilitation 12/18/20 documented as of this encounter Additional Source Comments The information contained in this document represents components of the legal health record. It is not the complete legal health record.[facility]
--- NOTE | 2025-01-29 08:58 | EMG_ITS ---
Chief complaint: Lower back pain, right hip pain,history of RA Reason for referral: Evaluate for radiculopathy versus neuropathy Referred by: Ann Marie Elliott NP Procedure done: Right lower extremity NCS/EMG Precautions and/or limitations: None The limb temperature was monitored continuously and remained between 32-36 degrees C during the performance of the NCS. Nerve Conduction Studies Anti Sensory Summary Table ?Stim Site NR Onset (ms) Norm Onset (ms) Peak (ms) Norm Peak (ms) O-P Amp (?V) Norm O-P Amp Site1 Site2 Delta-0 (ms) Dist (cm) Dejan (m/s) Norm Dejan (m/s) Right Sural Anti Sensory (Lat Mall) Calf ? 2.5 3.2 <4.0 16.9 >5.0 Calf Lat Mall 2.5 14.0 56 Motor Summary Table ?Stim Site NR Onset (ms) Norm Onset (ms) O-P Amp (mV) Norm O-P Amp iAmp (mV) Amp (1st) (%) Site1 Site2 Delta-0 (ms) Dist (cm) Dejan (m/s) Norm Dejan (m/s) Right Peroneal Motor (Ext Dig Brev) Ankle ? 4.0 <4.0 3.5 >2.5 3.9 100.0 Ankle Ext Dig Brev 4.0 0.0 B Fib ? 10.6 3.3 3.8 94.3 B Fib Ankle 6.6 34.0 52 >40 Poplt ? 11.1 9.3 10.6 265.7 Poplt B Fib 0.5 4.5 90 >40 Right Tibial Motor (Abd Kennedy Brev) Ankle ? 3.4 <5 3.4 >2.5 5.0 100.0 Ankle Abd Kennedy Brev 3.4 0.0 Knee ? 11.3 3.0 4.1 88.2 Knee Ankle 7.9 36.5 46 >40 EMG ?Side Muscle Nerve Root Ins Act Fibs Psw Amp Dur Poly Recrt Int Pat Comment Right AbdHallucis MedPlantar S1-2 Nml Nml Nml Nml Nml 0 Nml Complete Right AntTibialis Dp Br Peron L4-5 Nml Nml Nml Nml Nml 0 Nml Complete Right PostTibialis Tibial L5, S1 Nml Nml Nml Nml Nml 0 Nml Complete Right MedGastroc Tibial S1-2 Nml Nml Nml Nml Nml 0 Nml Complete Right VastusMed Femoral L2-4 Nml Nml Nml Nml Nml 0 Nml Complete Paraspinal EMG ?Side Muscle Nerve Root Ins Act Fibs Psw Comment Right Lumbar Upper Rami Nml Nml Nml Right Lumbar Mid Rami Nml Nml Nml Right Lumbar Lower Rami Nml Nml Nml FINDINGS: All motor and sensory nerves tested showed normal latencies, amplitudes and conduction velocities. Concentric needle EMG was performed in selected muscles of the right lower extremity and lumbar paraspinals. Study did not reveal signs of electric abnormalities as shown in the table above. IMPRESSION: 1. This is a normal study. 2. There is no electrodiagnostic evidence for peroneal neuropathy, tibial neuropathy, lumbosacral plexopathy, lumbar radiculopathy, or peripheral neuropathy. Thank you for your kind referral. Mariya Hoover MD, DEBORAH Board Certified, [place] Board [employer] Physical Medicine and Rehabilitation (ABPMR) Board Certified, [place] Board of Electrodiagnostic Medicine (ABEM) CODIN [id number], 1 extremity MTDD
--- OUTSIDE RECORDS SUMMARY | 2025-01-29 09:44 | XMS_ITS | Encounter Summary ---
Author Organization [facility] Address [address] [place] [address] Phone Care Team Providers Care Director Regulatory Compliance Name Role Phone Oly Quintanilla MD Unavailable [phone] Maxi Moreno MD Primary Care Provider [phone] Kirk Pérez DO Unavailable Halley Back MD Unavailable Filemon East MD Unavailable Reason for Visit * Reason Onset Date Comments Cough 02/06/2024 Chills 02/06/2024 Ear Fullness 02/06/2024 Encounter Details Date Type Department Care Team (Late st Contact Info) Description 02/06/2024 Nurse Triage [facility] [address] [place] [address] [place] [address] Maxi Moreno MD [address] [place] [address], 2nd [place] [address] [email or web address] Cough; Chills; Ear Fullness Social History Tobacco [...] high school, GED, job training, learning the Chinese language, technical skills, or developing parenting skills)? [...] advice?: No, wishes to speak to PCP [id number] Daisy Tracy RN Tue Feb 06, 2024 [...] either acetaminophen or ibuprofen. * They are pnkx-mkd-[id number] (OTC) drugs that help treat both fever [...] ABX without ov to be sent to [facility] Dr. [place] Reason for Disposition Continuous (nonstop) coughing interferes with work or school and no improvement using cough treatment per Care Advice Protocols used: [id number] * Marcelino Hopper - 02/06/2024 4:00 PM EDT Pt called in with a cough, chills, ear pressure, said their child is on antibiotics with similar symptoms. Please contact and advise. Central Support Manager Power (Please do not reply to this user; this inbox is not monitored.) Thank you. documented in this encounter Plan of Treatment Upcoming Encounters Date Type Department Care Team (Late st Contact Info) Description 01/29/2025 2:30 PM EDT Appointment [address] [place] [address] Maxi Moreno MD [address] [place] [address], [address] Floor [place] [address] 02/12/2025 3:45 PM EST Office Visit [facility] [address] [place] [address] Rylee Lucas MD [address] [place] [address] [facility] [place] [address] 07/17/2025 4:00 PM EDT Office Visit [facility] [address] [place] [address] Kirk [place] [address] 12/16/2025 2:30 PM EDT [facility] [address] [place] [address] [place] [address] Maxi Moreno MD [address] [place] [address] documented as of this encounter Visit Diagnoses Not on filedocumented in this encounter Additional Health Concerns Assessment Noted Time A Body Mass Index follow-up plan has been documented for the patient 09/28/2023 3:19 PM EDT PHQ-2 Depression Total Score: 0 09/25/19 24 10:59 AM EDT documented as of this encounter Care Teams Director Regulatory Compliance Relationship Specialty Start Date End Date Maxi Moreno MD [address] [place] [address] PCP - General Internal Medicine 09/17/20 Oly Quintanilla MD [address] [place] [address] Historical LMR Provider 01/24/17 Kirk Pérez DO [address] [place] [address] Endocrinology 12/18/20 Halley Back MD [address] [place] [address] Rheumatology 12/18/20 Filemon East MD [address] [place] [address] [email or web address] Physical Medicine and Rehabilitation 12/18/20 documented as of this encounter Additional Source Comments The information contained in this document represents components of the legal health record. It is not the complete legal health record.[facility]
--- OUTSIDE RECORDS SUMMARY | 2025-01-29 09:44 | XMS_ITS | Clinical Summary ---
Author Organization [facility] Address [address] [place] [address] Care Team Providers Care Entry Level Accountant Name Role Phone Roger Glasgow MD Primary Care Provider [phone] Social History Tobacco Use Types Packs/Day Years [...] to complete this topic Insurance * Guarantor: [id number] AMHERST Account Type Relation to Patient Date of Phone Billing Address Worker's Comp [address] [place] [address] ADMIN [facility] [address] [place], [place] [address] WORKERS COMPENSATION Care Teams Entry Level Accountant Relationship Specialty Start Date End Date Roger Glasgow MD [facility] [address] [place] [address] PCP - General Internal Medicine 10/19/12
--- OUTSIDE RECORDS SUMMARY | 2025-01-29 09:45 | XMS_ITS | Encounter Summary ---
Author Organization [facility] Address [address] [place] [address] [place] [address] Phone Care Team Providers Care Feed In Worker Name Role Phone Oly Quintanilla MD Unavailable [phone] Maxi Moreno MD Primary Care Provider Kirk Pérez DO Unavailable Halley Back MD Unavailable Filemon East MD Unavailable Encounter Details Date Type Department Care Team (Late st Contact Info) Description 09/25/2023 Procedure Pass [facility] - [address] [place] [address] Social History Tobacco Use Types Packs/Day Years [...] high school, GED, job training, learning the Welsh language, technical skills, or developing parenting skills)? [...] Info) Description 01/29/2025 2:30 PM EDT Appointment [address] [place] [address] Maxi Moreno MD [address] [place] [address] 02/12/2025 3:45 PM EST Office Visit [facility] Orthopedics & Sports Medicine [address] [place] [address] Rylee Lucas MD [address] [place] [address] Orthopedics & Sports Medicine, [place] [address] 07/17/2025 4:00 PM EDT Office Visit [facility] [address] [place] [address] Kirk Pérez DO [address] [place] [address] 12/16/2025 2:30 PM EDT Office Visit [facility] [address] [place] [address] Maxi Moreno MD [address] [place] [address] documented as of this encounter Visit Diagnoses Not on filedocumented in this encounter Additional Health Concerns Assessment Noted Time A Body Mass Index follow-up plan has been documented for the patient 09/28/2023 3:19 PM EDT PHQ-2 Depression Total Score: 0 09/25/19 10:59 AM EDT documented as of this encounter Care Teams Feed In Worker Relationship Specialty Start Date End Date Maxi Moreno MD [address] [place] [address] PCP - General Internal Medicine 09/17/20 Oly Quintanilla MD [address] [place] [address], [address] [place] [address] [email or web address] Historical LMR Provider 01/24/17 Kirk Pérez DO [address] [place] [address] [email or web address] Endocrinology 12/18/20 Halley Back MD [address] [place] [address] Rheumatology 12/18/20 Filemon East MD [address] [place] [address] [email or web address] Physical Medicine and Rehabilitation 12/18/20 documented as of this encounter Additional Source Comments The information contained in this document represents components of the legal health record. It is not the complete legal health record.[facility]
--- OUTSIDE RECORDS SUMMARY | 2025-01-29 09:46 | XMS_ITS | Clinical Summary ---
Author Organization [employer] Address [address] [place] [address] 7 [place] [address] Care Team Providers Care Logging Equipment Operator Name Role Phone Tres Mckee DMD Unavailable Unavailable [facility] Unavailable Allergies Active Allergy Reactions Criticality Noted [...] % creamIndication s:Risk for dental caries, high [place] with toothpaste for two minutes two times [...] Description 01/03/2025 3:45 PM EDT Office Visit [facility] [address] [place] [phone] [facility] 12/23/2024 3:30 PM EDT Office Visit [facility] [address] [place] [phone] Minerva Haque LLD 11/11/2024 4:15 PM EDT Office Visit [address] [phone] Minerva Haque LLD from Last 3 Months [...] 02/26/2025 4:15 PM EST Office Visit [address] [phone] Minerva Haque LLD [address] [place] [address] 05/27/2025 2:45 PM EST Office Visit [address] [phone] [address] 08/26/2025 3:45 PM EDT Office Visit [address] [phone] Alcazar [address] [address] Health Maintenance Due Date Last Done Comments [...] to Health Maintenance Insurance , [address] [place] [address] [facility] Care Teams Logging Equipment Operator Relationship Specialty Start Date End Date Tres Mckee DMD Dentist 06/27/23 Robe Alcazar, [address] [address] Dental Rock Crushing Machine Operator 06/27/23
--- OUTSIDE RECORDS SUMMARY | 2025-01-29 09:46 | XMS_ITS | Encounter Summary ---
Author Organization [facility] Address [address] [place] [address] [place] [address] Phone Care Team Providers Care Environmental Scientist Name Role Phone Oly Quintanilla MD Unavailable [phone] Maxi Moreno MD Primary Care Provider Kirk Pérez DO Unavailable Halley Back MD Unavailable Filemon East MD Unavailable [phone] Encounter Details Date Type Department Care Team (Late st Contact Info) Description 01/28/2025 Ancillary Orders [facility],Outside Imaging [address] [place] [address] Unknown, Unknown, Social History Tobacco Use Types [...] high school, GED, job training, learning the Bruneian language, technical skills, or developing parenting skills)? [...] Info) Description 01/29/2025 2:30 PM EDT Appointment [address] [place] [address] Maxi Moreno MD [address] [place] [address] 02/12/2025 3:45 PM EST Office Visit [facility] Orthopedics & Sports Medicine [address] [place] [address] Rylee Lucas MD [address] [place] [address] Orthopedics & Sports Medicine, [place] [address] 07/17/2025 4:00 PM EDT Office Visit [facility] [address] [place] [address] Kirk Pérez DO [address] [place] [address] 12/16/2025 2:30 PM EDT Office Visit [facility] [address] [place] [address] Maxi Moreno MD [address] [place] [address] documented as of this encounter Results * XR Pelvis Outside [...] documented as of this encounter Care Teams Environmental Scientist Relationship Specialty Start Date End Date Maxi Moreno MD [address] [place] [address] PCP - General Internal Medicine 09/17/20 Oly Quintanilla MD [address] [place] [address] Historical LMR Provider 01/24/17 Kirk Pérez DO [address] [place] [address] Endocrinology 12/18/20 Halley Back MD [address] [place] [address] Rheumatology 12/18/20 Filemon East MD [address] [place] [address] Physical Medicine and Rehabilitation 12/18/20 documented as of this encounter Additional Source Comments The information contained in this document represents components of the legal health record. It is not the complete legal health record.[facility]
--- OUTSIDE RECORDS SUMMARY | 2025-01-29 09:46 | XMS_ITS | Encounter Summary ---
Author Organization [facility] Address [address] [place] [address] [place] [address] Phone Care Team Providers Care Rivet Flunky Name Role Phone Oly Quintanilla MD Unavailable [phone] Maxi Moreno MD Primary Care Provider Kirk Pérez DO Unavailable Halley Back MD Unavailable Filemon East MD Unavailable Encounter Details Date Type Department Care Team (Late st Contact Info) Description 01/17/2025 Orders Only [facility] [address] [place] [address] Unknown, Unknown, Social History Tobacco Use Types [...] high school, GED, job training, learning the Belarusian language, technical skills, or developing parenting skills)? [...] Info) Description 01/29/2025 2:30 PM EDT Appointment [address] [place] [address] Maxi Moreno MD [address] [place] [address] 02/12/2025 3:45 PM EST Office Visit [facility] Orthopedics & Sports Medicine [address] [place] [address] Rylee Lucas MD [address] [place] [address] Orthopedics & Sports Medicine, [place] [address] 07/17/2025 4:00 PM EDT Office Visit [facility] [address] [place] [address] Kirk Pérez DO [address] [place] [address] 12/16/2025 2:30 PM EDT Office Visit [facility] [address] [place] [address] Maxi Moreno MD [address] [place] [address] documented as of this encounter Procedures Procedure [...] documented as of this encounter Care Teams Rivet Flunky Relationship Specialty Start Date End Date Maxi Moreno MD [address] [place] [phone] [email or web address] PCP - General Internal Medicine 09/17/20 Oly Quintanilla MD [address] [place] [address] [email or web address] Historical LMR Provider 01/24/17 Kirk Pérez DO [address] [place] [address] Endocrinology 12/18/20 Halley Back MD [address] [place] [address] Rheumatology 12/18/20 Filemon East MD [address] [place] [address] [email or web address] Physical Medicine and Rehabilitation 12/18/20 documented as of this encounter Additional Source Comments The information contained in this document represents components of the legal health record. It is not the complete legal health record.[facility]
--- OUTSIDE RECORDS SUMMARY | 2025-01-29 09:46 | XMS_ITS | Clinical Summary ---
Author Organization [facility] Address [address] [place] [address] Phone Care Team Providers Care Manager Of Manufacturing Name Role Phone Oly Quintanilla MD Unavailable Maxi Moreno MD Primary Care Provider [phone] Kirk Pérez DO Unavailable Halley Back MD [...] 2 diabetes mellitus with hyperglycemia, unspecified whether shelter insulin use 1 each by Miscellaneous route 4 (four) times a day before meals and nightly. 400 strip 3 09/30/19 21 Active FREESTYLE LITE METER meter kitIndications:Ty pe 2 diabetes mellitus with hyperglycemia, unspecified whether shelter insulin use Use as instructed 1 each 09/30/19 Active lancets (ACCU-CHEK FASTCLIX LANCET DRUM) MiscIndications:T ype 2 diabetes mellitus with hyperglycemia, unspecified whether shelter insulin use 1 each by Miscellaneous route as needed. 400 each 1 03/11/20 21 Active MULTIVITAMIN ORAL Take by mouth. Active DENTA 5000 PLUS 1.1 % Crea PLEASE SEE ATTACHED FOR DETAILED DIRECTIONS 06/09/19 23 Active ENBREL MINI 50 mg/mL (1 mL) subcutaneous injectionIndicati ons:Rheumatoid arthritis, involving unspecified site, unspecified whether rheumatoid factor present Inject 1 mL (50 mg total) under the skin once a week. 12 mL 3 01/17/20 23 Active blood-glucose meter,continuous (DEXCOM G7 INSECTICIDE SUPERVISOR) MiscIndications:T ype 2 diabetes mellitus without complication, with long-term current use of insulin Monitor continuously 1 each 04/20/19 24 Active ondansetron (ZOFRAN-ODT) 4 MG disintegrating tablet Take 1 tablet (4 mg total) by mouth every 8 (eight) hours as needed for nausea. 8 tablet 2 06/02/19 24 Active lancets (ACCU-CHEK FASTCLIX LANCET DRUM) Misc Active topiramate (TOPAMAX) 50 MG tablet Active albuterol 90 mcg/actuation inhalerIndication s:Other pneumonia, unspecified organism Inhale 2 puffs into the lungs every 6 (six) hours as needed for wheezing. 8 g 04/16/19 25 Active guaiFENesin-codei ne (ROBITUSSIN AC) 100-10 mg/5 mL liquidIndications :Other pneumonia, unspecified organism Take 5 mL (10 mg of codeine total) by mouth 3 (three) times a day as needed for cough. 120 mL 04/16/19 25 Active Additional Information Patient not taking.Reported on 12/06/2024 sodium hyaluronate (EUFLEXXA) 10 mg/mL(mw 2.4 -3.6 million) injection syringeIndication s:Bilateral knee pain,Primary osteoarthritis of both knees Inject (1 syr per knee) 2 mL into the IA space of bilateral knees, once a week for three weeks, at doctor's office 12 mL 07/23/19 25 Active levothyroxine (SYNTHROID, LEVOTHROID) 112 MCG tabletIndications :Acquired hypothyroidism TAKE 1 TABLET BY MOUTH EVERY MORNING 90 tablet 3 09/14/19 25 Active insulin pen needles, disposable, 31 gauge x 06/23 NdleIndications:T ype 2 diabetes mellitus without complication, with long-term current use of insulin 1 each by Miscellaneous route 4 (four) times a day before meals and nightly. 400 each 1 09/26/19 25 Active lidocaine (LIDODERM) 5 % FOR PAIN 1 PATCH TOPICALLY UP TO 12 HOURS PER DAY TO AFFECTED AREA 11/27/19 25 Active blood-glucose sensor (DEXCOM G7 SENSOR) DeviIndications:T ype 2 diabetes mellitus without complication, with long-term current use of insulin CHANGE SENSOR EVERY 10 DAYS 3 each 3 12/28/19 25 Active semaglutide (OZEMPIC) 2 mg/dose (8 mg/3 mL) subcutaneous injection penIndications:Ty pe 2 diabetes mellitus without complication, with long-term current use of insulin Inject 2 mg under the skin every 7 days. 9 mL 1 01/10/20 25 Active NOVOLOG FLEXPEN U-100 INSULIN 100 unit/mL (3 mL) flexpenIndication s:Type 2 diabetes mellitus without complication, with long-term current use of insulin 3 TIMES A DAY WITH MEALS BASED ON CORRECTION SCALE BELOW. 70-100 =6 UNIT 101-150 =8 UNITS 151-200 = 10 UNITS 201-250 =12 UNITS 251-300 =14 UNITS 301-350 =16 UNITS 351-400 =18 UNITS GREATER THAN 400 =20 UNITS 15 mL 1 01/10/20 25 Active insulin glargine U-300 (TOUJEO SOLOSTAR) 300 unit/mL (1.5 mL) subcutaneous injection penIndications:Ty pe 2 diabetes mellitus without complication, with long-term current use of insulin Inject 20 Units under the skin nightly at bedtime. 9 mL 1 01/10/20 25 Active rosuvastatin (CRESTOR) 5 MG tabletIndications :Type 2 diabetes mellitus without complication, with long-term current use of insulin Take 1 tablet (5 mg total) by mouth daily. 90 tablet 1 01/10/20 25 Active NOVOLOG FLEXPEN U-100 INSULIN 100 unit/mL (3 mL) flexpenIndication s:Type 2 diabetes mellitus without complication, with long-term current use of insulin 3 TIMES A DAY WITH MEALS BASED ON CORRECTION SCALE BELOW. 70-100 =6 UNIT 101-150 =8 UNITS 151-200 = 10 UNITS 201-250 =12 UNITS 251-300 =14 UNITS 301-350 =16 UNITS 351-400 =18 UNITS GREATER THAN 400 =20 UNITS 15 mL 1 09/26/19 25 025 Discontin ued(Reord er) semaglutide (OZEMPIC) 2 mg/dose (8 mg/3 mL) subcutaneous injection penIndications:Ty pe 2 diabetes mellitus without complication, with long-term current use of insulin Inject 2 mg under the skin every 7 days. 9 mL 1 12/07/19 25 025 Discontin ued(Reord er) insulin glargine U-300 (TOUJEO SOLOSTAR) 300 unit/mL (1.5 mL) subcutaneous injection penIndications:Ty pe 2 diabetes mellitus without complication, with long-term current use of insulin Inject 20 Units under the skin nightly at bedtime. 9 mL 12/28/19 25 025 Discontin ued(Reord er) Active Problems Problem Noted Date Diagnosed Date [...] of Trulicity 0.75 mg weekly Lot # [id number] expiration 04/20/2022. Assessment & Plan (10/28/2020 12:20 [...] that she has an appointment with the museum educator in approximately 2 weeks and if [...] and also refer her to see the museum educator for nutrition counseling. She will follow in 4 weeks time. LDL levels have been in the reference range without any statins. Urine microalbumin creatinine ratio has been ordered. I will request a CBC. Rheumatoid arthritis 07/09/2020 Assessment & Plan (12/08/2024 1:02 PM EDT): Stable. 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 Use of steroids for this prompted her [...] Encounters Date Type Department Care Team Description 01/28/2025 Ancillary Orders [facility] [address] [place] [address] Unknown, MD Celine 01/28/2025 Ancillary Orders [facility] [address] [place] [address] Unknown, MD Celine 01/17/2025 Telephone [facility] [address] [place] [address] Nadia Loya Imaging order 01/17/2025 Orders Only [facility] [address] [place] [address] Unknown, Celine, 01/16/2025 Hospital Encounter [facility] [address] [place] [address] Unknown, MD Celine 01/09/2025 4:00 PM EDT Office Visit [facility] [address] [place] [address] Kirk Pérez DO Type 2 diabetes mellitus without complication, with long-term current use of insulin (Primary Dx); Mixed hyperlipidemia 12/21/2024 9:14 AM EDT - 12/21/2024 11:59 PM EDT Hospital Encounter [facility] [address] [place] [address] Maxi Moreno MD Discharge Disposition: Home or Self Care 12/21/2024 Refill [facility] [address] [place] [address] [place] [address] Kirk Pérez DO Med Change Request; Patient Returned Call 12/06/2024 1:15 PM EDT Office Visit [facility] [address] [place] [address] [place] [address] Maxi Moreno MD Encounter for general adult medical examination with abnormal findings (Primary Dx); RIAN (obstructive sleep apnea); Essential hypertension; Type 2 diabetes mellitus without complication, with long-term current use of insulin; Morbid obesity; Acquired hypothyroidism; Hypertriglyceridemia; Rheumatoid arthritis, involving unspecified site, unspecified whether rheumatoid factor present 12/06/2024 Orders Only [facility] [address] [place] [address] Kirk Pérez DO Type 2 diabetes mellitus without complication, with long-term current use of insulin (Primary Dx) 12/02/2024 4:15 PM EDT Office Visit [facility] [address] [place] [address] Howard Fulton MD Rheumatoid arthritis, involving unspecified site, unspecified whether rheumatoid factor present (Primary Dx) 12/02/2024 Telephone [facility] [address] [place] [address] Luisa Quevedo MA 11/26/2024 Orders Only [facility] [address] [place] [address] Ten Sosa [place] Right foot pain (Primary Dx); Right ankle pain; Left foot pain; Left ankle pain from Last 3 Months Immunizations Immunization Administration [...] high school, GED, job training, learning the Norwegian language, technical skills, or developing parenting skills)? [...] Info) Description 01/29/2025 2:30 PM EDT Appointment [facility] - [address] [place] [address] Maxi Moreno MD [address] [place] [address], [address] [place] [address] 02/12/2025 3:45 PM EST Office Visit [facility] [address] [place] [address] Rylee Lucas MD [address] [place] [address] Orthopedics & Sports Medicine, [place] [address] 07/17/2025 4:00 PM EDT Office Visit [facility] [address] [place] [address] Kirk Pérez DO [address] [place] [address] 12/16/2025 2:30 PM EDT Office Visit [facility] [address] [place] [address] Maxi Moreno MD [address] [place] [address], [address] [place] [address] Health Maintenance Due Date Last Done Comments [...] 09/21/2022, Additional history exists MAMMOGRAM 01/09/2026 01/10/2024, 0708/2021, 10/12/2021, Additional history exists Adult Td,Tdap Booster [...] OUTSIDE IMAGING Routine 01/16/2025 12:18 PM EDT MRI PELVIS (BONE) OUTSIDE (NO INTERPRETATION) Routine 01/16/2025 12:00 AM EDT LIPID PANEL Routine 12/21/2024 9:18 AM [...] 11/26/2024 11:28 AM EDT Right foot pain MICROALBUMIN/CREATINI NE RATIO, RANDOM URINE Routine 09/17/2024 [...] MD IMG XR CHEST Final Result * MRI Pelvis (Bone) Outside (No Interpretation) (01/16/2025 12:00 AM EDT) Narrative SYSTEMGENERATED, DOCUMENTATION - 01/28/2025 9:53 AM EDT This study is for PACS storage only and not for interpretation. us Unknown Unknown MD IMG OUTSIDE IMAGING W/OUT INT ERPRETATION Final Result * Hemoglobin A1c (12/21/2024 9:18 AM EDT) HEMOGLOBIN A1C 5.3 4.3 - 5.8 % [facility] Blood 12/21/2024 9:18 AM EDT 12/21/2024 9:25 AM EDT [facility] LAB BLOOD ORDERABLES Final Resul t Performing Organization Address City/[facility] Co de Phone Number [address] [address] * (ABNORMAL) Lipid panel (12/21/2024 9:18 AM EDT) HDL 43 mg/dL [facility] Comment: Interpretation <40 mg/dL: Low HDL cholesterol (major risk factor for CHD) Greater than or equal to 60 mg/dL: High HDL cholesterol ( negative risk factor for CHD) HDL - cholesterol is affected by a number of factors, e.g. smoking, excerise, hormones, sex and age. CHOLESTEROL 172 0 - 240 mg/dL [facility] TRIGLYCERIDES 199(H) 30 - 160 mg/dL [facility] LDL 89 50 - 129 mg/dL [facility] Comment: LDL levels in terms of risk for coronary heart disease: <100 mg/dL: Optimal 100-129 mg/dL: Near or above optimal 130-159 mg/dL: Borderline high 160-189 mg/dL: High >190 mg/dL: Very High CARDIAC RISK RATIO 4.0 3.3 - 4.4 [facility] Blood 12/21/2024 9:18 AM EDT 12/21/2024 9:25 AM EDT [facility] BLOOD ORDERABLES Final Resul t Performing Organization Address City/[facility] Co de Phone Number [address] [address] * TSH with reflex (12/21/2024 9:16 AM EDT) TSH 2.55 0.27 - 4.20 uIU/mL [facility] Blood 12/21/2024 9:16 AM EDT 12/21/2024 9:24 AM EDT Maxi Moreno MD LAB BLOOD ORDERABLES Final Result Performing Organization Address City/[facility]/ZIP Co de Phone Number [address] [address] * DIABETES EYE EXAM FOR RESULT ENTRY ONLY (11/26/2024 4:06 PM EDT) Historical [facility] Edited Result - Final * Microalbumin/creatinine ratio, random urine (09/17/2024 3:56 PM EDT) URINE MICROALBUMIN <1.2 0 - 2.3 mg/dL [facility] URINE CREATININE 197 mg/dL [facility] MICROALB/CRE RATIO NOT CALCULATED 0 - 20 mg/g Cre [facility] Comment:due to Microalbumin <1.2 Urine (Urine) 09/17/2024 3:5 6 PM EDT 09/17/2024 4:03 PM EDT Kirk Pérez DO URINE ORDERABLES Final Result Performing Organization Address City/[facility]/ZIP Co de Phone Number [address] [address] * Hepatitis C antibody, qualitative (09/17/2024 3:43 PM EDT) HCV NON-REACTIV E NON-REACTI VE [facility] Blood 09/17/2024 3:43 PM EDT 09/17/2024 4:07 PM EDT Della Wolff MD LAB BLOOD ORDER ALLAN Final Result [address] [address] * BI MAMMOGRAM SCREENING WITH TOMOSYNTHESIS WITH [...] SEE NARRATIVE - 09/23/2020 10:14 AM EDT [address] [address] Appointment Clerk: Fouzia Malave MD TUBE BACKER Cytology Report FINAL DIAGNOSIS A. PAP SMEAR [...] 52, 56, 58, 59, 66, 68) by [employer] Onclarity HR-HPV analysis. Clinical correlation is advised. This HPV test was performed at [facility], [address] [place] [address]. This test has been FDA approved for SurePath cervical cytology specimens. The accuracy and precision of this test for all other specimen sources has been verified in the Cytopathology Laboratory of the [facility] and has not been cleared or approved by the U.S. Food and Drug Administration. Clinical correlation is advised. CLINICAL HISTORY Date of Last Menstrual Period: 08-17-2020 Other Clinical Conditions: Screening Pap SPECIMEN SOURCE A: PAP SMEAR (SUREPATH) CE Patient Name: LEEANNAKURTISLIUDMILA : 1980 (Age: 39) Sex: F Institution: [facility] Location: [facility] Date of Collection: 09/17/2020 Date of Reported: 09/23/2020 10:14 Results to: Oly Quintanilla MD, [facility], B us Oly A Dwight MAY CYTOLOGY ORDERABLES Final Res ult SEE NARRATIVE from Last 3 Months or Most Recently Relevant to Health Maintenance [facility] O O HMO HMO HMO Member Subscriber Plan / Payer (Ef fective 2016-Present) Name:Liudmila Durán Relation to Subscriber:Self Name:LIUDMILA DURÁN Payer ID:Not on file Type:HMO Address: [address] INSURANCE [facility] Care Teams Manager Of Manufacturing Relationship Specialty Start Date End Date Maxi Moreno MD [address] [place] [phone] [email or web address] PCP - General Internal Medicine 09/17/20 Oly Quintanilla MD [address] [place] [address] Historical LMR Provider 01/24/17 Kirk Pérez DO [address] [place] [address] Endocrinology 12/18/20 Halley Back MD [address] [place] [address] Rheumatology 12/18/20 Filemon East MD [address] [place] [address] [email or web address] Physical Medicine and Rehabilitation 12/18/20 Additional Source Comments The information contained in this document represents components of the legal health record. It is not the complete legal health record.[facility]
--- OUTSIDE RECORDS SUMMARY | 2025-01-29 09:46 | XMS_ITS | Encounter Summary ---
Author Organization [facility] Address [address] [place] [address] [place] [address] Phone Care Team Providers Care Motorsports Technician Name Role Phone Oly Quintanilla MD Unavailable [phone] Maxi Moreno MD Primary Care Provider Kirk Pérez DO Unavailable Halley Back MD Unavailable Filemon East MD Unavailable Encounter Details Date Type Department Care Team (Late st Contact Info) Description 09/20/2021 Procedure Pass [address] [address] Social History Tobacco Use Types Packs/Day Years [...] high school, GED, job training, learning the Dominican language, technical skills, or developing parenting skills)? [...] Description 01/29/2025 2:30 PM EDT Appointment [address] [place] [address] Maxi Moreno MD [address] [place] [address], [address] [place] [address] 02/12/2025 3:45 PM EST Office Visit [facility] [address] [place] [address] Rylee Lucas MD [address] [place] [address] [facility] [place], [place] [id number] 07/17/2025 4:00 PM EDT Office Visit [facility] [address] [place] [address] Kirk Pérez DO [address] [place] [address] 12/16/2025 2:30 PM EDT Office Visit [facility] [address] [place] [address] [place] [address] Maxi Moreno MD [address] [place] [address] documented as of this encounter Visit Diagnoses [...] documented as of this encounter Care Teams Motorsports Technician Relationship Specialty Start Date End Date Maxi Moreno MD [address] [place] [address] PCP - General Internal Medicine 09/17/20 Oly Quintanilla MD [address] [place] [address] Historical LMR Provider 01/24/17 Kirk Pérez DO [address] [place] [address] Endocrinology 12/18/20 Halley Back MD [address] [place] [address] Rheumatology 12/18/20 Filemon East MD [address] [place] [address] [email or web address] Physical Medicine and Rehabilitation 12/18/20 documented as of this encounter Additional Source Comments The information contained in this document represents components of the legal health record. It is not the complete legal health record.[facility]
--- OUTSIDE RECORDS SUMMARY | 2025-01-29 09:46 | XMS_ITS | Encounter Summary ---
Author Organization [facility] Address [address] [place] [address] [place] [address] Phone Care Team Providers Care Healthcare Consultant Name Role Phone Oly Quintanilla MD Unavailable [phone] Maxi Moreno MD Primary Care Provider Kirk Pérez DO Unavailable Halley Back MD Unavailable Filemon East MD Unavailable Encounter Details Date Type Department Care Team (Late st Contact Info) Description 01/28/2025 Ancillary Orders [facility],Outside Imaging [address] [place] [address] Unknown, Unknown, Social History Tobacco Use Types [...] high school, GED, job training, learning the Togolese language, technical skills, or developing parenting skills)? [...] Info) Description 01/29/2025 2:30 PM EDT Appointment [address] [place] [address] Maxi Moreno MD [address] [place] [address] 02/12/2025 3:45 PM EST Office Visit [facility] [address] [place] [address] Rylee Lucas MD [address] [place] [address] Orthopedics & Sports Medicine, [place] [address] 07/17/2025 4:00 PM EDT Office Visit [facility] [address] [place] [address] Kirk Pérez DO [address] [place] [address] 12/16/2025 2:30 PM EDT Office Visit [facility] [address] [place] [address] Maxi Moreno MD [address] [place] [address] documented as of this encounter Results * MRI Pelvis (Bone) [...] documented as of this encounter Care Teams Healthcare Consultant Relationship Specialty Start Date End Date Maxi Moreno MD [address] [place] [address] PCP - General Internal Medicine 09/17/20 Oly Quintanilla MD [address] [place] [address] Historical LMR Provider 01/24/17 Kirk Pérez DO [address] [place] [address] Endocrinology 12/18/20 Halley Back MD [address] [place] [address] Rheumatology 12/18/20 Filemon East MD [address] [place] [phone] [email or web address] Physical Medicine and Rehabilitation 12/18/20 documented as of this encounter Additional Source Comments The information contained in this document represents components of the legal health record. It is not the complete legal health record.[facility]
--- OUTSIDE RECORDS SUMMARY | 2025-01-29 09:46 | XMS_ITS | Encounter Summary ---
Author Organization [facility] Address [address] [place] [address] [place] [address] Phone Care Team Providers Care Crm Consultant Name Role Phone Oly Quintanilla MD Unavailable [phone] Maxi Moreno MD Primary Care Provider Kirk Pérez DO Unavailable Halley Back MD Unavailable Filemon East MD Unavailable Encounter Details Date Type Department Care Team (Latest Contact Info) Description 09/19/2023 Transcribe Orders [address] [place] [address] Kirk Pérez DO [address] [place] [address] [email or web address] Type 2 diabetes mellitus without complication, with [...] high school, GED, job training, learning the Ivorian language, technical skills, or developing parenting skills)? [...] Info) Description 01/29/2025 2:30 PM EDT Appointment [address] [place] [address] Maxi Moreno MD [address] [place] [address], 2nd Floor [place]IE [place] [address] 02/12/2025 3:45 PM EST Office Visit [facility] Medicine [address] [place] [address] Rylee Lucas MD [address] [place] [address] Orthopedics & Sports Medicine, [facility] [place], [place] [phone] 07/17/2025 4:00 PM EDT Office Visit [facility] [address] [place] [address] Kirk Pérez DO [address] [place] [address] 12/16/2025 2:30 PM EDT Office Visit [facility] [address] [place] [address] Maxi Moreno MD [address] [place] [address], 2nd [place] [address] [email or web address] documented as of this encounter Results * Hemoglobin A1c (09/19/2023 4:19 PM EDT) HEMOGLOBIN A1C 5.8 4.3 - 5.8 % [facility] Blood 09/19/2023 4:19 PM EDT 09/19/2023 4:37 PM EDT Kirk Pérez DO LAB BLOOD ORDERABLES Final Resul t [facility] [address] [place] [address] * Comprehensive metabolic panel (09/19/2023 4:19 PM EDT) SODIUM 133 133 - 146 mmol/L [facility] POTASSIUM 3.9 3.3 - 5.1 mmol/L [facility] CHLORIDE 96 96 - 108 mmol/L [facility] CO2 23 21 - 35 mmol/L [facility] BUN 11 6 - 19 mg/dL [facility] CREATININE 0.50 0.5 - 1.5 mg/dL [facility] GLUCOSE 82 70 - 99 mg/dL [facility] ALBUMIN 4.4 3.9 - 4.8 g/dL [facility] TOTAL PROTEIN 7.5 6.5 - 8.0 g/dL [facility] CALCIUM 9.4 8.4 - 10.3 mg/dL [facility] ALKALINE PHOSPHATASE 103 39 - 117 U/L [facility] TOTAL BILIRUBIN 0.4 0.0 - 1.2 mg/dL [facility] AST 19 0 - 37 U/L [facility] ALT 21 0 - 40 U/L [facility] GLOBULIN 3.1 1 - 4.8 g/dL [facility] EGFR >120 >59 mL/min/1.7 3m2 [facility] Comment:Estimated glomerular filtration rate calculated using the CKD-EPI refit equation. ANION GAP 18 10 - 20 mmol/L [facility] Blood 09/19/2023 4:19 PM EDT 09/19/2023 4:37 PM EDT Kirk Pérez DO LAB BLOOD ORDERABLES Final Resul t Performing Organization Address City/State/[facility] Co de Phone Number [facility] [address] [place] [address] * (ABNORMAL) Lipid panel (09/19/2023 4:19 PM EDT) HDL 36 mg/dL [facility] Comment: Interpretation <40 mg/dL: Low HDL cholesterol (major risk factor for CHD) Greater than or equal to 60 mg/dL: High HDL cholesterol ( negative risk factor for CHD) HDL - cholesterol is affected by a number of factors, e.g. smoking, excerise, hormones, sex and age. CHOLESTEROL 146 0 - 240 mg/dL [facility] TRIGLYCERIDES 308(H) 30 - 160 mg/dL [facility] LDL 48(L) 50 - 129 mg/dL [facility] Comment: LDL levels in terms of risk for coronary heart disease: <100 mg/dL: Optimal 100-129 mg/dL: Near or above optimal 130-159 mg/dL: Borderline high 160-189 mg/dL: High >190 mg/dL: Very High CARDIAC RISK RATIO 4.1 3.3 - 4.4 [facility] Blood 09/19/2023 4:19 PM EDT 09/19/2023 4:37 PM EDT us Kirk Pérez DO LAB BLOOD ORDERABLES Final Resul t [facility] [address] [place] [address] documented in this encounter Visit Diagnoses Diagnosis Type 2 diabetes mellitus without complication, with long-term current use of insulin- Primary documented in this encounter Additional Health Concerns Assessment Noted Time A Body Mass Index follow-up plan has been documented for the patient 09/24/2022 1:51 PM EDT PHQ-2 Depression Total Score: 0 09/22/19 23 11:16 AM EDT documented as of this encounter Care Teams Crm Consultant Relationship Specialty Start Date End Date Maxi Moreno MD [address] [place] [address] PCP - General Internal Medicine 09/17/20 Oly Quintanilla MD [address] [place] [address] Historical LMR Provider 01/24/17 iKrk Pérez DO [address] [place] [address] Endocrinology 12/18/20 Halley Back MD [address] [place] [address] Rheumatology 12/18/20 Filemon East MD [address] [place] [address] [email or web address] Physical Medicine and Rehabilitation 12/18/20 documented as of this encounter Additional Source Comments The information contained in this document represents components of the legal health record. It is not the complete legal health record.[facility]
--- OUTSIDE RECORDS SUMMARY | 2025-01-29 09:46 | XMS_ITS | Encounter Summary ---
Author Organization [facility] Address [address] [place] [address] Phone Care Team Providers Care Call Center Assistant Name Role Phone Oly Quintanilla MD Unavailable [phone] Maxi Moreno MD Primary Care Provider [phone] Kirk Pérez DO Unavailable Halley Back MD Unavailable Filemon East MD Unavailable Reason for Visit * Reason Comments Med Change Request Encounter Details Date Type Department Care Team (Late st Contact Info) Description 10/28/2024 Refill [facility] [address] [place] [address] [place] [address] Med Change Request Social History Tobacco Use [...] high school, GED, job training, learning the Tuvaluan language, technical skills, or developing parenting skills)? [...] Info) Description 01/29/2025 2:30 PM EDT Appointment [facility] - [address] Rodriguez [place] [address] Maxi Moreno MD [address] [place] [address] 02/12/2025 3:45 PM EST Office Visit [facility] Orthopedics & Sports Medicine [address] [place] [address] Rylee Lucas MD [address] [place] [address] Orthopedics & Sports Medicine, [facility] [place] [address] 07/17/2025 4:00 PM EDT Office Visit [facility] [address] [place] [address] [place] [address] Kirk Pérez DO [address] [place] [address] 12/16/2025 2:30 PM EDT Office Visit [facility] [address] [place] [address] Maxi Moreno MD [address] [place] [address] documented as of this encounter Visit Diagnoses [...] documented as of this encounter Care Teams Call Center Assistant Relationship Specialty Start Date End Date Maxi Moreno MD [address] [place] [address], [address] [place] [address] [email or web address] PCP - General Internal Medicine 09/17/20 Oly Quintanilla MD [address] [place] [address] [email or web address] Historical LMR Provider 01/24/17 Kirk Pérez DO [address] [place] [address] [email or web address] Endocrinology 12/18/20 Halley Back MD [address] [place] [address] Rheumatology 12/18/20 Filemon East MD [address] [place] [address] [email or web address] Physical Medicine and Rehabilitation 12/18/20 documented as of this encounter Additional Source Comments The information contained in this document represents components of the legal health record. It is not the complete legal health record.[facility]
== END 2025-01-29 08:57 | disposition home or self-care (01) ==
LOC: HO.NEURO 08:56
PROVIDERS: PCP Internal Medicine; Visit Provider Nurse Practitioner Family
DX: M54.16 Radiculopathy, lumbar region (principal); R20.2 Paresthesia of skin; M25.551 Pain in right hip
CPT/HCPCS: 95886; 95908

== ENCOUNTER → 2025-01-29 08:58 | Outpatient (BNV) | payer OTHER, SELFPAY | PROVIDERS: PCP Internal Medicine; Visit Provider Physical Medicine & Rehabilitation | DX: M54.16 Radiculopathy, lumbar region (principal) | CPT/HCPCS: 95886; 95909 ==

== ENCOUNTER 2025-02-11 15:45 | Outpatient (AMB) | payer OTHER, SELFPAY ==
--- OUTSIDE RECORDS SUMMARY | 2025-02-07 09:50 | XMS_ITS | Encounter Summary ---
Author Organization [facility] Address [address] [place] [address] [address] [place] [address] Phone Care Team Providers Care Maintenance Operator Name Role Phone Oly Quintanilla MD Unavailable [phone] Maxi Moreno MD Primary Care Provider [phone] Kirk Pérez DO Unavailable Halley Back MD Unavailable Filemon East MD Unavailable Reason for Visit * Reason Comments Gynecologic Exam US last week ER visi t right after, heavy bleeding Persistent throbbing pain Discharge, yellowish watery, not as green anymore, and less overall Encounter Details Date Type Department Care Team (Latest Contact Info) Description 02/07/2025 10:50 AM EDT Office Visit [facility] [address] [place] [address] [place] [address] Mayra Gorman MD [address] [facility], [address] [place] [address] [email or web address] Vaginitis and vulvovaginitis (Primary Dx) Social History Tobacco Use Types [...] high school, GED, job training, learning the Armenian language, technical skills, or developing parenting skills)? [...] PM EDT documented as of this encounter Last Filed Vital Signs Vital Sign Reading Time Taken Comments Blood Pressure 162/100 02/07/2025 11:05 AM EDT Pulse - - Temperature - - Respiratory Rate - - Oxygen Saturation - - Inhaled Oxygen Concentration - - Weight 130.4 kg (287 lb 6.4 oz) 025 11:05 AM EDT Height - - Body Mass Index 44.35 01/30/2025 11:27 AM EDT documented in this encounter Progress Notes * Mayra Gorman MD - 02/07/2025 10:50 AM EDTAddended by: MAYRA GORMAN on: 02/07/2025 11:48 AM Modules accepted: Orders * Marcela Madsen - 02/07/2025 10:50 AM EDT Does the patient agree to a casual shoe inspector?: Yes Procedure performed requiring casual shoe inspector: Physical exam/inspection of internal or external genital Remote Sensing Scientist present for procedure:: Yes * Mayra Gorman MD - 02/07/2025 10:50 AM EDT Encounter Date: 02/07/2025 Chief Complaint: Chief Complaint Patient presents with Gynecologic Exam US last week ER visit right after, heavy bleeding Persistent throbbing pain Discharge, yellowish watery, not as green anymore, and less overall Subjective: Liudmila Durán is a 44 y.o. who presents for vaginitis symptoms. Reports green/yellow tinged vaginal discharge for approximately one week. Has some lower abdominal/pelvic discomfort. No UTI or bowel symptoms reported. Medical History Patient Active Problem List Diagnosis Hypothyroidism Morbid obesity Essential hypertension Rheumatoid arthritis Type 2 diabetes mellitus without complication, with long-term current use of insulin Left shoulder pain Inflammatory disorder of breast Migraine headache Hypertriglyceridemia RIAN (obstructive sleep apnea) Mixed hyperlipidemia Vaginitis and vulvovaginitis Past Medical History: Diagnosis Date Autoimmune disease RA and hypothyroidism Bone fracture Bone spur right foot Breast cyst 09/18 left breast (palpable) ultrasound negative COVID-19 11/2021 Diabetes mellitus Disorder of thyroid acquired hypothyroidism Dysmenorrhea Eczema Electrical shock sensation August 2012 Fibromyalgia History of chicken pox Hypertensive disorder Juvenile rheumatoid arthritis Migraine with aura Obesity RIAN (obstructive sleep apnea) 12/06/2024 Pap smear for cervical cancer screening 10/2013 NIL, HPV Negative (-16/-18) Rheumatoid arthritis Past Surgical History: Procedure Laterality Date ANKLE SURGERY Right SECTION CHOLECYSTECTOMY left wrist fracture repair PILONIDAL CYST / SINUS EXCISION surgical revision pilonidal cyst due to fistula PILONIDAL CYST / SINUS EXCISION removed WRIST SURGERY Left Social History Socioeconomic History Marital status: Unavailable Spouse name: Not on file Number of children: Not on file Years of education: Not on file Highest education level: Not on file Occupational History Not on file Tobacco Use Smoking status: Never Smokeless tobacco: Never Vaping Use Vaping status: never used Substance and Sexual Activity Alcohol use: Not Currently Drug use: Not Currently Types: Marijuana Comment: medical card- edibles Sexual activity: Yes Partners: Male control/protection: Condom Comment: Other Topics Concern Not on file Social History Narrative 2 children ages 7 and 9. 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 OB History Para Term AB Living 2 2 2 2 SAB IAB Ectopic Multiple Live Births 2 # Outcome Date GA Lbr Abhi/2nd Weight Sex Type Anes PTL Lv 2 Term SHANNON 1 Term SHANNON Menstrual History Patient's last menstrual period was 01/30/2025 (exact date). Current Outpatient Medications: albuterol 90 mcg/actuation inhaler, Inhale 2 puffs into the lungs every 6 (six) hours as needed forwheezing., Disp: 8 g, Rfl: 0, Last Dispense: Unknown (outside pharmacy) blood-glucose meter,continuous (DEXCOM G7 JEWEL CUPPING MACHINE OPERATOR) Misc, Monitor continuously, Disp: 1 each, Rfl: 0, Last Dispense: Unknown (outside pharmacy) blood-glucose sensor (DEXCOM G7 SENSOR) Julianne, CHANGE SENSOR EVERY 10 DAYS, Disp: 3 each, Rfl: 3, Last Dispense: Unknown (outside pharmacy) DENTA 5000 PLUS 1.1 % Crea, PLEASE SEE ATTACHED FOR DETAILED DIRECTIONS, Disp: , Rfl: , Last Dispense: Unknown (patient-reported) diclofenac sodium (VOLTAREN) 1 % Gel, Apply topically 4 (four) times a day., Disp: 50 g, Rfl: 1, Last Dispense: Unknown (outside pharmacy) ENBREL MINI 50 mg/mL (1 mL) subcutaneous injection, Inject 1 mL (50 mg total) under the skin once aweek., Disp: 12 mL, Rfl: 3, Last Dispense: Unknown (outside pharmacy) FREESTYLE LITE METER meter kit, Use as instructed, Disp: 1 each, Rfl: 0, Last Dispense: Unknown (outside pharmacy) FREESTYLE LITE Strp strips, 1 each by Miscellaneous route 4 (four) times a day before meals and nightly., Disp: 400 strip, Rfl: 3, Last Dispense: Unknown (outside pharmacy) guaiFENesin-codeine (ROBITUSSIN AC) 100-10 mg/5 mL liquid, Take 5 mL (10 mg of codeine total) by mouth 3 (three) times a day as needed for cough., Disp: 120 mL, Rfl: 0, Last Dispense: Unknown (outside pharmacy) insulin glargine U-300 (TOUJEO SOLOSTAR) 300 unit/mL (1.5 mL) subcutaneous injection pen, Inject 20Units under the skin nightly at bedtime., Disp: 9 mL, Rfl: 1, Last Dispense: Unknown (outside pharmacy) insulin pen needles, disposable, 31 gauge x 3/16 Ndle, 1 each by Miscellaneous route 4 (four) times a day before meals and nightly., Disp: 400 each, Rfl: 1, Last Dispense: Unknown (outside pharmacy) lancets (ACCU-CHEK FASTCLIX LANCET DRUM) Misc, 1 each by Miscellaneous route as needed., Disp: 400 each, Rfl: 1, Last Dispense: Unknown (outside pharmacy) lancets (ACCU-CHEK FASTCLIX LANCET DRUM) Misc, , Disp: , Rfl: , Last Dispense: Unknown (patient-reported) levothyroxine (SYNTHROID, LEVOTHROID) 112 MCG tablet, TAKE 1 TABLET BY MOUTH EVERY MORNING, Disp: 90 tablet, Rfl: 3, Last Dispense: Unknown (outside pharmacy) lidocaine (LIDODERM) 5 %, FOR PAIN 1 PATCH TOPICALLY UP TO 12 HOURS PER DAY TO AFFECTED AREA, Disp:, Rfl: , Last Dispense: Unknown (patient-reported) methocarbamoL (ROBAXIN) 750 MG tablet, Take 750 mg by mouth 3 (three) times a day as needed., Disp:, Rfl: , Last Dispense: Unknown (patient-reported) MULTIVITAMIN ORAL, Take by mouth., Disp: , Rfl: , Last Dispense: Unknown (patient-reported) NOVOLOG FLEXPEN U-100 INSULIN 100 unit/mL (3 mL) flexpen, 3 TIMES A DAY WITH MEALS BASED ON CORRECTION SCALE BELOW. 70-100 =6 UNIT 101-150 =8 UNITS 151-200 = 10 UNITS 201-250 =12 UNITS 251-300 =14 UNITS 301-350 =16 UNITS 351-400 =18 UNITS GREATER THAN 400 =20 UNITS, Disp: 15 mL, Rfl: 1, Last Dispense: Unknown (outside pharmacy) ondansetron (ZOFRAN-ODT) 4 MG disintegrating tablet, Take 1 tablet (4 mg total) by mouth every 8 (eight) hours as needed for nausea., Disp: 8 tablet, Rfl: 2, Last Dispense: Unknown (outside pharmacy) oxyCODONE (OXY-IR) 5 mg capsule, 5 mg., Disp: , Rfl: , Last Dispense: Unknown (patient-reported) peppermint oil liquid, Apply topically as needed. Indications: Apply to area of pain, Disp: , Rfl: , Last Dispense: Unknown (patient-reported) rosuvastatin (CRESTOR) 5 MG tablet, Take 1 tablet (5 mg total) by mouth daily., Disp: 90 tablet, Rfl: 1, Last Dispense: Unknown (outside pharmacy) semaglutide (OZEMPIC) 2 mg/dose (8 mg/3 mL) subcutaneous injection pen, Inject 2 mg under the skin every 7 days., Disp: 9 mL, Rfl: 1, Last Dispense: Unknown (outside pharmacy) sodium hyaluronate (EUFLEXXA) 10 mg/mL(mw 2.4 -3.6 million) injection syringe, Inject (1 syr per knee) 2 mL into the IA space of bilateral knees, once a week for three weeks, at doctor's office, Disp: 12 mL, Rfl: 0, Last Dispense: Unknown (outside pharmacy) topiramate (TOPAMAX) 50 MG tablet, , Disp: , Rfl: , Last Dispense: Unknown (patient-reported) Allergies Allergen Reactions Cephalosporins Rash Beef Derived (Bovine) Vomiting Beef Containing Products Nausea and/or Vomiting Bovine Cartilage Grass Pollen-Red Top, Standard Penicillins Objective: BP (!) 162/100 Wt 130.4 kg (287 lb 6.4 oz) LMP 01/30/2025 (Exact Date) BMI 44.35 kg/m?? Gen: Alert, cooperative. Well-appearing on today's exam ABDOMEN: Soft, non-tender. PELVIC: External Genitalia: Normal appearance, without lesions Urethral meatus: normal Vagina: normal appearance. Mucosa is pink, normal rugae. No discharge. No lesions. Cervix: Normal appearance, without discharge or lesions. Uterus: Non-tender Adnexa: Non-tender Assessment/Plan: 44 y.o. with: Problem List Items Addressed This Visit Vaginitis and vulvovaginitis Current Assessment & Plan Vaginitis panel collected Will follow up and treat as indicated Return if symptoms worsen or fail to improve. Mayra Gorman MD documented in this encounter Miscellaneous Notes * Assessment & Plan Note - Mayra Gorman MD - 02/07/2025 11:43 AM EDTAssociated Problem(s): Vaginitis and vulvovaginitis Vaginitis panel collected Will follow up and treat as indicated documented in this encounter Plan of Treatment Upcoming Encounters Date Type Department Care Team (Late st Contact Info) Description 02/03/2025 Procedure Pass [facility] - [address] [place] [address] 03/07/2025 3:15 PM EST Appointment [facility] - [address] [place] [address] Carlos Willingham MD [address] [facility], [address] [place] [address] 04/08/2025 9:45 AM EST Office Visit [facility] Orthopedics & Sports Medicine [address] [place] [address] [place] [address] Macario Ray DO [address] [place] [address] Orthopedics & Sports [facility], [facility] [place] [address] 07/17/2025 4:00 PM EDT Office Visit [facility] [address] [place] [address] Kirk Pérez DO [address] [place] [address] 12/16/2025 2:30 PM EDT Office Visit [facility] [address] [place] [address] Maxi Moreno MD [address] [place] [address], 2[address] [place] [address] documented as of this encounter Procedures Procedure Name Priority Date/Time Associated Diagnosis Comments HC NFCT DS BCT VAGINOSIS&VAGINITI S MULT AMP PROBE Routine 02/07/2025 12:14 PM EDT Vaginitis and vulvovaginitis documented in this encounter Results * (ABNORMAL) Vaginitis Panel (02/07/2025 12:14 PM EDT) Bacterial Vaginosis Negative Negative [facility] Freya Species Detected(A) Not Detected [facility] Freya glabrata Not Detected Not Detected [facility] Trichomonas Vaginalis Not Detected Not Detected [facility] Other (Vaginal) 02/07/2025 1 2:14 PM EDT 02/07/2025 3:18 PM EDT Mayra Gorman MD LAB GENERAL OR DERABLES Final Result Performing Organization Address City/State/[facility] Co de Phone Number [facility] [address] [place] [address] documented in this encounter Visit Diagnoses Diagnosis Vaginitis and vulvovaginitis- Primary documented in this encounter Additional Health Concerns Assessment Noted Time A Body Mass Index follow-up plan has been documented for the patient 12/08/2024 1:02 PM EDT PHQ-2 Depression Total Score: 0 12/07/19 25 12:56 PM EDT documented as of this encounter Care Teams Maintenance Operator Relationship Specialty Start Date End Date Maxi Moreno MD [address] [place] [address] PCP - General Internal Medicine 09/17/20 Oly Quintanilla MD [address] [place] [address] Historical LMR Provider 01/24/17 Kirk Pérez DO [address] [place] [address] Endocrinology 12/18/20 Halley Back MD [address] [place] [address] Rheumatology 12/18/20 Filemon East MD [address] [place] [phone] [email or web address] Physical Medicine and Rehabilitation 12/18/20 documented as of this encounter Additional Source Comments The information contained in this document represents components of the legal health record. It is not the complete legal health record.[facility]
--- NOTE | 2025-02-11 15:55 | A.OFFVIS_ITS ---
Vital Signs 02/11/25 16:01 Height 5 ft 9 in Weight 288 lb BMI 42.5 BP 148/69 H Blood Pressure Location Lt brachial Position Sitting Pulse 93 Pulse Source Pulse Oximeter Pulse Oximetry (%) 99 Oxygen Delivery Method Room Air Intake Visit Reasons: EMG FOLLOW UP Intake Note: Pain today 09/17 Chinese Herbalist Required: No Accompanied by: Self / Same As Patient Allergies Iodinated Contrast Media (Contrast Dye) Allergy (Intermediate, Verified 02/11/25 16:01) Hives penicillin G Allergy (Verified 02/11/25 16:01) Unknown beef derived (bovine) Adverse Reaction (Mild, Verified 02/11/25 16:01) Vomiting HPI Comments Details: The patient is a 44-year-old female presenting with right hip pain and back pain. The right hip pain has been persistent, and a hip injection is scheduled for March 20. The patient reports that the pain may be exacerbated by her work, which involves physical activity, and she has filled out an accident report at work due to the pain. Her recent EMG of right lower extremity was normal. The patient also has a history of fibroid uterus, which was identified during an internal ultrasound. She experienced significant pain following the ultrasound, leading to an emergency room visit, although the exact cause of the pain was not determined. 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 She has undergone diagnostic injections for arthritis, but they did not provide significant pain relief, indicating the presence of arthritis but not its prominence. PRIOR: The patient is a 44-year-old female presenting with right hip pain and associated conditions. The MRI findings of right hip revealed mild insertional tendinitis of the right gluteus medius and minimus tendons, mild right hamstring tendinopathy, right hip osteoarthritis, and a right hip labral tear. The patient has been experiencing muscle bumps, which referred to as muscle mice by her massage therapist, which are concerning to her and potentially might undergo Surgical evaluation. The patient has been referred to Orthopedics for further evaluation and also start physical therapy. We also discussed therapeutic right hip steroid injection. She has also been advised to follow up with her primary care physician regarding an incidental finding of a uterine lesion, possibly an atypical fibroid, for which an ultrasound is scheduled. The patient reports that the pain sometimes interferes with her sleep, although she generally sleeps well. She has been prescribed metocarbamol, a muscle relaxant, to be taken twice daily to help with muscle tightness and fibromyalgia. Denies any recent cough, cold, infection, fever or any significant changes in medical history since last office visit. PRIOR: The patient is a 44-year-old female presenting one week status post Bilateral Diagnostic L3-L4 DR L5 MBB on 12/19/[address] Lange. Patient reports 40-50% pain relief for 6-8 hours with partial improvement in her pain, mobility and functioning. She has moderate multilevel arthritis and severe disc degeneration, particularly at the L5-S1 level. Patient reports persistent low back pain with radiation into her right leg. She also reports more bothersome pain in her right hip with radiation into groin with internal rotation. Most recent hip x-rays revealed right hip demonstrating a small bony convexity at the femoral head-neck junction which could contribute to cam type femoral acetabular impingement and unremarkable left hip. Patient reports right leg numbness and tingling. Patient also reports chronic right ankle and foot discomfort and has been getting tibiotalar steroid injections. Denies any recent cough, cold, infection, fever or any other significant changes in medical history since last office visit. Past Procedures: 12/19/24: Bilateral Diagnostic L3-L4 DR L5 MBB-40-50% for 6-8 hours PRIOR: The patient is a 43-year-old female presenting with chronic low back pain. The pain has persisted for over a year without any specific inciting event and is primarily located in the lower back, radiating into the buttock area. X-rays have shown multilevel arthritis in the lumbar spine with moderate to marked loss of disc space, particularly at L5-S1, and a mild slippage at L4-L5. The patient also has a history of rheumatoid arthritis, diagnosed since the age of [age], and is currently managed with Enbrel. She reports a history of cervical radiculopathy and experiences occasional migraines. The patient has obstructive sleep apnea, previously managed with a CPAP machine, but it is no longer in use as per recent evaluations. She also has type 2 diabetes mellitus, which is well-controlled with an A1c of less than 6, and is currently on Ozempic for management. The patient reports fibromyalgia and experiences widespread body pain, including in the hands, hips and knees. She has undergone various interventions, including physical therapy, healthcare representative, TENS unit , knee gel injections, right subtalar injections, shoulder, hands, and neck injections, and acupuncture, with limited relief. - Onset: Pain has been present for over a year. - Quality: Described as aching, sharp, throbbing, dull, sore, tiring and shooting. - Location: Primarily in the lower back, radiating to the buttock and occasionally to the left hip. - Exacerbating factors: Sitting worsens the pain, while standing and walking are less painful. - Relieving factors: Minimal relief with Voltaren gel and occasional ibuprofen use. - Interference: Pain interferes with daily activities, particularly sitting. - Affect: Pain is constant and impacts daily activities, causing fatigue. - Analgesia: Uses Voltaren gel and occasional ibuprofen for pain relief. - Adverse Effects: No significant adverse effects reported from current pain management regimen. - Activities of Daily Living: Pain affects ability to sit for prolonged periods, impacting work and daily tasks. - Aberrant Drug Related Behaviors: No aberrant behaviors reported; patient uses CBD edibles for sleep aid. Oswestry Low Back Pain Disability Score=26 [facility] Medical History Left knee pain Cervical radiculopathy at C7 Obesity Sleep apnea Migraine JRA (juvenile rheumatoid arthritis) Hypothyroidism, unspecified Right knee pain On office analyst drug therapy Surgical History Hx of cholecystectomy Hx of section H/O left wrist surgery S/P foot surgery, right Family History Sister Rheumatoid arthritis Mother No problems noted. 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 - Reproductive: Reports fibroid uterus with associated pain. All systems reviewed & are unremarkable except as noted in HPI and below Physical Exam Vital Signs: Last Vital Signs Pulse 93 02/11/25 16:01 BP 148/69 H 02/11/25 16:01 Pulse Ox 99 02/11/25 16:01 Oxygen Delivery Method Room Air 02/11/25 16:01 BMI result Body Mass Index 42.5 General: Appears afebrile. Morbidly obese. Alert and oriented. Mood and affect appropriate. Follows and participates in conversation appropriately. Respiratory effort is unlabored. No cough. Able to transition from sit to stand unassisted. Ambulates with bilaterally normal heel strike and toe off. General: Yes no CVA tenderness Back/Spine/Pelvis Other: Limited lumbar ROM due to pain. Moderate groin pain with internal right hip rotations. Back: no CVA tenderness Cervical Spine: cervical ROM normal, cervical muscular tenderness, pain with cervical ROM and No Cervical spine tenderness Thoracic/Lumbar Spine: thoracic and lumbar spine normal to inspection, No Thoracic/lumbar spine scar(s), Lasegue's sign negative, straight leg raise negative bilaterally, pain with thoraco-lumbar ROM, paraspinal muscle tenderness, thoraco-lumbar ROM limited, No thoracic spinal tenderness and lumbar spinal tenderness (L4-S1) Sacroiliac joints: bilaterally tender to palpation Extrem General: Yes capillary refill normal, Yes no clubbing, cyanosis or edema and Yes no calf tenderness Results Reviewed Results Reviewed: XR SACRUM AND COCCYX, LUMBAR SPINE 12/29/23 CLINICAL INFORMATION: Low back pain for 8 months, no injury. COMPARISON: None available. TECHNIQUE: 5 views of the lumbar spine. 3 views of the sacrum/coccyx. FINDINGS: Lumbar Spine: Facet arthritis in the lower lumbar spine. Moderate multilevel lumbar spondylosis. Moderate loss of disc space height and hypertrophic change at L1-L2. Ghbqxfqr-tk-ekiwrx loss of disc space height and hypertrophic change at L5-S1. Mild grade 1 retrolisthesis of L4 on L5. Sacrum/Coccyx: Bilateral sacroiliac joints are maintained. Pubic symphysis is maintained. IMPRESSION: 1. Moderate multilevel lumbar spondylosis. 2. Facet arthritis in the lower lumbar spine. 3. Zsgbusog-wr-yzyyeh degenerative disc disease at L5-S1. XR BILATERAL HIPS WITH AP PELVIS 10/24/24 CLINICAL INFORMATION: M25.551 - Pain in right hip COMPARISON: None available. TECHNIQUE: AP and frog-leg lateral views of each hip. FINDINGS: Left hip: Joint space is congruent and not narrowed. There is mild bony convexity of the femoral head neck junction. No other abnormality. Right hip: Hip joint space is congruent without narrowing. There are no degenerative changes. IMPRESSION: Right hip demonstrates a small bony convexity at the femoral head-neck junction which could contribute to cam type femoral acetabular impingement. Left hip is unremarkable. MR hip RT wo con 01/16/25 CLINICAL HISTORY: M25.551 - Pain in right hip MR right hip without gadolinium Comparison: CR/SR - XR HIP 2 OR MORE VIEWS BILATERAL - 10/24/24 16:20 EDT Findings: No fractures. No pathologic bone lesions. Periarticular osteophyte formation at the right hip joint. No femoral neck bony protuberances. Normal acetabular version. No joint effusion. Linear high T2 signal intensity traverses the superolateral right hip labrum. Mild T2 signal elevation adjacent to the femoral insertion site of the right gluteus medius and minimus tendons. Moderate T2 signal elevation within the posteromedial aspect of the proximal right hamstring tendon. 32 mm heterogeneous signal intensity focus within the posterior intramural uterus with peripheral high and central low T2 signal intensity. IMPRESSION: 1. No acute findings. 2. Mild insertional tendinitis of the right gluteus medius and minimus tendons. 3. Mild right hamstring tendinopathy. 4. 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 5. Indeterminate uterine lesion, possibly representing an atypical fibroid. Ultrasound examination is recommended. NE electromyogram (EMG); NE nerve conduction velocity 01/29/25 FINDINGS: All motor and sensory nerves tested showed normal latencies, amplitudes and conduction velocities. Concentric needle EMG was performed in selected muscles of the right lower extremity and lumbar paraspinals. Study did not reveal signs of electric abnormalities as shown in the table above. IMPRESSION: 1. This is a normal study. 2. There is no electrodiagnostic evidence for peroneal neuropathy, tibial neuropathy, lumbosacral plexopathy, lumbar radiculopathy, or peripheral neuropathy. Assessment & Plan Assessment & Plan (1) Chronic lower back pain: Code(s): M54.50 - Low back pain, unspecified; G89.29 - Other chronic pain Category: Medical Qualifiers: Back pain laterality: midline Sciatica presence: without sciatica Qualified Code(s): M54.50 - Low back pain, unspecified; G89.29 - Other chronic p ain (2) Lumbosacral spondylosis: Code(s): M47.817 - Spondylosis without myelopathy or radiculopathy, lumbosacral region Category: Medical (3) Right hip pain: Code(s): M25.551 - Pain in right hip Category: Medical (4) Labral tear of right hip joint: Code(s): S73.191A - Other sprain of right hip, initial encounter Category: Medical (5) Hamstring tendinitis: Code(s): M76.899 - Other specified enthesopathies of unspecified lower limb, excluding foot Category: Medical (6) Osteoarthritis of right hip: Code(s): M16.11 - Unilateral primary osteoarthritis, right hip Category: Medical Plan EMG and NVC study findings were discussed with patient today, neurodiagnostic study was normal. The plan includes proceeding with the scheduled right hip injection on March 20 to address persistent right hip pain, with follow-up to assess the effectiveness of the treatment. The patient is advised to continue with physical therapy as recommended by the Orthopedic surgeon. For the fibroid uterus, the patient is scheduled for an MRI at the end of February to further evaluate the condition, as the ultrasound did not provide sufficient information. The patient is encouraged to follow up with her primary care physician and ASSISTANT MANAGER [employer]IRSIDE [employer]PERATIONS for further management of the fibroid and any related symptoms. All questions and concerns have been answered and patient agreed with the treatment plan. Follow up after hip injection and sooner as needed. Patient was informed and verbally consented to the use of an ambient scribe for clinic note documentation during this visit. Coding Level of Care Code Est Pt Level 4 (89510) Complex EM visit Add On G2211 Diagnoses Chronic midline low back pain without sciatica M54.50; G89.29 Back pain laterality: midline Sciatica presence: without sciatica Lumbosacral spondylosis M47.817 Right hip pain M25.551 Labral tear of right hip joint S73.191A Hamstring tendinitis M76.899 Osteoarthritis of right hip M16.11
[2025-02-11 16:01] VITALS: BP 148/69; PULSE 93; O2SAT 99; BMI 42.5
--- OUTSIDE RECORDS SUMMARY | 2025-02-11 18:18 | XMS_ITS | Encounter Summary ---
Author Organization [facility] Address [address] [facility] [address] [place] [address] Phone Care Team Providers Care Transport Rn Name Role Phone Oly Quintanilla MD Unavailable [phone] aMxi Moreno MD Primary Care Provider Kirk Pérez DO Unavailable Halley Back MD Unavailable Filemon East MD Unavailable Reason for Visit * Reason Onset Date Comments Cough 02/06/2024 Chills 02/06/2024 Ear Fullness 02/06/2024 Encounter Details Date Type Department Care Team (Late st Contact Info) Description 02/06/2024 Nurse Triage [facility] [address] [place] [address] [place] [address] Maxi Moreno MD [address] [place] [address], [address] [place] [address] [email or web address] Cough; Chills; Ear Fullness Social History Tobacco [...] high school, GED, job training, learning the Montenegr[place] language, technical skills, or developing parenting skills)? [...] advice?: No, wishes to speak to PCP [id number] Daisy Tracy RN Tue Feb 06, 2024 [...] either acetaminophen or ibuprofen. * They are jbgt-ymw-vuhqaqv (OTC) drugs that help treat both fever [...] ABX without ov to be sent to [facility] Dr. Rodriguez Reason for Disposition Continuous (nonstop) coughing interferes with work or school and no improvement using cough treatment per Care Advice Protocols used: Ptokn-TNDIN-WE * Marcelino Hopper - 02/06/2024 4:00 PM EDT Pt called in with a cough, chills, ear pressure, said their child is on antibiotics with similar symptoms. Please contact and advise. Central Support Manufacturing Team Member (Please do not reply to this user; this inbox is not monitored.) Thank you. documented in this encounter Plan of Treatment Upcoming Encounters Date Type Department Care Team (Late st Contact Info) Description 02/03/2025 Procedure Pass [address] [place] [address] 03/07/2025 3:15 PM EST Appointment [address] [place] [address] Carlos Willingham MD [address] [place] [address], [address] [place] [address] 04/08/2025 9:45 AM EST Office Visit [facility] [address] [place] [address] [place] [address] Macario Ray DO [address] [facility] [place] [address] 07/17/2025 4:00 PM EDT Office Visit [facility] [address] [place] [address] Kirk Pérez DO [address] [place] [address] 12/16/2025 2:30 PM EDT Office Visit [facility] [address] [place] [address] [place] [address] Maxi Moreno MD [address] [place] [address] documented as of this encounter Visit Diagnoses Not on filedocumented in this encounter Additional Health Concerns Assessment Noted Time A Body Mass Index follow-up plan has been documented for the patient 09/28/2023 3:19 PM EDT PHQ-2 Depression Total Score: 0 09/25/19 24 10:59 AM EDT documented as of this encounter Care Teams Transport Rn Relationship Specialty Start Date End Date Maxi Moreno MD [address] [place] [address] PCP - General Internal Medicine 09/17/20 Oly Quintanilla MD [address] [place] [address] Historical LMR Provider 01/24/17 Kirk Pérez DO [address] [place] [address] [email or web address] Endocrinology 12/18/20 Halley Back MD [address] [place] [address] Rheumatology 12/18/20 Filemon East MD [address] [place] [address] [email or web address] Physical Medicine and Rehabilitation 12/18/20 documented as of this encounter Additional Source Comments The information contained in this document represents components of the legal health record. It is not the complete legal health record.[facility]
--- OUTSIDE RECORDS SUMMARY | 2025-02-11 18:18 | XMS_ITS | Data Portability ---
Author Organization [place] - [facility] [address] Address [address] [place] [address] Care Team Providers Care Junior Linux Systems Administrator Name Role Phone DIVYA GAN Primary Care Provider Assessment No assessment recorded. Plan of Treatment Reminders Order Date Submit Date Provider Last Modified By Organization Details Last Modified Time Details Appointments None recorded. Lab None recorded. Referral None recorded. Procedures None recorded. Surgeries None recorded. Imaging None recorded. Medication Orders azithromyci n 250 mg tablet 2023 024 [id number], [address] [place] [address], [address], 4 15:24:20 benzonatate 200 mg capsule 2023 024 [id number], [address] [place], [address], 4 15:24:20 Patient TargetsNo targets recorded. Patient Instructions Encounter Date Encounter Id Patient Instructions Last Modified By Organization Details Last Modified Time 04/06/2024 [id number] pneumonia: care instructions [email or web address] Not available 04/06/2024 15:24:18 Reason for Referral None Reported. Problems Name Problem SNOMED Code Status Onset Date Resolution Date Notes Provider Name and Address Organization Details Recorded Time Diabetes mellitus 60130778 Active Fouzia Annie null, [place] - [facility] 15:04:54 Thyroiditis 45628820 Active Fouzia Annie null, [place] - [facility] 15:05:06 Rheumatoid arthritis 23262193 Active Fouzia Annie null, [place] - [facility] 4 15:05:29 Problem Notes None recorded. Medical Equipment None Reported. Allergies Allergen ID Allergen Name Allergen Category Reaction Reaction Severity Criticality Documentation Date Start Date Code Code System Note Provider Name and Address Organization Details Recorded Time 0046494 Product containin g penicilli n (product) medicatio n hives Not available Not available 04/06/2024 21787 8001 SNOMED Fouzia Valencia alphonso, [place] - [facility] 4 15:02:47 9047426 beef allergeni c extract food,medi cation vomiting Not available Not available 04/06/2024 39219 9 RxNorm Fouzia Hopeers null, [place] - [...] Not Available No t Available Dexcom G7 Computer Forwarding System Markup Clerk MONITOR CONTINUOU SLY active Not Available Not [...] Updated DateTime 4 175.26 cm 45.2 kg/m2 365584. 27 g 18 /min 98.3 [degF] 97 % 97 % 100 /min 138/80 mm[Hg] Fouzia LOUISE - [facility] 2020 15:07:33 Social History Question Answer Notes LastModified by Organizat ion Details LastModified Time Tobacco Smoking Status Never Smoker Fouzia werner [place] - [facility] 04/06/2024 15:06:02 Have You Had A Flu Shot This Season? Yes [email or web address] Information not available 04/06/2024 Have You Recently Traveled Abroad? No [email or web address] Information not available 04/06/2024 Sex: Unknown Functional Status Question Answer Note LastModified by Organizat ion Details LastModified Time Do you use any illicit or recreational drugs? No [email or web address] Information not available 04/06/2024 What is your level of alcohol consumption? None [email or web address] Information not available 04/06/2024 Mental Status None recorded. Family History Relationship Description Onset Age of this Age Resolved Age Notes LastModified by Organization Details LastModified Time Father No current problems or disability [email or web address] Not available 04/06 15:05:35 Mother No current problems or disability deceas ed Not available 04/06/2024 15:05:43 Medical History No medical history recorded. Gynecological History Statement/Question Response Date of LMP 03/23/2024 LMP Approximate Obstetrics History GPAL:G 0 P 0 0 0 0 Past Encounters Encounter ID Performer Location Encounter Start Date Encounter Closed Date Diagnosis/Indication Diagnosis SNOMED-CT Code Diagnosis ICD10 Code Diagnosis IMO Codes Diagnosis Note [id number] DANI Uribe [address] [place] [address] 04/06/2024 14:52:10 04/06/2024 15:24:52 Community acquired pneumonia 801880036 J18.9 Treatment is antibiotic s as prescribed [...] ID Hampton Member ID Guarantor Name 04/06/[address] [place] [address] ([facility] [id number] Liudmila Durán [id number] Liudmila Durán Notes Date Note Type Note Provider Name and Address Organization Details Recorded Time 04/06/2024 text/html 43 y/o female here with 2 weeks of cough, congestion, sore throat, worsening, lots of fatigue and body aches DANI Uribe [address] [place], [address], [place] - [facility] 04/06/2024 15:28:16 OBGyn Episode No OBEpisode recorded.
--- OUTSIDE RECORDS SUMMARY | 2025-02-11 18:18 | XMS_ITS | Clinical Summary ---
Author Organization [facility] Address [address] [place] [address] Care Team Providers Care Investment Banking Manager Name Role Phone Roger Glasgow MD Primary Care Provider [phone] Social History Tobacco Use Types Packs/Day Years [...] to complete this topic Insurance * Guarantor: [id number] AMHERST Account Type Relation to Patient Date of Phone Billing Address Worker's Comp [address] [place] [address] [facility] [address] [place], [place] [address] WORKERS COMPENSATION Care Teams Investment Banking Manager Relationship Specialty Start Date End Date Roger Glasgow MD [facility] [address] [place] [address] PCP - General Internal Medicine 10/19/12
--- OUTSIDE RECORDS SUMMARY | 2025-02-11 18:18 | XMS_ITS | Encounter Summary ---
Author Organization [facility] Address [address] [place] [address] [place] [phone] Phone Care Team Providers Care Edge Worker Name Role Phone Oly Quintanilla MD Unavailable [phone] Maxi Moreno MD Primary Care Provider [phone] Kirk Pérez DO Unavailable Halley Back MD Unavailable Filemon East MD Unavailable Encounter Details Date Type Department Care Team (Late st Contact Info) Description 09/25/2023 Procedure Pass [facility] - [address] [place] [address] Social History Tobacco Use Types Packs/Day Years [...] high school, GED, job training, learning the [place] language, technical skills, or developing parenting skills)? [...] st Contact Info) Description 02/03/2025 Procedure Pass [address] [place] [address] 03/07/2025 3:15 PM EST Appointment [address] [place] [address] Carlos Willingham MD [address] [facility], [address] [place] [address] 04/08/2025 9:45 AM EST Office Visit [facility] [address] [place] [address] [place] [address] Macario Ray DO [address] [place] [address] Orthopedics & Sports Medicine, [facility] [place] [address] 07/17/2025 4:00 PM EDT Office Visit [facility] [address] [place] [id number] Kirk Pérez DO [address] [place] [address] 12/16/2025 2:30 PM EDT Office Visit [facility] [address] [place] [address] [place] [address] Maxi Moreno MD [address] [place] [id number] documented as of this encounter Visit Diagnoses Not on filedocumented in this encounter Additional Health Concerns Assessment Noted Time A Body Mass Index follow-up plan has been documented for the patient 09/28/2023 3:19 PM EDT PHQ-2 Depression Total Score: 0 09/25/19 24 10:59 AM EDT documented as of this encounter Care Teams Edge Worker Relationship Specialty Start Date End Date Maxi Moreno MD [address] [place] [address] [place] [address] [email or web address] PCP - General Internal Medicine 09/17/20 Oly Quintanilla MD [address] [place] [address], [address] [place] [address] Historical LMR Provider 01/24/17 Kirk Pérez DO [address] [place] [id number] Endocrinology 12/18/20 Halley Back MD [address] [place] [id number] Rheumatology 12/18/20 Filemon East MD [address] [place] [phone] [email or web address] Physical Medicine and [facility] 12/18/20 documented as of this encounter Additional Source Comments The information contained in this document represents components of the legal health record. It is not the complete legal health record.[facility]
--- OUTSIDE RECORDS SUMMARY | 2025-02-11 18:19 | XMS_ITS | Clinical Summary ---
Author Organization [facility] Address [address] [place] [phone] Phone Care Team Providers Care Hazardous Substances Scientist Name Role Phone Oly Quintanilla MD Unavailable Maxi Moreno MD Primary Care Provider [phone] Kirk Pérez DO Unavailable Halley Back MD Unavailable Filemon East MD Unavailable Allergies Active Allergy Reactions Criticality Noted Date Comments Beef Containing Products Nausea and/or Vomiting 06/26/2017 Beef Derived (Bovine) Vomiting Medium 04/13/2024 Bovine Cartilage 05/03/2022 Cephalosporins Rash High 06/02/2023 Grass Pollen-Red Top, Standard 05/03 Penicillins 05/17/2017 Medications peppermint oil liquidIndications: Apply to area of pain Apply topically as needed. Indications: Apply to area of pain Active FREESTYLE LITE Strp stripsIndications: Type 2 diabetes mellitus with hyperglycemia, unspecified whether intermediate insulin use 1 each by Miscellaneous route 4 (four) times a day before meals and nightly. 400 strip 3 09/30/19 21 Active FREESTYLE LITE METER meter kitIndications:Typ e 2 diabetes mellitus with hyperglycemia, unspecified whether intermediate insulin use Use as instructed 1 each 09/30/19 Active lancets (ACCU-CHEK FASTCLIX LANCET DRUM) MiscIndications:Ty pe 2 diabetes mellitus with hyperglycemia, unspecified whether intermediate insulin use 1 each by Miscellaneous route as needed. 400 each 1 03/11/20 21 Active MULTIVITAMIN ORAL Take by mouth. Active DENTA 5000 PLUS 1.1 % Crea PLEASE SEE ATTACHED FOR DETAILED DIRECTIONS 06/09/19 23 Active ENBREL MINI 50 mg/mL (1 mL) subcutaneous injectionIndicatio ns:Rheumatoid arthritis, involving unspecified site, unspecified whether rheumatoid factor present Inject 1 mL (50 mg total) under the skin once a week. 12 mL 3 01/17/20 23 Active blood-glucose meter,continuous (DEXCOM G7 MASK INSPECTOR) MiscIndications:Ty pe 2 diabetes mellitus without complication, with long-term current use of insulin Monitor continuously 1 each 04/20/19 24 Active ondansetron (ZOFRAN-ODT) 4 MG disintegrating tablet Take 1 tablet (4 mg total) by mouth every 8 (eight) hours as needed for nausea. 8 tablet 2 06/02/19 24 Active lancets (ACCU-CHEK FASTCLIX LANCET DRUM) [facility] Active topiramate (TOPAMAX) 50 MG tablet Active albuterol 90 mcg/actuation inhalerIndications :Other pneumonia, unspecified organism Inhale 2 puffs into the lungs every 6 (six) hours as needed for wheezing. 8 g 04/16/19 25 Active guaiFENesin-codein e (ROBITUSSIN AC) 100-10 mg/5 mL liquidIndications: Other pneumonia, unspecified organism Take 5 mL (10 mg of codeine total) by mouth 3 (three) times a day as needed for cough. 120 mL 04/16/19 25 Active sodium hyaluronate (EUFLEXXA) 10 mg/mL(mw 2.4 -3.6 million) injection syringeIndications :Bilateral knee pain,Primary osteoarthritis of both knees Inject (1 syr per knee) 2 mL into the IA space of bilateral knees, once a week for three weeks, at doctor's office 12 mL 07/23/19 25 Active levothyroxine (SYNTHROID, LEVOTHROID) 112 MCG tabletIndications: Acquired hypothyroidism TAKE 1 TABLET BY MOUTH EVERY MORNING 90 tablet 3 09/14/19 25 Active insulin pen needles, disposable, 31 gauge x /16 NdleIndications:Ty pe 2 diabetes mellitus without complication, with long-term current use of insulin 1 each by Miscellaneous route 4 (four) times a day before meals and nightly. 400 each 1 09/26/19 25 Active lidocaine (LIDODERM) 5 % FOR PAIN 1 PATCH TOPICALLY UP TO 12 HOURS PER DAY TO AFFECTED AREA 11/27/19 25 Active blood-glucose sensor (DEXCOM G7 SENSOR) DeviIndications:Ty pe 2 diabetes mellitus without complication, with long-term current use of insulin CHANGE SENSOR EVERY 10 DAYS 3 each 3 12/28/19 25 Active semaglutide (OZEMPIC) 2 mg/dose (8 mg/3 mL) subcutaneous injection penIndications:Typ e 2 diabetes mellitus without complication, with long-term current use of insulin Inject 2 mg under the skin every 7 days. 9 mL 1 01/10/20 25 Active NOVOLOG FLEXPEN U-100 INSULIN 100 unit/mL (3 mL) flexpenIndications :Type 2 diabetes mellitus without complication, with [...] SOLOSTAR) 300 unit/mL (1.5 mL) subcutaneous injection penIndications:Typ e 2 diabetes mellitus without complication, with long-term current use of insulin Inject 20 Units under the skin nightly at bedtime. 9 mL 1 01/10/20 25 Active rosuvastatin (CRESTOR) 5 MG tabletIndications: Type 2 diabetes mellitus without complication, with long-term current use of insulin Take 1 tablet (5 mg total) by mouth daily. 90 tablet 1 01/10/20 25 Active oxyCODONE (OXY-IR) 5 mg capsule 5 mg. 01/31/20 25 Active methocarbamoL (ROBAXIN) 750 MG tablet Take 750 mg by mouth 3 (three) times a day as needed. 01/24/20 25 Active diclofenac sodium (VOLTAREN) 1 % Gel Apply topically 4 (four) times a day. 50 g 1 02/06/20 25 Active fluconazole (DIFLUCAN) 150 MG tablet Take one tablet now and one tablet in 3 days 2 tablet 02/11/20 25 Active Active Problems Problem Noted Date Diagnosed Date Vaginitis and vulvovaginitis 02/07/2025 Assessment & Plan (02/07/2025 11:43 AM EDT): Vaginitis panel collected Will follow up and treat as indicated Mixed hyperlipidemia 01/09/2025 Assessment & Plan (01/09/2025 [...] of Trulicity 0.75 mg weekly Lot # [id number] expiration 04/20/2022. Assessment & Plan (10/28/2020 12:20 [...] that she has an appointment with the inclusion special educator in approximately 2 weeks and [...] and also refer her to see the inclusion special educator for nutrition counseling. She will follow in 4 weeks time. LDL levels have been in the reference range without any statins. Urine microalbumin creatinine ratio has been ordered. I will request a CBC. Rheumatoid arthritis 07/09/2020 Assessment & Plan (12/08/2024 1:02 PM EDT): Stable. Assessment & Plan (09/24/2022 1:50 PM EDT): This is managed by her hadoop developer. Use of steroids for this prompted her [...] Encounters Date Type Department Care Team Description 02/10/2025 Orders Only [facility] [address] [place] [address] [place] [address] Margy Hankins MD 02/07/2025 10:50 AM EDT Office Visit [facility] [address] [place] [address] [place] [address] Chihombori-Quao, Margy Georgiana Anabelle, MD Vaginitis and vulvovaginitis (Primary Dx) 02/05/2025 Telephone [facility] [address] [place] [address] Oxana Sol LPN Vaginitis 02/03/[address] [place] [address] Maxi Moreno MD Forms & Paperwork 02/03/2025 Telephone [facility] [address] [place] [address] Madison Locke LPN Follow-up 02/03/2025 Telephone [facility] Orthopedics & Sports Medicine [address] [place] [address] Macario Ray, DO ?? appt w/Dr Ray 01/30/2025 3:17 PM EDT - 01/30/2025 11:59 PM EDT Hospital Encounter [facility] Imaging [address] [place] [address] Celine, MD Celine Discharge Disposition: Home or Self Care 01/30/2025 11:20 AM EDT Office Visit [facility] [address] [place] [address] [place] [address] Carlos Willingham MD Lower abdominal pain (Primary Dx); Fibroids 01/30/2025 Ancillary Orders [facility]Outside Imaging [address] [place] [address] Celine, MD Celine 01/30/[address] [place] [address] Maxi Moreno MD Follow-up 01/29/2025 1:36 PM EDT - 01/29/2025 11:59 PM EDT Hospital Encounter [facility] - [address] [place] [address] Maxi Moreno MD Discharge Disposition: Home or Self Care 01/28/2025 Ancillary Orders [facility]Outside Imaging [address] [place] [address] Unknown, MD Celine 01/28/2025 Ancillary Orders [facility]Outside Imaging [address] [place] [address] Unknown, MD Celine 01/17/2025 Telephone [facility] [address] [place] [address] Nadia Loya Imaging order 01/17/20[address] Orders [address] [facility] [address] [place] [address] Unknown, Unknown, 01/16/2025 - 01/16/2025 11:59 PM EDT Hospital Encounter [facility]Outside Imaging [address] [place] [address] Unknown, Unknown, Discharge Disposition: Home or Self Care 01/09/2025 4:00 PM EDT Office Visit [facility] [address] [place] [address] Kirk Pérez DO Type 2 diabetes mellitus without complication, with long-term current use of insulin (Primary Dx); Mixed hyperlipidemia 12/21/2024 9:14 AM EDT - 12/21/2024 11:59 PM EDT Hospital Encounter [facility] [address] [place] [address] Maxi Moreno MD Discharge Disposition: Home or Self Care 12/21/2024 Refill [facility] [address] [place] [address] Kirk Pérez DO Med Change Request; Patient Returned Call 12/06/2024 1:15 PM EDT Office Visit [facility] [address] [place] [address] [place] [address] Maxi Moreno MD Encounter for general adult medical examination with abnormal findings (Primary Dx); RIAN (obstructive sleep apnea); Essential hypertension; Type 2 diabetes mellitus without complication, with long-term current use of insulin; Morbid obesity; Acquired hypothyroidism; Hypertriglyceridemia; Rheumatoid arthritis, involving unspecified site, unspecified whether rheumatoid factor present 12/06/2024 Orders Only [facility] [address] [place] [address] Kirk Pérez DO Type 2 diabetes mellitus without complication, with long-term current use of insulin (Primary Dx) 12/02/2024 4:15 PM EDT Office Visit [facility]ics & Sports Medicine [address] [place] [address] Howard Fulton MD Rheumatoid arthritis, involving unspecified site, unspecified whether rheumatoid factor present (Primary Dx) 12/02/2024 Telephone [facility] [address] [place] [address] Luisa Quevedo MA 11/26/2024 Orders Only [facility] & Sports Medicine [address] [place] [address] Ten Sosa MA Right foot pain (Primary [...] Pressure 162/100 02/07/2025 11:05 AM EDT Pulse 95 01/09/2025 3:54 PM EDT Temperature 36.2 C (97.2 F) 04/16/2024 10:43 AM EST Respiratory Rate - - Oxygen Saturation 97% 12/06/2024 1:23 PM EDT Inhaled Oxygen Concentration - - Weight 130.4 kg (287 lb 6.4 oz) 025 11:05 AM EDT Height 171.5 cm (5' 7.5 ) 01/30/2025 11 :27 AM EDT Body Mass Index 44.35 01/30/2025 11:27 AM EDT Plan of Treatment Upcoming Encounters Date Type Department Care Team (Late st Contact Info) Description 02/03/2025 Procedure Pass [address] [place] [address] 03/07/2025 3:15 PM EST Appointment [address] [place] [address] Carlos Willingham MD [address] [facility], [address] [place] [address] 04/08/2025 9:45 AM EST Office Visit [facility] Sports [address] [place] [address] Macario Ray DO [address] [place] [address] Orthopedics & Sports Medicine, [facility] [place] [address] 07/17/2025 4:00 PM EDT Office Visit [facility] [address] [place] [address] [place] [address] Kirk Pérez DO [address] [place] [address] 12/16/2025 2:30 PM EDT Office Visit [facility] [address] [place] [address] Maxi Moreno MD [address] [place] [address], [address] [place] [address] Health Maintenance Due Date Last Done Comments HIV ONE-TIME SCREENING (18-65 YEARS) 11/17/1999 PNEUMOCOCCAL VACCINES (0-49 years) (3 of 3 - PCV20 or PCV21) 05/08/2021 03/13/2021, 03/16/2011 INFLUENZA VACCINE (#1) 2024 4, 02/15/2023, 02/12/2022, Additional history exists COVID-19 VACCINE ( season) 2024 01/05/2024, 02/19/2023, 02/12/2022, Additional history exists HEMOGLOBIN A1C 06/20/2025 12/21/2024, 09/08, 03/22/2024, Additional history exists BLOOD PRESSURE 08/07/2025 02/07/2025 PAP SMEAR 09/17/2025 09/17/2020 URINE MICROALBUMIN/CREATININE RATIO 09/17/2025 09/17/2024, 09/19/2023, 09/09/2022, Additional history exists DIABETIC EYE EXAM 11/26/2025 11/26/2024 DEPRESSION SCREENING 12/06/2025 12/06/2024 TSH LEVEL 12/21/2025 12/21/2024, 12/09, 09/21/2022, Additional history exists MAMMOGRAM 01/09/2026 01/10/2024, 08/2021, 10/12/2021, Additional history exists Adult Td,Tdap [...] Associated Diagnosis Comments HC NFCT DS BCT VAGINOSIS&VAGINITIS MULT AMP PROBE Routine 02/07/2025 12:14 PM EDT Vaginitis and vulvovaginitis CT ABDOMEN/PELVIS OUTSIDE (NO INTERPRETATION) Routine 01/30/2025 3:17 PM EDT US PELVIS TRANSABDOMINAL PLUS TRANSVAGINAL Routine 01/29/2025 2:59 PM EDT Uterine fibroid OUTSIDE IMAGING Routine 01/16/2025 12:18 PM EDT [...] 11/26/2024 11:28 AM EDT Right foot pain MICROALBUMIN/CREATININ E RATIO, RANDOM URINE Routine 09/17/2024 [...] Recently Relevant to Health Maintenance Results * (ABNORMAL) Vaginitis Panel (02/07/2025 12:14 PM EDT) Bacterial Vaginosis Negative Negative [facility] Freya Species Detected(A) Not Detected [facility] Freya glabrata Not Detected Not Detected [facility] Trichomonas Vaginalis Not Detected Not Detected [facility] Other (Vaginal) 02/07/2025 1 2:14 PM EDT 02/07/2025 3:18 PM EDT us Margy Hankins MD LAB GENERAL OR DERABLES Final Result Performing Organization Address City/State/[facility] [[email or web address]] Co de Phone Number [address] [address] * CT Abdomen/Pelvis Outside (No Interpretation) (01/30/2025 3:17 PM EDT) Narrative SYSTEMGENERATED, DOCUMENTATION - 01/30/2025 3:17 PM EDT This study is for PACS storage only and not for interpretation. us Unknown Unknown IMG OUTSIDE IMAGING W/OUT INT ERPRETATION Final Result * US PELVIS TRANSABDOMINAL PLUS TRANSVAGINAL (01/29/2025 2:59 PM EDT) MGB IMG RECOMMENDATION COMMENT uterine lesions [facility] Anatomical Region Laterality Modality Pelvis, Uterus/Adnexa Ultrasound 01/29/2025 3:01 PM EDT Impressions 01/29/2025 3:06 PM EDT 1. Echogenic intramural uterine lesions measuring up to 2.7 cm. Leading differential is lipoleiomyoma, but follow-up pelvic MRI is recommended for comprehensive characterization. 2. The ovaries are sonographically normal. RECOMMEND: MRI pelvis between 0 months and 3 months for uterine lesions. Follow-up recommendations were communicated and documented using a closed loop communication system. Narrative 01/29/2025 3:06 PM EDT US PELVIS TRANSABDOMINAL AND TRANSVAGINAL Referring clinician's provided indication for this examination in [facility]: Uterine fibroid suspected TECHNIQUE: Pelvic Ultrasound Transabdominal performed for global imaging of the pelvis. Pelvic Ultrasound Transvaginal performed for detailed imaging of the endometrium and/or adnexa. COMPARISON: Hip MRI dated 01/16/2025 FINDINGS: LMP: One month ago Uterus: Size: 11.2 x 5.9 x 5.4 cm. Orientation: anteverted Myometrium: Echogenic intramural lesion in the posterior wall measures 2.7 x 1.7 x 2.7 cm. Echogenic renal lesion anterior wall measures 0.6 x 0.8 x 0.5 Endometrium: No focal abnormality. Thickness: 11 mm. Right adnexa: Ovary: The right ovary is sonographically normal measuring 3.4 x 1.9 x 2.6 cm. Left adnexa: Ovary: The left ovary is sonographically normal measuring 8.1 x 1.8 x 2.1 cm. Free fluid: No significant free fluid. Procedure Note Kirk Murguia MD - 01/29/2025 US PELVIS TRANSABDOMINAL AND TRANSVAGINAL Referring clinician's provided indication for this examination in [facility]:Uterine fibroid suspected TECHNIQUE: Pelvic Ultrasound Transabdominal performed for global imagingof the pelvis. Pelvic Ultrasound Transvaginal performed for detailedimaging of the endometrium and/or adnexa. COMPARISON: Hip MRI dated 01/16/2025 FINDINGS: LMP: One month ago Uterus: Size: 11.2 x 5.9 x 5.4 cm. Orientation: anteverted Myometrium: Echogenic intramural lesion in the posterior wall measures2.7 x 1.7 x 2.7 cm. Echogenic renal lesion anterior wall measures 0.6 x 0.8 x 0.5 Endometrium: No focal abnormality. Thickness: 11 mm. Right adnexa: Ovary: The right ovary is sonographically normal measuring 3.4 x 1.9 x 2.6 cm. Left adnexa: Ovary: The left ovary is sonographically normal measuring 8.1 x 1.8 x 2.1 cm. Free fluid: No significant free fluid. IMPRESSION: 1. Echogenic intramural uterine lesions measuring up to 2.7 cm. Leadingdifferential is lipoleiomyoma, but follow-up pelvic MRI is recommended forcomprehensive characterization. 2. The ovaries are sonographically normal. RECOMMEND: MRI pelvis between 0 months and 3 months for uterine lesions. Follow-up recommendations were communicated and documented using a closedloop communication system. Maxi Moreno MD IMG US PELVIS Final Resul t * Outside Imaging Report Only (01/16/2025 12:18 PM EDT) us Unknown Unknown IMG XR CHEST Final Result * MRI Pelvis (Bone) Outside (No Interpretation) (01/16/2025 12:00 AM EDT) Narrative SYSTEMGENERATED, DOCUMENTATION - 01/28/2025 9:53 AM EDT This study is for PACS storage only and not for interpretation. us Unknown Unknown IMG OUTSIDE IMAGING W/OUT INT ERPRETATION Final Result * Hemoglobin A1c (12/21/2024 9:18 AM EDT) HEMOGLOBIN A1C 5.3 4.3 - 5.8 % [facility] Blood 12/21/2024 9:18 AM EDT 12/21/2024 9:25 AM EDT Kirk Pérez DO LAB BLOOD BKR ORDERABLES Final R esult [address] [address] * (ABNORMAL) Lipid panel (12/21/2024 9:18 AM EDT) HDL 43 mg/dL [facility] Comment: Interpretation <40 mg/dL: Low HDL cholesterol (major risk factor for CHD) Greater than or equal to 60 mg/dL: High HDL cholesterol ( negative risk factor for CHD) HDL - cholesterol is affected by a number of factors, e.g. smoking, excerise, hormones, sex and age. CHOLESTEROL 172 0 - 240 mg/dL [facility] TRIGLYCERIDES 199(H) 30 - 160 mg/dL [facility] LDL 89 50 - 129 mg/dL [facility] Comment: LDL levels in terms of risk for coronary heart disease: <100 mg/dL: Optimal 100-129 mg/dL: Near or above optimal 130-159 mg/dL: Borderline high 160-189 mg/dL: High >190 mg/dL: Very High CARDIAC RISK RATIO 4.0 3.3 - 4.4 C [facility] Blood 12/21/2024 9:18 AM EDT 12/21/2024 9:25 AM EDT us Kirk Pérez DO LAB BLOOD BKR ORDERABLES Final R esult [address] [address] * TSH with reflex (12/21/2024 9:16 AM EDT) TSH 2.55 0.27 - 4.20 uIU/mL [facility] Blood 12/21/2024 9:16 AM EDT 12/21/2024 9:24 AM EDT us Maxi Moreno MD LAB BLOOD BKR ORDERABLES Fi nal Result Performing Organization Address City/[facility]/ZIP Co de Phone Number [address] [address] * DIABETES EYE EXAM FOR RESULT ENTRY ONLY (11/26/2024 4:06 PM EDT) us Historical Provider HEALTH MAINTENANCE Edited Result - Final * Microalbumin/creatinine ratio, random urine (09/17/2024 3:56 PM EDT) URINE MICROALBUMIN <1.2 0 - 2.3 mg/dL [facility] URINE CREATININE 197 mg/dL [facility] MICROALB/CRE RATIO NOT CALCULATED 0 - 20 mg/g Cre [facility] Comment:due to Microalbumin <1.2 Urine (Urine) 09/17/2024 3:5 6 PM EDT 09/17/2024 4:03 PM EDT Kirk Pérez DO LAB URINE ORDERABLES Final Resul t Performing Organization Address City/[facility]/ZIP Co de Phone Number [address] [address] * Hepatitis C antibody, qualitative (09/17/2024 3:43 PM EDT) HCV NON-REACTIV E NON-REACTI VE [facility] Blood 09/17/2024 3:43 PM EDT 09/17/2024 4:07 PM EDT Della Wolff MD LAB BLOOD BKR O RDERABLES Final Result Performing Organization Address City/[facility]/ZIP Co de Phone Number [address] [address] * BI MAMMOGRAM SCREENING WITH TOMOSYNTHESIS WITH [...] SEE NARRATIVE - 09/23/2020 10:14 [place] [address] Expansion Joint Builder: Fouzia Malave MD VIDEO TECHNICIAN Cytology Report FINAL DIAGNOSIS A. PAP SMEAR [...] 52, 56, 58, 59, 66, 68) by [employer] HR-HPV analysis. Clinical correlation is advised. This HPV test was performed at [facility], [address] [place] [address]. This test has been FDA approved for [facility] cervical cytology specimens. The accuracy and precision of this test for all other specimen sources has been verified in the Cytopathology Laboratory of the [facility] and has not been cleared or approved by the U.S. Food and Drug Administration. Clinical correlation is advised. CLINICAL HISTORY Date of Last Menstrual Period: 08-17-2020 Other Clinical Conditions: Screening Pap SPECIMEN SOURCE A: PAP SMEAR (SUREPATH) CE Patient Name: LIUDMILA DURÁN : 1980 (Age: 39) Sex: F Institution: [facility] Location: [facility] Date of Collection: 09/17/2020 Date of Reported: 09/23/2020 10:14 Results to: Oly Quintanilla MD, [facility], B us Oly A Dwight MAY CYTOLOGY ORDERABLES Final Res ult SEE NARRATIVE from Last 3 Months or Most Recently Relevant to Health Maintenance Insurance O O O O O O O O O [facility] HMO [employer]ANCE [facility] Care Teams Hazardous Substances Scientist Relationship Specialty Start Date End Date Maxi Moreno MD [address] [place] [phone] [email or web address] PCP - General Internal Medicine 09/17/20 Oly Quintanilla MD [address] [place] [phone] [email or web address] Historical LMR Provider 01/24/17 Kirk Pérez DO [address] [place] [phone] [email or web address] Endocrinology 12/18/20 Halley Back MD [address] [place] [id number] Rheumatology 12/18/20 Filemon East MD [address] [place] [id number] [email or web address] Physical Medicine and Rehabilitation 12/18/20 Additional Source Comments The information contained in this document represents components of the legal health record. It is not the complete legal health record.[facility]
--- OUTSIDE RECORDS SUMMARY | 2025-02-11 18:19 | XMS_ITS | Data Portability ---
Author Organization [place] [facility] Yvette Syed [place] Address [address] [place] [address] Care Team Providers Care Hand Button Splitter Name Role Phone DIVYA GAN Primary Care Provider DIVYA GAN Referring Provider Assessment Encounter Date Assessment Date Assessment LastModified by Organization Details LastModified Time 02/04/2025 02/04/2025 I had a lengthy discussion with her. The etiology of her somewhat nonfocal pain is difficult to determine. She has an element of low back pain, right hip pain, greater trochanteric pain syndrome, and nonspecific leg pain with associated paresthesias. Per her report she has an underlying diagnosis of rheumatoid arthritis on Enbrel. This could be a contributing factor. I cannot rule out an underlying systemic problem such as fibromyalgia. Looking at her imaging she has very mild degenerative changes in the hip. She may have a small nondisplaced labral tear. Unclear whether this is contributory to her overall symptom complex. I told her today that I do not believe that her radiating pain down her leg or her numbness and tingling symptoms would be related to the hip. She should continue treatment with her painter structural steel for further evaluation and workup of her back. She came today thinking that she needed a right total hip replacement. She has had minimal treatment intervention directed at her hip. She has minimal degenerative changes and in my mind is not a candidate for hip replacement. She is not currently a candidate to consider any type of hip arthroscopy. I suggest starting with a course of physical therapy for the right hip. She may benefit from an intra-articular injection for both diagnostic/ther apeutic purposes. She needs to work on her overall conditioning. She may return to the office in 5 to 6 weeks for recheck. Once again I recommend she continue treatment with her painter structural steel. At present we are not anticipating any need for surgery for the right hip. [email or web address] Not available 02/04/2025 12:53:43 Plan of Treatment Reminders Order Date Submit Date Provider Last Modified By Organization Details Last Modified Time Details Appointments FOLLOW UP 2024 10:15A M LAURENCE SANZ PA-C Not available Not available Not available Lab None recorded . Referral None recorded . Procedures None recorded . Surgeries None recorded . Imaging None recorded . Medication Orders None recorded . Patient TargetsNo targets recorded. Patient InstructionsNo instructions recorded. Reason for Referral None Reported. Results Created Date Observation Date Name Description Value Unit Range Abnormal Flag Note LastModifiedBy Organization Detail LastModifiedTime 02/05/20 25 XR, sacru m + coccy x No observ ation record ed. [email or web address] Not Available 2024 16:08:37 02/05/20 25 XR, hip, bilat eral, 2 view No observ ation record ed. [email or web address] Not Available 2024 16:10:14 02/05/20 25 XR, hip + pelvi s, bilat eral No observ ation record ed. [email or web address] Not Available 2024 16:14:57 02/05/20 25 XR, hip, bilat eral No observ ation record ed. [email or web address] Not Available 2024 16:18:04 Result Notes None recorded. Problems Name Problem SNOMED Code Status Onset Date Resolution Date Notes Provider Name and Address Organization Details Recorded Time Pain of hip region 71186145 Active [address], [place], [address] , [place] [facility] 5 15:16:49 Low back pain 663249790 Active [address], [place], [address] , [place] [facility] 5 12:47:33 Body mass index 40+ - severely obese 497968299 Active [address], [place], [address] , [facility] 12:47:43 Problem Notes None recorded. Procedures Surgical History Date Name Laterality Status Provider Name and Address Organization Details Recorded Time [facility] of wrist [facility] 10:16:04 [facility]le/Foot [facility] [place] [facility] 02/04/2025 10:16:15 Imaging Results None recorded. Procedure Notes None recorded. Medical Equipment None Reported. Allergies Allergen ID Allergen Name Allergen Category Reaction Reaction Severity Criticality Documentation Date Start Date Code Code System Note Provider Name and Address Organization Details Recorded Time 310171 Product containin g penicilli n (product) medicatio n Not available Not available Not available 02/04/2025 62731 8001 [facility]ED [facility]:52 513788 heparin, bovine Not available Not available Not available Not available 02/04/2025 27287 73 RxNorm Johanny Song [facility], [facility] 10:14:09 Medications Name Sig Start Date Stop Date Status Note LastModified by Organization Details LastModified Time azithromyci n 250 mg tablet TAKE 2 TABLETS BY MOUTH TODAY, THEN TAKE 1 TABLET DAILY FOR 4 DAYS DIRECTED 02/04 completed Not Available Not Available Not Available benzonatate 200 mg capsule TAKE 1 CAPSULE BY MOUTH THREE TIMES A DAY FOR 5 DAYS active Not Available Not Available No t Available methocarbam ol 750 mg tablet TAKE 1 TABLET BY MOUTH 3 TIMES A DAY NEEDED FOR MUSCLE SPASMS active Not Available Not Available No t Available doxycycline monohydrate 100 mg capsule TAKE 1 CAPSULE BY MOUTH TWICE A DAY FOR 10 DAYS 02/04 completed Not Available Not Available Not Available lidocaine 5 % topical patch FOR PAIN 1 PATCH TOPICALLY UP TO 12 HOURS PER DAY TO AFFECTED AREA active Not Available Not Available No t Available oxycodone 5 mg capsule TAKE 1 CAPSULE BY MOUTH EVERY 6 HOURS NEEDED FOR PAIN active Not Available Not Available No t Available codeine 10 mg-guaifene sin 100 mg/5 mL oral liquid TAKE 5 MILLILITE RS BY MOUTH 3 TIMES A DAY NEEDED FOR COUGH active Not Available Not Available No t Available lorazepam 1 mg tablet TAKE 1 TAB BY MOUTH ONCE FOR ANXIETY 30 MINUTES PRIOR TO ARRIVAL TO PROCEDURE active Not Available Not Available No t Available albuterol sulfate HFA 90 mcg/actuati on aerosol inhaler INHALE 2 PUFFS INTO THE LUNGS EVERY 6 HOURS NEEDED FOR WHEEZE active Not Available Not Available No t Available ondansetron 4 mg disintegrat ing tablet TAKE 1 TABLET BY MOUTH EVERY 8 HOURS NEEDED FOR NAUSEA/VO MITING active Not Available Not Available No t Available levothyroxi ne 112 mcg tablet TAKE 1 TABLET BY MOUTH EVERY MORNING active Not Available Not Available No t Available Novolog FlexPen U-100 Insulin aspart 100 unit/mL (3 mL) subcutaneou s PLEASE SEE ATTACHED FOR DETAILED DIRECTION S active Not Available Not Available No t Available rosuvastati n 5 mg tablet TAKE 1 TABLET (5 MG TOTAL) BY MOUTH DAILY. active Not Available Not Available No t Available levothyroxi ne active Not Available Not Available Not Available methocarbam ol active Not Available Not Available Not Available Enbrel active Not Available Not Availa ble Not Available rosuvastati n active Not Available Not Available Not Available Toujeo SoloStar U-300 Insulin 300 unit/mL (1.5 mL) subcutaneou s pen INJECT 20 UNITS UNDER THE SKIN NIGHTLY AT BEDTIME. active Not Available Not Available No t Available Tresiba FlexTouch U-100 insulin 100 unit/mL (3 mL) subcutaneou s pen INJECT 20 UNITS UNDER THE SKIN DAILY active Not Available Not Available No t Available Ozempic active Not Available Not Avail able Not Available Ozempic 1 mg/dose (4 mg/3 mL) subcutaneou s pen injector INJECT 1 MG UNDER THE SKIN EVERY 7 DAYS active Not Available Not Available No t Available Ozempic 2 mg/dose (8 mg/3 mL) subcutaneou s pen injector INJECT 2 MG SUBCUTANE OUSLY EVERY 7 DAYS active Not Available Not Available No t Available Dexcom G7 Sensor device DIRECTED CHANGE EVERY 10 DAYS active Not Available Not Available No t Available Vitals Date Recorded Body height Body mass index (BMI) Body weight Provider Name and Address Organization Details Last Updated DateTime 02/04/2025 172.72 cm 44.1 kg/m2 327882.[address] [place] [facility] 02/04/2025 10:14:17 Social History Question Answer Notes LastModified by Organizat ion Details LastModified Time Tobacco Smoking Status Never Smoker Johanny Song [place], [place] [facility] 02/04/2025 10:14:57 Which Illicit Or Recreational Drugs Have You Used? Low Dose Gummies Information not available 02/04/2025 Sex: Unknown Functional Status Question Answer Note LastModified by Organizat ion Details LastModified Time Do you use any illicit or recreational drugs? Yes Information not available 02/04/2025 Do you or have you ever used any other forms of tobacco or nicotine? No [email or web address] Information not available 02/04/2025 What is your level of alcohol consumption? 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 Family History Relationship Description Onset Age of this Age Resolved Age Notes LastModified by Organization Details LastModified Time Mother Diabetes mellitus [email or web address] Not available 2024 10:15:33 Mother Heart disease [email or web address] Not available 2024 10:15:52 Father Diabetes mellitus [email or web address] Not available 2024 10:15:33 Father Heart disease [email or web address] Not available 2024 10:15:52 Sister Diabetes mellitus [email or web address] Not available 2024 10:15:33 Brother Diabetes mellitus [email or web address] Not available 2024 10:15:33 Medical History Condition Response Hypothyroidism Y Rheumatoid Arthritis Y Diabetes Y Gynecological HistoryNo gynecological history recorded. Obstetrics History GPAL:G 0 P 0 0 0 0 Past Encounters Encounter ID Performer Location Encounter Start Date Encounter Closed Date Diagnosis/Indication Diagnosis SNOMED-CT Code Diagnosis ICD10 Code Diagnosis IMO Codes Diagnosis Note [id number] Christophe García MD [address] [address] 02/04/2025 09:38:34 02/04/2025 10:47:34 Pain of hip region 41756412 M25.551 177231 History of rheumatoid arthritis 010252818 Z87.39 390047 Low back pain 729407783 M54.50 912782 Body mass index 40+ - severely obese 084634383 E66.01 2296537 Health Concerns Section Related Observation LastModified by Organization Detai ls LastModified Time None Recorded Concern Status LastModified by Organization Details LastModified Time None Recorded Advance Directives Directive None Recorded Payers Insurance Date Sequence Insurance Name Policy Number Policy [place] Covered Member ID [place] Member ID Guarantor Name 02/04/2025 1 [facility] [id number] Liudmila Durán [id number] Liudmila Vancleve Notes Date Note Type Note Provider Name and Address Organization Details Recorded Time 02/04/2025 text/html 44-year-old female here for an evaluation of persistent right hip pain. She has been under the care of a pain management provider up in [place]. She tells me that she has had some degree of pain over a year, but it then worse since October 2024. She has a constellation of symptomatology including low back pain, pain throughout the hip and groin, as well as some radiating numbness and tingling in her leg. She also notes numbness in her foot. She notes generalized muscle and leg soreness. She has not had any specific treatment directed at the hip, no physical therapy or injections. She tells me she did have some sort of lumbar injections with the painter structural steel that did not provide any relief. She has not had any physical therapy for her back. She has tried massage therapy. She has tried medications such as Advil, Tylenol, and lidocaine patches without improvement. She finds that lying down on her contralateral side can be more comfortable. She rates her pain as severe, between a 6 to a 9 on a 10 point scale. She has undergone workup with EMG testing. She has had x-rays as well as an MRI of her right hip. She reports a history of diabetes, rheumatoid arthritis, and hypothyroidism. She is on Enbrel. She is on NovoLog and Ozempic. 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 She uses low-dose medical marijuana and Gummies to sleep and relax from pain. Christophe García MD [address], [place], [address], [place] [facility] 02/04/2025 12:53:58 OBGyn Episode No OBEpisode recorded.
--- OUTSIDE RECORDS SUMMARY | 2025-02-11 18:19 | XMS_ITS | Clinical Summary ---
Author Organization [employer] Address [address] [place] [address] 7 [place] [address] Care Team Providers Care Market Developer Name Role Phone Tres Mckee DMD Unavailable Unavailable Alcazar [facility] Unavailable Allergies Active Allergy Reactions Criticality Noted [...] % creamIndication s:Risk for dental caries, high [place] with toothpaste for two minutes two times [...] Description 01/03/2025 3:45 PM EDT Office Visit [facility] [address] [place] [phone] [facility] 12/23/2024 3:30 PM EDT Office Visit [facility] [address] [place] [phone] Minerva Haque LLD 11/11/2024 4:15 PM EDT Office Visit [address] [phone] Minerva Haque LLD from Last 3 Months [...] Description 02/26/2025 4:15 PM EST Office Visit [address] [phone] Minerva Haque LLD [address] [place] [address] 05/27/2025 2:45 PM EST Office Visit [address] [phone] [address] 08/26/2025 3:45 PM EDT Office Visit [address] [phone] Alcazar [address] [address] Health Maintenance Due Date Last Done Comments [...] to Health Maintenance Insurance , [address] [place] [address] [facility] Care Teams Market Developer Relationship Specialty Start Date End Date Tres Mckee DMD Dentist 06/27/23 Robe Alcazar, [address] [address] Dental Metal Coater Operator 06/27/23
--- OUTSIDE RECORDS SUMMARY | 2025-02-11 18:19 | XMS_ITS | Encounter Summary ---
Author Organization [facility] Address [address] [place] [address] Phone Care Team Providers Care Ground Host/Hostess Name Role Phone Oly Quintanilla MD Unavailable [phone] Maxi Moreno MD Primary Care Provider [phone] Kirk Pérez DO Unavailable Halley Back MD Unavailable Filemon East MD Unavailable Encounter Details Date Type Department Care Team (Latest Contact Info) Description 09/19/2023 Transcribe Orders [facility] [place] [place] [address] Kirk Pérez DO [address] [place] [address] [email or web address] Type 2 diabetes mellitus without complication, with [...] high school, GED, job training, learning the Chadian language, technical skills, or developing parenting skills)? [...] st Contact Info) Description 02/03/2025 Procedure Pass [address] [place] [address] 03/07/2025 3:15 PM EST Appointment [address] [place] [address] Carlos Willingham MD 22 [facility], [address] [place] [address] 04/08/2025 9:45 AM EST Office Visit [facility] [address] [place] [address] [place] [address] Macario Ray DO 4 [facility] [place] [place] [address] 07/17/2025 4:00 PM EDT Office Visit [facility] [address] [place] [address] [place] [address] Kirk Pérez DO [address] [place] [address] 12/16/2025 2:30 PM EDT Office Visit [facility] [address] [place] [address] [place] [address] Maxi Moreno MD [address] [place] [address], 2nd [place] [address] [email or web address] documented as of this encounter Results * Hemoglobin A1c (09/19/2023 4:19 PM EDT) HEMOGLOBIN A1C 5.8 4.3 - 5.8 % [facility] Blood 09/19/2023 4:19 PM EDT 09/19/2023 4:37 PM EDT us Kirk Pérez DO LAB BLOOD BKR ORDERABLES Final R esult [facility] [address] [place] [address] * Comprehensive metabolic panel (09/19/2023 4:19 PM [...] PM EDT Kirk Pérez DO LAB BLOOD BKR ORDERABLES Final R esult Performing Organization Address City/State/[facility] Co de Phone Number [address] [address] * (ABNORMAL) Lipid panel (09/19/2023 4:19 PM [...] RISK RATIO 4.1 3.3 - 4.4 C [facility] Blood 09/19/2023 4:19 PM EDT 09/19/2023 4:37 PM EDT us Kirk Pérez DO LAB BLOOD BKR ORDERABLES Final R esult [facility] [address] [place] [address] documented in this encounter Visit Diagnoses Diagnosis Type 2 diabetes mellitus without complication, with long-term current use of insulin- Primary documented in this encounter Additional Health Concerns Assessment Noted Time A Body Mass Index follow-up plan has been documented for the patient 09/24/2022 1:51 PM EDT PHQ-2 Depression Total Score: 0 09/22/19 23 11:16 AM EDT documented as of this encounter Care Teams Ground Host/Hostess Relationship Specialty Start Date End Date Maxi Moreno MD [address] [place] [address] PCP - General Internal Medicine 09/17/20 Oly Quintanilla MD [address] [place] [address] Historical LMR Provider 01/24/17 Kirk Pérez DO [address] [place] [address] Endocrinology 12/18/20 Halley Back MD [address] [place] [address] Rheumatology 12/18/20 Filemon East MD [address] [place] [address] [email or web address] Physical Medicine and Rehabilitation 12/18/20 documented as of this encounter Additional Source Comments The information contained in this document represents components of the legal health record. It is not the complete legal health record.[facility]
--- OUTSIDE RECORDS SUMMARY | 2025-02-11 18:19 | XMS_ITS | Encounter Summary ---
Author Organization [facility] Address [address] [place] [address] [place] [address] Phone Care Team Providers Care Water Commissioner Name Role Phone Oly Quintanilla MD Unavailable [phone] Maxi Moreno MD Primary Care Provider Kirk Pérez DO Unavailable Halley Back MD Unavailable Filemon East MD Unavailable Encounter Details Date Type Department Care Team (Late st Contact Info) Description 01/17/2025 Orders Only [facility] [employer] [facility] [address] [place] [address] [place] [address] Unknown, Unknown, Social History Tobacco Use Types [...] high school, GED, job training, learning the Pakistani language, technical skills, or developing parenting skills)? [...] 9:03 PM EDT Sexual Orientation Straight 10/27/2020 9 :03 PM EDT documented as of this encounter Plan of Treatment Upcoming Encounters Date Type Department Care Team (Late st Contact Info) Description 02/03/2025 Procedure Pass [address] [place] [address] 03/07/2025 3:15 PM EST Appointment [address] [place] [address] Carlos Willingham MD 22 [facility], [address] [place] [address] 04/08/2025 9:45 AM EST Office Visit [facility] [address] [place] [address] Macario Ray DO [address] [place] [address] Orthopedics & Sports Medicine, [facility] [place] [address] 07/17/2025 4:00 PM EDT Office Visit [facility] [address] [place] [address] [place] [address] Kirk Pérez DO [address] [place] [address] 12/16/2025 2:30 PM EDT Office Visit [facility] [address] [place] [address] [place] [address] Maxi Moreno MD [address] [place] [address], 2nd [place] [address] documented as of this encounter Procedures Procedure [...] documented as of this encounter Care Teams Water Commissioner Relationship Specialty Start Date End Date Maxi Moreno MD [address] [place] [phone] [email or web address] PCP - General Internal Medicine 09/17/20 Oly Quintanilla MD [address] [place] [address] Historical LMR Provider 01/24/17 Kirk Pérez DO [address] [place] [address] Endocrinology 12/18/20 Halley Back MD [address] [place] [address] Rheumatology 12/18/20 Filemon East MD [address] [place] [address] [email or web address] Physical Medicine and Rehabilitation 12/18/20 documented as of this encounter Additional Source Comments The information contained in this document represents components of the legal health record. It is not the complete legal health record.[facility]
--- OUTSIDE RECORDS SUMMARY | 2025-02-11 18:19 | XMS_ITS | Encounter Summary ---
Author Organization [facility] Address [address] [place] [address] [place] [address] Phone Care Team Providers Care Post Closer Name Role Phone Oly Quintanilla MD Unavailable [phone] Maxi Moreno MD Primary Care Provider Kirk Pérez DO Unavailable Halley Back MD Unavailable Filemon East MD Unavailable Encounter Details Date Type Department Care Team (Late st Contact Info) Description 09/20/2021 Procedure Pass [address] [address] Social History Tobacco Use Types Packs/Day Years [...] st Contact Info) Description 02/03/2025 Procedure Pass [address] [place] [address] 03/07/2025 3:15 PM EST Appointment [address] [place] [address] Carlos Willingham MD [address] [place] [address], [address] [address] [email or web address] 04/08/2025 9:45 AM EST Office Visit [facility] Medicine [address] [place] [address] [place] [address] Macario Ray DO [address] [place] [address] Orthopedics & Sports Medicine, [facility] [address] 07/17/2025 4:00 PM EDT Office Visit [facility] [place] [address] Kirk [place] [address] 12/16/2025 2:30 PM EDT [facility] [address] [place] [address] [place] [address] Maxi Moreno MD [address] [place] [address] documented as of this encounter Visit Diagnoses [...] documented as of this encounter Care Teams Post Closer Relationship Specialty Start Date End Date Maxi Moreno MD [address] [place] [address] PCP - General Internal Medicine 09/17/20 Oly Quintanilla MD [address] [place] [address] Historical LMR Provider 01/24/17 Kirk Pérez DO [address] [place] [address] Endocrinology 12/18/20 Halley Back MD [address] [place] [address] Rheumatology 12/18/20 Filemon East MD [address] [place] [address] [email or web address] Physical Medicine and Rehabilitation 12/18/20 documented as of this encounter Additional Source Comments The information contained in this document represents components of the legal health record. It is not the complete legal health record.[facility]
--- OUTSIDE RECORDS SUMMARY | 2025-02-11 18:19 | XMS_ITS | Encounter Summary ---
Author Organization [facility]ly [facility] Address [address] [place] [address] Phone Care Team Providers Care World Geography Teacher Name Role Phone Oly Quintanilla MD Unavailable [phone] Maxi Moreno MD Primary Care Provider Kirk Pérez DO Unavailable Halley Back MD Unavailable Filemon East MD Unavailable Encounter Details Date Type Department Care Team (Late st Contact Info) Description 02/10/2025 Orders Only [facility] [address] [place] [address] [place] [address] Margy Hankins MD [address] [place] [address] [email or web address] Social History Tobacco Use Types Packs/Day Years [...] high school, GED, job training, learning the Jordanian language, technical skills, or developing parenting skills)? [...] st Contact Info) Description 02/03/2025 Procedure Pass [address] [place] [address] 03/07/2025 3:15 PM EST Appointment [address] [place] [address] Carlos Willingham MD [address] [place] [address] 04/08/2025 9:45 AM EST Office Visit [facility] [address] [place] [address] Macario Ray DO [address] [place] [address] [facility] [place] [address] 07/17/2025 4:00 PM EDT Office Visit [facility] [address] [place] [address] [place] [address] Kirk Pérez DO [address] [place] [address] 12/16/2025 2:30 PM EDT Office Visit [facility] [address] [place] [address] [place] [address] Maxi Moreno MD [address] [place] [address], [address] [place] [address] documented as of this encounter Visit Diagnoses Not on filedocumented in this encounter Additional Health Concerns Assessment Noted Time A Body Mass Index follow-up plan has been documented for the patient 12/08/2024 1:02 PM EDT PHQ-2 Depression Total Score: 0 12/07/19 25 12:56 PM EDT documented as of this encounter Care Teams World Geography Teacher Relationship Specialty Start Date End Date Maxi Moreno MD [address] [place] [phone] [email or web address] PCP - General Internal Medicine 09/17/20 Oly Quintanilla MD [address] [place] [address] Historical LMR Provider 01/24/17 Kirk Pérez DO [address] [place] [address] Endocrinology 12/18/20 Halley Back MD [address] [place] [address] Rheumatology 12/18/20 Filemon East MD [address] [place] [phone] [email or web address] Physical Medicine and Rehabilitation 12/18/20 documented as of this encounter Additional Source Comments The information contained in this document represents components of the legal health record. It is not the complete legal health record.[facility]
== END 2025-02-11 16:13 | disposition home or self-care (01) ==
LOC: HO.PMC 15:46
PROVIDERS: PCP Internal Medicine; Visit Provider Nurse Practitioner Family
DX: M54.50 Low back pain, unspecified (principal); G89.29 Other chronic pain; M47.817 Spondylosis without myelopathy or radiculopathy, lumbosacral region; M25.551 Pain in right hip; S73.191A Other sprain of right hip, initial encounter; M76.899 Other specified enthesopathies of unspecified lower limb, excluding foot; M16.11 Unilateral primary osteoarthritis, right hip
CPT/HCPCS: 99214; G2211

== ENCOUNTER 2025-03-20 06:35 | Outpatient (REF) | payer OTHER, SELFPAY ==
--- NOTE | ~2025-03-20 | FL_ITS ---
EXAMINATION: XR FLUOROSCOPY WITH IMAGES CLINICAL INFORMATION: Arthritis COMPARISON: None available. TECHNIQUE: Fluoroscopy time: 10 seconds DAP: 3.2 mGy Images: 2 FINDINGS: Fluoroscopy provided for right hip injection. No radiologist present. FL/FL guidance in treatment room IMPRESSION: Fluoroscopy provided for procedure. See procedure report for details. Electronically signed by: Carmine Wray MD 03/21/2025 12:56 PM EST
--- OUTSIDE RECORDS SUMMARY | 2025-03-20 06:39 | XMS_ITS | Clinical Summary ---
Author Organization [employer] Address [address] [place] [address] 7 [place] [address] Care Team Providers Care Assistant Professor Of Chemistry Name Role Phone Tres Mckee DMD Unavailable Unavailable Robe Alcazar [facility] Unavailable Allergies Active Allergy Reactions Criticality Noted [...] % creamIndication s:Risk for dental caries, high [place] with toothpaste for two minutes two times a day, spit out excess. Do not eat, drink, or rinse for 30 minutes. 112 g 9 3 Active Ozempic, 1 MG/DOSE, 4 MG/3ML solution pen-injector Inject 1 mg under the skin every 7 (seven) days. 4 Active Active Problems No known active problems Encounters Date Type Department Care Team Description 02/26/2025 4:15 PM EST Office Visit [facility] [address] [place] [phone] Minerva Haque LLD 01/03/2025 3:45 PM EDT Office Visit [facility] [address] [place] [phone] [facility] 12/23/2024 3:30 PM EDT Office Visit [address] [phone] Minerva Haque LLD from Last 3 Months [...] Sign Reading Time Taken Comments Blood Pressure 130/89 02/26/2025 4:12 PM EST Pulse 89 02/26/2025 4:12 PM EST Temperature 36.4 C (97.5 F) 02/26/2025 4:12 PM EST Respiratory Rate - - Oxygen Saturation - - Inhaled Oxygen Concentration - - Weight - - Height - - Body Mass Index - - Plan of Treatment Upcoming Encounters Date Type Department Care Team (Late st Contact Info) Description 05/27/2025 2:45 PM EST Office Visit [address] [phone] [address] 06/09/2025 4:15 PM EST Office Visit [address] [phone] Minerva Haque LLD [address] [place] [address] 08/26/2025 3:45 PM EDT Office Visit [address] [phone] [address] Health Maintenance Due Date Last Done Comments Dental Prophylaxis 1981 Depression Screening 1981 HIV Screening 1981 SDOH Screening 1981 Disability Screening 1981 Alcohol/Substance Use Screening 1993 Family Planning (PISQ) 1996 HPV Vaccines (1 - 3-dose series) 1996 Hepatitis C Screening 11/17/1999 Pap Smear 2002 Cervical Cancer Screening 11/17/2011 HPV/Cotest 11/17/2011 Dental X-Ray: Bitewings 10/10/2024 10/10/2023, 05/09 COVID-19 Vaccine ( season) 2024 01/05/2024, 02/19/2023, 02/12/2022, Additional history exists Influenza Vaccine (#1) 2024 , 02/15/2023, 02/12/2022, Additional history exists Dental Oral Exam 04/04/2025 10/02/2024, 05/2023, 05/09/2022 Dental X-Ray: Full Mouth 05/10/2025 05/09/2022 Tobacco Screening 05/29/2025 05/29/2024 Mammogram 01/09/2026 01/10/2024, 05/2023, 10/12/2021, Additional history [...] patient's age to complete this topic HIB Vaccines Aged Out No longer eligi [...] Procedure Name Priority Date/Time Associated Diagnosis Comments 25 DIFL RESIN-BASED COMPOSITE - 4 OR MORE SURFACES (ANTERIOR) Routine 02/26/2025 4:15 PM EST PERIODONTAL MAINTENANCE Routine 01/04/20 3:45 PM EDT 27 FF(V) RESIN-BASED COMPOSITE - 1 SURF, ANTERIOR Routine 12/23/2024 3:30 PM EDT PERIODIC ORAL EVALUATION - ESTABLISHED PATIENT Routine 10/02/2024 3:45 PM EDT BITEWINGS - 4 RADIOGRAPHIC IMAGES Routine 10/10/2023 2:00 PM EDT INTRAORAL - COMPLETE SERIES OF RADIOGRAPHIC IMAGES Routine 05/09/2022 8:30 AM EST Encounter for dental examination from Last 3 Months or Most Recently Relevant to Health Maintenance Insurance [facility] Care Teams Assistant Professor Of Chemistry Relationship Specialty Start Date End Date Tres Mckee DMD Dentist 06/27/23 Robe Alcazar, [place] [address] Dental Plate Glass Installer 06/27/23
--- OUTSIDE RECORDS SUMMARY | 2025-03-20 06:39 | XMS_ITS | Encounter Summary ---
Author Organization [facility] Address [address] [place] [address] [place] [phone] Phone Care Team Providers Care Mortgage Lender Name Role Phone Oly Quintanilla MD Unavailable [phone] Maxi Moreno MD Primary Care Provider [phone] Kirk Pérez DO Unavailable Halley Back MD Unavailable Filemon East MD Unavailable Encounter Details Date Type Department Care Team (Late st Contact Info) Description 09/25/2023 Procedure Pass [facility] [address] [place] [address] Social History Tobacco Use Types Packs/Day Years [...] high school, GED, job training, learning the Guinean language, technical skills, or developing parenting skills)? [...] Care Team (Late st Contact Info) Description 04/01/2025 3:50 PM EST Office Visit [facility] [address] [place] [address] Carlos Willingham MD [address] [facility] [place] [address] 04/08/2025 9:45 AM EST Office Visit [facility] [address] [place] [address] [place] [address] Macario Ray DO [address] [facility] [place] [address] 07/17/2025 4:00 PM EDT Office Visit [facility] [address] [place] [address] [place] [address] Kirk Pérez DO 22 [place] [address] 12/16/2025 2:30 PM EDT Office Visit [facility] [address] [place] [address] Maxi Moreno MD [address] [place] [address] documented as of this encounter Visit Diagnoses Not on filedocumented in this encounter Additional Health Concerns Assessment Noted Time A Body Mass Index follow-up plan has been documented for the patient 09/28/2023 3:19 PM EDT PHQ-2 Depression Total Score: 0 09/25/19 10:59 AM EDT documented as of this encounter Care Teams Mortgage Lender Relationship Specialty Start Date End Date Maxi Moreno MD [address] [place] [address], [address] [place] [phone] PCP - General Internal Medicine 09/17/20 Oly Quintanilla MD [address] [place] [address], [address] [place] [address] [email or web address] Historical LMR Provider 01/24/17 Kirk Pérez DO [address] [place] [phone] [email or web address] Endocrinology 12/18/20 Halley Back MD [address] [place] [address] Rheumatology 12/18/20 Filemon East MD [address] [place] [address] [email or web address] Physical Medicine and Rehabilitation 12/18/20 documented as of this encounter Additional Source Comments The information contained in this document represents components of the legal health record. It is not the complete legal health record.[facility]
--- OUTSIDE RECORDS SUMMARY | 2025-03-20 06:39 | XMS_ITS | Clinical Summary ---
Author Organization [facility] Address [address] [place] [address] Phone Care Team Providers Care Community Relations Rep Name Role Phone Oly Quintanilla MD Unavailable [...] diabetes mellitus with hyperglycemia, unspecified whether intermediate designer insulin use 1 each by Miscellaneous route 4 (four) times a day before meals and nightly. 400 strip 3 09/30/19 21 Active FREESTYLE LITE METER meter kitIndications:Ty pe 2 diabetes mellitus with hyperglycemia, unspecified whether long-term insulin use Use as instructed 1 each 09/30/19 Active lancets (ACCU-CHEK FASTCLIX LANCET DRUM) MiscIndications:T ype 2 diabetes mellitus with hyperglycemia, unspecified whether long-term insulin use 1 each by Miscellaneous route [...] 01/17/20 23 Active blood-glucose meter,continuous (DEXCOM G7 COORDINATOR MINING PRODUCTS) MiscIndications:T ype 2 diabetes mellitus without complication, [...] pen needles, disposable, 31 gauge x 3/16 NdleIndications:T ype 2 diabetes mellitus without complication, [...] 3 days 2 tablet 02/11/20 25 Active medroxyPROGESTERo ne (PROVERA) 10 MG tablet Take 1 tablet (10 mg total) by mouth daily for 10 days. 10 tablet 03/03/20 25 025 Discontin ued(Reord er) medroxyPROGESTERo ne (PROVERA) 10 MG tablet Take 1 tablet (10 mg total) by mouth daily for 10 days. 10 tablet 03/03/20 25 025 Active Problems Problem Noted Date Diagnosed Date [...] of Trulicity 0.75 mg weekly Lot # [id number] expiration 04/20/2022. 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 Use of steroids for this prompted her [...] Encounters Date Type Department Care Team Description 03/12/2025 2:21 PM EST - 03/12/2025 11:59 PM EST Hospital Encounter [address] [address] Carlos Willingham MD Discharge Disposition: Home or Self Care 02/10/2025 Orders Only [facility] [address] [place] [address] [place] [address] Margy Hankins MD 02/07/2025 10:50 AM EDT Office Visit [facility] [address] [place] [address] [place] [address] Margy Hankins MD Vaginitis and vulvovaginitis (Primary Dx) 02/05/2025 Telephone [facility] [address] [place] [address] [place] [address] Oxana Sol LPN Vaginitis 02/03/2025 Procedure Pass [address] [address] 02/03/2025 Telephone [facility] [address] [place] [address] Maxi Moreno MD Forms & Paperwork 02/03/2025 Telephone [facility] [address] [place] [address] [place] [address] Madison Locke LPN Follow-up 02/03/2025 Telephone [facility] [address] [place] [address] Macario Ray, DO ?? appt w/Dr Ray 01/30/2025 3:17 PM EDT - 01/30/2025 11:59 PM EDT Hospital Encounter [facility] Imaging [address] [place] [address] Unknown, Celine, Discharge Disposition: Home or Self Care 01/30/2025 11:20 AM EDT Office Visit [facility] [address] [place] [address] [place] [address] Carlos Willingham MD Lower abdominal pain (Primary Dx); Fibroids 01/30/2025 Ancillary Orders [facility]Outside Imaging [address] [place] [address] Unknown, MD Celine 01/30/2025 Telephone [facility] [address] [place] [address] Maxi Moreno MD Follow-up 01/29/2025 1:36 PM EDT - 01/29/2025 11:59 PM EDT Hospital Encounter [facility] [address] [place] [address] Maxi Moreno MD Discharge Disposition: Home or Self Care 01/28/2025 Ancillary Orders [facility]Outside Imaging [address] [place] [address] Unknown, MD Celine 01/28/2025 Ancillary Orders [facility]Outside Imaging [address] [place] [address] Unknown, MD Celine 01/17/2025 Telephone [facility] [address] [place] [address] Nadai Loya Imaging order 01/17/2025 Orders Only [facility] [address] [place] [address] Celine, MD Celine 01/16/2025 - 01/16/2025 11:59 PM EDT Hospital Encounter [facility]Outside Imaging [address] [place] [address] Unknown, MD Celine Discharge Disposition: Home or Self Care 01/09/2025 4:00 PM EDT Office Visit [facility] [address] [place] [address] Kirk Pérez DO Type 2 diabetes mellitus without complication, with long-term current use of insulin (Primary Dx); Mixed hyperlipidemia 12/21/2024 9:14 AM EDT - 12/21/2024 11:59 PM EDT Hospital Encounter [facility] [address] [facility] [place] [address] Maxi Moreno MD Discharge Disposition: Home or Self Care 12/21/2024 Refill [facility] [address] [place] [address] Kirk Pérez DO Med Change Request; Patient Returned Call from Last 3 Months Immunizations Immunization Administration [...] high school, GED, job training, learning the Mongolian language, technical skills, or developing parenting skills)? [...] EDT Inhaled Oxygen Concentration - - Weight 130.2 kg (287 lb) 02/27/2025 7:46 PM EST Height 172.7 cm (5' 8 ) 02/27/2025 7:46 PM EST Body Mass Index 43.64 02/27/2025 7:46 PM EST Plan of Treatment Upcoming Encounters Date Type Department Care Team (Late st Contact Info) Description 04/01/2025 3:50 PM EST [facility] Visit [facility] [address] [place] [address] [place] [address] Carlos Willingham MD 22 [facility], [address] [place] [address] 04/08/2025 9:45 AM EST Office Visit [facility] [address] [place] [address] [place] [address] Macario Ray DO [address] [place] [address] [facility] [place] [place] [address] 07/17/2025 4:00 PM EDT Office Visit [facility] [address] [place] [address] Kirk Pérez DO [address] [place] [address] 12/16/2025 2:30 PM EDT [facility] [address] [place] [address] [place] [address] Maxi Moreno MD [address] [place] [address], 2nd [place] [address] Health Maintenance Due Date Last Done Comments [...] history exists MAMMOGRAM 01/09/2026 01/10/2024, 07/0 08/2021, 07/28/2017 Adult Td,Tdap Booster 09/24/2033 09/25/2023 , 07/25/2013, 10/17/2005 HEPATITIS C SCREENING Completed 09/17/2024, 025 SMOKING STATUS SCREENING (Once After 26 Yrs) [...] Priority Date/Time Associated Diagnosis Comments MRI PELVIS (GYNECOLOGICAL) WITH AND WITHOUT CONTRAST Routine 03/12/2025 4:08 PM EST Fibroids CBC Routine 03/03/2025 3:30 PM EST Abnormal uterine bleeding (AUB) HC NFCT DS BCT VAGINOSIS&VAGINITIS MULT AMP [...] ENTRY ONLY Routine 11/26/2024 4:06 PM EDT MICROALBUMIN/CREATININ E RATIO, RANDOM URINE Routine 09/17/2024 3:56 PM EDT Type 2 diabetes mellitus without complication, with long-term current use of insulin HEPATITIS B CORE ANTIBODY, TOTAL Routine 09/17/2024 3:43 PM EDT Need for [...] Recently Relevant to Health Maintenance Results * MRI PELVIS (GYNECOLOGICAL) WITH AND WITHOUT CONTRAST (03/12/2025 4:08 PM EST) Anatomical Region Laterality Modality Pelvis Magnetic Resonan ce 03/17/2025 7:09 PM EST Impressions 03/17/2025 7:20 PM EST 1. 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 2. Uterine adenomyosis. Narrative 03/17/2025 7:20 PM EST MRI PELVIS (GYNECOLOGICAL) WITH AND WITHOUT CONTRAST Referring clinician's provided indication for this examination in Epic: * Uterine fibroid suspected; Ordered per radiology recommendation TECHNIQUE: Multiplanar MR imaging of the pelvis was performed using T1, T2, and diffusion weighted techniques. Postcontrast multiphase imaging was also performed after administration of an intravenous gadolinium agent. COMPARISON: CT ABDOMEN/PELVIS OUTSIDE (NO INTERPRETATION) ; US PELVIS TRANSABDOMINAL AND TRANSVAGINAL FINDINGS: Uterus: Measures 11 cm in longitudinal dimension. The junctional zone is thickened measuring 12 mm indicating adenomyosis. Well-defined myometrial intramural lesion in the body measuring 21 mm demonstrates macroscopic fat and heterogenous enhancement. This is unchanged since ultrasound and CT of January 2025. Endometrium is of normal signal without abnormal enhancement. Adnexa: Ovaries are of normal size without abnormal lesions. Vulva/vagina: No mass. Bladder: Moderately distended without intraluminal lesions. Bowel: No dilation in visualized bowel. Peritoneum: No masses or fluid. Lymph nodes: No lymphadenopathy. Vessels: No filling defects or aneurysms seen. Bones/soft tissues: No marrow replacing lesions. Procedure Note Lois Wiseman MD, PhD - 03/17/2025 MRI PELVIS (GYNECOLOGICAL) WITH AND WITHOUT CONTRAST Referring clinician's provided indication for this examination in Epic: *Uterine fibroid suspected; Ordered per radiology recommendation TECHNIQUE: Multiplanar MR imaging of the pelvis was performed using T1,T2, and diffusion weighted techniques. Postcontrast multiphase imaging wasalso performed after administration of an intravenous gadolinium agent. COMPARISON: CT ABDOMEN/PELVIS OUTSIDE (NO INTERPRETATION) ; USPELVIS TRANSABDOMINAL AND TRANSVAGINAL FINDINGS: Uterus: Measures 11 cm in longitudinal dimension. The junctional zone isthickened measuring 12 mm indicating adenomyosis. Well-defined myometrialintramural lesion in the body measuring 21 mm demonstrates macroscopic fatand heterogenous enhancement. This is unchanged since ultrasound and CT ofJanuary 2025. Endometrium is of normal signal without abnormalenhancement. Adnexa: Ovaries are of normal size without abnormal lesions. Vulva/vagina: No mass. Bladder: Moderately distended without intraluminal lesions. Bowel: No dilation in visualized bowel. Peritoneum: No masses or fluid. Lymph nodes: No lymphadenopathy. Vessels: No filling defects or aneurysms seen. Bones/soft tissues: No marrow replacing lesions. IMPRESSION: 1. 2 cm intramural myometrial mass lesion containing macroscopic fatlikely represents a lipoma myolipoma. 2. Uterine adenomyosis. us Carlos Willingham MD IMG MR PELVIS Final Result * CBC (03/03/2025 3:30 PM EST) WBC 9.89 4.00 - 11.00 K/uL 03/03/2025 6:56 PM [facility] RBC 4.40 4.00 - 5.20 M/uL 03/03/2025 6:56 PM [facility] Hemoglobin 12.7 12.0 - 16.0 g/dL 03/03/2025 6:56 PM [facility] Hematocrit 38.1 36.0 - 46.0 % 03/03/2025 6:56 PM [facility] MCV 86.6 80.0 - 100.0 fL 03/03/2025 6:56 PM [facility] MCH 28.9 27.0 - 31.0 pg 03/03/2025 6:56 PM [facility] MCHC 33.3 32.0 - 36.0 g/dL 03/03/2025 6:56 PM [facility] PLT 257 150 - 450 K/uL 03/03/2025 6:56 PM [facility] MPV 11.3 8.4 - 12.0 fL 03/03/2025 6:56 PM [facility] RDW-CV 13.2 11.5 - 14.5 % 03/03/2025 6:56 PM [facility] Absolute NRBC 0.00 <=0.00 K cells/uL 03/03/2025 6:56 PM [facility] NRBC 0.0 <=0.0 /100 WBCs 03/03/2025 6:56 PM [facility] Blood (Blood) Venipuncture / Unknown 03/03/2025 3:30 PM EST 03/03/2025 3:30 PM EST Shama Shaikh MD LAB BLOOD BKR ORDERABLES Final Result [address] [address] * (ABNORMAL) Vaginitis Panel (02/07/2025 12:14 PM EDT) Bacterial Vaginosis Negative Negative [facility] Freya Species Detected(A) Not Detected [facility] Freya glabrata Not Detected Not Detected [facility] Trichomonas Vaginalis Not Detected Not Detected [facility] Other (Vaginal) 02/07/2025 1 2:14 PM EDT 02/07/2025 3:18 PM EDT us Margy Hankins MD LAB GENERAL OR DERABLES Final Result Performing Organization Address [facility] Co de Phone Number [address] [address] * CT Abdomen/Pelvis Outside (No Interpretation) (01/30/2025 3:17 PM EDT) Narrative Record, - 01/30/2025 3:17 PM EDT This study is for PACS storage only and not for interpretation. Procedure Note Record, - 01/30/2025 This study is for PACS storage only [...] clinician's provided indication for this examination in [facility]: Uterine fibroid suspected TECHNIQUE: Pelvic Ultrasound Transabdominal [...] clinician's provided indication for this examination in [facility]:Uterine fibroid suspected TECHNIQUE: Pelvic Ultrasound Transabdominal performed [...] and documented using a closedloop communication system. us Maxi Moreno MD IMG US PELVIS Final Resul t * Outside Imaging Report Only (01/16/2025 12:18 PM EDT) us Unknown Unknown IMG XR CHEST Final Result * MRI Pelvis (Bone) Outside (No Interpretation) (01/16/2025 12:00 AM EDT) Narrative SYSTEMGENERATED, DOCUMENTATION - 01/28/2025 9:53 AM EDT This study is for PACS storage only and not for interpretation. us Unknown Unknown IMSoumya OUTSIDE IMAGING W/OUT INT ERPRETATION Final Result * Hemoglobin A1c (12/21/2024 9:18 AM EDT) HEMOGLOBIN A1C 5.3 4.3 - 5.8 % [facility] Blood 12/21/2024 9:18 AM EDT 12/21/2024 9:25 AM EDT us Kirk Pérez DO LAB BLOOD BKR ORDERABLES Final R esult [facility] [address] [place] [address] * (ABNORMAL) Lipid panel (12/21/2024 9:18 AM EDT) HDL 43 mg/dL [facility] Comment: Interpretation <40 mg/dL: Low HDL cholesterol (major risk factor for CHD) Greater than or equal to 60 mg/dL: High HDL cholesterol ( negative risk factor for CHD) HDL - cholesterol is affected by a number of factors, e.g. smoking, excerise, hormones, sex and age. CHOLESTEROL 172 0 - 240 mg/dL [facility] TRIGLYCERIDES 199(H) 30 - 160 mg/dL [facility] LDL 89 50 - 129 mg/dL [facility] Comment: LDL levels in terms of risk for coronary heart disease: <100 mg/dL: Optimal 100-129 mg/dL: Near or above optimal 130-159 mg/dL: Borderline high 160-189 mg/dL: High >190 mg/dL: Very High CARDIAC RISK RATIO 4.0 3.3 - 4.4 C [facility] Blood 12/21/2024 9:18 AM EDT 12/21/2024 9:25 AM EDT us Kirk Pérez DO LAB BLOOD BKR ORDERABLES Final R esult [address] [address] * TSH with reflex (12/21/2024 9:16 AM EDT) TSH 2.55 0.27 - 4.20 uIU/mL [facility] Blood 12/21/2024 9:16 AM EDT 12/21/2024 9:24 AM EDT us Maxi Moreno MD LAB BLOOD BKR ORDERABLES Fi nal Result [address] [address] * DIABETES EYE EXAM FOR RESULT ENTRY ONLY (11/26/2024 4:06 PM EDT) us Historical Provider HEALTH MAINTENANCE Edited Result - Final * Microalbumin/creatinine ratio, random urine (09/17/2024 3:56 PM EDT) URINE MICROALBUMIN <1.2 0 - 2.3 mg/dL [facility] URINE CREATININE 197 mg/dL METAL SPRAYER MACHINED PARTS [facility] MICROALB/CRE RATIO NOT CALCULATED 0 - 20 mg/g Cre [facility] Comment:due to Microalbumin <1.2 Urine (Urine) 09/17/2024 3:5 6 PM EDT 09/17/2024 4:03 PM EDT us Kirk Pérez DO LAB URINE ORDERABLES Final Resul t Performing Organization Address City/[facility]/ZIP Co de Phone Number [address] [address] * Hepatitis B core antibody, total (09/17/2024 3:43 PM EDT) HEP B CORE AB, TOT NON-REACTI VE NON-REACTI VE [facility] Blood 09/17/2024 3:43 PM EDT 09/17/2024 4:07 PM EDT Della Wolff MD LAB BLOOD BKR O RDERABLES Final Result Performing Organization Address City/[facility]/ZIP Co de Phone Number [address] [address] * BI MAMMOGRAM SCREENING WITH TOMOSYNTHESIS WITH [...] in either breast. Similar bilateral skin calcifications. Maxi Moreno MD IMG MG EXAMS Final Resul t * Pap Smear (09/17/2020 12:00 AM EDT) 09/17/2020 09/18/2020 9:5 4 AM EDT Narrative SEE NARRATIVE - 09/23/2020 10:14 AM EDT [address] [address] Paper Bag Machine Operator: Fouzia Malave MD [facility] ATTEND[facility] Cytology Report FINAL DIAGNOSIS A. PAP SMEAR [...] 52, 56, 58, 59, 66, 68) by remocean Onclarity HR-HPV analysis. Clinical correlation is advised. This HPV test was performed at [facility], [address] [place] [address]. This test has been FDA approved for SurePath cervical cytology specimens. The accuracy and precision of this test for all other specimen sources has been verified in the Cytopathology Laboratory of the [facility] and has not been cleared or approved by the U.S. Food and Drug Administration. Clinical correlation is advised. CLINICAL HISTORY Date of Last Menstrual Period: 08-17-2020 Other Clinical Conditions: Screening Pap SPECIMEN SOURCE A: PAP SMEAR (SUREPATH) CE Patient Name: LIUDMILA DURÁN : 1980 (Age: 39) Sex: F Institution: [facility] Location: [facility] Date of Collection: 09/17/2020 Date of Reported: 09/23/2020 10:14 Results to: Olyklaudia Quintanilla MD, [facility], B us Oly A Dwight MAY CYTOLOGY ORDERABLES Final Res ult SEE NARRATIVE from Last 3 Months or Most Recently Relevant to Health Maintenance Insurance O O O O O O O O O [facility] HMO [employer] [facility] Care Teams Community Relations Rep Relationship Specialty Start Date End Date Maxi Moreno MD [address] [place] [address], [address] [place] [address] [email or web address] PCP - General Internal Medicine 09/17/20 Oly Quintanilla MD [address] [place] [address], 2[address] [place] [address] Historical LMR Provider 01/24/17 Kirk Pérez DO [address] [place] [address] Endocrinology 12/18/20 Halley Back MD [address] [place] [address] Rheumatology 12/18/20 Filemon East MD [address] [place] [address] Physical Medicine and Rehabilitation 12/18/20 Additional Source Comments The information contained in this document represents components of the legal health record. It is not the complete legal health record.[facility]
--- OUTSIDE RECORDS SUMMARY | 2025-03-20 06:39 | XMS_ITS | Encounter Summary ---
Author Organization [facility] Address [address] [place] [address] [place] [address] Phone Care Team Providers Care Cow Tender Name Role Phone Oly Quintanilla MD Unavailable [phone] Maxi Moreno MD Primary Care Provider [phone] Kirk Pérez DO Unavailable Halley Back MD Unavailable Filemon East MD Unavailable Encounter Details Date Type Department Care Team (Late st Contact Info) Description 09/20/2021 Procedure Pass [address] [address] Social History Tobacco Use Types Packs/Day Years [...] high school, GED, job training, learning the [place] Ver[place]an language, technical skills, or developing parenting skills)? [...] Office Visit [facility] [address] [place] [address] Carlos Willingham MD 22 [facility], [address] [place] [address] 04/08/2025 9:45 AM EST Office Visit [facility] [address] [place] [address] [place] [address] Macario Ray DO 4 [facility] [place] [address] 07/17/2025 4:00 PM EDT Office Visit [facility] [address] [place] [address] Kirk Pérez DO [address] [place] [address] 12/16/2025 2:30 PM EDT Office Visit [facility] [address] [place] [address] Dr Rodriguez [place] [address] Maxi Moreno MD [address] [place] [address] documented as of this encounter Visit Diagnoses [...] documented as of this encounter Care Teams Cow Tender Relationship Specialty Start Date End Date Maxi Moreno MD [address] [place] [address] PCP - General Internal Medicine 09/17/20 Oly Quintanilla MD [address] [place] [address] Historical LMR Provider 01/24/17 Kirk Pérez DO [address] [place] [address] Endocrinology 12/18/20 Halley Back MD [address] [place] [address] [place] [address] Rheumatology 12/18/20 Filemon East MD [address] [place] [address] [email or web address] Physical Medicine and Rehabilitation 12/18/20 documented as of this encounter Additional Source Comments The information contained in this document represents components of the legal health record. It is not the complete legal health record.[facility]
--- OUTSIDE RECORDS SUMMARY | 2025-03-20 06:39 | XMS_ITS | Continuity of Care Document ---
Author Organization [place] [facility] Yvette Syed AONE [place] Address [address] [address] [place] [address] Care Team Providers Care Commissioned Fire Officer Name Role Phone DIVYA GAN Primary Care Provider [phone] DIVYA GAN Referring Provider Assessment Encounter Date [...] hip. She should continue treatment with her lead based paint technician for further evaluation and workup of her [...] I recommend she continue treatment with her lead based paint technician. At present we are not anticipating any need for surgery for the right hip. [email or web address] Not available 02/04/2025 12:53:43 Plan of Treatment Reminders Order Date Submit Date Provider Last Modified By Organization Details Last Modified Time Details Appointments None record ed. Lab None record ed. Referral None record ed. Procedures None record ed. Surgeries None record ed. Imaging None record ed. Medication Orders None record ed. Patient TargetsNo targets recorded. Patient InstructionsNo instructions recorded. Reason for Referral None Reported. Results Created Date Observation Date Name Description Value Unit Range Abnormal Flag Note LastModifiedBy Organization Detail LastModifiedTime 02/05/20 25 XR, sacru m + coccy x No observ ation record ed. Not Available 2024 16:08:37 02/05/20 25 XR, hip, bilat eral, 2 view No observ ation record ed. [email or web address] Not Available 2024 16:10:14 02/05/20 25 XR, hip + pelvi s, bilat eral No observ ation record ed. [email or web address] Not Available 2024 16:14:57 02/05/20 25 XR, hip, bilat eral No observ ation record ed. [email or web address] Not Available 2024 16:18:04 Result Notes None recorded. Problems Name Problem SNOMED Code Status Onset Date Resolution Date Notes Provider Name and Address Organization Details Recorded Time Pain of hip region 27531899 Active 025 Christophe García MD [address], [place], [address] , [facility] 5 15:16:49 Low back pain 443218181 Active [address], [place], [address] , [place] [facility] 5 12:47:33 Body mass index 40+ - severely obese 520547260 Active [address], [place], [address] , [facility], P 12:47:43 Problem Notes None recorded. Procedures Surgical History Date Name Laterality Status Provider Name and Address Organization Details Recorded Time [facility] wrist [facility] 10:16:04 [facility]04[facility] 10:16:15 Imaging Results None recorded. Procedure Notes None recorded. Medical Equipment None Reported. Allergies Allergen ID Allergen Name Allergen Category Reaction Reaction Severity Criticality Documentation Date Start Date Code Code System Note Provider Name and Address Organization Details Recorded Time 908076 Product containin g penicilli n (product) medicatio n Not available Not available Not available 02/04/2025 28436 8001 SNOMED [facility], P 10:13:52 785375 heparin, bovine Not available Not available Not available Not available 02/04/2025 81964 73 RxNorm Golva [facility], P 10:14:09 Medications Name Sig Start Date Stop Date Status Note LastModified by Organization Details LastModified Time medroxyprog esterone 10 mg tablet TAKE 1 TABLET BY MOUTH EVERY DAY FOR 10 DAYS active Not Available Not Available No t Available azithromyci n 250 mg tablet TAKE 2 TABLETS BY MOUTH TODAY, THEN TAKE 1 TABLET DAILY FOR 4 DAYS DIRECTED 02/04 completed Not Available Not Available Not Available fluconazole 150 mg tablet TAKE ONE TABLET NOW AND ONE TABLET IN 3 DAYS active Not Available Not Available No t Available benzonatate 200 mg capsule TAKE 1 CAPSULE BY MOUTH THREE TIMES A DAY FOR 5 DAYS active Not Available Not Available No t Available methocarbam ol 750 mg tablet TAKE 1 TABLET BY MOUTH 3 TIMES DAILY NEEDED FOR MUSCLE SPASMS active Not Available [...] Updated DateTime 02/04/2025 172.72 cm 44.1 kg/m2 613136.[address] [facility] 02/04/2025 10:14:17 Social History Question Answer Notes LastModified by Organizat [employer] Details LastModified Time Tobacco Smoking Status Never Smoker Johanny Song null, [place] [facility] 02/04/2025 10:14:57 Which Illicit Or Recreational Drugs Have You Used? Low Dose Gummies [email or web address] Information not available 02/04/2025 Sex: Unknown Functional Status Question Answer Note LastModified by Organizat [employer] Details LastModified Time Do you use any illicit or recreational drugs? Yes Information not available 02/04/2025 Do you or have you ever used any other forms of tobacco or nicotine? No [email or web address] Information not available 02/04/2025 What is your level of alcohol consumption? 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 Family History Relationship Description Onset Age of this Age Resolved Age Notes LastModified by Organization Details LastModified Time Mother Diabetes mellitus [email or web address] Not available 2024 10:15:33 Mother Heart disease Not available 2024 10:15:52 Father Diabetes mellitus [email or web address] Not available 2024 10:15:33 Father Heart disease [email or web address] Not available 2024 10:15:52 Sister Diabetes mellitus [email or web address] Not available 2024 10:15:33 Brother Diabetes mellitus [email or web address] Not available 2024 10:15:33 Medical History Condition Response Diabetes Y Rheumatoid Arthritis Y Hypothyroidism Y Gynecological HistoryNo gynecological history recorded. Obstetrics History GPAL:G 0 P 0 0 0 0 Past Encounters Encounter ID Performer Location Encounter Start Date Encounter Closed Date Diagnosis/Indication Diagnosis SNOMED-CT Code Diagnosis ICD10 Code Diagnosis IMO Codes Diagnosis Note [id number] Christophe García MD [address] [address] 02/04/2025 09:38:34 02/04/2025 10:47:34 Pain of hip region 13349981 M25.551 294921 History of rheumatoid arthritis 922017757 Z87.39 281868 Low back pain 073158200 M54.50 991259 Body mass index 40+ - severely obese 248944121 E66.01 4780870 Health Concerns Section Related Observation LastModified by Organization Detai ls LastModified Time None Recorded Concern Status LastModified by Organization Details LastModified Time None Recorded Payers Encounter Date Sequence Insurance Name Policy Number Policy Hampton Covered Member ID Hampton Member ID Guarantor Name 02/04/2025 1 [facility] [id number] 1 Liudmila Durán [id number] Liudmila Durán Notes Date Note Type Note Provider Name and Address Organization Details Recorded Time 02/04/2025 text/html 44-year-old female here for an evaluation of persistent right hip pain. She has been under the care of a pain management provider up in [place]. She tells me that she has had [...] some sort of lumbar injections with the lead based paint technician that did not provide any relief. She [...] NovoLog and Ozempic. 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 She uses low-dose medical marijuana and Gummies to sleep and relax from pain. Christophe García MD [address], [place], [address], [place] [facility] 02/04/2025 12:53:58 OBGyn Episode No OBEpisode recorded.
--- OUTSIDE RECORDS SUMMARY | 2025-03-20 06:39 | XMS_ITS | Data Portability ---
Author Organization [facility] Yvette Syed AONE [place] Address [address] [place] [address] Care Team Providers Care Turf Manager Name Role Phone DIVYA GAN Primary Care Provider DIVYA GAN Referring Provider [phone] Assessment Encounter Date Assessment Date Assessment LastModified [...] hip. She should continue treatment with her paint specialist for further evaluation and workup of her [...] I recommend she continue treatment with her paint specialist. At present we are not anticipating any [...] coccy x No observ ation record ed. [email or web address] Not Available 2024 16:08:37 02/05/20 25 XR, hip, bilat eral, 2 view No observ ation record ed. [email or web address] Not Available 2024 16:10:14 02/05/20 25 XR, hip + pelvi s, bilat eral No observ ation record ed. [email or web address] Not Available 2024 16:14:57 02/05/20 25 XR, hip, bilat eral No observ ation record ed. [email or web address] Not Available 2024 16:18:04 Result Notes None recorded. Problems Name Problem SNOMED Code Status Onset Date Resolution Date Notes Provider Name and Address Organization Details Recorded Time Pain of hip region 67039480 Active 025 Christophe García MD [address], [place], [address] , [facility] [place], [facility] 5 15:16:49 Low back pain 659022296 Active 025 Christophe García MD [address], [place], [address] , [place] [facility] [place], [facility] 5 12:47:33 Body mass index 40+ - severely obese 185947664 Active 025 Christophe García MD [address], [place], [address] , [facility], P 12:47:43 Problem Notes None recorded. Procedures Surgical History Date Name Laterality Status Provider Name and Address Organization Details Recorded Time arthroscopy of wrist [facility]/04/2025 10:16:04 Ankle/Foot Surgery [facility] [place] [facility] 02/04/2025 10:16:15 Imaging Results None recorded. Procedure Notes None recorded. Medical Equipment None Reported. Allergies Allergen ID Allergen Name Allergen Category Reaction Reaction Severity Criticality Documentation Date Start Date Code Code System Note Provider Name and Address Organization Details Recorded Time 157285 Product containin g penicilli n (product) medicatio n Not available Not available Not available 02/04/2025 91599 8001 SNOMED [place] [facility], P 10:13:52 881790 heparin, bovine Not available Not available Not available Not available 02/04/2025 30540 73 RxNorm [place] [facility], P 10:14:09 Medications Name Sig [...] Updated DateTime 02/04/2025 172.72 cm 44.1 kg/m2 536612.[address] [facility] [place], [facility] 02/04/2025 10:14:17 Social History Question Answer Notes LastModified by Organizat ion Details LastModified Time Tobacco Smoking Status Never Smoker Johanny Song null, [facility] [place] 02/04/2025 10:14:57 Which Illicit Or Recreational Drugs Have You Used? Low Dose Gummies [email or web address] Information not available 02/04/2025 Sex: Unknown Functional Status Question Answer Note LastModified by Organizat ion Details LastModified Time Do you use any illicit or recreational drugs? Yes [email or web address] Information not available 02/04/2025 Do you or have you ever used any other forms of tobacco or nicotine? No [email or web address] Information not available 02/04/2025 What is your level of alcohol consumption? 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 Family History Relationship Description Onset Age of this Age Resolved Age Notes LastModified by Organization Details LastModified Time Mother Diabetes mellitus [email or web address] Not available 2024 10:15:33 Mother Heart disease [email or web address] Not available 2024 10:15:52 Father Diabetes mellitus Not available 2024 10:15:33 Father Heart disease [email or web address] Not available 2024 10:15:52 Sister Diabetes mellitus Not available 2024 10:15:33 Brother Diabetes mellitus [email or web address] Not available 2024 10:15:33 Medical History Condition Response Diabetes Y Rheumatoid Arthritis Y Hypothyroidism Y Gynecological HistoryNo gynecological history recorded. Obstetrics History GPAL:G 0 P 0 0 0 0 Past Encounters Encounter ID Performer Location Encounter Start Date Encounter Closed Date Diagnosis/Indication Diagnosis SNOMED-CT Code Diagnosis ICD10 Code Diagnosis IMO Codes Diagnosis Note [id number] Christophe García MD [address] [place] [address] 02/04/2025 09:38:34 02/04/2025 10:47:34 Pain of hip region 76413791 M25.551 487584 History of rheumatoid arthritis 743443755 Z87.39 244978 Low back pain 483976404 M54.50 978856 Body mass index 40+ - severely obese 879104169 E66.01 8248401 Health Concerns Section Related Observation LastModified by Organization Detai ls LastModified Time None Recorded Concern Status LastModified by Organization Details LastModified Time None Recorded Advance Directives Directive None Recorded Payers Insurance Date Sequence Insurance Name Policy Number Policy Hampton Covered Member ID Hampton Member ID Guarantor Name 03/17/2025 1 [facility] [id number] 1 Liudmila Kate Conifer [id number] Liudmila Durán Notes Date Note Type Note Provider Name and Address Organization Details Recorded Time 02/04/2025 text/html 44-year-old female here for an evaluation of persistent right hip pain. She has been under the care of a pain management provider up in [place]. She tells me that she has had [...] some sort of lumbar injections with the paint specialist that did not provide any relief. 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 She uses low-dose medical marijuana and Gummies to sleep and relax from pain. Christophe García MD [address], [place], [address], [place] [facility] [place] 02/04/2025 12:53:58 OBGyn Episode No OBEpisode recorded.
--- OUTSIDE RECORDS SUMMARY | 2025-03-20 06:39 | XMS_ITS | Encounter Summary ---
Author Organization [facility] Address [address] [facility] [address] [place] [address] Phone Care Team Providers Care Unemployment Benefits Claims Taker Name Role Phone Oly Quintanilla MD Unavailable Maxi Moreno MD Primary Care Provider Kirk Pérez DO Unavailable Halley Back MD Unavailable Filemon East MD Unavailable Reason for Visit * Reason Onset Date Comments Cough 02/06/2024 Chills 02/06/2024 Ear Fullness 02/06/2024 Encounter Details Date Type Department Care Team (Late st Contact Info) Description 02/06/2024 Nurse Triage [facility] [address] [place] [address] [place] [address] Maxi Moreno MD [address] [place] [address], [address] [place] [address] [email or web address] Cough; Chills; Ear Fullness Social History Tobacco [...] high school, GED, job training, learning the Salvadorean language, technical skills, or developing parenting skills)? [...] advice?: No, wishes to speak to PCP [id number] Daisy Tracy RN Tue Feb 06, 2024 [...] either acetaminophen or ibuprofen. * They are flyp-adr-nklhwij (OTC) drugs that help treat both fever [...] ABX without ov to [facility] Rodriguez Reason for Disposition Continuous (nonstop) coughing interferes with work or school and no improvement using cough treatment per Care Advice Protocols used: [id number] * Marcelino Hopper - 02/06/2024 4:00 PM EDT Pt called in with a cough, chills, ear pressure, said their child is on antibiotics with similar symptoms. Please contact and advise. Central Support Weight Tester (Please do not reply to this user; this inbox is not monitored.) Thank you. documented in this encounter Plan of Treatment Upcoming Encounters Date Type Department Care Team (Late st Contact Info) Description 04/01/2025 3:50 PM EST Office Visit [facility] [address] [place] [address] [place] [id number] Carlos Willingham MD [address] [place] [address], [address] [place] [address] 04/08/2025 9:45 AM EST Office Visit [facility] [address] [place] [address] [place] [address] Macario Ray DO [address] [facility] [place] [address] 07/17/2025 4:00 PM EDT Office Visit [facility] [address] [place] [address] Kirk Pérez DO [address] [place] [address] 12/16/2025 2:30 PM EDT Office Visit [facility] [address] [place] [address] [place] [address] Maxi Moreno MD [address] [place] [address] documented as of this encounter Visit Diagnoses Not on filedocumented in this encounter Additional Health Concerns Assessment Noted Time A Body Mass Index follow-up plan has been documented for the patient 09/28/2023 3:19 PM EDT PHQ-2 Depression Total Score: 0 09/25/19 24 10:59 AM EDT documented as of this encounter Care Teams Unemployment Benefits Claims Taker Relationship Specialty Start Date End Date Maxi Moreno MD [address] [place] [address] PCP - General Internal Medicine 09/17/20 Oly Quintanilla MD [address] [place] [address] Historical LMR Provider 01/24/17 Kirk Pérez DO [address] [place] [address] Endocrinology 12/18/20 Halley Back MD [address] [place] [address] Rheumatology 12/18/20 Filemon East MD [address] [place] [address] [email or web address] [facility] 12/18/20 documented as of this encounter Additional Source Comments The information contained in this document represents components of the legal health record. It is not the complete legal health record.[facility]
--- OUTSIDE RECORDS SUMMARY | 2025-03-20 06:39 | XMS_ITS | Encounter Summary ---
Author Organization [facility] Address [address] [place] [address] [place] [address] Phone Care Team Providers Care Quarrying Manager Name Role Phone Oly Quintanilla MD Unavailable [phone] Maxi Moreno MD Primary Care Provider Kirk Pérez DO Unavailable Halley Back MD Unavailable Filemon East MD Unavailable Encounter Details Date Type Department Care Team (Late st Contact Info) Description 02/03/2025 Procedure Pass [facility], [address] [address] Social History Tobacco Use Types Packs/Day Years [...] high school, GED, job training, learning the Brazilian language, technical skills, or developing parenting skills)? [...] Visit [facility] [address] [place] [id number] Carlos Willingham MD [address] [facility], [address] [place] [address] 04/08/2025 9:45 AM EST Office Visit [facility] [address] [place] [address] [place] [id number] Macario Ray DO [address] [facility] [place] [address] 07/17/2025 4:00 PM EDT Office Visit [facility] [address] [place] [address] [place] [id number] Kirk Pérez DO [address] [place] [address] 12/16/2025 2:30 PM EDT Office Visit [facility] [address] [place] [id number] Maxi Moreno MD [address] [place] [address] documented as of this encounter Visit Diagnoses Not on filedocumented in this encounter Additional Health Concerns Assessment Noted Time A Body Mass Index follow-up plan has been documented for the patient 12/08/2024 1:02 PM EDT PHQ-2 Depression Total Score: 0 12/07/19 25 12:56 PM EDT documented as of this encounter Care Teams Quarrying Manager Relationship Specialty Start Date End Date Maxi Moreno MD [address] [place] [address], [address] [place] [address] PCP - General Internal Medicine 09/17/20 Oly Quintanilla MD [address] [place] [address], [address] [place] [address] [email or web address] Historical LMR Provider 01/24/17 Kirk Pérez DO [address] [place] [address] [email or web address] Endocrinology 12/18/20 Halley Back MD [address] [place] [address] Rheumatology 12/18/20 Filemon East MD [address] [place] [address] [email or web address] [facility] 12/18/20 documented as of this encounter Additional Source Comments The information contained in this document represents components of the legal health record. It is not the complete legal health record.[facility]
--- OUTSIDE RECORDS SUMMARY | 2025-03-20 06:39 | XMS_ITS | Clinical Summary ---
Author Organization [facility] Address [address] [place] [address] Care Team Providers Care Segregator Name Role Phone Roger Glasgow MD Primary Care Provider [phone] Social History Tobacco Use Types Packs/Day Years [...] to complete this topic Insurance * Guarantor: [id number] AMHERST Account Type Relation to Patient Date of Phone Billing Address Worker's Comp [address] [place] [address] [facility] [address] [place], [place] [address] WORKERS COMPENSATION Care Teams Segregator Relationship Specialty Start Date End Date Roger Glasgow MD [facility] [address] [place] [address] PCP - General Internal Medicine 10/19/12
--- OUTSIDE RECORDS SUMMARY | 2025-03-20 06:39 | XMS_ITS | Data Portability ---
Author Organization [place] - [facility] [address] Address [address] [place] [address] Care Team Providers Care Bridge Opener Name Role Phone DIVYA GAN Primary Care Provider Assessment No assessment recorded. Plan of Treatment Reminders Order Date Submit Date Provider Last Modified By Organization Details Last Modified Time Details Appointments None recorded. Lab None recorded. Referral None recorded. Procedures None recorded. Surgeries None recorded. Imaging None recorded. Medication Orders azithromyci n 250 mg tablet 2023 024 [facility]/Pharmacy #[id number], [address] [place] [address], [address], 4 15:24:20 benzonatate 200 mg capsule 2023 024 [facility]/Pharmacy #[id number], [address] [place], [address], 4 15:24:20 Patient TargetsNo targets recorded. Patient Instructions Encounter Date Encounter Id Patient Instructions Last Modified By Organization Details Last Modified Time 04/06/2024 [id number] pneumonia: care instructions [email or web address] Not available 04/06/2024 15:24:18 Reason for Referral None Reported. Problems Name Problem SNOMED Code Status Onset Date Resolution Date Notes Provider Name and Address Organization Details Recorded Time Diabetes mellitus 79356132 Active Fouzia Annie null, [place] - [facility] 4 15:04:54 Thyroiditis 70685218 Active Fouzia Annie null, [place] - [facility] 4 15:05:06 Rheumatoid arthritis 89050007 Active Fouzia Annie null, [place] - [facility] 4 15:05:29 Problem Notes None recorded. Medical Equipment None Reported. Allergies Allergen ID Allergen Name Allergen Category Reaction Reaction Severity Criticality Documentation Date Start Date Code Code System Note Provider Name and Address Organization Details Recorded Time 7911556 Product containin g penicilli n (product) medicatio n hives Not available Not available 04/06/2024 44289 8001 SNOMED Fouzia Valencia alphonso, [place] - [facility] 4 15:02:47 7060149 beef allergeni c extract food,medi cation vomiting Not available Not available 04/06/2024 57075 9 RxNorm Fouzia Hopeers null, [place] - [...] Not Available No t Available Dexcom G7 Trim Crew Supervisor MONITOR CONTINUOU SLY active Not Available Not Available No t Available Dexcom G7 Sensor device PLACE ON SKIN, REPLACE EVERY 10 DAYS active Not Available Not Available No t Available Vitals Date Recorded Body height Body mass index (BMI) Body weight Respiratory rate Body temperature Oxygen saturation Heart rate Systolic And Diastolic Provider Name and Address Organization Details Last Updated DateTime 4 175.26 cm 45.2 kg/m2 408609. 27 g 18 /min 98.3 [degF] 97 % 100 /min 138/80 mm[Hg] Fouzia LOUISE - [facility] 15:07:33 Social History Question Answer Notes LastModified by Organizat ion Details LastModified Time Tobacco Smoking Status Never Smoker DANI Louis [facility] 04/06/2024 15:06:02 Have You Had A Flu Shot This Season? Yes [email or web address] Information not available 04/06/2024 Have You Recently Traveled Abroad? No [email or web address] Information not available 04/06/2024 Sex: Unknown Functional Status Question Answer Note LastModified by Organizat ion Details LastModified Time Do you use any illicit or recreational drugs? No [email or web address] Information not available 04/06/2024 What is your level of alcohol consumption? None [email or web address] Information not available 04/06/2024 Mental Status None recorded. Family History Relationship Description Onset Age of this Age Resolved Age Notes LastModified by Organization Details LastModified Time Father No current problems or disability [email or web address] Not available 04/06 15:05:35 Mother No current problems or disability deceas ed [email or web address] Not available 04/06/2024 15:05:43 Medical History No medical history recorded. Gynecological History Statement/Question Response Date of LMP 03/23/2024 LMP Approximate Obstetrics History GPAL:G 0 P 0 0 0 0 Past Encounters Encounter ID Performer Location Encounter Start Date Encounter Closed Date Diagnosis/Indication Diagnosis SNOMED-CT Code Diagnosis ICD10 Code Diagnosis IMO Codes Diagnosis Note [id number] DANI Uribe [address] [place] [address] 04/06/2024 14:52:10 04/06/2024 15:24:52 Community acquired pneumonia 153431414 J18.9 Treatment is antibiotic s as prescribed [...] ID Hampton Member ID Guarantor Name 04/06/2024 1 [facility] [place] [id number] Liudmila Durán [id number] Liudmila Durán Notes Date Note Type Note Provider Name and Address Organization Details Recorded Time 04/06/2024 text/html 43 y/o female here with 2 weeks of cough, congestion, sore throat, worsening, lots of fatigue and body aches DANI Uribe [address] [place], [address], [place] - [facility] 04/06/2024 15:28:16 OBGyn Episode No OBEpisode recorded.
--- OUTSIDE RECORDS SUMMARY | 2025-03-20 06:39 | XMS_ITS | Encounter Summary ---
Author Organization [facility] Address [address] [place] [phone] Phone Care Team Providers Care Telecommunications Facility Examiner Name Role Phone Oly Quintanilla MD Unavailable [phone] Maxi Moreno MD Primary Care Provider [phone] Kirk Pérez DO Unavailable Halley Back MD Unavailable Filemon East MD Unavailable Encounter Details Date Type Department Care Team (Latest Contact Info) Description 09/19/2023 Transcribe Orders [facility] [place] [place] [address] Kirk Pérez DO [address] [place] [address] [email or web address] Type 2 diabetes mellitus without complication, with [...] high school, GED, job training, learning the Portuguese language, technical skills, or developing parenting skills)? [...] Visit [facility] [address] [place] [address] Carlos Willingham MD 22 [facility], [address] [place] [address] 04/08/2025 9:45 AM EST Office Visit [facility] [address] [place] [address] [place] [address] Macario Ray DO 4 [facility] [place] [address] 07/17/2025 4:00 PM EDT Office Visit [facility] [address] [place] [address] [place] [address] Kirk Pérez DO [address] [place] [address] 12/16/2025 2:30 PM EDT Office Visit [facility] [address] [place] [address] Maxi Moreno MD [address] [place] [address], [address] [place] [address] [email or web address] documented as of this encounter Results * Hemoglobin A1c (09/19/2023 4:19 PM EDT) HEMOGLOBIN A1C 5.8 4.3 - 5.8 % [facility] Blood 09/19/2023 4:19 PM EDT 09/19/2023 4:37 PM EDT Kirk Pérez DO LAB BLOOD BKR ORDERABLES Final R esult [facility] [address] [place] [address] * Comprehensive metabolic panel (09/19/2023 4:19 PM EDT) SODIUM 133 133 - 146 mmol/L [facility] POTASSIUM 3.9 3.3 - 5.1 mmol/L [facility] CHLORIDE 96 96 - 108 mmol/L [facility] CO2 23 21 - 35 mmol/L [facility] BUN 11 6 - 19 mg/dL [facility] CREATININE 0.50 0.5 - 1.5 mg/dL [facility] GLUCOSE 82 70 - 99 mg/dL [facility] ALBUMIN 4.4 3.9 - 4.8 g/dL [facility] TOTAL PROTEIN 7.5 6.5 - 8.0 g/dL [facility] CALCIUM 9.4 8.4 - 10.3 mg/dL [facility] ALKALINE PHOSPHATASE 103 39 - 117 U/L [facility] TOTAL BILIRUBIN 0.4 0.0 - 1.2 mg/dL [facility] AST 19 0 - 37 U/L [facility] ALT 21 0 - 40 U/L [facility] GLOBULIN 3.1 1 - 4.8 g/dL [facility] EGFR >120 >59 mL/min/1.7 3m2 [facility] Comment:Estimated glomerular filtration rate calculated using the CKD-EPI refit equation. ANION GAP 18 10 - 20 mmol/L [facility] Blood 09/19/2023 4:19 PM EDT 09/19/2023 4:37 PM EDT Kirk Pérez DO LAB BLOOD BKR ORDERABLES Final R esult [facility] [address] [place], [place] [id number] * (ABNORMAL) Lipid panel (09/19/2023 4:19 PM EDT) HDL 36 mg/dL [facility] Comment: Interpretation <40 mg/dL: Low HDL cholesterol (major risk factor for CHD) Greater than or equal to 60 mg/dL: High HDL cholesterol ( negative risk factor for CHD) HDL - cholesterol is affected by a number of factors, e.g. smoking, excerise, hormones, sex and age. CHOLESTEROL 146 0 - 240 mg/dL [facility] TRIGLYCERIDES 308(H) 30 - 160 mg/dL [facility] LDL 48(L) 50 - 129 mg/dL [facility] Comment: LDL levels in terms of risk for coronary heart disease: <100 mg/dL: Optimal 100-129 mg/dL: Near or above optimal 130-159 mg/dL: Borderline high 160-189 mg/dL: High >190 mg/dL: Very High CARDIAC RISK RATIO 4.1 3.3 - 4.4 C [facility] Blood 09/19/2023 4:19 PM EDT 09/19/2023 4:37 PM EDT us Kirk Pérez DO LAB BLOOD BKR ORDERABLES Final R esult [address] [address] documented in this encounter Visit Diagnoses Diagnosis Type 2 diabetes mellitus without complication, with long-term current use of insulin- Primary documented in this encounter Additional Health Concerns Assessment Noted Time A Body Mass Index follow-up plan has been documented for the patient 09/24/2022 1:51 PM EDT PHQ-2 Depression Total Score: 0 09/22/19 23 11:16 AM EDT documented as of this encounter Care Teams Telecommunications Facility Examiner Relationship Specialty Start Date End Date Maxi Moreno MD [address] [place] [id number] PCP - General Internal Medicine 09/17/20 Oly Quintanilla MD [address] [place] [address] Historical LMR Provider 01/24/17 Kirk Pérez DO [address] [place] [address] Endocrinology 12/18/20 Halley Back MD [address] [place] [address] Rheumatology 12/18/20 Filemon East MD [address] [place] [address] [email or web address] 12/18/20 documented as of this encounter Additional Source Comments The information contained in this document represents components of the legal health record. It is not the complete legal health record.[facility]
== END 2025-03-20 06:36 | disposition home or self-care (01) ==
LOC: CF 06:35
PROVIDERS: Visit Provider Internal Medicine
DX: M16.11 Unilateral primary osteoarthritis, right hip (principal); M25.551 Pain in right hip
CPT/HCPCS: 20610; J2003; J2795; J3301; Q9967

== ENCOUNTER 2025-03-20 11:56 | Outpatient (AMB) | payer OTHER, SELFPAY ==
[2025-03-20 12:19] VITALS: BP 128/78; PULSE 101; RESP 16; O2SAT 98
--- NOTE | 2025-03-20 12:19 | A.OFFVIS_ITS ---
Vital Signs 03/20/25 12:19 03/20/25 13:06 BP 128/78 140/88 H Blood Pressure Location Lt radial Lt radial Position Sitting Sitting Respiration 16 16 Pulse 101 H 80 Pulse Source Pulse Oximeter Pulse Oximeter Pulse Oximetry (%) 98 98 Oxygen Delivery Method Room Air Room Air Intake Visit Reasons: Right hip steroid injection/ Ativan Photonic Laboratory Technician Required: No Allergies Iodinated Contrast Media (Contrast Dye) Allergy (Intermediate, Verified 03/20/25 12:19) Hives penicillin G Allergy (Verified 03/20/25 12:19) Unknown beef derived (bovine) Adverse Reaction (Mild, Verified 03/20/25 12:19) Vomiting Medication List - Last Reconciled 03/20/25 by Marielos Gilbert LPN etanercept (Enbrel SureClick) 50 mg subcut QWEEK insulin glargine-yfgn (Semglee (insulin glargine-yfgn) Pen) units subcut levothyroxine 112 mcg PO QAM lidocaine 5% 1 patch topically up to 12 hours per day to affected area methocarbamol 750 mg PO TID PRN 30 days ondansetron 4 mg PO ONCE PRN rosuvastatin 5 mg PO DAILY semaglutide (Ozempic) 2 mg subcut QWEEK sodium hyaluronate (viscosup) (Euflexxa) mg intra-articular HPI HPI Right hip steroid injection/ Ativan: Details: Patient presents for scheduled procedure. Denies any recent cough, cold, infection, fever or other significant changes in medical history since last office visit. [facility] Medical History Left knee pain Cervical radiculopathy at C7 Obesity Sleep apnea Migraine JRA (juvenile rheumatoid arthritis) Hypothyroidism, unspecified Right knee pain On custodial drug therapy Surgical History Hx of cholecystectomy Hx of section H/O left wrist surgery S/P foot surgery, right Family History Sister Rheumatoid arthritis Mother No problems noted. 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 After informed written consent was obtained, the patient was placed in the lateral ducubitus position. The skin was prepped with Chloroprep, and draped in a sterile fashion. With the use of fluroscopy the hip joint was identified. With a 25-gauge 1.5 hypodermic needle 0.75% lidocaine was injected subcutaneously over the entry site. A 22-gauge 3.5 spinal needle was then advanced toward the junction of the joint capsule and femoral neck. Once in position, and after negative aspiration, 0.5-1 mL of Omnipaque was injected outlining the joint capsule followed by injection of 40mg triamcinolone mixed with 0.25% ropivacaine (3mL total). There was no evidence of paresthesias throughout needle placement. The stylet was replaced and then the needle was withdrawn. The patient tolerated the procedure well and there was no evidence of procedural complications. EBL: <1cc Coding 91073 - Large joint Procedure code (CPT) selection complete Assessment & Plan Assessment & Plan (1) Right hip pain: Code(s): M25.551 - Pain in right hip Category: Medical Plan Patient is status post right intra-articular hip injection. Patient tolerated procedure well and was discharged home in stable condition with discharge instructions. All questions were answered. We will follow-up via telephone or in clinic to assess response to therapy. A follow-up appointment was made during today's visit. Orders: Orders FL guidance in treatment room Today M16.11 - Unilateral primary osteoarthritis, right hip Coding Level of Care Code Procedure Only Diagnoses Right hip pain M25.551 CPT Codes Coding - 81931 Large joint: 19885 - Large joint ([id number])
[2025-03-20 13:06] VITALS: BP 140/88; PULSE 80; RESP 16; O2SAT 98
== END 2025-03-20 13:06 | disposition home or self-care (01) ==
LOC: HO.PMCPRC 11:56
PROVIDERS: PCP Internal Medicine; Visit Provider Internal Medicine
DX: M25.551 Pain in right hip (principal)
CPT/HCPCS: 20610; 77002

== ENCOUNTER 2025-03-26 14:28 | Outpatient (AMB) | payer OTHER, SELFPAY ==
--- NOTE | 2025-03-26 15:11 | A.OFFVIS_ITS ---
Vital Signs 03/26/25 15:18 Height 5 ft 9 in Weight 286 lb 6.087 oz BMI 42.3 BP 142/80 H Blood Pressure Location Rt radial Position Sitting Pulse 95 Pulse Source Pulse Oximeter Pulse Oximetry (%) 98 Oxygen Delivery Method Room Air Intake Visit Reasons: RA Intake Note: Patient presents today for RA follow up and test results. Patient stated she was recently diagnose with Andenomyosis. Community Education Coordinator Required: No Information Interpreted: non-clinical & clinical Accompanied by: Self / Same As Patient Allergies Iodinated Contrast Media (Contrast Dye) Allergy (Intermediate, Verified 03/26/25 15:16) Hives penicillin G Allergy (Verified 03/26/25 15:16) Unknown beef derived (bovine) Adverse Reaction (Mild, Verified 03/26/25 15:16) Vomiting Medication List - Last Reconciled 03/26/25 by Della Wolff MD diclofenac sodium 1% (Arthritis Pain (diclofenac)) 4 grams topical QID etanercept (Enbrel SureClick) 50 mg subcut QWEEK insulin glargine-yfgn (Semglee (insulin glargine-yfgn) Pen) units subcut levothyroxine 112 mcg PO QAM lidocaine 5% 1 patch topically up to 12 hours per day to affected area methocarbamol 750 mg PO TID PRN 30 days ondansetron 4 mg PO ONCE PRN rosuvastatin 5 mg PO DAILY semaglutide (Ozempic) 2 mg subcut QWEEK sodium hyaluronate (viscosup) (Euflexxa) mg intra-articular HPI Comments Details: Patient is a 43 y.o. female with hypothyroidism, DM, polyarticular OA, and DOROTEO/seronegative here today for follow up Interval History: Patient last seen 10/04/24 with me - On Enbrel 50mg SC every week - Still having back pain - Currently trying to lose weight with GLP1 - Having trouble with the Enbrel Mini, changed to Enbrel sure click Today - On Enbrel 50mg SC every week - Doing better on the sure click, no misfires or leaking of meds - Seeing pain management - Had a right hip injection 1 week ago, doing a bit better - Still being evaluated for her back pain as well Rheumatologic History: -ve RF -ve CCP dx age 5 Prednisone for years MTX ineffective Leflunomide partially effective DC due to GI upset weakness Nando ineffective Enbrel approx 2021 effective Current Rheumatology Medication(s): Enbrel 50mg SC every week PFS Medical History Left knee pain Cervical radiculopathy at C7 Obesity Sleep apnea Migraine JRA (juvenile rheumatoid arthritis) Hypothyroidism, unspecified Right knee pain On buttermaker continuous churn drug therapy Surgical History Hx of cholecystectomy Hx of section H/O left wrist surgery S/P foot surgery, right Family History Sister Rheumatoid arthritis Mother No problems noted. 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 Review of Systems Narrative Review of Systems Constitutional: Denies fever, chills, weight loss ENT: Denies vision changes, eye pain or eye redness, dental caries, dry mouth GI: Denies nausea, vomiting, diarrhea, abdominal pain, change in BM Pulm: Denies SOB, MUNOZ, hemoptysis, wheezing Cards: Denies chest pain, palpitations Skin: Denies Raynaud's, rash, nail changes, photosensitivity, CAD ADMINISTRATOR: Denies headaches, weakness, paresthesias, recurrent falls MSK: as per HPI All other systems reviewed and are unremarkable except noted above Physical Exam Exam Exam: Vital signs reviewed Physical Examination CONSTITUITIONAL Patient alert and cooperative. Well appearing and in no apparent painful distress MSK Hands * Right Hand: Able to make a fist. No swelling or tenderness to palpation of the MCPs, PIPs or DIPs. * Left Hand: Able to make a fist. No swelling or tenderness to palpation of the MCPs, PIPs or DIPs. Wrists * Right Wrist: Full ROM to flexion and extension. No swelling or TTP * Left Wrist: Full ROM to flexion and extension. No swelling or TTP Elbows * Right Elbow: Full ROM. No swelling or TTP. No TTP of the medial epicondyle. No TTP of the lateral epicondyle * Left Elbow: Full ROM. No swelling or TTP. No TTP of the medial epicondyle. No TTP of the lateral epicondyle Shoulders * Right shoulder: No swelling noted. No TTP of the AC joint. No TTP of the subacromial bursa. No TTP of the posterior shoulder * Left shoulder: No swelling noted. No TTP of the AC joint. No TTP of the subacromial bursa. No TTP of the posterior shoulder Knees * Right knee: Full ROM. No swelling noted. No TTP of the knee joint line. No TTP of pes anserine bursa * Left knee: Full ROM. No swelling noted. No TTP of the knee joint line. No TTP of pes anserine bursa. * Crepitations felt bilaterally Ankles * Right ankle: Good ankle dorsiflexion and plantar flexion. No swelling. No TTP of the ankle joint * Left ankle: Good ankle dorsiflexion and plantar flexion. No swelling. No TTP of the ankle joint Feet * Right foot: Negative squeeze test * Left foot: Negative squeeze test Tender points? * No tenderness to palpation of the bilateral trapezius, supraspinatus, anterior costochondral junctions, bilateral suboccipital muscle insertions SKIN Hematoma to the left thigh (not seen) Vital Signs: Last Vital Signs Pulse 95 03/26/25 15:18 BP 142/80 H 03/26/25 15:18 Pulse Ox 98 03/26/25 15:18 Oxygen Delivery Method Room Air 03/26/25 15:18 BMI result Body Mass Index 42.3 Results Reviewed Results Reviewed: 09/17/24 Rodrigez Victoria 03/24/25 Rodrigez Victoria WBC 8.04 Hb 12.4 Plt 285 BUN 11 13 Cr 0.60 0.6 eGFR 114 AST 21 24 ALT 21 25 ESR 5 CRP 8.6 H <3.0 Hep C Non reactive Hep B Non reactive Assessment & Plan Assessment & Plan (1) Rheumatoid arthritis: Comment: -ve RF -ve CCP dx age 5 Prednisone for years MTX ineffective Leflunomide partially effective DC due to GI upset weakness Humira ineffective Enbrel approx 2021 effective Code(s): M06.9 - Rheumatoid arthritis, unspecified Category: Medical Qualifiers: Rheumatoid arthritis location: multiple sites Rheumatoid factor presence: without rheumatoid factor Qualified Code(s): M06.09 - Rheumatoid arthritis without rheumatoid factor, multiple sites Plan: #Seronegative RA Patient is a 44 y.o. female with seronegative RA here today for follow up. No evidence of synovitis today Doing better with Enbrel pen injector. Plan - Enbrel sure click 50mg SC weekly - RTC 6 months - CBC, CMP, ESR, CRP (2) Chronic lower back pain: Code(s): M54.50 - Low back pain, unspecified; G89.29 - Other chronic pain Category: Medical Qualifiers: Back pain laterality: midline Sciatica presence: without sciatica Qualified Code(s): M54.50 - Low back pain, unspecified; G89.29 - Other chronic pain Plan: #Chronic lower back pain Continue follow up with pain management (3) Encounter for monitoring of etanercept therapy: Code(s): Z51.81 - Encounter for therapeutic drug level monitoring; Z79.620 - senior care (current) use of immunosuppressive biologic Plan: #Long-term Use of TNF Inhibitors: Etanercept Discussed with the patient the benefits and risks of TNF inhibitors for the management of the rheumatic condition Benefits include reduce pain, maintenance of remission and reduction of flares as well as progression of the disease Risks include injection sites/infusion reactions, serious infections (such as bacterial infections, opportunistic infections), malignancy, delaminating syndromes, autoimmune phenomena, CHF exacerbations, palmar plantar psoriasis and cytopenias Recommended rotating injection sites, and holding medication during and for up to 1 week after resolution of a febrile illness or open skin wound Plan I spent 30 minutes reviewing the record and labs, taking a history, examining the patient, discussing the treatment plan, ordering diagnostic work up and documenting in the medical record Orders: Orders Comprehensive Met. Panel 6 Months Z79.899 - Other buttermaker continuous churn (current) drug therapy C Reactive Protein 6 Months Z79.899 - Other buttermaker continuous churn (current) drug therapy Erythrocyte Sedimentation Rate 6 Months Z79.899 - Other buttermaker continuous churn (current) drug therapy Complete Blood Count Auto Diff 6 Months Z79.899 - Other buttermaker continuous churn (current) drug therapy Medications: New diclofenac sodium 1% (Arthritis Pain (diclofenac)) Apply to bilateral knees 4 grams topical QID 100 grams 5RF M17.0 - Bilat eral primary osteoarthritis of knee Refilled etanercept (Enbrel SureClick) 50 mg subcut QWEEK 4 mL 5RF M06.09 - Rheumatoid arthritis without rheumatoid factor, multiple sites Coding Level of Care Code Est Pt Level 4 (77338) Add On Problem Visit Only Diagnoses Rheumatoid arthritis of multiple sites with negative rheumatoid factor M06.09 Rheumatoid arthritis location: multiple sites Rheumatoid factor presence: without rheumatoid factor Chronic midline low back pain without sciatica M54.50; G89.29 Back pain laterality: midline Sciatica presence: without sciatica Encounter for monitoring of etanercept therapy Z51.81; Z79.620
[2025-03-26 15:18] VITALS: BP 142/80; PULSE 95; O2SAT 98; BMI 42.3
--- OUTSIDE RECORDS SUMMARY | 2025-03-26 19:21 | XMS_ITS | Encounter Summary ---
Author Organization [facility] Address [address] [facility] [address] [place] [phone] Phone Care Team Providers Care Criminal Justice Teacher Name Role Phone Oly Quintanilla MD Unavailable [phone] Maxi Moreno MD Primary Care Provider Kirk Pérez DO Unavailable Halley Back MD Unavailable Filemon East MD Unavailable Reason for Visit * Reason Onset Date Comments Cough 02/06/2024 Chills 02/06/2024 Ear Fullness 02/06/2024 Encounter Details Date Type Department Care Team (Late st Contact Info) Description 02/06/2024 Nurse Triage [facility] [address] [place] [address] [place] [address] Maxi Moreno MD [address] [place] [address], [address] [place] [address] [email or web address] Cough; Chills; Ear Fullness Social History Tobacco [...] high school, GED, job training, learning the Kyrgyz language, technical skills, or developing parenting skills)? [...] advice?: No, wishes to speak to PCP [id number] Daisy Tracy RN Tue Feb 06, 2024 [...] either acetaminophen or ibuprofen. * They are ujxb-dis-rwaowur (OTC) drugs that help treat both fever [...] ABX without ov to be sent to [facility] Dr. Rodriguez Reason for Disposition Continuous (nonstop) coughing interferes with work or school and no improvement using cough treatment per Care Advice Protocols used: [id number] * Marcelino Hopper - 02/06/2024 4:00 PM EDT Pt called in with a cough, chills, ear pressure, said their child is on antibiotics with similar symptoms. Please contact and advise. Central Support Senior Production Supervisor (Please do not reply to this user; this inbox is not monitored.) Thank you. documented in this encounter Plan of Treatment Upcoming Encounters Date Type Department Care Team (Late st Contact Info) Description 04/01/2025 3:50 PM EST Office Visit [facility] Obstetrics and Gynecology Clinic [address] [place] [address] Carlos Willingham MD [address] [place] [address], [address] [place] [address] 04/08/2025 9:45 AM EST Office Visit [facility] Orthopedics and Sports Medicine [address] [place] [address] Macario Ray DO [facility] [place] [address] 07/17/2025 4:00 PM EDT Office Visit [facility] Endocrinology Clinic [address] [place] [address] Kirk Pérez DO [address] [place] [address] 12/16/2025 2:30 PM EDT Office Visit [facility] [address] [place] [address] [place] [address] Maxi Moreno MD [address] [place] [address] documented as of this encounter Visit Diagnoses Not on filedocumented in this encounter Additional Health Concerns Assessment Noted Time A Body Mass Index follow-up plan has been documented for the patient 09/28/2023 3:19 PM EDT PHQ-2 Depression Total Score: 0 09/25/19 10:59 AM EDT documented as of this encounter Care Teams Criminal Justice Teacher Relationship Specialty Start Date End Date Maxi Moreno MD [address] [place] [address] PCP - General Internal Medicine 09/17/20 Oly Quintanilla MD [address] [place] [address] Historical LMR Provider 01/24/17 Kirk Pérez DO [address] [place] [address] Endocrinology 12/18/20 Halley Back MD [address] [place] [address] Rheumatology 12/18/20 Filemon East MD [address] [place] [address] [email or web address] Physical [facility] 12/18/20 documented as of this encounter Additional Source Comments The information contained in this document represents components of the legal health record. It is not the complete legal health record.[facility]
--- OUTSIDE RECORDS SUMMARY | 2025-03-26 19:22 | XMS_ITS | Clinical Summary ---
Author Organization [facility] Address [address] [place] [address] Care Team Providers Care Polysomnograph Tech Name Role Phone Roger Glasgow MD Primary Care Provider [phone] Social History Tobacco Use Types Packs/Day Years [...] to complete this topic Insurance * Guarantor: [id number] AMHERST Account Type Relation to Patient Date of Phone Billing Address Worker's Comp [address] [place] [address] ADMIN [facility] [address] [place], [place] [address] WORKERS COMPENSATION Care Teams Polysomnograph Tech Relationship Specialty Start Date End Date Roger Glasgow MD [facility] [address] [place] [address] PCP - General Internal Medicine 10/19/12
--- OUTSIDE RECORDS SUMMARY | 2025-03-26 19:22 | XMS_ITS | Encounter Summary ---
Author Organization [facility] Address [address] [place] [address] Phone Care Team Providers Care Pile Driver Engineer Name Role Phone Oly Quintanilla MD Unavailable [phone] Maxi Moreno MD Primary Care Provider [phone] Kirk Pérez DO Unavailable Halley Back MD Unavailable Filemon East MD Unavailable Encounter Details Date Type Department Care Team (Latest Contact Info) Description 09/19/2023 Transcribe Orders [facility] [address] [place] [address] Kirk Pérez DO [address] [place] [address] [email or web address] Type 2 diabetes mellitus [...] high school, GED, job training, learning the Ken[place] language, technical skills, or developing parenting skills)? [...] Description 04/01/2025 3:50 PM EST Office Visit [facility] Obstetrics and Gynecology Clinic [address] [place] [address] Carlos Willingham MD [address] [facility], [address] [place] [address] 04/08/2025 9:45 AM EST Office Visit [facility] Orthopedics and Sports Medicine Clinic [address] [place] [address] [place] [address] Macario Ray DO 4 [facility] [place] [address] 07/17/2025 4:00 PM EDT Office Visit [facility] Endocrinology Clinic [address] [place] [address] [place] [address] Kirk Pérez DO [address] [place] [address] 12/16/2025 2:30 PM EDT Office Visit [facility] [address] [place] [address] [place] [address] Maxi Moreno MD [address] [place] [address], 2[address] [place] [address] documented as of this encounter Results * Hemoglobin A1c (09/19/2023 4:19 PM EDT) Pathologist [facility] HEMOGLOBIN A1C 5.8 4.3 - 5.8 % [facility] Blood 09/19/2023 4:19 PM EDT 09/19/2023 4:37 PM EDT Kirk Pérez DO LAB BLOOD BKR ORDERABLES Final R esult [facility] [address] [place] [address] * Comprehensive metabolic panel (09/19/2023 4:19 PM EDT) SODIUM 133 133 - 146 mmol/L [facility] POTASSIUM 3.9 3.3 - 5.1 mmol/L [facility] CHLORIDE 96 96 - 108 mmol/L [facility] CO2 23 21 - 35 mmol/L [facility] BUN 11 6 - 19 mg/dL [facility] CREATININE 0.50 0.5 - 1.5 mg/dL [facility] GLUCOSE 82 70 - 99 mg/dL [facility] ALBUMIN 4.4 3.9 - 4.8 g/dL [facility] TOTAL PROTEIN 7.5 6.5 - 8.0 g/dL [facility] CALCIUM 9.4 8.4 - 10.3 mg/dL [facility] ALKALINE PHOSPHATASE 103 39 - 117 U/L [facility] TOTAL BILIRUBIN 0.4 0.0 - 1.2 mg/dL [facility] AST 19 0 - 37 U/L [facility] ALT 21 0 - 40 U/L [facility] GLOBULIN 3.1 1 - 4.8 g/dL [facility] EGFR >120 >59 mL/min/1.7 3m2 [facility] Comment:Estimated glomerular filtration rate calculated using the CKD-EPI refit equation. ANION GAP 18 10 - 20 mmol/L [facility] Blood 09/19/2023 4:19 PM EDT 09/19/2023 4:37 PM EDT Kirk Pérez DO LAB BLOOD BKR ORDERABLES Final R esult [facility] [address] [place] [address] * (ABNORMAL) Lipid panel (09/19/2023 4:19 PM EDT) HDL 36 mg/dL [facility] Comment: Interpretation <40 mg/dL: Low HDL cholesterol (major risk factor for CHD) Greater than or equal to 60 mg/dL: High HDL cholesterol ( negative risk factor for CHD) HDL - cholesterol is affected by a number of factors, e.g. smoking, excerise, hormones, sex and age. CHOLESTEROL 146 0 - 240 mg/dL [facility] TRIGLYCERIDES 308(H) 30 - 160 mg/dL [facility] LDL 48(L) 50 - 129 mg/dL [facility] Comment: LDL levels in terms of risk for coronary heart disease: <100 mg/dL: Optimal 100-129 mg/dL: Near or above optimal 130-159 mg/dL: Borderline high 160-189 mg/dL: High >190 mg/dL: Very High CARDIAC RISK RATIO 4.1 3.3 - 4.[address] [facility] Blood 09/19/2023 4:19 PM EDT 09/19/2023 4:37 PM EDT us Kirk Pérez DO LAB BLOOD BKR ORDERABLES Final R esult [address] [address] documented in this encounter Visit Diagnoses Diagnosis Type 2 diabetes mellitus without complication, with long-term current use of insulin- Primary documented in this encounter Additional Health Concerns Assessment Noted Time A Body Mass Index follow-up plan has been documented for the patient 09/24/2022 1:51 PM EDT PHQ-2 Depression Total Score: 0 09/22/19 23 11:16 AM EDT documented as of this encounter Care Teams Pile Driver Engineer Relationship Specialty Start Date End Date Maxi Moreno MD [address] [place] [address] PCP - General Internal Medicine 09/17/20 Oly Quintanilla MD [address] [place] [address] Historical LMR Provider 01/24/17 Kirk Pérez DO [address] [place] [address] Endocrinology 12/18/20 Halley Back MD [address] [place] [address] Rheumatology 12/18/20 Filemon East MD [address] [place] [address] [email or web address] Physical Medicine and Rehabilitation 12/18/20 documented as of this encounter Additional Source Comments The information contained in this document represents components of the legal health record. It is not the complete legal health record.[facility]
--- OUTSIDE RECORDS SUMMARY | 2025-03-26 19:22 | XMS_ITS | Encounter Summary ---
Author Organization [facility] Address [address] [place] [address] [place] [address] Phone Care Team Providers Care Emr Trainer Name Role Phone Oly Quintanilla MD Unavailable [phone] Maxi Moreno MD Primary Care Provider Kirk Pérez DO Unavailable Halley Back MD Unavailable Filemon East MD Unavailable Encounter Details Date Type Department Care Team (Late st Contact Info) Description 02/03/2025 Procedure [facility], [address] [address] Social History Tobacco Use Types Packs/Day Years [...] high school, GED, job training, learning the [place] language, technical skills, or developing parenting [...] Description 04/01/2025 3:50 PM EST Office Visit [facility] Obstetrics and Gynecology Clinic [address] [place] [address] [place] [address] Carlos Willingham MD 22 [facility], [address] [place] [address] 04/08/2025 9:45 AM EST Office Visit [facility] Orthopedics and Sports Medicine Clinic [address] [place] [address] [place] [address] Macario Ray DO 4 [facility] Orthopedics & [facility] Medicine, [facility] [place] [address] 07/17/2025 4:00 PM EDT Office Visit [facility] Endocrinology Clinic [address] [place] [address] [place] [address] Kirk Pérez DO [address] [place] [address] 12/16/2025 2:30 PM EDT Office Visit [facility] Primary Care Clinic [address] [place] [address] [place] [address] Maxi Moreno MD [address] [place] [address], [address] [place] [address] documented as of this encounter Visit Diagnoses Not on filedocumented in this encounter Additional Health Concerns Assessment Noted Time A Body Mass Index follow-up plan has been documented for the patient 12/08/2024 1:02 PM EDT PHQ-2 Depression Total Score: 0 12/07/19 12:56 PM EDT documented as of this encounter Care Teams Emr Trainer Relationship Specialty Start Date End Date Maxi Moreno MD [address] [place] [address], 2[address] [place] [address] PCP - General Internal Medicine 09/17/20 Oly Quintanilla MD [address] [place] [address], [address] [place] [address] [email or web address] Historical LMR Provider 01/24/17 Kirk Pérez DO [address] [place] [address] [email or web address] Endocrinology 12/18/20 Halley Back MD [address] [place] [address] Rheumatology 12/18/20 Filemon East MD [address] [place] [address] [email or web address] Physical Medicine and Rehabilitation 12/18/20 documented as of this encounter Additional Source Comments The information contained in this document represents components of the legal health record. It is not the complete legal health record.[facility]
--- OUTSIDE RECORDS SUMMARY | 2025-03-26 19:22 | XMS_ITS | Clinical Summary ---
Author Organization [employer] Address [address] [place] [address] 7 [place] [address] Care Team Providers Care Pile Driving Technician Name Role Phone Tres Mckee DMD Unavailable Unavailable Robe Alcazar [facility] Unavailable Allergies Active Allergy Reactions Criticality Noted [...] % creamIndication s:Risk for dental caries, high [place] with toothpaste for two minutes two times [...] Description 02/26/2025 4:15 PM EST Office Visit [facility] [address] [place] [phone] Minerva Haque LLD 01/03/2025 3:45 PM EDT Office Visit [facility] [address] [place] [phone] Robe Alcazar RDH from Last 3 Months Social History Tobacco [...] Description 05/27/2025 2:45 PM EST Office Visit [address] [phone] [place] [address] [address] 06/09/2025 4:15 PM EST Office Visit [address] [phone] Minerva Haque LLD [address] [place] [address] 08/26/2025 3:45 PM EDT Office Visit [address] [phone] [place] [address] [address] Health Maintenance Due Date Last Done Comments [...] Tobacco Screening 05/29/2025 05/29/2024 Mammogram 01/09/2026 01/10/2024, 1005/2023, 10/12/2021, Additional history [...] PERIODONTAL MAINTENANCE Routine 01/04/20 3:45 PM EDT PERIODIC ORAL EVALUATION - ESTABLISHED PATIENT Routine 10/02/2024 3:45 PM EDT BITEWINGS - 4 RADIOGRAPHIC IMAGES Routine 10/10/2023 2:00 PM EDT INTRAORAL - COMPLETE SERIES OF RADIOGRAPHIC IMAGES Routine 05/09/2022 8:30 AM EST Encounter for dental examination from Last 3 Months or Most Recently Relevant to Health Maintenance Insurance , [address] [place] [address] [facility] Care Teams Pile Driving Technician Relationship Specialty Start Date End Date Tres Mckee DMD Dentist 06/27/23 Robe Alcazar [address] [address] Dental Magnetic Grinder Operator 06/27/23
--- OUTSIDE RECORDS SUMMARY | 2025-03-26 19:22 | XMS_ITS | Clinical Summary ---
Author Organization [facility] Address [address] [place] [address] Phone Care Team Providers Care Charging Machine Operator Name Role Phone Oly Quintanilla [...] 2 diabetes mellitus with hyperglycemia, unspecified whether maintenance worker insulin use 1 each by Miscellaneous route [...] 01/17/20 23 Active blood-glucose meter,continuous (DEXCOM G7 TISSUE INSERTER) MiscIndications:T ype 2 diabetes mellitus without complication, [...] of Trulicity 0.75 mg weekly Lot # [id number] expiration 04/20/2022. Assessment & Plan (10/28/2020 12:20 [...] she has an appointment with the clinical nurse educator in approximately 2 weeks and if [...] also refer her to see the clinical nurse educator for nutrition counseling. She will follow in 4 weeks time. LDL levels have been in the reference range without any statins. Urine microalbumin creatinine ratio has been ordered. I will request a CBC. Rheumatoid arthritis 07/09/2020 Assessment & Plan (12/08/2024 1:02 PM EDT): Stable. Assessment & Plan (09/24/2022 1:50 PM EDT): This is managed by her area relief pilot. Use of steroids for this prompted her [...] - 03/12/2025 11:59 PM EST Hospital Encounter [address] [address] Carlos Willingham MD Discharge Disposition: Home or Self Care 02/10/2025 Orders Only [facility] [address] [place] [address] [place] [address] Margy Hankins MD 02/07/2025 10:50 AM EDT Office Visit [facility] [address] [place] [address] [place] [address] Margy Hankins MD Vaginitis and vulvovaginitis (Primary Dx) 02/05/2025 Telephone [facility] [address] [place] [address] [place] [address] Oxana Sol LPN Vaginitis 02/03/2025 Procedure Pass [address] [address] 02/03/2025 Telephone [facility] [address] [place] [address] [place] [address] Maxi Moreno MD Forms & Paperwork 02/03/2025 Telephone [facility] [address] [place] [address] [place] [address] Madison Locke LPN Follow-up 02/03/2025 Telephone [facility] [address] [place] [address] Macario Ray, DO ?? appt w/Dr Ray 01/30/2025 3:17 PM EDT - 01/30/2025 11:59 PM EDT Hospital Encounter [facility]Outside Imaging [address] [place] [address] Unknown, Unknown, Discharge Disposition: Home or Self Care 01/30/2025 11:20 AM EDT Office Visit [facility] [address] [place] [address] [place] [address] Carlos Willingham MD Lower abdominal pain (Primary Dx); Fibroids 01/30/2025 Ancillary Orders [facility],Outside Imaging [address] [place] [address] Unknown, MD Celine 01/30/2025 Telephone [facility] [address] [place] [address] Maxi Moreno MD Follow-up 01/29/2025 1:36 PM EDT - 01/29/2025 11:59 PM EDT Hospital Encounter [facility] - [address] [place] [address] Maxi Moreno MD Discharge Disposition: Home or Self Care 01/28/2025 Ancillary Orders [facility]Outside Imaging [address] [place] [address] Unknown, MD Celine 01/28/2025 Ancillary Orders [facility]Outside Imaging [address] [place] [address] Unknown, Unknown, 01/17/2025 Telephone [facility] [address] [place] [address] Nadia Loya Imaging order 01/17/2025 Orders Only [facility] [address] [place] [address] Celine, MD Celine 01/16/2025 - 01/16/2025 11:59 PM EDT Hospital Encounter [facility]Outside Imaging [address] [place] [address] Unknown, Unknown, Discharge Disposition: Home or Self Care 01/09/2025 4:00 PM EDT Office Visit [facility] [address] [place] [address] Kirk Pérez DO Type 2 diabetes mellitus without complication, with long-term current use of insulin (Primary Dx); Mixed hyperlipidemia from Last 3 Months Immunizations Immunization Administration [...] high school, GED, job training, learning the [place] language, technical skills, or developing parenting skills)? [...] Description 04/01/2025 3:50 PM EST Office Visit [facility] [address] [place] [address] [place] [address] Carlos Willingham MD [address] [facility], [address] [place] [address] 04/08/2025 9:45 AM EST Office Visit [facility] [address] [place] [address] [place] [address] Macario Ray DO [address] [place] [address] [facility] [place] [address] 07/17/2025 4:00 PM EDT Office Visit [facility] [address] [place] [address] Kirk Pérez DO [address] [place] [address] 12/16/2025 2:30 PM EDT Office Visit [facility] [address] [place] [address] [place] [address] Maxi Moreno MD [address] [facility], 2nd Floor VIRGIE [place] [address] [email or web address] Health Maintenance Due Date Last Done Comments [...] Additional history exists MAMMOGRAM 01/09/2026 01/10/2024, 08/2021, 07/28/2017 Adult Td,Tdap Booster 09/24/2033 09/25/2023 [...] Procedure Name Priority Date/Time Associated Diagnosis Comments SEDIMENTATION RATE (ESR) Routine 03/24/2025 3:54 PM EST Rheumatoid arthritis of multiple sites without rheumatoid factor COMPREHENSIVE METABOLIC PANEL (CMP) Routine 03/24/2025 3:54 PM EST Rheumatoid arthritis of multiple sites without rheumatoid factor C-REACTIVE PROTEIN (CRP) Routine 03/24/2025 3:54 PM EST Rheumatoid arthritis of multiple sites without rheumatoid factor MRI PELVIS (GYNECOLOGICAL) WITH AND WITHOUT CONTRAST [...] (NO INTERPRETATION) Routine 01/16/2025 12:00 AM EDT HEMOGLOBIN A1C Routine 12/21/2024 9:18 AM EDT [...] Relevant to Health Maintenance Results * (ABNORMAL) Comprehensive Metabolic Panel (CMP) (03/24/2025 3:54 PM EST) Sodium 136 136 - 145 mmol/L 03/24/2025 7:35 PM [facility] Potassium 3.5 3.4 - 5.1 mmol/L 03/24/2025 7:35 PM [facility] Chloride 101 98 - 107 mmol/L 03/24/2025 7:35 PM [facility] CO2 22 20 - 31 mmol/L 03/24/2025 7:35 PM [facility] BUN 13 6 - 23 mg/dL 03/24/2025 7:35 PM [facility] Creatinine 0.60 0.50 - 1.00 mg/dL 03/24/2025 7:35 PM [facility] Glucose 108(H) 70 - 99 mg/dL 03/24/2025 7:35 PM [facility] Calcium 9.1 8.5 - 10.5 mg/dL 03/24/2025 7:35 PM [facility] AST 24 <33 U/L 03/24/2025 7:35 PM [facility] ALT 25 <34 U/L 03/24/2025 7:35 PM [facility] Alkaline Phosphatase 69 40 - 130 U/L 03/24/2025 7:35 PM [facility] Bilirubin, Total 0.3 0.0 - 1.2 mg/dL 03/24/2025 7:35 PM [facility] Total Protein 7.0 6.4 - 8.3 g/dL 03/24/2025 7:35 PM [facility] Albumin 4.1 3.5 - 5.2 g/dL 03/24/2025 7:35 PM [facility] Globulin 2.9 1.9 - 4.1 g/dL 03/24/2025 7:35 PM [facility] eGFR 114 >59 mL/min/1.7 3m2 03/24/2025 7:35 PM [facility] Comment:Estimated glomerular filtration rate calculated using the CKD-EPI refit equation. Anion Gap 13 3 - 17 mmol/L 03/24/2025 7:35 PM [facility] Blood (Blood) Venipuncture / Unknown 03/24/2025 3:54 PM EST 03/24/2025 3:54 PM EST Della Wolff MD LAB BLOOD BKR O RDERABLES Final Result [address] [address] * Erythrocyte Sedimentation Rate (ESR) (03/24/2025 3:54 PM EST) ESR 5 0 - 20 mm/h 03/24/2025 7:10 PM [facility] Blood (Blood) Venipuncture / Unknown 03/24/2025 3:54 PM EST 03/24/2025 3:54 PM EST us Della Wolff MD LAB BLOOD BKR O RDERABLES Final Result Performing Organization Address [facility]/ZIP Co de Phone Number [address] [address] * C-Reactive Protein (CRP) (03/24/2025 3:54 PM EST) C Reactive Protein <3.0 <10.0 mg/L 03/24/2025 7:36 PM EST [facility] Comment:NOTE: This reference range is for the evaluation of inflammation. Order CRP, High Sensitivity for cardiac risk status evaluation. Blood (Blood) Venipuncture / Unknown 03/24/2025 3:54 PM EST 03/24/2025 3:54 PM EST Della Wolff MD LAB BLOOD BKR O RDERABLES Final Result Performing Organization Address [facility] Co de Phone Number [address] [address] * MRI PELVIS (GYNECOLOGICAL) WITH AND WITHOUT [...] clinician's provided indication for this examination in Psychiatric: * Uterine fibroid suspected; Ordered per radiology [...] represents a lipoma myolipoma. 2. Uterine adenomyosis. Carlos Willingham MD IMG MR PELVIS Final Result * CBC (03/03/2025 3:30 PM EST) WBC 9.89 4.00 - 11.00 K/uL 03/03/2025 6:56 PM [facility] RBC 4.40 4.00 - 5.20 M/uL 03/03/2025 6:56 PM [facility] Hemoglobin 12.7 12.0 - 16.0 g/dL 03/03/2025 6:56 PM [facility] Hematocrit 38.1 36.0 - 46.0 % 03/03/2025 6:56 PM [facility] MCV 86.6 80.0 - 100.0 fL 03/03/2025 6:56 PM [facility] MCH 28.9 27.0 - 31.0 pg 03/03/2025 6:56 PM [facility] MCHC 33.3 32.0 - 36.0 g/dL 03/03/2025 6:56 PM [facility] PLT 257 150 - 450 K/uL 03/03/2025 6:56 PM [facility] MPV 11.3 8.4 - 12.0 fL 03/03/2025 6:56 PM [facility] RDW-CV 13.2 11.5 - 14.5 % 03/03/2025 6:56 PM [facility] Absolute NRBC 0.00 <=0.00 K cells/uL 03/03/2025 6:56 PM [facility] NRBC 0.0 <=0.0 /100 WBCs 03/03/2025 6:56 PM [facility] Blood (Blood) Venipuncture / Unknown 03/03/2025 3:30 PM EST 03/03/2025 3:30 PM EST us Shama Shaikh MD LAB BLOOD BKR ORDERABLES Final Result [facility] [address] [place] [address] * (ABNORMAL) Vaginitis Panel (02/07/2025 12:14 PM EDT) Bacterial Vaginosis Negative Negative [facility] Freya Species Detected(A) Not Detected [facility] Freya glabrata Not Detected Not Detected [facility] Trichomonas Vaginalis Not Detected Not Detected [facility] Other (Vaginal) 02/07/2025 1 2:14 PM EDT 02/07/2025 3:18 PM EDT us Margy Hankins MD LAB GENERAL OR DERABLES Final Result [facility] [address] [place] [address] * CT Abdomen/Pelvis Outside (No Interpretation) (01/30/2025 3:17 PM EDT) Narrative Record, - 01/30/2025 3:17 PM EDT This study is for PACS storage only and not for interpretation. Procedure Note Record, 01/30/2025 This study is for PACS storage [...] clinician's provided indication for this examination in Psychiatric: Uterine fibroid suspected TECHNIQUE: Pelvic Ultrasound Transabdominal [...] clinician's provided indication for this examination in Psychiatric:Uterine fibroid suspected TECHNIQUE: Pelvic Ultrasound Transabdominal performed [...] A1C 5.3 4.3 - 5.8 % [facility] Blood 12/21/2024 9:18 AM EDT 12/21/2024 9:25 AM EDT us Kirk Pérez DO LAB BLOOD BKR ORDERABLES Final R esult [address] [address] * TSH with reflex (12/21/2024 9:16 AM EDT) TSH 2.55 0.27 - 4.20 uIU/mL [facility] Blood 12/21/2024 9:16 AM EDT 12/21/2024 9:24 AM EDT us Maxi Moreno MD LAB BLOOD BKR ORDERABLES Fi nal Result Performing Organization Address City/[facility]/ZIP Co de Phone Number [address] [address] * DIABETES EYE EXAM FOR RESULT ENTRY ONLY (11/26/2024 4:06 PM EDT) us Historical Provider HEALTH MAINTENANCE Edited Result - Final * Microalbumin/creatinine ratio, random urine (09/17/2024 3:56 PM EDT) URINE MICROALBUMIN <1.2 0 - 2.3 mg/dL [facility] URINE CREATININE 197 mg/dL [facility] MICROALB/CRE RATIO NOT CALCULATED 0 - 20 mg/g Cre [facility] Comment:due to Microalbumin <1.2 Urine (Urine) 09/17/2024 3:5 6 PM EDT 09/17/2024 4:03 PM EDT us Kirk Pérez DO LAB URINE ORDERABLES Final Resul t Performing Organization Address [facility]/ZIP Co de Phone Number [address] [address] * Hepatitis B core antibody, total (09/17/2024 3:43 PM EDT) HEP B CORE AB, TOT NON-REACTI VE NON-REACTI VE [facility] Blood 09/17/2024 3:43 PM EDT 09/17/2024 4:07 PM EDT us Della Wolff MD LAB BLOOD BKR O RDERABLES Final Result Performing Organization Address City/[facility]/ZIP Co de Phone Number [address] [address] * BI MAMMOGRAM SCREENING WITH TOMOSYNTHESIS WITH [...] SEE NARRATIVE - 09/23/2020 10:14 AM EDT [address] [address] Tufting Machine Operator: Fouzia Malave MD SUPERVISOR CONTACT LENS Cytology Report FINAL DIAGNOSIS A. PAP SMEAR [...] 52, 56, 58, 59, 66, 68) by [employer] Onclarity HR-HPV analysis. Clinical correlation is advised. This HPV test was performed at [facility], [address] [place] [address]. This test has been FDA approved for [facility]Path cervical cytology specimens. The accuracy and precision of this test for all other specimen sources has been verified in the Cytopathology Laboratory of the [facility] and has not been cleared or approved by the U.S. Food and Drug Administration. Clinical correlation is advised. CLINICAL HISTORY Date of Last Menstrual Period: 08-17-2020 Other Clinical Conditions: Screening Pap SPECIMEN SOURCE A: PAP SMEAR (SUREPATH) CE Patient Name: LIUDMILA DURÁN : 1980 (Age: 39) Sex: F Institution: [facility] Location: [facility] Date of Collection: 09/17/2020 Date of Reported: 09/23/2020 10:14 Results to: Oly Quintanilla MD, [facility], B us Oly A Dwight MAY CYTOLOGY ORDERABLES Final Res ult SEE NARRATIVE from Last 3 Months or Most Recently Relevant to Health Maintenance Insurance [facility] O O O O O O HMO O [employer] Care Teams Charging Machine Operator Relationship Specialty Start Date End Date Maxi Moreno MD [address] [place] [address], [address] [place] [id number] PCP - General Internal Medicine 09/17/20 Oly Quintanilla MD [address] [place] [address] Historical LMR Provider 01/24/17 Kirk Pérez DO [address] [place] [address] Endocrinology 12/18/20 Halley Back MD [address] [place] [address] Rheumatology 12/18/20 Filemon East MD [address] [place] [address] [email or web address] [employer] Physical Medicine and Rehabilitation 12/18/20 Additional Source Comments The information contained in this document represents components of the legal health record. It is not the complete legal health record.[facility]
--- OUTSIDE RECORDS SUMMARY | 2025-03-26 19:22 | XMS_ITS | Data Portability ---
Author Organization [place] [facility] Yvette Syed AONE [place] Address [address] [place] [address] Care Team Providers Care Floor Tech Name Role Phone DIVYA GAN Primary Care Provider [phone] DIVYA GAN Referring Provider Assessment Encounter Date [...] hip. She should continue treatment with her electrostatic paint operator for further evaluation and workup of her [...] I recommend she continue treatment with her electrostatic paint operator. At present we are not anticipating any [...] coccy x No observ ation record ed. [email or web address] Not Available 2024 16:08:37 02/05/20 25 XR, hip, bilat eral, 2 view No observ ation record ed. Not Available 2024 16:10:14 02/05/20 25 XR, hip + pelvi s, bilat eral No observ ation record ed. [email or web address] Not Available 2024 16:14:57 02/05/20 25 XR, hip, bilat eral No observ ation record ed. Not Available 2024 16:18:04 Result Notes None recorded. Problems Name Problem SNOMED Code Status Onset Date Resolution Date Notes Provider Name and Address Organization Details Recorded Time Pain of hip region 19220289 Active 025 Christophe García MD [address], [place], [address] , [place] [facility] [place], P 5 15:16:49 Low back pain 677935095 Active 025 Christophe García MD [address], [place], [address] , [place] [facility] [place], P 5 12:47:33 Body mass index 40+ - severely obese 920243111 Active 025 Christophe García MD [address], [place], [address] , [place] [facility], P 12:47:43 Problem Notes None recorded. Procedures Surgical History Date Name Laterality Status Provider Name and Address Organization Details Recorded Time [facility]roscopy of wrist [facility]04[facility] 10:16:04 Ankle/Foot Surgery [facility] [place] [facility] 02/04/2025 10:16:15 Imaging Results None recorded. Procedure Notes None recorded. Medical Equipment None Reported. Allergies Allergen ID Allergen Name Allergen Category Reaction Reaction Severity Criticality Documentation Date Start Date Code Code System Note Provider Name and Address Organization Details Recorded Time 214688 Product containin g penicilli n (product) medicatio n Not available Not available Not available 02/04/2025 63917 [address] [place] [address] [facility], P 10:13:52 948771 heparin, bovine Not available Not available Not available Not available 02/04/2025 97428 [address] Rx[address] [place] [address] [facility], P 10:14:09 Medications Name Sig Start Date [...] Updated DateTime 02/04/2025 172.72 cm 44.1 kg/m2 038506.[address] [place] [facility] [place], P 02/04/2025 10:14:17 Social History Question Answer Notes LastModified by Organizat ion Details LastModified Time Tobacco Smoking Status Never Smoker Johanny Song null, [place] [facility] [place], [facility] 02/04/2025 10:14:57 Which Illicit Or Recreational Drugs Have You Used? Low Dose Gummies [email or web address] Information not available 02/04/2025 Sex: Unknown Functional Status Question Answer Note LastModified by Organizat ion Details LastModified Time Do you use any illicit or recreational drugs? Yes Information not available 02/04/2025 Do you or have you ever used any other forms of tobacco or nicotine? No [email or web address] Information not available 02/04/2025 What is your level of alcohol consumption? 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 Family History Relationship Description Onset Age of this Age Resolved Age Notes LastModified by Organization Details LastModified Time Mother Diabetes mellitus [email or web address] Not available 2024 10:15:33 Mother Heart disease [email or web address] Not available 2024 10:15:52 Father Diabetes mellitus [email or web address] Not available 2024 10:15:33 Father Heart disease [email or web address] Not available 2024 10:15:52 Sister Diabetes mellitus [email or web address] Not available 2024 10:15:33 Brother Diabetes mellitus [email or web address] Not available 2024 10:15:33 Medical History Condition Response Diabetes Y Rheumatoid Arthritis Y Hypothyroidism Y Gynecological HistoryNo gynecological history recorded. Obstetrics History GPAL:G 0 P 0 0 0 0 Past Encounters Encounter ID Performer Location Encounter Start Date Encounter Closed Date Diagnosis/Indication Diagnosis SNOMED-CT Code Diagnosis ICD10 Code Diagnosis IMO Codes Diagnosis Note [id number] Christophe García MD [address] [place] [phone] 02/04/2025 09:38:34 02/04/2025 10:47:34 Pain of hip region 80453511 M25.551 792734 History of rheumatoid arthritis 718405987 Z87.39 354740 Low back pain 034866537 M54.50 178153 Body mass index 40+ - severely obese 416541599 E66.01 4019225 Health Concerns Section Related Observation LastModified by Organization Detai ls LastModified Time None Recorded Concern Status LastModified by Organization Details LastModified Time None Recorded Advance Directives Directive None Recorded Payers Insurance Date Sequence Insurance Name Policy Number Policy [place] Covered Member ID [place] Member ID Guarantor Name 03/17/2025 1 [facility] [id number] 1 Liudmila Kate Farber [id number] Liudmila Durán Notes Date Note Type Note Provider Name and Address Organization Details Recorded Time 02/04/2025 text/html 44-year-old female here for an evaluation of persistent right hip pain. She has been under the care of a pain management provider up in [place]. She tells me that she has had [...] some sort of lumbar injections with the electrostatic paint operator that did not provide any relief. She [...] and Ozempic. 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 She uses low-dose medical marijuana and Gummies to sleep and relax from pain. Christophe García MD [address], [place], [address], [place] [facility] [place], [facility] 02/04/2025 12:53:58 OBGyn Episode No OBEpisode recorded.
--- OUTSIDE RECORDS SUMMARY | 2025-03-26 19:22 | XMS_ITS | Continuity of Care Document ---
Author Organization [place] [facility] Yvette Syed [place] Address [address] [facility] [address] [place] [address] Care Team Providers Care Facilities Flight Check Pilot Name Role Phone DIVYA GAN Primary Care Provider DIVYA GAN Referring Provider [phone] Assessment Encounter Date Assessment Date Assessment LastModified [...] She should continue treatment with her paint maker for further evaluation and workup of her [...] recommend she continue treatment with her paint maker. At present we are not anticipating any [...] coccy x No observ ation record ed. [email or web address] Not Available 2024 16:08:37 02/05/20 25 XR, hip, bilat eral, 2 view No observ ation record ed. Not Available 2024 16:10:14 02/05/20 25 XR, hip + pelvi s, bilat eral No observ ation record ed. [email or web address] Not Available 2024 16:14:57 02/05/20 25 XR, hip, bilat eral No observ ation record ed. [email or web address] Not Available 2024 16:18:04 Result Notes None recorded. Problems Name Problem SNOMED Code Status Onset Date Resolution Date Notes Provider Name and Address Organization Details Recorded Time Pain of hip region 40157820 Active 025 Christophe García MD [address], [place], [address] , [place] [facility] [place], [facility] 5 15:16:49 Low back pain 607351745 Active [address], [place], [address] , [place] [facility] [place], [facility] 5 12:47:33 Body mass index 40+ - severely obese 021476251 Active [address], [place], [address] , [facility], P 12:47:43 Problem Notes None recorded. Procedures Surgical History Date Name Laterality Status Provider Name and Address Organization Details Recorded Time [facility]rosc[facility] of wrist [facility] 10:16:04 Ankle/Foot Surgery [facility] [place] 02/04/2025 10:16:15 Imaging Results None recorded. Procedure Notes None recorded. Medical Equipment None Reported. Allergies Allergen ID Allergen Name Allergen Category Reaction Reaction Severity Criticality Documentation Date Start Date Code Code System Note Provider Name and Address Organization Details Recorded Time 961367 Product containin g penicilli n (product) medicatio n Not available Not available Not available 02/04/2025 46755 8001 SNOMED [place] [facility], P 10:13:52 782816 heparin, bovine Not available Not available Not available Not available 02/04/2025 73394 73 RxNorm [place] [facility], P 10:14:09 Medications Name Sig Start [...] Updated DateTime 02/04/2025 172.72 cm 44.1 kg/m2 288584.[address] [place] [facility] [place], [facility] 02/04/2025 10:14:17 Social History Question Answer Notes LastModified by Organizat [facility] Details LastModified Time Tobacco Smoking Status Never Smoker Johanny Song null, [place] [facility] [place], [facility] 02/04/2025 10:14:57 Which Illicit Or Recreational Drugs Have You Used? Low Dose Gummies [email or web address] Information not available 02/04/2025 Sex: Unknown Functional Status Question Answer Note LastModified by Organizat [facility] Details LastModified Time Do you use any illicit or recreational drugs? Yes Information not available 02/04/2025 Do you or have you ever used any other forms of tobacco or nicotine? No [email or web address] Information not available 02/04/2025 What is your level of alcohol consumption? 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 Family History Relationship Description Onset Age of this Age Resolved Age Notes LastModified by Organization Details LastModified Time Mother Diabetes mellitus [email or web address] Not available 2024 10:15:33 Mother Heart disease [email or web address] Not available 2024 10:15:52 Father Diabetes mellitus [email or web address] Not available 2024 10:15:33 Father Heart disease [email or web address] Not available 2024 10:15:52 Sister Diabetes mellitus [email or web address] Not available 2024 10:15:33 Brother Diabetes mellitus Not available 2024 10:15:33 Medical History Condition Response Diabetes Y Rheumatoid Arthritis Y Hypothyroidism Y Gynecological HistoryNo gynecological history recorded. Obstetrics History GPAL:G 0 P 0 0 0 0 Past Encounters Encounter ID Performer Location Encounter Start Date Encounter Closed Date Diagnosis/Indication Diagnosis SNOMED-CT Code Diagnosis ICD10 Code Diagnosis IMO Codes Diagnosis Note [id number] Christophe García MD [address] [address] 02/04/2025 09:38:34 02/04/2025 10:47:34 Pain of hip region 08947216 M25.551 457393 History of rheumatoid arthritis 211516294 Z87.39 990879 Low back pain 867329756 M54.50 666919 Body mass index 40+ - severely obese 197274124 E66.01 9085643 Health Concerns Section Related Observation LastModified by Organization Detai ls LastModified Time None Recorded Concern Status LastModified by Organization Details LastModified Time None Recorded Payers Encounter Date Sequence Insurance Name Policy Number Policy [place] Covered Member ID [place] Member ID Guarantor Name 02/04/2025 1 [facility] [id number] 1 Liudmila Durán [id number] Liudmila Durán Notes Date Note Type Note Provider Name and Address Organization Details Recorded Time 02/04/2025 text/html 44-year-old female here for an evaluation of persistent right hip pain. She has been under the care of a pain management provider up in [place]. She tells me that she has had [...] sort of lumbar injections with the paint maker that did not provide any relief. She [...] NovoLog and Ozempic. 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 She uses low-dose medical marijuana and Gummies to sleep and relax from pain. Christophe García MD [address], [place], [address], [place] [facility], [facility] 02/04/2025 12:53:58 OBGyn Episode No OBEpisode recorded.
--- OUTSIDE RECORDS SUMMARY | 2025-03-26 19:22 | XMS_ITS | Encounter Summary ---
Author Organization [facility] Address [address] [place] [address] [place] [address] Phone Care Team Providers Care Manual Control Auger Press Operator Name Role Phone Oly Quintanilla MD Unavailable [phone] Maxi Moreno MD Primary Care Provider [phone] Kirk Pérez DO Unavailable Halley Back MD Unavailable Filemon East MD Unavailable [phone] Encounter Details Date Type Department Care Team (Late st Contact Info) Description 09/20/2021 Procedure Pass [address] [address] Social History Tobacco Use Types Packs/Day Years [...] high school, GED, job training, learning the [place] language, technical skills, or developing parenting skills)? [...] Description 04/01/2025 3:50 PM EST Office Visit [facility] [address] [place] [address] [place] [address] Carlos Willingham MD [address] [place] [address], [facility] [address] [place] [address] 04/08/2025 9:45 AM EST Office Visit [facility] [address] [place] [address] [place] [address] Macario Ray DO [address] [place] [address] [facility] [place] [address] 07/17/2025 4:00 PM EDT Office Visit [facility] [address] [place] [address] [place] [address] Kirk Pérez DO [address] [place] [address] 12/16/2025 2:30 PM EDT Office Visit [facility] [address] [place] [address] Maxi Moreno MD [address] [place] [address] documented as of this encounter Visit Diagnoses [...] documented as of this encounter Care Teams Manual Control Auger Press Operator Relationship Specialty Start Date End Date Maxi Moreno MD [address] [place] [address] PCP - General Internal Medicine 09/17/20 Oly Quintanilla MD [address] [place] [address] Historical LMR Provider 01/24/17 Kirk Pérez DO [address] [place] [address] Endocrinology 12/18/20 Halley Bakc MD [address] [place] [address] Rheumatology 12/18/20 Filemon East MD [address] [place] [address] [email or web address] [facility] 12/18/20 documented as of this encounter Additional Source Comments The information contained in this document represents components of the legal health record. It is not the complete legal health record.[facility]
--- OUTSIDE RECORDS SUMMARY | 2025-03-26 19:22 | XMS_ITS | Data Portability ---
Author Organization [place] [facility] [address] Address [address] [place] [address] Care Team Providers Care Region Manager Name Role Phone DIVYA GAN Primary Care Provider Assessment No assessment recorded. Plan of Treatment Reminders Order Date Submit Date Provider Last Modified By Organization Details Last Modified Time Details Appointments None recorded. Lab None recorded. Referral None recorded. Procedures None recorded. Surgeries None recorded. Imaging None recorded. Medication Orders azithromyci n 250 mg tablet 2023 024 [facility] #[id number], [address] [place] [address], [address], 4 15:24:20 benzonatate 200 mg capsule 2023 024 [facility][id number], [address] [place], [address], 4 15:24:20 Patient TargetsNo targets recorded. Patient Instructions Encounter Date Encounter Id Patient Instructions Last Modified By Organization Details Last Modified Time 04/06/2024 [id number] pneumonia: care instructions [email or web address] Not available 04/06/2024 15:24:18 Reason for Referral None Reported. Problems Name Problem SNOMED Code Status Onset Date Resolution Date Notes Provider Name and Address Organization Details Recorded Time Diabetes mellitus 62445904 Active Fouzia Annie null, [place] [facility] 4 15:04:54 Thyroiditis 33501973 Active Fouzia Annie null[place] [facility] 4 15:05:06 Rheumatoid arthritis 67452491 Active Fouzia Annie null[place] [facility] 4 15:05:29 Problem Notes None recorded. Medical Equipment None Reported. Allergies Allergen ID Allergen Name Allergen Category Reaction Reaction Severity Criticality Documentation Date Start Date Code Code System Note Provider Name and Address Organization Details Recorded Time 1485347 Product containin g penicilli n (product) medicatio n hives Not available Not available 04/06/2024 45526 8001 SNOMED Fouzia Valencia alphonso, [place] [facility] 4 15:02:47 7243548 beef allergeni c extract food,medi cation vomiting Not available Not available 04/06/2024 19643 9 RxNorm Fouzia Hopeers null, [place] [...] Not Available No t Available Dexcom G7 Customer Order Clerk MONITOR CONTINUOU SLY active Not Available [...] Updated DateTime 4 175.26 cm 45.2 kg/m2 551245. 27 g 18 /min 98.3 [degF] 97 % 100 /min 138/80 mm[Hg] Fouzia LOUISE - [facility] 15:07:33 Social History Question Answer Notes LastModified by Organizat ion Details LastModified Time Tobacco Smoking Status Never Smoker DANI Louis [facility] 04/06/2024 15:06:02 Have You Had A Flu Shot This Season? Yes Information not available 04/06/2024 Have You Recently Traveled Abroad? No [email or web address] Information not available 04/06/2024 Sex: Unknown Functional Status Question Answer Note LastModified by Organizat ion Details LastModified Time Do you use any illicit or recreational drugs? No [email or web address] Information not available 04/06/2024 What is your level of alcohol consumption? None Information not available 04/06/2024 Mental Status None recorded. Family History Relationship Description Onset Age of this Age Resolved Age Notes LastModified by Organization Details LastModified Time Father No current problems or disability Not available 04/06 15:05:35 Mother No current problems or disability deceas ed [email or web address] Not available 04/06/2024 15:05:43 Medical History No medical history recorded. Gynecological History Statement/Question Response Date of LMP 03/23/2024 LMP Approximate Obstetrics History GPAL:G 0 P 0 0 0 0 Past Encounters Encounter ID Performer Location Encounter Start Date Encounter Closed Date Diagnosis/Indication Diagnosis SNOMED-CT Code Diagnosis ICD10 Code Diagnosis IMO Codes Diagnosis Note [id number] DANI Uribe [address] [place] [address] 04/06/2024 14:52:10 04/06/2024 15:24:52 Community acquired pneumonia 601539198 J18.9 Treatment is antibiotic s as prescribed [...] ID Guarantor Name 04/06/2024 1 [facility] [id number] Liudmila Durán [id number] Liudmila Durán Notes Date Note Type Note Provider Name and Address Organization Details Recorded Time 04/06/2024 text/html 43 y/o female here with 2 weeks of cough, congestion, sore throat, worsening, lots of fatigue and body aches DANI Uribe [address] [place], [address], [place] [facility] 04/06/2024 15:28:16 OBGyn Episode No OBEpisode recorded.
--- OUTSIDE RECORDS SUMMARY | 2025-03-26 19:22 | XMS_ITS | Encounter Summary ---
Author Organization [facility] Address [address] [place] [address] [place] [address] Phone Care Team Providers Care Cook Dessert Name Role Phone Oly Quintanilla MD Unavailable [phone] Maxi Moreno MD Primary Care Provider Kirk Pérez DO Unavailable Halley Back MD Unavailable Filemon East MD Unavailable Encounter Details Date Type Department Care Team (Late st Contact Info) Description 09/25/2023 Procedure Pass [facility] - [address] [place] [address] Social History Tobacco Use Types Packs/Day Years [...] high school, GED, job training, learning the [place] language, technical skills, or developing parenting skills)? [...] Description 04/01/2025 3:50 PM EST Office Visit [facility]necology Clinic [address] [place] [address] Carlos Willingham MD [address] [facility] [address] [place] [address] 04/08/2025 9:45 AM EST Office Visit [facility] [address] [place] [address] [place] [address] Macario Ray DO [address] [facility], [place] [address] 07/17/2025 4:00 PM EDT Office Visit [facility] Endocrinology Clinic [address] [place] [address] [place] [address] Kirk Pérez DO [address] [place] [address] 12/16/2025 2:30 PM EDT Office Visit [facility] Primary Care Clinic [address] [place] [address] [place] [address] Maxi Moreno MD [address] [place] [address], [address] [place] [address] documented as of this encounter Visit Diagnoses Not on filedocumented in this encounter Additional Health Concerns Assessment Noted Time A Body Mass Index follow-up plan has been documented for the patient 09/28/2023 3:19 PM EDT PHQ-2 Depression Total Score: 0 09/25/19 10:59 AM EDT documented as of this encounter Care Teams Cook Dessert Relationship Specialty Start Date End Date Maxi Moreno MD [address] [place] [address], [address] [place] [address] PCP - General Internal Medicine 09/17/20 Oly Quintanilla MD [address] [place] [address], [address] [place] [address] [email or web address] Historical LMR Provider 01/24/17 Kirk Pérez DO [address] [place] [address] [email or web address] Endocrinology 12/18/20 Halley Back MD [address] [place] [address] Rheumatology 12/18/20 Filemon East MD [address] [place] [address] [email or web address] [facility] 12/18/20 documented as of this encounter Additional Source Comments The information contained in this document represents components of the legal health record. It is not the complete legal health record.[facility]
== END 2025-03-26 16:00 | disposition home or self-care (01) ==
LOC: HO.RHES 14:29
PROVIDERS: PCP Internal Medicine; Visit Provider Student in an Organized Health Care Education/Training Program
DX: M06.09 Rheumatoid arthritis without rheumatoid factor, multiple sites (principal); M54.50 Low back pain, unspecified; G89.29 Other chronic pain; Z51.81 Encounter for therapeutic drug level monitoring; Z79.620 Long term (current) use of immunosuppressive biologic
CPT/HCPCS: 99214; G2211